=== PATIENT | male | born 1955 | race Caucasian/White ===

== ENCOUNTER 2021-01-05 17:31 | Outpatient (RCR) | payer MEDICARE, OTHER, SELFPAY ==
[2021-01-05] MEDS: COVID-19 VACC, MRNA(PFIZER)/PF 30 MCG/0.3 ML SYRINGE IM (15:04)
[2021-01-26] MEDS: COVID-19 VACC, MRNA(PFIZER)/PF 30 MCG/0.3 ML SYRINGE IM (14:40)
== END 2021-04-06 23:59 ==
LOC: IMMUN 17:31
PROVIDERS: PCP Family Medicine; Visit Provider Family Medicine
DX: Z23 Encounter for immunization (principal)
CPT/HCPCS: 0001A; 0002A; 91300

== ENCOUNTER → 2022-05-11 | Outpatient (CLI) | payer MEDICARE, OTHER, SELFPAY ==
--- NOTE | 2022-05-11 13:57 | ECHOD_ITS ---
Version 2 Reason For Study: CAD Procedure This was a 2D Doppler, Color Flow transthoracic echocardiogram. Exam performed in department. Left Ventricle Normal LV size. Left ventricular systolic function is normal. The estimated ejection fraction is 60 %. Stage 1 diastolic dysfunction. No regional wall motion abnormalities noted. Right Ventricle Normal RV size. Normal systolic function. Atria Normal left atrium. Normal right atrium. Mitral Valve Normal mitral valve. Tricuspid Valve Normal tricuspid valve. Aortic Valve Normal aortic valve. Trisinus/trileaflet aortic valve. Pulmonic Valve Normal pulmonic valve. Great Vessels Normal aortic root. The pulmonary artery is normal size. Normal inferior vena cava. Pericardium/Pleural No pericardial effusion. MMode/2D Measurements & Calculations LVIDd: 3.9 cm IVSd: 1.0 cm LVOT diam: 2.1 cm LVIDs: 1.8 cm LVPWd: 1.4 cm LVOT area: 3.5 cm2 RVDd: 3.4 cm FS: 52.8 % CO(Teich): 5.2 l/min Ao root diam: 2.9 cm LAV(MOD-bp): 32.4 ml LAV(MOD-bp) Indexed: 17.0 ml/m2 LAV(MOD-sp2): 37.5 ml LAV(MOD-sp4): 26.6 ml CO(MOD-sp4): 3.0 l/min LVAd ap4: 21.5 cm2 LVAd ap2: 24.2 cm2 SV(MOD-sp4): 31.5 ml LVLd ap4: 7.0 cm LVLd ap2: 8.1 cm EDV(MOD-sp4): 57.4 ml EDV(MOD-sp2): 60.6 ml EDV(sp4-el): 56.0 ml EDV(sp2-el): 61.2 ml LVAs ap4: 13.5 cm2 LVAs ap2: 14.1 cm2 LVLs ap4: 6.3 cm LVLs ap2: 7.2 cm ESV(MOD-sp4): 25.9 ml ESV(MOD-sp2): 23.7 ml ESV(sp4-el): 24.9 ml ESV(sp2-el): 23.5 ml EF(MOD-sp4): 55.0 % EF(MOD-sp2): 60.9 % EF(sp4-el): 55.6 % SV(MOD-sp2): 36.9 ml SV(sp4-el): 31.1 ml LA A4 area: 13.1 cm2 LA dimension(2D): 3.4 cm RA A4 area: 11.6 cm2 Time Measurements MV dec time: 0.36 sec Doppler Measurements & Calculations MV E max castro: 66.6 cm/sec Lat Peak E' Castro: 8.5 cm/sec Med Peak E' Castro: 5.5 cm/sec MV A max castro: 86.9 cm/sec E/E' lat: 7.8 E/E' med: 12.0 MV E/A: 0.77 MV dec slope: 185.8 cm/sec2 Ao V2 max: 126.7 cm/sec LV V1 max: 85.1 cm/sec Ao max P.4 mmHg LV V1 max P.9 mmHg Ao V2 mean: 88.6 cm/sec LV V1 mean P.8 mmHg Ao mean P.6 mmHg LV V1 mean: 64.5 cm/sec Ao V2 VTI: 23.5 cm LV V1 VTI: 16.8 cm ALEXIS(I,D): 2.5 cm2 ALEXIS(V,D): 2.3 cm2 CO(LVOT): 5.3 l/min PA V2 max: 60.7 cm/sec SV(LVOT): 58.4 ml ECHO/Echo Complete Interpretation Summary Normal LV size. Left ventricular systolic function is normal. The estimated ejection fraction is 60 %. Stage 1 diastolic dysfunction. The global longitudinal strain is borderline abnormal. The global longitudinal strain = -15.9% (abnormal). Structurally normal valves. Ordering Physician: Alfred Jarrett Referring Physician: Abad Ramos M.D. Performed By: Makayla Wilson RDCS
== END | disposition home or self-care (01) ==
LOC: CVS 13:52
PROVIDERS: PCP Family Medicine; Visit Provider Internal Medicine Cardiovascular Disease
DX: Z01.810 Encounter for preprocedural cardiovascular examination (principal)
CPT/HCPCS: 93306

== ENCOUNTER → 2022-05-23 | Outpatient (CLI) | payer MEDICARE, OTHER, SELFPAY ==
--- NOTE | 2022-05-23 09:57 | STRESSREP_ITS ---
Stress Test Report Pharmacologic myocardial perfusion stress test. 67-year-old man for preoperative cardiac evaluation. Stress protocol: Resting EKG demonstrates normal sinus rhythm with a rate of 86 bpm normal intervals are noted resting blood pressure is 142/88 mmHg. 0.4 mg of regadenoson was infused per usual protocol followed by wrap intravenous saline f lush injection continuous EKG monitoring was performed. The maximum heart rate attained was 106 bpm which was 69% of max impacted heart rate the maximum workload was 1 metabolic equivalent. At rest there were no ST or T wave changes noted to suggest abnormal flow reserve and at peak infusion nonspecific ST changes were noted. The peak blood pressure was 142/88 mmHg. Myocardial perfusion protocol. 11.5 mCi of technetium 99m sestamibi was injected at rest. 0.4 mg of regadenoson was infused per usual protocol. At peak infusion 33.6 mCi of technetium 99m sestamibi was injected stress images were obtained stress and rest images were reconstructed and compared in the short axis vertical long and horizontal long axis. Gated images were also obtained. Perfusion SPECT analysis: Review of the stress images demonstrate normal uptake of tracer noted in all areas of the myocardium. The resting images similarly demonstrate normal uptake of tracer noted in all areas of the myocardium. No areas of reversibility are noted suggest ischemia. Gated SPECT analysis: The gated ejection fraction is 59%. Conclusion: Normal pharmacologic myocardial perfusion stress test. Preserved ejection fraction.
== END | disposition home or self-care (01) ==
LOC: CVS 06:04
PROVIDERS: PCP Family Medicine; Referring Provider Internal Medicine Cardiovascular Disease; Visit Provider Internal Medicine Cardiovascular Disease
DX: R06.00 Dyspnea, unspecified (principal); J84.10 Pulmonary fibrosis, unspecified; R09.02 Hypoxemia; I65.23 Occlusion and stenosis of bilateral carotid arteries; I10 Essential (primary) hypertension; E78.5 Hyperlipidemia, unspecified; I25.10 Atherosclerotic heart disease of native coronary artery without angina pectoris
CPT/HCPCS: 78452; 93017; A9500; J7120; A4216; J2785

== ENCOUNTER → 2023-01-31 | Outpatient (CLI) | payer MEDICARE, OTHER, SELFPAY ==
--- NOTE | 2023-01-31 14:48 | RAD_ITS ---
INDICATION: follow up RLL PNA, COPD, pulmonary fibrosis. -- Please compare with 2016 CXR gem thx EXAMINATION/TECHNIQUE: X-RAY - XR Chest 2 Views COMPARISON: None. FINDINGS: LINES/DEVICES: None. LUNGS: Bilateral mid and lower lung interstitial thickening with patchy right greater than left lower lung airspace opacification. Trace effusions. No consolidation, edema or effusion. No pneumothorax. MEDIASTINUM AND CARDIOVASCULAR STRUCTURES: Cardiac silhouette not enlarged.Mild aortic atherosclerosis. BONES AND SOFT TISSUES: Unremarkable. RAD/Chest PA and Lateral IMPRESSION: Patchy right greater than left basilar airspace opacities with trace effusions concerning for pneumonia, superimposed on chronic basilar interstitial coarsening Electronically Signed: Ze Iglesias MD at 5:01 EDT ,
== END | disposition home or self-care (01) ==
PROVIDERS: PCP Family Medicine; Visit Provider Internal Medicine
DX: J84.10 Pulmonary fibrosis, unspecified (principal); J44.9 Chronic obstructive pulmonary disease, unspecified
CPT/HCPCS: 71046

== ENCOUNTER → 2023-08-15 | Outpatient (CLI) | payer MEDICARE, OTHER, SELFPAY ==
--- NOTE | 2023-08-15 13:10 | CT_ITS ---
EXAM: CT CHEST, LUNG CANCER SCREENING WITHOUT INTRAVENOUS CONTRAST CLINICAL INDICATION: smoker TECHNIQUE: Helically acquired images were obtained of the chest without intravenous contrast using low dose (LDCT) lung cancer screening protocol. This CT exam was performed using one or more of the following dose reduction techniques: automated exposure control, adjustment of the mA and/or kV according to patient size, and/or use of iterative reconstruction technique. COMPARISON: No relevant prior studies available. FINDINGS: LUNGS AND PLEURAL SPACES: Extensive diffuse emphysematous changes of the lungs noted. Consolidation of the right lower lobe suggestive of pneumonia associated with small right pleural effusion. Follow-up recommended to exclude underlying neoplasm. Calcified granulomata noted within the right lower lobe. No mass. HEART: Normal. Heart size is normal. No pericardial effusion. No significant coronary artery calcifications. MEDIASTINUM: 3.2 cm subcarinal lymph node is highly suspicious for metastatic disease. Mildly enlarged AP window and paratracheal lymph nodes noted as well. Small calcified right hilar lymph nodes. Esophagus is unremarkable. No hiatal hernia. THYROID: Normal. No thyroid nodules or calcification. BONES/JOINTS: No suspicious lytic or blastic abnormality. VASCULATURE: Normal. Thoracic aorta is non-dilated. LYMPH NODES: See above. CT/Low Dose CT Lung Screening IMPRESSION: 1. Extensive consolidation of the right lower lobe which may represent pneumonia. Follow-up recommended to exclude underlying neoplasm. 2. Extensive pulmonary emphysema. 3. Small right pleural effusion. 4. 3.2 cm subcarinal mass highly suspicious for metastatic disease. Lung-RADS score: 0S - Incomplete. Additional clinically significant or potentially clinically significant findings are described. Additional lung cancer screening CT images are needed. Electronically Signed: Antoni Kate MD at 16:49 EDT ,
== END | disposition home or self-care (01) ==
LOC: CT 13:02
PROVIDERS: Referring Provider Nurse Practitioner Acute Care; Visit Provider Nurse Practitioner Acute Care
DX: F17.210 Nicotine dependence, cigarettes, uncomplicated (principal)
CPT/HCPCS: 71271

== ENCOUNTER → 2023-08-21 | Outpatient (CLI) | payer MEDICARE, OTHER, SELFPAY ==
[2023-08-21 13:05] LABS: Platelet Count 303 K/mm3 (150-450)
== END | disposition home or self-care (01) ==
LOC: LAB 12:15
PROVIDERS: Referring Provider Nurse Practitioner Acute Care; Visit Provider Nurse Practitioner Acute Care
DX: I48.91 Unspecified atrial fibrillation (principal); R06.00 Dyspnea, unspecified
CPT/HCPCS: 36415; 85049

== ENCOUNTER → 2023-08-24 | Outpatient (CLI) | payer MEDICARE, OTHER, SELFPAY ==
[2023-08-24 11:21] LABS: International Normalized Ratio 1.1; Prothrombin Time (Protime)PT. 13.9 SECONDS (11.7-14.9)
[2023-08-24 11:30] LABS: Partial Thromboplast Time 35.5 Seconds (24.1-36.2)
== END | disposition home or self-care (01) ==
PROVIDERS: Referring Provider Nurse Practitioner Acute Care; Visit Provider Nurse Practitioner Acute Care
DX: Z01.818 Encounter for other preprocedural examination (principal)
CPT/HCPCS: 85610; 85730

== ENCOUNTER 2023-10-09 08:36 | Outpatient (CLI) | payer MEDICARE, OTHER, SELFPAY ==
[2023-10-09] VITALS (18 sets, daily range): BP systolic 99–148; BP diastolic 53–89; PULSE 87–100; RESP 18–32; TEMP 36.8; O2SAT 90–100; BMI 27.3
--- NOTE | 2023-10-09 | IMM_PTH ---
PATHOLOGY RESULTS PATIENT: HAYDEN MOREIRA LOC: CT U#:[id number] AGE/SX: 68/M ROOM: RE10/09/[address]: HUSSAIN Lainez : 1955 BED: DIS: 10/09/2023 SPEC #: [id number] RECD: 10/09/23 14:22 STATUS: EDIE REQ #: [id number] CORET[place]: 10/09/23 00:[address]: Radha Martin NP DEPT: IMMUNOHISTOCHEMISTRY RECD BY: Juanita Chi ENTERED: 10/09/23 14:25 SP TYPE: IMMUNO OTHR DR: Dr. Ismael Joyce, HUSSAIN Jenkins Tissues: Right lower lobe of lung, NOS Procedures: RCC (add) NAPSIN A (add) CK20 (add) CK5-6 (add) CK7 (add) CK8 (add) HEP PAR (add) TTF1 (add) Pankeratin (initial) P40 (add) PSAP (add) PHYSICIAN & [address] [address] SPECIMEN INFORMATION: Tissue Source: Right lower lobe of lung Clinical Info: Right lower lobe of lung Specimen Number: [id number] CPT code: 02828, 93076 x10 METHODOLOGY: Deparaffinized sections of prefer/formalin-fixed tissue or PAP/DQ stained slides are incubated with monoclonal/polyclonal antibodies/oligonucleotide probes. Localization is made via biotin free immunoperoxidase method. Appropriate controls are performed and reacted as expected. Results on target cell population are indicated in the following table: RESULTS: ANTIBODY / CLONE RESULT AE1-3 (AE1/AE3/PCK26) positive CK7 (OV-TL12/30) positive CK8 (65rgknT55) positive CK20 (KS20.8) negative TTF-1 (8G7G3/1) positive Napsin A (Rabbit Polyclonal) positive HepPar (OCh1E5) negative RCC (PN-15) positive, focal and weak PSAP (PASE/4LJ) negative CK5-6 (D5 & 1684) positive, focal P40 (BC28) positive These tests were developed and their performance characteristics determined by [facility]. They may not have been cleared or approved by the U.[place]. Food and Drug Administration. The FDA has determined that such clearance or approval is not necessary. The above immunohistochemical/dualISH markers are ordered and reviewed by the Pathologist. INTERPRETATION: Right lower lobe of lung, CT-guided core biopsy: Non-small cell carcinoma, favor adenocarcinoma with focal squamoid features. See comment. SJ:meron 10/10/2023 Comment: IHC profile is consistent with lung primary. Case has been reviewed in consultation with Dr. Koroma who concurs with the above diagnosis. IDC:[email or web address]
--- NOTE | 2023-10-09 | ASPIGT_PTH ---
PATHOLOGY RESULTS PATIENT: HAYDEN MOREIRA LOC: NM U#:[id number] AGE/SX: 68/M ROOM: RE10/09/[address]: HUSSAIN Lainez : 1955 BED: DIS: 10/09/2023 SPEC #: [id number] RECD: 10/09/23 11:00 STATUS: EDIE ATUL #: [id number] CORET[place]: 10/09/23 00:[address]: Radha Martin NP DEPT: SURGICAL PATHOLOGY RECD BY: Sofia Mehta ENTERED: 10/09/23 11:01 SP TYPE: ASP RAD SATYA DR: DO Gisel Sher NP-C Tissues: Lung, NOS Procedures: FNA Specimen Adequacy Special Stain Group II Surgery Specimen Level IV Imprint (control) HEADER OPERATION: CT guided lung biopsy PRE-OP DIAGNOSIS: New right lung mass TISSUE SUBMITTED: Right lung biopsy MICROSCOPIC DIAGNOSIS Right lung, biopsy: Non-small cell carcinoma. See note and comment. Note: Immunohistochemistry ([id number]) supports the above diagnosis and favors adenocarcinoma with focal squamoid features. IHC profile is consistent with lung primary. MARTHA:meron 10/10/2023 COMMENT The specimen is evaluated at the time of biopsy by Dr. Hernandez. Immediate Evaluation = Malignant cells present derived from non-small cell carcinoma. Molecular studies on the tumor can be performed if clinically indicated. Please notify the laboratory if they are needed. Case has been reviewed in consultation with Dr. Koroma who concurs with the above diagnosis. IDC:AM MICROSCOPIC DESCRIPTION Slides are reviewed. GROSS DESCRIPTION Received in fixative is one container labeled with the patient's name and designated right lung biopsy. The specimen consists of multiple irregular fragments of light urena soft tissue that in aggregate measure 1.0 x 0.2 x 0.1 cm. The specimen is totally submitted in one cassette. Two touch imprints are prepared at the time of core biopsy. / MARTHA:meron 10/09/2023 TC:0 CPT: 14996, 23628 ADDENDUM ADDENDUM 11/23/2023 10:11 PD-L1 ([id number]) IMMUNOHISTOCHEMICAL ANALYSIS FROM [facility] RESULTS: Tumor proportion score: <1% / [facility] FROM [facility] RESULT SUMMARY: Abnormal DETECTED GENOMIC ALTERATIONS: Tier I: Variants of Strong Clinical Significance PIK3CA p.([id number]) Tier II: Variants of Potential Clinical Significance KRAS p.([id number]) IMMUNOTHERAPY BIOMARKERS: Tumor Mutation Pegram: Low (3.9 Mutations / MB) Microsatellite Instability: MSI Negative (0%) PERTINENT NEGATIVE RESULTS: The following genes are NEGATIVE for clinically relevant mutations. Mutational hotspots and surrounding exonic regions were interrogated for DNA level point mutations and indels (fusions not assayed). AKT1, ALK, ATR, BRAF, CHEK1, DDR2, EGFR, ERBB2, ERBB3, FGFR1, HRAS, MAP2K1, MET, NRAS, NTRK1, POLD1, POLE, ROS1, STK11, TERT, TP53 Please see complete report in e-chart or EMR
[2023-10-09 08:52] LABS: Platelet Count 388 K/mm3 (150-450)
[2023-10-09 09:01] LABS: Prothrombin Time (Protime)PT. 13.5 SECONDS (11.7-14.9)
[2023-10-09 09:02] LABS: Partial Thromboplast Time 40.8 Seconds (24.1-36.2)
--- OUTSIDE RECORDS SUMMARY | 2023-10-09 09:04 | XMS RPT_ITS | CCD ---
Author Name Unknown Address [address] [facility] [address] [place] [address] Organization [facility] Care Team Providers Care Hydro Station Operator Name Role Phone LELA MAYO, SANDY Villanueva Primary Care Physician [phone] Lynda Randle PT Unavailable Unavailable ISMAEL DAUGHERTY DO Primary Care Physician ISMAEL DAUGHERTY DO Attending Unavailable ISMAEL DAUGHERTY DO Primary Care Unavailable YESENIA BOND MD Attending Unavailable ISMAEL DAUGHERTY DO Primary Care Unavailable ISMAEL DAUGHERTY DO Attending Unavailable ISMAEL DAUGHERTY DO Primary Care Unavailable ISMAEL DAUGHERTY DO Primary Care Unavailable ALEXIS PATEL, JOSE Uriarte Admitting Unavail able SUKHJINDER MAYO FACP, HOOD Sexton Consulting Unavail able THU GARCIA Attending Unavailable SHALINI MAYO, DR ROCHA Attending Unavailab ISMAEL Purvis DO Primary Care Unavailable DR KAJAL ADORNO MD Consulting Unavailab TROY Moon DO Attending Unavailable ISMAEL DAUGHERTY DO Primary Care Unavailable ISMAEL DAUGHERTY DO Attending Unavailable ISMAEL DAUGHERTY DO Primary Care Unavailable ANDRY MAYO, DR RDZ Admitting Unavailab ISMAEL Purvis DO Primary Care Unavailable YENIFER MAIN MD Attending Unavailable LORNA REES MD Consulting Unavailable ISMAEL DAUGHERTY DO Attending Unavailable ISMAEL DAUGHERTY DO Primary Care Unavailable Allergies Allergy Classification Reported Allergen(s) Allergy Type Date of Onset Reaction(s) Facility (7 sources) Contrast media; Translations: [iodinated radiocontrast agents] Drug allergy Pruritic disorders (disorder), Bright red color (finding), Weal (disorder) [facility] Medications Current Medications Medication Drug Class(es) Dates Sig (Normalized) Sig (Original) 8 hr acetaminophen 650 mg extended release oral tablet (5 sources) Start: 06-21-2022 Tylenol 8 Hour 650 mg oral tablet, extended release Dose : 1,300 mg = 2 tab(s), Oral, q8h, PRN as needed for pain, # 24 tab(s), 0 Refill(s) Start Date: 06/21/22 Status: Ordered albuterol 0.83 mg/ml inhalation solution (1 source) beta2-Adrenergic Agonist Start: 07-02-2022 albuterol 2.5 mg/3 mL (0.083%) inhalation solution Dose : 2.5 mg = 3 mL, Inhalation, q6hRT, PRN Wheezing, # 300 mL, 6 Refill(s) Start Date: 07/02/22 Status: Ordered albuterol 0.833 mg/ml / ipratropium bromide 0.167 mg/ml inhalation solution (7 sources) Anticholinergic, beta2-Adrenergic Agonist Start: 04-13-2023 take 1 dose by inhalation four times daily as needed for wheezing albuterol-ipratro pium 2.5 mg-0.5 mg/3 mL inhalation solution Dose = 3 mL, Inhalation, QID, PRN as needed for shortness of breath or wheezing, # 180 mL, 0 Refill(s), Pharmacy: [facility] #[id number], 170.2, cm, 04/11/23 1:00:00 EDT, Height Start Date: 04/13/23 Status: Ordered Completed/Discontinued Medications Medication Drug Class(es) Dates Sig (Normalized) Sig (Original) predniSONE 10 mg oral tablet (3 sources) Start: 04-14-2023 End: 04-20-2023 take 1 tablet by mouth once daily prednisone 10mg tab (TAPER) Taper 40-20-10 mg x 2 days each dose, Oral, Daily, # 14 tab(s), 0 Refill(s), Pharmacy: [facility] #[id number], 170.2, cm, 04/11/23 1:00:00 EDT, Height Start Date: 04/14/23 Stop Date: 04/20/23 Status: Ordered Problems Problem Classification Problem Date Documented Date Episodic/Chronic Anxiety disorders (12 sources) Anxiety; Translations: [Anxiety disorder] 12-18-2020 Chronic Chronic obstructive pulmonary disease and bronchiectasis (15 sources) Chronic obstructive lung disease; Translations: [Pulmonary emphysema] 08-28-2019 Chronic Diseases of white blood cells (6 sources) Chronic neutrophilia; Translations: [Leukocytosis] 01-17-2023 Chronic Disorders of lipid metabolism (13 sources) Mixed hyperlipidemia; Translations: [Hyperlipidemia] 08-28-2019 Chronic Essential hypertension (14 sources) Hypertensive disorder; Translations: [Essential hypertension] Onset: 01-17-2023 10-05-2015 Chronic Fluid and electrolyte disorders (6 sources) Hyperkalemia 11-14-2022 Episodic Occlusion or stenosis of precerebral arteries (6 sources) Carotid artery stenosis; Translations: [Carotid artery occlusion] 01-14-2021 Chronic Other lower respiratory disease (7 sources) Interstitial lung disease; Translations: [Interstitial pulmonary disease, unspecified] 07-13-2022 Chronic Other lower respiratory disease (1 source) Fibrosis of lung; Translations: [Pulmonary fibrosis, unspecified] Chronic Other lower respiratory disease (1 source) H/O: respiratory disease; Translations: [Personal history of other diseases of the respiratory system] Episodic Other lower respiratory disease (6 sources) Hypoxia 11-10-2022 Episodic Other nutritional; endocrine; and metabolic disorders (6 sources) Overweight in adulthood with body mass index of 25 or more but less than 30 07-13-2022 Episodic Other upper respiratory disease (11 sources) Allergic rhinitis; Translations: [Allergic rhinitis, unspecified] 08-28-2019 Chronic Other upper respiratory infections (5 sources) Acute maxillary sinusitis 10-24-2019 Episodic Pneumonia (except that caused by tuberculosis or sexually transmitted disease) (4 sources) Pneumonia 07-29-2018 Episodic Respiratory failure; insufficiency; arrest (adult) (10 sources) Dependence on supplemental oxygen; Translations: [Rndfg-yq-hfujnsz respiratory failure] 08-24-2022 Chronic Screening and history of mental health and substance abuse codes (6 sources) Ex-smoker 07-13-2022 Episodic Spondylosis; intervertebral disc disorders; other back problems (2 sources) Neck pain 10-24-2019 Episodic Substance-related disorders (4 sources) Smoker 10-05-2015 Chronic Unclassified (8 sources) Drug therapy finding 06-21-2022 Unclassified (6 sources) Long-term current use of benzodiazepine 08-24-2022 Unclassified (3 sources) Patient encounter status 08-24-2022 Results Test Name Value Interpretation Reference Range Facil ity Vital Signs Date Time Vital Sign Value Performing Clinician Faci lity 04-13-2023 10:04-[address] Pressure Cuff Size DR KAJAL ADORNO MD [facility] 04-13-2023 10:04-[address] KAJAL ADORNO MD [address] [place] [address] 04-13-2023 10:04-[address] KAJAL ADORNO MD [address] [place] [address] 04-13-2023 10:04-0400 Body temperature 97.7 [degF] DR KAJAL ADORNO MD [address] [place] [address] 04-13-2023 10:04-0400 Diastolic Blood Pressure Non-Invasive [address] KAJAL ADORNO MD [address] [place] [address] 04-13-2023 10:04-0400 Heart rate 89 /min DR KAJAL ADORNO MD [address] [place] [address] 04-13-2023 10:04-0400 Reason For Taking VItal Signs DR KAJAL ADORNO MD [address] [place] [address] 04-13-2023 10:04-0400 Respiratory rate 20 /min DR KAJAL ADORNO MD [address] [place] [address] 04-13-2023 10:04-0400 Systolic Blood Pressure Non-Invasive [address] KAJAL ADORNO MD [address] [place] [address] 04-13-2023 09:56-0400 Heart rate 83 /min DR KAJAL ADORNO MD [address] [place] [address] 04-13-2023 09:56-0400 Respiratory rate 20 /min DR KAJAL ADORNO MD [address] [place] [address] 04-13-2023 06:41-0400 Blood Pressure Cuff Size DR KAJAL ADORNO MD [address] [place] [address] 04-13-2023 06:41-[address] KAJAL ADORNO MD [address] [place] [address] 04-13-2023 06:41-[address] KAJAL ADORNO MD [address] [place] [address] 04-13-2023 06:41-0400 Body temperature 97.7 [degF] DR KAJAL ADORNO MD [address] [place] [address] 04-13-2023 06:41-0400 Diastolic Blood Pressure Non-Invasive [address] KAJAL ADORNO MD [address] [place] [address] 04-13-2023 06:41-0400 Heart rate 78 /min DR KAJAL ADORNO MD [address] [place] [address] 04-13-2023 06:41-0400 Reason For Taking VItal Signs DR KAJAL ADORNO MD [address] [place] [address] 04-13-2023 06:41-0400 Respiratory rate 22 /min DR KAJAL ADORNO MD [address] [place] [address] 04-13-2023 06:41-0400 Systolic Blood Pressure Non-Invasive [address] KAJAL ADORNO MD [address] [place] [address] 04-13-2023 02:26-0400 Blood Pressure Cuff Size DR KAJAL ADORNO MD [address] [place] [address] 04-13-2023 02:26-[address] KAJAL ADORNO MD [address] [place] [address] 04-13-2023 02:26-[address] KAJAL ADORNO MD [address] [place] [address] 04-13-2023 02:26-0400 Body temperature 97.88 [degF] DR KAJAL ADORNO MD [address] [place] [address] 04-13-2023 02:26-0400 Diastolic Blood Pressure Non-Invasive [address] KAJAL ADORNO MD [address] [place] [address] 04-13-2023 02:26-0400 Heart rate 95 /min DR KAJAL ADORNO MD [address] [place] [address] 04-13-2023 02:26-0400 Reason For Taking VItal Signs DR KAJAL ADORNO MD [address] [place] [address] 04-13-2023 02:26-0400 Systolic Blood Pressure Non-Invasive [address] KAJAL ADORNO MD [facility] 04-12-2023 22:24-0400 Heart rate 105 /min DR KAJAL ADORNO MD [facility] 04-12-2023 18:33-0400 Heart rate 95 /min DR KAJAL ADORNO MD [facility] 04-11-2023 01:00-0400 Body height 170.[address] KAJAL ADORNO MD [facility] 04-11-2023 01:00-0400 Body weight 79.[address] KAJAL ADORNO MD [facility] 04-11-2023 01:00-0400 Body weight 27.44 kg/m2 DR KAJAL ADORNO MD [facility] 07-02-2022 15:42-0400 Body temperature 98.24 [degF] YESENIA BOND MD [facility] 07-02-2022 15:42-0400 Diastolic Blood Pressure NBP 81 1 YESENIA BOND MD [facility] 07-02-2022 15:42-0400 Heart rate 99 /min YESENIA BOND MD [facility] 07-02-2022 15:42-0400 Mean blood pressure 98 mm[Hg] YESENIA BOND MD [facility] 07-02-2022 15:42-0400 Reason For Taking VItal Signs YESENIA OBND MD [facility] 07-02-2022 15:42-0400 Respiratory rate 18 /min YESENIA BOND MD [facility] 07-02-2022 15:42-0400 Systolic Blood Pressure NBP 141 1 YESENIA BOND MD [facility] 07-02-2022 15:03-0400 Heart rate 94 /min YESENIA BOND MD [facility] 07-02-2022 15:03-0400 Respiratory rate 18 /min YESENIA BOND MD [facility] 07-02-2022 13:22-0400 Respiratory rate 16 /min YESENIA BOND MD [facility] 07-02-2022 11:20-0400 Body temperature 98.06 [degF] YESENIA BOND MD [facility] 07-02-2022 11:20-0400 Diastolic Blood Pressure NBP 87 1 YESENIA BOND MD [facility] 07-02-2022 11:20-0400 Heart rate 97 /min YESENIA BOND MD [facility] 07-02-2022 11:20-0400 Mean blood pressure 102 mm[Hg] YESENIA BOND MD [facility] 07-02-2022 11:20-0400 Reason For Taking VItal Signs YESENIA BOND MD [facility] 07-02-2022 11:20-0400 Systolic Blood Pressure NBP 137 1 YESENIA BOND MD [facility] 07-02-2022 11:06-0400 Heart rate 82 /min YESENIA BOND MD [facility] 07-02-2022 11:06-0400 Reason For Taking VItal Signs YESENIA BOND MD [facility] 07-02-2022 10:53-0400 Heart rate 82 /min YESENIA BOND MD [facility] 07-02-2022 06:50-0400 Heart rate 98 /min YESENIA BOND MD [facility] 07-02-2022 04:32-0400 Body temperature 97.7 [degF] YESENIA BOND MD [facility] 07-02-2022 04:32-0400 Diastolic Blood Pressure NBP 86 1 YESENIA BOND MD [facility] 07-02-2022 04:32-0400 Mean blood pressure 108 mm[Hg] YESENIA BOND MD [facility] 07-02-2022 04:32-0400 Systolic Blood Pressure NBP 163 1 YESENIA BOND MD [facility] 06-30-2022 21:16-0400 Diastolic blood pressure 66 mm[Hg] YESENIA BOND MD [facility] 06-30-2022 21:16-0400 Mean blood pressure 95 mm[Hg] YESENIA BOND MD [facility] 06-30-2022 21:16-0400 Systolic blood pressure 154 mm[Hg] YESENIA BOND MD [facility] 06-30-2022 20:30-0400 Diastolic blood pressure 69 mm[Hg] YESENIA BOND MD [facility] 06-30-2022 20:30-0400 Mean blood pressure 99 mm[Hg] YESENIA BOND MD [facility] 06-30-2022 20:30-0400 Systolic blood pressure 157 mm[Hg] YESENIA BOND MD [facility] 06-30-2022 20:00-0400 Mean blood pressure 118 mm[Hg] YESENIA BOND MD [facility] 06-30-2022 19:42-0400 Diastolic blood pressure 84 mm[Hg] YESENIA BOND MD [facility] 06-30-2022 19:42-0400 Systolic blood pressure 175 mm[Hg] YESENIA BOND MD [facility] 06-30-2022 17:05-0400 Diastolic blood pressure 83 mm[Hg] YESENIA BOND MD [facility] 06-30-2022 17:05-0400 Mean blood pressure 112 mm[Hg] YESENIA BOND MD [facility] 06-30-2022 17:05-0400 Systolic blood pressure 171 mm[Hg] YESENIA BOND MD [facility] 06-30-2022 11:50-0400 Body temperature 99.05 [degF] YESENIA BOND MD [facility] 06-30-2022 11:45-0400 Body temperature 99.03 [degF] YESENIA BOND MD [facility] 06-30-2022 11:40-0400 Body temperature 99.01 [degF] YESENIA BOND MD [facility] 06-30-2022 10:38-0400 SaO2% (BldA) [Mass fraction] 99.3 % YESENIA BOND MD [facility] 06-30-2022 07:55-0400 Body height 170.2 cm YESENIA BOND MD [facility] 06-30-2022 07:55-0400 Body weight 77.2 kg YESENIA BOND MD [facility] 06-30-2022 07:55-0400 Body weight 26.65 kg/m2 YESENIA BOND MD [facility] 06-30-2022 07:55-0400 diastolic 83 mm[Hg] YESENIA BOND MD [facility] 06-30-2022 07:55-0400 systolic 158 mm[Hg] YESENIA BOND MD [facility] 06-21-2022 12:04-0400 Body height 170.2 cm YESENIA BOND MD [facility] 06-21-2022 12:04-0400 Body temperature 98.06 [degF] YESENIA BOND MD [facility] 06-21-2022 12:04-0400 Body weight 78.5 kg YESENIA BOND MD [facility] 06-21-2022 12:04-0400 Body weight 27.1 kg/m2 YESENIA BOND MD [facility] 06-21-2022 12:04-0400 diastolic 87 mm[Hg] YESENIA BOND MD [facility] 06-21-2022 12:04-0400 Heart rate 97 /min YESENIA BOND MD [facility] 06-21-2022 12:04-0400 systolic 151 mm[Hg] YESENIA BOND MD [facility] Encounters Encounter Date Encounter Type Care Provider Facility Start: 09-09-2023 End: 09-09-2023 Emergency department patient visit TROY BENITES DO Facility:B Start: 07-12-2023 End: 07-13-2023 ambulatory ISMAEL DAUGHERTY DO Facility:B Start: 07-12-2023 End: 07-12-2023 Patient encounter procedure ISMAEL DAUGHERTY DO [facility] Start: 07-12-2023 End: 07-12-2023 Well adult monitoring check done ISMAEL DAUGHERTY DO [facility] Start: 07-10-2023 End: 07-11-2023 ambulatory YESENIA BOND MD Facility:B Start: 07-10-2023 End: 07-10-2023 Patient encounter procedure YESENIA BOND MD [facility] Start: 04-11-2023 End: 04-13-2023 Evaluation and management of inpatient DR KAJAL ADORNO MD Facility:A Start: 04-10-2023 End: 04-13-2023 Evaluation and management of inpatient DR KAJAL ADORNO MD [facility] Start: 04-10-2023 End: 04-11-2023 Emergency department patient visit DR JOSEFINA LOYA MD Facility:B Start: 01-24-2023 End: 01-25-2023 ambulatory ISMAEL E DAUGHERTY DO Facility:B Start: 01-24-2023 End: 01-24-2023 Patient encounter procedure ISMAEL E DAUGHERTY DO [facility] Start: 01-17-2023 End: 01-22-2023 ambulatory ISMAEL E DAUGHERTY DO Facility:B Start: 01-17-2023 End: 01-21-2023 Outreach Lab ISMAEL E DAUGHERTY DO [facility] Start: 01-10-2023 End: 01-11-2023 ambulatory ISMAEL E DAUGHERTY DO Facility:B Start: 01-10-2023 End: 01-10-2023 Patient encounter procedure ISMAEL E DAUGHERTY DO [facility] Start: 11-09-2022 End: 11-15-2022 Evaluation and management of inpatient ISMAEL E DAUGHERTY DO Facility:B Start: 06-30-2022 End: 07-02-2022 Evaluation and management of inpatient YESENIA BOND MD [facility] Start: 06-21-2022 End: 06-21-2022 Admission to [facility] YESENIA BOND MD [facility] Start: 01-03-2022 End: 01-03-2022 Patient encounter procedure SANDY VOGEL MD [facility] Start: 12-28-2021 End: 12-28-2021 Patient encounter procedure SANDY VOGEL MD [facility] Procedures Date Procedure Procedure Detail Performing Clinician Carotid artery struc ture (body structure) ISMAEL DAUGHERTY DO History of carotid endarterectomy History of left-sided carotid endarterectomy ISMAEL DAUGHERTY DO None (qualifier value) ANNEL VOGEL MD Immunizations Immunization Date Immunization Notes Care Provider [facility] 05-19-2023 tetanus toxoid, redu morena diphtheria toxoid, and acellular pertussis vaccine, adsorbed YESENIA BOND MD [facility] 05-19-2023 zoster vaccine recombinant YESENIA BOND MD [facility] 08-18-2022 influenza virus vacc ine, unspecified formulation [facility] DO [facility] 06-16-2022 pneumococcal polysaccharide vaccine, 23 valent YESENIA BOND MD [facility] 08-26-2021 influenza virus vacc ine, unspecified formulation YESENIA BOND MD [facility] 07-28-2021 SARS-CoV-2 mRNA (tozinameran) vaccine SANDY VOGEL MD [facility] 05-27-2021 pneumococcal conjuga te vaccine, 13 valent SANDY VOGEL MD [facility] 01-26-2021 SARS-CoV-2 mRNA (tozinameran) vaccine SANDY VOGEL MD [facility] 01-05-2021 SARS-CoV-2 mRNA (rafiqzinammeaghan) vaccine SANDY VOGEL MD [facility] Payers Date Payer Category Payer Medicare [id number] 2022 Unknown [id number] 1955 Unknown [id number] 2.16.8 [id number] 1955 Unknown [id number] 2.16.8 [id number] 1954 Unknown [id number] 2.16.8 [id number] 1954 Unknown [id number] 2.16.8 [id number] 1954 Unknown [id number] 2.16.8 [id number] 1954 Unknown [id number] 2.16.8 [id number] 1954 Unknown [id number] 2.16.8 [id number] 1954 Unknown [id number] 2.16.8 [id number] 1954 Unknown [id number] 2.16.8 [id number] Social History Date Type Detail Facility Start: 06-04-2021 End: 06-21-2022 Ex-smoker (finding) [facility] Sex Assigned At Male [facility] Tobacco smoking status Smokeless tobacco user within last 30 days [facility] Functional Status Date Assessment Result Facility 04-13-2023 Functional Status Identified as high risk, Bed alert on, Door open, Room check performed [facility] 04-13-2023 Functional Status [facility] 04-13-2023 Functional Status [facility] 04-12-2023 Functional Status Skin Care Prev entative Intervention(s) heel(s)s elevated [facility] 04-12-2023 Functional Status Dinner Percent 100 [facility] 04-12-2023 Functional Status [facility] 04-12-2023 Functional Status [facility] 04-12-2023 Functional Status Done [facility] 04-11-2023 Functional Status [facility] 04-11-2023 Functional Status [facility] 04-11-2023 Functional Status [facility] b ed [facility] 04-11-2023 Functional Status Split level home [facility] 04-11-2023 Functional Status Sensory Deficits None A [facility] 07-02-2022 Functional Status Non-Slip footw ear, Room check performed [facility] 07-02-2022 Functional Status [facility] 07-02-2022 Functional Status [facility] 07-02-2022 Functional Status [facility] 07-01-2022 Functional Status [facility] 07-01-2022 Functional Status 100 [facility] 07-01-2022 Functional Status Ambulation in Rouse [facility] 07-01-2022 Functional Status Multilevel home [facility] 07-01-2022 Functional Status [facility] 07-01-2022 Functional Status SCD On/Re-applied bilat eral knee high [facility] 06-30-2022 Functional Status ice chips and sips take n [facility] Mental Status Date Assessment Result Facility 04-13-2023 Mental Status Orientation Oriented x 4 [facility] 04-13-[address] [facility] 04-12-[address] [facility] 04-12-2023 Mental Status Oriented x 4 [facility] 04-11-[address] [facility] 07-02-2022 Mental Status Oriented x [address] [facility] 07-02-[address] [facility] 07-02-[address] [facility] 07-01-[address] [facility] Clinical Notes 10-20-2021 to 04-13-2023 Note Date & Type Note Facility 04-13-2023 Discharge summary Date of Service 04/13/23 Discharge Diagnosis 1. Acute on chronic hypoxic respiratory failure 2. Acute COPD exacerbation 3. Pulmonary fibrosis 4. Hypertension 5. History of left carotid endarterectomy Hospital Course Mr. Moreira is a 68-year-old male past medical history significant for COPD with chronic respiratory failure on 5 L nasal cannula followed by Dr. Tobin in [place], anxiety, hypertension and dyslipidemia who presented to the hospital 04/10/2023 with complaints of shortness of breath. This had gotten progressively worse over approximately 3 days prior to admission. He had desaturated down to 79% at home so he presented to [facility] ED for evaluation. Initially he was placed on nonrebreather. Patient was found to have acute on chronic hypoxic respiratory failure due to acute COPD exacerbation. He was treated with Solu-Medrol, DuoNebs, budesonide and Rocephin for possible acute bronchitis. Patient seen today, his shortness of breath improved, able to ambulate without any difficulty, stable to be discharged home on steroid taper and cefdinir. Allergies Contrast dye (Pruritus of skin, Bright redness, Hives) Consults Consult to Physician - Ordered -- 04/11/23 17:47:00 EDT, LORNA REES MD, Routine, pt With acute on chronic hypoxic respiratory failure, COPD exacerbation, pulmonary fibrosis Physical Exam Vitals and Measurements T: 36.5 C (Oral) TMIN: 36.5 C (Oral) TMAX: 36.6 C (Oral) HR: 89 RR: 20 BP: 116/64 SpO2: 91% Weight Dosing Weight: 79.5 kg (04/11/23) General Appearance: Patient appears healthy, well-developed, not in any acute distress. Cardiac: Normal rate and rhythm, S1-S2 heard, no murmurs heard. Lungs: Slightly diminished breath sounds, no wheezing , with crackles at right lung base Abdomen: Soft nontender, nondistended, no organomegaly. Musculoskeletal: No tenderness or deformity. Extremities: No pedal edema. Neurological: Alert ,oriented, no focal deficits. Code Status No qualifying data available. Admission Date 04/11/2023 Discharge Date 04/13/2023 Medications New Prescription albuterol-ipratropium (albuterol-ipratropium 2.5 mg-0.5 mg/3 mL inhalation solution)3 Milliliter by inhalation four (4) times a day as needed as needed for shortness of breath or wheezing. Refills: 0. cefdinir (cefdinir 300 mg oral capsule)1 cap by mouth every 12 hours for 5 Days. Refills: 0. predniSONE (prednisone 10mg tab (TAPER))Taper 40-20-10 mg x 2 days each dose by mouth every day for 6 Days. Refills: 0. Unchanged aspirin (aspirin 81 mg oral delayed release tablet)1 tab(s) by mouth once a day (in the morning). Dr. Bond advised to coninue prior to OR on 07/01/22 per pt.. Refills: 3. atorvastatin (atorvastatin 40 mg oral tablet)1 tab(s) by mouth once a day (in the morning). budesonide-formoterol (Symbicort 160 mcg-4.5 mcg/inh Inhaler)2 puff(s) by inhalation two (2) times a day. Refills: 0. lisinopril (lisinopril 40 mg oral tablet)1 tab(s) by mouth once a day (in the morning). Refills: 3. tiotropium (Spiriva Respimat 60 ACT 2.5 mcg/inh inhalation aerosol)2 puff(s) by inhalation once a day. venlafaxine (venlafaxine 150 mg oral capsule, extended release)1 cap by mouth once a day (in the morning). Refills: 3. Follow Up Follow Up with MAISHA TOBIN When Within 3-5 days Where: [address] [place] [address]- Follow Up with ISMAEL DAUGHERTY DO When Within 1-2 days Why: Please call the office to schedule a follow up appointment. Where: [address] [place] [address]- Follow Up Appointments No qualifying data available. Follow Up Labs/Studies Discharge Labs No Follow-up Labs Discharge Studies No Follow-up Studies Discharge Diet Discharge Diet - Ordered -- Type of Diet: Regular, 04/13/23 12:33:00 EDT Discharge Activity Discharge Activity - Ordered -- Resume your pre-hospitalization activity, 04/13/23 12:33:00 EDT Condition on Discharge Stable Discharge Disposition Home Time Spent More than 30 minutes spent in discharge planning Digitally Signed by YENIFER MAIN MD on 04/13/2023 08:00 PM [facility] 04-13-2023 Hospital Discharge instructions Patient Education 04/13/2023 12:47:36 Chronic Obstructive Pulmonary Disease, Dwfp-eh-Nley Chronic Obstructive Pulmonary Disease Chronic obstructive pulmonary disease (COPD) is a long-term (chronic) lung problem. When you have COPD, it is hard for air to get in and out of your lungs. Usually the condition gets worse over time, and your lungs will never return to normal. There are things you can do to keep yourself as healthy as possible. Your doctor may treat your condition with: ?Medicines. ?Oxygen. ?Lung surgery. Your doctor may also recommend: ?Rehabilitation. This includes steps to make your body work better. It may involve a team of specialists. ?Quitting smoking, if you smoke. ?Exercise and changes to your diet. ?Comfort measures (palliative care). Follow these instructions at home: Medicines Take vpdb-nep-ugbemeg and prescription medicines only as told by your doctor. Talk to your doctor before taking any cough or allergy medicines. You may need to avoid medicines that cause your lungs to be dry. Lifestyle If you smoke, stop. Smoking makes the problem worse. If you need help quitting, ask your doctor. Avoid being around things that make your breathing worse. This may include smoke, chemicals, and fumes. Stay active, but remember to rest as well. Learn and use tips on how to relax. Make sure you get enough sleep. Most adults need at least 7 hours of sleep every night. Eat healthy foods. Eat smaller meals more often. Rest before meals. Controlled breathing Learn and use tips on how to control your breathing as told by your doctor. Try: Breathing in (inhaling) through your nose for 1 second. Then, pucker your lips and breath out (exhale) through your lips for 2 seconds. Putting one hand on your belly (abdomen). Breathe in slowly through your nose for 1 second. Your hand on your belly should move out. Pucker your lips and breathe out slowly through your lips. Your hand on your belly should move in as you breathe out. Controlled coughing Learn and use controlled coughing to clear mucus from your lungs. Follow these steps: 1.Lean your head a little forward. 2.Breathe in deeply. 3.Try to hold your breath for 3 seconds. 4.Keep your mouth slightly open while coughing 2 times. 5.Spit any mucus out into a tissue. 6.Rest and do the steps again 1 or 2 times as needed. General instructions Make sure you get all the shots (vaccines) that your doctor recommends. Ask your doctor about a flu shot and a pneumonia shot. Use oxygen therapy and pulmonary rehabilitation if told by your doctor. If you need home oxygen therapy, ask your doctor if you should buy a tool to measure your oxygen level (oximeter). Make a COPD action plan with your doctor. This helps you to know what to do if you feel worse than usual. Manage any other conditions you have as told by your doctor. Avoid going outside when it is very hot, cold, or humid. Avoid people who have a sickness you can catch (contagious). Keep all follow-up visits as told by your doctor. This is important. Contact a doctor if: You cough up more mucus than usual. There is a change in the color or thickness of the mucus. It is harder to breathe than usual. Your breathing is faster than usual. You have trouble sleeping. You need to use your medicines more often than usual. You have trouble doing your normal activities such as getting dressed or walking around the house. Get help right away if: You have shortness of breath while resting. You have shortness of breath that stops you from: ?Being able to talk. ?Doing normal activities. Your chest hurts for longer than 5 minutes. Your skin color is more blue than usual. Your pulse oximeter shows that you have low oxygen for longer than 5 minutes. You have a fever. You feel too tired to breathe normally. Summary Chronic obstructive pulmonary disease (COPD) is a long-term lung problem. The way your lungs work will never return to normal. Usually the condition gets worse over time. There are things you can do to keep yourself as healthy as possible. Take bfjy-vlv-peseyyt and prescription medicines only as told by your doctor. If you smoke, stop. Smoking makes the problem worse. This information is not intended to replace advice given to you by your health care provider. Make sure you discuss any questions you have with your health care provider. Document Released: 04/03/2009 Document Revised: 09/28/2018 Document Reviewed: 11/20/2017 [employer] Patient Education 2020 [employer]. Follow Up Care 04/11/2023 00:42:25 With:MAISHA TOBIN Address: [address] [place] [address]- When:3-5 days With:ISMAEL DAUGHERTY DO Address: [address] [place] [phone]- When:1-2 days Comments:Please call the office to schedule a follow up appointment. [facility] 04-13-2023 Note Discharge Instructions Thank you for allowing [facility] to assist you with your healthcare needs. The following is important discharge information regarding your hospital visit. Your Care Team ISMAEL DAUGHERTY DO What to do next Follow Up Appointments Follow Up with MAISHA TOBIN When Within 3-5 days Where: [address] [place] [address]- Follow Up with ISMAEL DAUGHERTY DO When Within 1-2 days Why: Please call the office to schedule a follow up appointment. Where: [address] [place] [phone] The Following Activity and Diet Have Been Ordered for You Discharge Activity - Ordered -- Resume your pre-hospitalization activity, 04/13/23 12:33:00 EDT Discharge Diet - Ordered -- Type of Diet: Regular, 04/13/23 12:33:00 EDT The Following Equipment Has Been Ordered for You Discharge Home Equipment Discharge Home Equipment - Ordered -- Nebulizer including all related supplies, month(s), 04/13/23 12:27:00 EDT Discharge Oxygen Therapy - Ordered -- Oxygen, Mobile in the Home Portable O2, Nasal Cannula, 5 liters per minute, month(s), 04/13/23 12:33:00 EDT The Following Treatments Have Been Ordered for You Discharge Labs No qualifying data available. Discharge Radiology No qualifying data available. Other Therapies No qualifying data available. Post Acute Orders No qualifying data available. Someone Will Contact You Regarding These Home Health Referrals No home referrals have been ordered for you. No one will call you. Allergies Contrast dye (Pruritus of skin, Bright redness, Hives) Medications Please ask your primary doctor or pharmacist before taking any other medication not listed, including over the counter drugs, herbal medications, vitamins and or supplements as they may interact with your home medications. What How Much When Why Instructions Last Dose New albuterol-ipratropium (albuterol-ipratropium 2.5 mg-0.5 mg/ 3 mL inhalation solution) 3 Milliliter by inhalation Four (4) times a day as needed for as needed for shortness of breath or wheezing Pickup at [facility] #[id number] New cefdinir (cefdinir 300 mg oral capsule) 1 cap by mouth Every 12 hours Duration: 5 Days Pickup at [id number] New predniSONE (prednisone 10mg tab (TAPER)) Taper 40-20-10 mg x 2 days each dose by mouth Every day Duration: 6 Days Pickup at [facility][id number] Unchanged aspirin (aspirin 81 mg oral delayed release tablet) 1 tab(s) by mouth Once a day (in the morning) Dr. Bond advised to coninue prior to OR on per pt. Unchanged atorvastatin (atorvastatin 40 mg oral tablet) 1 tab(s) by mouth Once a day (in the morning) Unchanged budesonide-formoterol (Symbicort 160 mcg-4.5 mcg/ inh Inhaler) 2 puff(s) by inhalation Two (2) times a day COPD with exacerbation Unchanged lisinopril (lisinopril 40 mg oral tablet) 1 tab(s) by mouth Once a day (in the morning) Unchanged tiotropium (Spiriva Respimat 60 ACT 2.5 mcg/ inh inhalation aerosol) 2 puff(s) by inhalation Once a day Unchanged venlafaxine (venlafaxine 150 mg oral capsule, extended release) 1 cap by mouth Once a day (in the morning) Pharmacy Information [facility] #[id number]: [address], [place] [id number] [phone] Please take this list to your next doctor s visit. Bring all medications you take, including over the counter medications, herbals and other supplements with you to your doctor s visit. Patients and families are reminded to discard old lists and to update any records with all medication providers or retail pharmacies. Education Materials Chronic Obstructive Pulmonary Disease Chronic obstructive pulmonary disease (COPD) is a long-term (chronic) lung problem. When you have COPD, it is hard for air to get in and out of your lungs. Usually the condition gets worse over time, and your lungs will never return to normal. There are things you can do to keep yourself as healthy as possible. Your doctor may treat your condition with: ? Medicines. ? Oxygen. ? Lung surgery. Your doctor may also recommend: ? Rehabilitation. This includes steps to make your body work better. It may involve a team of specialists. ? Quitting smoking, if you smoke. ? Exercise and changes to your diet. ? Comfort measures (palliative care). Follow these instructions at home: Medicines Take lcqu-unq-qveywne and prescription medicines only as told by your doctor. Talk to your doctor before taking any cough or allergy medicines. You may need to avoid medicines that cause your lungs to be dry. Lifestyle If you smoke, stop. Smoking makes the problem worse. If you need help quitting, ask your doctor. Avoid being around things that make your breathing worse. This may include smoke, chemicals, and fumes. Stay active, but remember to rest as well. Learn and use tips on how to relax. Make sure you get enough sleep. Most adults need at least 7 hours of sleep every night. Eat healthy foods. Eat smaller meals more often. Rest before meals. Controlled breathing Learn and use tips on how to control your breathing as told by your doctor. Try: Breathing in (inhaling) through your nose for 1 second. Then, pucker your lips and breath out (exhale) through your lips for 2 seconds. Putting one hand on your belly (abdomen). Breathe in slowly through your nose for 1 second. Your hand on your belly should move out. Pucker your lips and breathe out slowly through your lips. Your hand on your belly should move in as you breathe out. Controlled coughing Learn and use controlled coughing to clear mucus from your lungs. Follow these steps: 1. Lean your head a little forward. 2. Breathe in deeply. 3. Try to hold your breath for 3 seconds. 4. Keep your mouth slightly open while coughing 2 times. 5. Spit any mucus out into a tissue. 6. Rest and do the steps again 1 or 2 times as needed. General instructions Make sure you get all the shots (vaccines) that your doctor recommends. Ask your doctor about a flu shot and a pneumonia shot. Use oxygen therapy and pulmonary rehabilitation if told by your doctor. If you need home oxygen therapy, ask your doctor if you should buy a tool to measure your oxygen level (oximeter). Make a COPD action plan with your doctor. This helps you to know what to do if you feel worse than usual. Manage any other conditions you have as told by your doctor. Avoid going outside when it is very hot, cold, or humid. Avoid people who have a sickness you can catch (contagious). Keep all follow-up visits as told by your doctor. This is important. Contact a doctor if: You cough up more mucus than usual. There is a change in the color or thickness of the mucus. It is harder to breathe than usual. Your breathing is faster than usual. You have trouble sleeping. You need to use your medicines more often than usual. You have trouble doing your normal activities such as getting dressed or walking around the house. Get help right away if: You have shortness of breath while resting. You have shortness of breath that stops you from: ? Being able to talk. ? Doing normal activities. Your chest hurts for longer than 5 minutes. Your skin color is more blue than usual. Your pulse oximeter shows that you have low oxygen for longer than 5 minutes. You have a fever. You feel too tired to breathe normally. Summary Chronic obstructive pulmonary disease (COPD) is a long-term lung problem. The way your lungs work will never return to normal. Usually the condition gets worse over time. There are things you can do to keep yourself as healthy as possible. Take msqe-evf-ppanoru and prescription medicines only as told by your doctor. If you smoke, stop. Smoking makes the problem worse. This information is not intended to replace advice given to you by your health care provider. Make sure you discuss any questions you have with your health care provider. Document Released: 04/03/2009 Document Revised: 09/28/2018 Document Reviewed: 11/20/2017 Elsevier Patient Education 2020 [employer] Additional Information VACCINATE! IT SAVES LIVES! Members of the community who have not yet received the COVID-19 vaccine and would like to receive it can visit one of [facility] vaccine clinics. There are many vaccine clinic locations within the [facility]. For locations and available times, please visit https://gettheshot.coronavirus.[place].gov/. It is important to note that some COVID mobile vaccine clinics are held outdoors and may be canceled in rainy or stormy conditions. To learn more about pediatric vaccinations (ages 5-11), we invite you to visit the [employer] webpage. https://[email or web address].org/pa [email or web address]-[email or web address]-Freque xtpj-Owiyq-[email or web address].html To learn more about the COVID-19 vaccine, we invite you to visit the CDC website for a list of frequently asked questions.https://www.cdc.gov/cor onavirus/2019-ncov/vaccines/faq.h tml [facility] Patient Portal Access Instructions: Stay connected with your healthcare team and access your personal medical information anytime with the [facility] Patient Portal. Please follow the directions below to create your [facility] account: 1.Access the email account you provided upon registration to the hospital/physician office.2.Look for an invitation email from [facility].3.Open the email and access the invitation link: Accept Invitation to [facility].4.Fill in the required galeas to create your account. To access your account, visit [email or web address]. Click the blue button labeled Access Patient Portal and then log in with the username and password that you created in the steps above. You will be able to view your test results, lab results, a summary of your visits, upcoming appointments and more. There is also a convenient messaging option where you can send secure messages to your provider. In addition, you will have the ability to download any documents or summaries to your computer and/or send the information securely to a physician. Remember that your healthcare information is confidential, so carefully consider who you will allow to register on the [facility] Patient Portal for access to your information. You can also access the [facility] Patient Portal on the [facility] ruel. Simply click on Patient Portal and then log into your account. If you would like to receive a full copy of your medical records, please contact the [facility] Medical Records Department by calling [phone], Monday through Monday between 8 a.m. and 4:30 p.m. HOW TO SAFELY DISPOSE OF PRESCRIPTION MEDICATIONS Please use one of the following methods to safely dispose of your unused medications. 1.Use a drug disposal kit: the drug disposal pouch allows you to safely discard your old and unused drugs. Ask your nurse to give you one when you are discharged.2.Visit a local take-back location: Many local pharmacies and police departments have programs that collect old and unwanted prescription drugs. Call your local pharmacy or go to http://Tripsidea/0B0Tm7x to find one close to you.3.Make use of household items: Use cat litter or old coffee grounds to dispose medications if other options are not available. Mix your drugs with these household products, seal them in an airtight container and throw it into the garbage. Call [facility]: [phone] to be sure your drugs can be disposed of in this way. Some medicines may require a different approach.4.Never flush your medications down the toilet. IF YOU HAVE BEEN PRESCRIBED AN OPIOID FOR PAIN If you have been prescribed an opioid (such as hydrocodone, oxycodone or morphine), it is critical to understand the possible side effects and risks of opioid pain medications. Even when taken as directed, opioids can have several side effects including: Tolerance, meaning you might need to take more of a medication for the same pain relief. Nausea, vomiting and/or constipation. Sleepiness, dizziness, dry mouth, confusion, depression or itching. Physical dependence, meaning you have withdrawal symptoms when a medication is stopped, can develop within a few days. KNOW YOUR RESPONSIBILITIES It is important to know exactly how much and how often to take the opioid pain medications you are prescribed. Never take opioids in higher amounts or more often than prescribed. Do not combine opioids with alcohol or other drugs that cause drowsiness, such as benzodiazepines, also known as benzos, including diazepam and alprazolam, muscle relaxants or sleep aids. Never sell or share prescription opioids. This is illegal. Store opioids in a secure place and out of reach of others (including children, family, friends and visitors). The last page of this document has been signed and retained as a CHART COPY. Signatures Patient Education Materials Chronic Obstructive Pulmonary Disease, Zwvi-gi-Pxmp Medication Leaflets My discharge plan and instructions have been reviewed and explained to me and I,HAYDEN MOERIRA understand my current condition and have read and understand these discharge instructions. I have received a written copy of the plan/instructions. If I have questions, I am aware that I should contact my doctor. 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 Transitional Action Points Following up with this patient due to readmission risk he has had 3 hospitalizations in the past 12 months does have advanced COPD dependent on 5 L of oxygen As from home with his . States he has been ambulating in his room at his baseline with no weakness or deficits He states he has no insecurity transitioning home with his following up with his PCP has no prescription insecurities or medication questions we will sign off Assessment/Plan Pneumonia COPD Age-related debility Shortness of breath Readmission Risk Points Age greater than 65 Full code COPD Multiple hospitalizations Dependent on oxygen History of Present Illness 68-year-old male here following pneumonia and COPD exacerbation. He has had 3 hospitalizations in the past year was at home with his prior to admission, did wear 5 L nasal cannula baseline, and was independent of ADLs. He denies weakness this morning states he continues to be up ambulating in the room independently without difficulty. Review of Symptoms General: Denies fever chills Musculoskeletal: Denies injury, up walking in the room independently, denies weakness Physical exam General: No acute distress, in bed Respiratory: Nasal cannula in place Musculoskeletal: Weakness present Neurological: No tremors or focal deficit Psych: Mood cooperative, alert and oriented Vitals Signs(Last 24 hrs)__Last Charted Minimum M aximum Temp36.5(APR 12 22:24)36.5(APR 12 22:24)36.5(APR 12 02:06) Heart RateH 105(APR 12 22:24)93(APR 12 02:06)H 107(APR 12 14:19) Resp Rate18(APR 12 22:24)16(APR 12 06:17)H 24(APR 12 10:25) QRA672(APR 12 22:24)126(APR 12 18:33)H 155(APR 12 06:17) DBP74(APR 12 22:24)66(APR 12 18:33)86(APR 12 02:06) Problem List/ Past Medical History Allergic rhinitis BMI 27.0-27.9,adult COPD with emphysema Chronic neutrophilia Former smoker, quit 2012 Generalized anxiety disorder Glasses History of left-sided carotid endarterectomy Hyperkalemia 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 acetaminophen-oxyCODONE: 1 tab(s), Oral, q4h, PRN: Pain, scale 4-6. acetaminophen-oxyCODONE: 2 tab(s), Oral, q4h, PRN: Pain, scale 7-10. albuterol-ipratropium: 3 mL, Inhalation, QIDRT. albuterol-ipratropium: 3 mL, Inhalation, q2hRT, PRN: Shortness of breath or wheezing. aspirin: 81 mg, 1 tab(s), Oral, qAM. atorvastatin: 40 mg, 1 tab(s), Oral, qAM. benzonatate: 200 mg, 2 cap(s), Oral, TID, PRN: Cough. budesonide: 0.5 mg, 2 mL, Inhalation, BIDRT. cefTRIAXone: 2 gram(s), 20 mL, 240 mL/hr, IV Push (INT), qDay. heparin: 5,000 unit(s), 1 mL, Subcutaneous, q8h. lisinopril: 40 mg, 2 tab(s), Oral, qAM. melatonin: 3 mg, 1 tab(s), Oral, qHS, PRN: Sleep. melatonin: 3 mg, 1 tab(s), Oral, qHS, PRN: Sleep. methylPREDNISolone: 60 mg, 0.96 mL, IV Push, q8h. ondansetron: 4 mg, 2 mL, IV Push, q4h, PRN: Nausea/Vomiting. polyethylene glycol 3350: 17 gram(s), 15 mL, Oral, qDay, PRN: Constipation. venlafaxine: 150 mg, 1 cap(s), Oral, qAM. Prescribed aspirin: 81 mg, 1 tab(s), Oral, qAM, Dr. Bond advised to coninue prior to OR on 07/01/22 per pt., 90 tab(s), 3 Refill(s). budesonide-formoterol: 2 puff(s), Inhalation, BID, 1 EA, 0 Refill(s). lisinopril: 40 mg, 1 tab(s), Oral, qAM, 180 tab(s), 3 Refill(s). venlafaxine: 150 mg, 1 cap(s), Oral, qAM, 90 cap(s), 3 Refill(s). Documented atorvastatin: 40 mg, 1 tab(s), Oral, qAM, 90 tab(s), 0 Refill(s). tiotropium: 2 puff(s), Inhalation, qDay. Medications Inactivated in the Last 72 Hours acetaminophen: 1,300 mg, 2 tab(s), Oral, q8h, PRN: as needed for pain, 24 tab(s), 0 Refill(s). albuterol: 2.5 mg, 3 mL, Inhalation, q2hRT, PRN: Shortness of breath or wheezing. albuterol-ipratropium: 3 mL, Inhalation, QID, PRN: Shortness of breath (SOB), 90 mL, 0 Refill(s). albuterol-ipratropium: 3 mL, Inhalation, Once. albuterol-ipratropium: 3 mL, Inhalation, Once. albuterol-ipratropium: 3 mL, Inhalation, q4hRT. azithromycin: 500 mg, 5 mL, 250 mL/hr, IV Piggyback, Once. azithromycin: 500 mg, 5 mL, 250 mL/hr, IV Piggyback, Once. azithromycin: Miscellaneous, Once. azithromycin: 500 mg, 5 mL, 250 mL/hr, IV Piggyback, qDay. cefTRIAXone: 2 gram(s), 200 mL/hr, IV Piggyback, Once. cefTRIAXone: Miscellaneous, Once. cefTRIAXone: 1 gram(s), 200 mL/hr, IV Piggyback, Once. cefTRIAXone: 2 gram(s), 200 mL/hr, IV Piggyback, Once. LORazepam: 0.5 mg, 1 tab(s), Oral, Daily, for 120 day(s), Aim for #20 per month or less, PRN: as needed for anxiety, 90 tab(s), 0 Refill(s). methylPREDNISolone: 125 mg, 2 mL, IV Push, Once. Sodium Chloride 0.9% intravenous solution: Miscellaneous, Once. Sodium Chloride 0.9% intravenous solution: Miscellaneous, Once. sterile water: Miscellaneous, Once. sterile water: Miscellaneous, Once. sterile water: Miscellaneous, Once. sterile water: Miscellaneous, Once. sterile water: Miscellaneous, Once. venlafaxine: 150 mg, 1 cap(s), Oral, qAM. Allergies Contrast dye (Hives,Bright redness,Pruritus of skin) Social HX Alcohol Risk Assessment: No Risk; Details: Use: Current. Type: Beer. Frequency: 1-2 times per week. 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 Home/Environment Details: Domestic Concerns: Denies. Details: Domestic Concerns: None. Living situation: Home/Independent. Primary Physician Support Coordinator: Self, lives with his spouse, Anuja. Professional Skilled Services or Special Community Resources None. OTher risks in environment: minimal smoke exposure. Spouse Name: Anuja. Nutrition/Health Details: Type of diet: Regular. Appetite Good. Eating Difficulties None. Caffeine intake amount: One cup of coffee daily. Substance Abuse Risk Assessment: Denies Substance Abuse; Details: Use: Never. Tobacco Risk Assessment: No Risk; Details: Nicotine Use: Former smoker, quit more than 30 days ago, Currently uses pouches of tobacco. Type: Oral (Snuff, Chew). Stopped at age: 59 Years. Smoking Cessation Information Instructed not to use nicotine pouches (snuff) day of surgery. Smokeless Tobacco Use: Smokeless tobacco user within last 30 days. Family medical HX Mother (Jenni, ): Diabetes; Heart attack Father (Angelito, ): Heart attack Brother (Angelito): Coronary arteriosclerosis Sister (Pat): Cancer Brother (Troy): Cancer Brother (Ethan): Heart attack Code Status Code Status - Ordered -- 04/11/23 0:50:00 EDT, Full Code, Constant Order I Alejandra PAZ, am scribing for Brian Guillen NP, in the presence of Brian Guillen NP, personally performed the services described in this documentation, as described by Alejandra PAZ in my presence and it is both accurate and complete. Medications reviewed and up to date. This document transcribed using voice recognition software may contain typographical errors. Digitally Signed by BRIAN GUILLEN on 04/13/2023 07:00 PM [facility] 04-12-2023 Note Date of Service 04/12/23 Chief Complaint Patient seen and examined today for acute on chronic hypoxic respiratory failure, acute COPD exacerbation, pulmonary fibrosis Subjective Patient seen today, on 5 L of oxygen. Has some cough with clear sputum which is his baseline, still has some shortness of breath Objective Vitals and Measurements T: 36.5 C (Oral) TMIN: 36.5 C (Oral) TMAX: 36.8 C (Oral) HR: 95 RR: 18 BP: 136/79 SpO2: 95% Intake and Output 7AM Yesterday to 7AM Today Intake and Output (Last 24 hours) Intake Oral Intake 600.00 Output Urine Voided 1125.00 Stool Count 1.00 Urine Count 7.00 Total Summary Total Intake 600.00 Total Output 1125.00 Fluid Balance -525.00 Physical Exam General Appearance: Patient appears healthy, well-developed, not in any acute distress. Cardiac: Normal rate and rhythm, S1-S2 heard, no murmurs heard. Lungs: Diminished breath sounds with crackles at right lung base Abdomen: Soft nontender, nondistended, no organomegaly. Musculoskeletal: No tenderness or deformity. Extremities: No pedal edema. Neurological: Alert ,oriented, no focal deficits. Skin: No rashes noted. Psychiatric: Not anxious or depressed. Weight Dosing Weight: 79.5 kg (04/11/23) Medications Medications (18) Active Scheduled: (9) albuterol - ipratropium 2.5 mg-0.5 mg/3 mL Inhal Carla UD 3 mL, Inhalation, QIDRT aspirin 81 mg EC 81 mg 1 tab(s), Oral, qAM atorvastatin 40 mg tablet 40 mg 1 tab(s), Oral, qAM budesonide 0.5 mg/2 mL Susp UD 0.5 mg 2 mL, Inhalation, BIDRT cefTRIAXone IVP syringe 2 gram(s) 20 mL, IV Push (INT), qDay heparin 5,000 units/mL (1 mL) vial 5,000 unit(s) 1 mL, Subcutaneous, q8h lisinopril 20 mg tablet 40 mg 2 tab(s), Oral, qAM methylPREDNISolone succ 125mg (62.5mg/1mL) after dilution 60 mg 0.96 mL, IV Push, q8h venlafaxine 150 mg ER capsule 150 mg 1 cap(s), Oral, qAM Continuous: (0) PRN: (9) acetaminophen 325 mg Tablet 650 mg 2 tab(s), Oral, q4h acetaminophen-OXYcodone 325 mg-5 mg Tablet 1 tab(s), Oral, q4h acetaminophen-OXYcodone 325 mg-5 mg Tablet 2 tab(s), Oral, q4h albuterol - ipratropium 2.5 mg-0.5 mg/3 mL Inhal Carla UD 3 mL, Inhalation, q2hRT benzonatate 100 mg Capsule 200 mg 2 cap(s), Oral, TID melatonin 3 mg tablet 3 mg 1 tab(s), Oral, qHS melatonin 3 mg tablet 3 mg 1 tab(s), Oral, qHS ondansetron 2 mg/ 1 mL 2 mL INJ 4 mg 2 mL, IV Push, q4h polyethylene glycol 3350 - UD packet 17 gram(s) 15 mL, Oral, qDay Lab Results No 36 Hour Lab Data EKG No qualifying data available. Assessment/Plan Orders: Basic Metabolic Panel Complete Blood Count Consult to Physician Vital Signs Time Spent 1. Acute on chronic hypoxic respiratory failure: Due to acute COPD exacerbation -No clinical evidence of pneumonia as patient does not have any fever and productive cough and no leukocytosis -Chest x-ray showed focal opacification about the right lung base, possibly sequela of infectious process, follow to resolution recommended Similar to slightly worsened chronic interstitial lung disease. -Patient on 5 L at home, currently on 5 L -Pulmonology following 2 Acute COPD exacerbation: Continue Solu-Medrol, DuoNebs, budesonide -Continue Rocephin day 2/ -Atypical screen negative, MRSA screen negative, respiratory ID panel negative -Patient has to follow-up with his performance improvement analyst at [place] Dr. Tobin after discharge. 3. Pulmonary fibrosis 4. Hypertension, BP stable, continue lisinopril 5. History of left carotid endarterectomy, continue aspirin and statin DVT px on subcu heparin Digitally Signed by YENIFER MAIN MD on 04/12/2023 04:33 PM [facility] 04-12-2023 Pulmonary Consult note Date of Service 04/12/2023 Reason for Consultation COPD with respiratory failure and concern for IPF Referring Physician Hospitalist History of Present Illness Mr. Moreira is a 68-year-old male past medical history significant for COPD with chronic respiratory failure on 5 L nasal cannula followed by Dr. Tobin in [place], anxiety, hypertension and dyslipidemia who presented to the hospital 04/10/2023 with complaints of shortness of breath. This had gotten progressively worse over approximately 3 days prior to admission. He had desaturated down to 79% at home so he presented to [facility] ED for evaluation. Initially he was placed on nonrebreather. Chest x-ray showed concern for focal opacification of the right lung base with trace right pleural effusion. He was started on antibiotics currently receiving Rocephin. He was also placed on Pulmicort, DuoNebs and IV Solu-Medrol. Here his white count has been normal at 10.5 now down to 8.7. Respiratory viral panel was negative. Legionella and strep pneumo antigens were negative. We are being consulted for his COPD and respiratory failure with concern for pulmonary fibrosis. He is currently on 5 L nasal cannula. Review of Systems Constitutional-no fevers, chills, night sweats, weight loss or gain HEENT-he has had a runny nose but denies sore throat Cardiovascular-denies chest pain, palpitations or orthopnea Pulmonary-denies cough, wheezing but is short of breath, worse with exertion Gastrointestinal-no nausea, vomiting, constipation or diarrhea noted Musculoskeletal no joint pain, redness, stiffness or swelling Neurological-no numbness, tingling, weakness Skin - no itching, rashes or hives All other components of review of systems have been reviewed and are negative Physical Exam Vitals and Measurements T: 36.5 C (Oral) TMIN: 36.5 C (Oral) TMAX: 36.8 C (Oral) HR: 95 RR: 18 BP: 136/79 SpO2: 95% Weight Dosing Weight: 79.5 kg (04/11/23) General-no acute distress, alert HEENT-normocephalic, atraumatic, extraocular movements intact Pulmonary-some crackles noted in his bases posteriorly, no wheeze Cardiovascular-regular, no appreciable murmurs, gallops or rubs Abdomen-soft, nontender, bowel sounds positive Extremities-no cyanosis, clubbing or significant edema noted Neurologic-grossly nonfocal Lab Results 04/11 04:21 WBC: 8.7 Hgb: 15.7 Hct: 47.4 Platelet: 223 Neutrophil %: 89.2 H Glucose Level: 219 H Sodium Level: 138 Potassium Level: 4.5 BUN: 12.0 Creatinine Lvl (s): 0.66 Imaging Results and Diagnostics CXR IMPRESSION: Focal opacification about the right lung base, possibly sequela of infectious process. Follow-up to resolution recommended. Trace right pleural effusion. Similar to slightly worsened chronic interstitial lung disease. CTA 11/09/22 IMPRESSION: 1. No evidence of pulmonary embolus. 2. Right lower lobe pneumonia. 3. Prominent lymph nodes within the mediastinum and right hilum may be due to infectious etiology however follow-up examination may be considered. Assessment/Plan 1. COPD with chronic respiratory failure on 5 L nasal cannula 2. Concern for superimposed emphysema with pulmonary fibrosis 3. History of anxiety 4. History of hypertension and dyslipidemia Plan: 1. Continue antibiotics for now. Infectious serologies thus far negative however he does feel improved currently on Rocephin 2. Continue Pulmicort, DuoNebs and IV Solu-Medrol 3. We will hold off on high-resolution CT chest now as he does follow with a performance improvement analyst in [place], Dr. Tobin, and can be worked up as an outpatient particularly once his acute process improves Problem List/Past Medical History Ongoing Allergic rhinitis BMI 27.0-27.9,adult Chronic neutrophilia COPD with emphysema Former smoker, quit 2012 Generalized anxiety disorder History of left-sided carotid endarterectomy Hyperkalemia Hypertension Hypoxia residential prescription lorazepam use, <20/mo Lung interstitial disease Mixed hyperlipidemia O2 dependent On anticoagulant therapy Historical Neck pain Procedure/Surgical History Carotid artery Medications Inpatient aspirin 81 mg oral delayed release tablet, 81 mg= 1 tab(s), Oral, qAM atorvastatin, 40 mg= 1 tab(s), Oral, qAM budesonide 0.5 mg/2 mL inhalation suspension, 0.5 mg= 2 mL, Inhalation, BIDRT DuoNeb, 3 mL, Inhalation, QIDRT DuoNeb, 3 mL, Inhalation, q2hRT, PRN Effexor XR, 150 mg= 1 cap(s), Oral, qAM heparin 5000 units/mL injection, 5000 unit(s)= 1 mL, Subcutaneous, q8h lisinopril, 40 mg= 2 tab(s), Oral, qAM melatonin, 3 mg= 1 tab(s), Oral, qHS, PRN melatonin, 3 mg= 1 tab(s), Oral, qHS, PRN Miralax Powder Packet, 17 gram(s)= 15 mL, Oral, qDay, PRN Percocet 325/5, 1 tab(s), Oral, q4h, PRN Percocet 325/5, 2 tab(s), Oral, q4h, PRN Rocephin, 2 gram(s)= 20 mL, IV Push (INT), qDay SOLU-Medrol 125 mg pf injection, 60 mg= 0.96 mL, IV Push, q8h Tessalon Perles, 200 mg= 2 cap(s), Oral, TID, PRN Tylenol, 650 mg= 2 tab(s), Oral, q4h, PRN Zofran, 4 mg= 2 mL, IV Push, q4h, PRN Home aspirin 81 mg oral delayed release tablet, 81 mg= 1 tab(s), Oral, qAM, 3 refills atorvastatin 40 mg oral tablet, 40 mg= 1 tab(s), Oral, qAM lisinopril 40 mg oral tablet, 40 mg= 1 tab(s), Oral, qAM, 3 refills Spiriva Respimat 60 ACT 2.5 mcg/inh inhalation aerosol, 2 puff(s), Inhalation, qDay Symbicort 160 mcg-4.5 mcg/inh Inhaler, 2 puff(s), Inhalation, BID venlafaxine 150 mg oral capsule, extended release, 150 mg= 1 cap(s), Oral, qAM, 3 refills Allergies Contrast dye (Pruritus of skin, Bright redness, Hives) Social History Smoking Status - 07/29/2018 Former smoker Alcohol - No Risk, 11/21/2020 Use: Current. Type: Beer. 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 Living situation: Home/Independent. Primary Physician Support Coordinator: Self, lives with his spouse, Anuja. Professional Skilled Services or Special Community Resources None. OTher risks in environment: minimal smoke exposure. Spouse Name: Anuja., 06/21/2022 Nutrition/Health Type of diet: Regular. Appetite Good. Eating Difficulties None. Caffeine intake amount: One cup of coffee daily., 11/09/2022 Substance Abuse - Denies Substance Abuse, 07/29/2018 Use: Never., 08/28/2019 Tobacco - No Risk, 11/21/2020 Nicotine Use: Former smoker, quit more than 30 days ago, Currently uses pouches of tobacco. Type: Oral (Snuff, Chew). Stopped at age: 59 Years. Smoking Cessation Information Instructed not to use nicotine pouches (snuff) day of surgery. Smokeless Tobacco Use: Smokeless tobacco user within last 30 days., 06/21/2022 He is a former smoker, quit 10 years ago. 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 Coronary arteriosclerosis: Brother. Diabetes: Mother. Heart attack: Mother, Father and Brother. Immunizations diphtheria-tetanus toxoids: 0 unknown unit (07/18/13) pneumococcal 13-valent conjugate vaccine: 0.5 unknown unit (05/27/21) pneumococcal 13-valent conjugate vaccine: 0 unknown unit (12/09/15) pneumococcal 23-valent vaccine(Pneumovax: 0.5 unknown unit (06/16/22) pneumococcal 23-valent vaccine(Pneumovax: 0 unknown unit (08/15/14) SARS-CoV-2 mRNA (tozinameran) vaccine: 0 unknown unit (07/28/21) SARS-CoV-2 mRNA (tozinameran) vaccine: 30 unknown unit (01/26/21) SARS-CoV-2 mRNA (tozinameran) vaccine: 30 unknown unit (01/05/21) Digitally Signed by LORNA REES MD on 04/12/2023 03:26 PM [facility] 04-12-2023 Note Chief Complaint Transition Plan. Transitional Action Points Patient is hospitalized with pneumonia, COPD exacerbation He states he utilizes 5 L at baseline Is from home with is states he is independent denies any falls. At this time I am recommending he transition home. He says he does his PCP approximately every 3 months. He is adherent with following up with his providers. He is high-risk of rehospitalization due to advanced COPD Assessment/Plan Pneumonia COPD Age-related debility Shortness of breath Readmission Risk Points Age greater than 65 Full code COPD Multiple hospitalizations Dependent on oxygen History of Present Illness 68-year-old male here following pneumonia and COPD exacerbation. He has had 3 hospitalizations in the past year and was living home with his prior to admission, denies falls, denies use of medical equipment, states he did use 5 L nasal cannula at baseline, and was independent of ADLs. He states he has been ambulating to the restroom alone without difficulty. Review of Symptoms General: Denies fever chills Musculoskeletal: Denies injury, has been up walking to the restroom Physical exam General: No acute distress, in bed Respiratory: Nasal cannula in place Musculoskeletal: Weakness present Neurological: No tremors or focal deficit Psych: Mood cooperative, alert and oriented Vitals Signs(Last 24 hrs)__Last Charted Minimum M aximum Temp36.5(APR 12 02:06)36.5(APR 12 02:06)36.7(APR 11 03:10) Heart Rate93(APR 12 02:06)87(APR 11 18:53)98(APR 11 22:43) Resp Rate20(APR 12 02:06)18(APR 11 03:10)20(APR 11 10:33) SBPH 147(APR 12 02:06)128(APR 11 18:53)H 166(APR 11 07:07) DBP86(APR 12 02:06)65(APR 11 18:53)H 91(APR 11 11:01) Problem List/ Past Medical History Allergic rhinitis BMI 27.0-27.9,adult COPD with emphysema Chronic neutrophilia Former smoker, quit 2012 Generalized anxiety disorder Glasses History of left-sided carotid endarterectomy Hyperkalemia 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 acetaminophen-oxyCODONE: 1 tab(s), Oral, q4h, PRN: Pain, scale 4-6. acetaminophen-oxyCODONE: 2 tab(s), Oral, q4h, PRN: Pain, scale 7-10. albuterol-ipratropium: 3 mL, Inhalation, QIDRT. albuterol-ipratropium: 3 mL, Inhalation, q2hRT, PRN: Shortness of breath or wheezing. aspirin: 81 mg, 1 tab(s), Oral, qAM. atorvastatin: 40 mg, 1 tab(s), Oral, qAM. benzonatate: 200 mg, 2 cap(s), Oral, TID, PRN: Cough. budesonide: 0.5 mg, 2 mL, Inhalation, BIDRT. cefTRIAXone: 2 gram(s), 20 mL, 240 mL/hr, IV Push (INT), qDay. heparin: 5,000 unit(s), 1 mL, Subcutaneous, q8h. lisinopril: 40 mg, 2 tab(s), Oral, qAM. melatonin: 3 mg, 1 tab(s), Oral, qHS, PRN: Sleep. melatonin: 3 mg, 1 tab(s), Oral, qHS, PRN: Sleep. methylPREDNISolone: 60 mg, 0.96 mL, IV Push, q8h. ondansetron: 4 mg, 2 mL, IV Push, q4h, PRN: Nausea/Vomiting. polyethylene glycol 3350: 17 gram(s), 15 mL, Oral, qDay, PRN: Constipation. venlafaxine: 150 mg, 1 cap(s), Oral, qAM. Prescribed aspirin: 81 mg, 1 tab(s), Oral, qAM, Dr. Bond advised to coninue prior to OR on 07/01/22 per pt., 90 tab(s), 3 Refill(s). budesonide-formoterol: 2 puff(s), Inhalation, BID, 1 EA, 0 Refill(s). lisinopril: 40 mg, 1 tab(s), Oral, qAM, 180 tab(s), 3 Refill(s). venlafaxine: 150 mg, 1 cap(s), Oral, qAM, 90 cap(s), 3 Refill(s). Documented atorvastatin: 40 mg, 1 tab(s), Oral, qAM, 90 tab(s), 0 Refill(s). tiotropium: 2 puff(s), Inhalation, qDay. Medications Inactivated in the Last 72 Hours acetaminophen: 1,300 mg, 2 tab(s), Oral, q8h, PRN: as needed for pain, 24 tab(s), 0 Refill(s). albuterol: 2.5 mg, 3 mL, Inhalation, q2hRT, PRN: Shortness of breath or wheezing. albuterol-ipratropium: 3 mL, Inhalation, QID, PRN: Shortness of breath (SOB), 90 mL, 0 Refill(s). albuterol-ipratropium: 3 mL, Inhalation, Once. albuterol-ipratropium: 3 mL, Inhalation, Once. albuterol-ipratropium: 3 mL, Inhalation, q4hRT. azithromycin: 500 mg, 5 mL, 250 mL/hr, IV Piggyback, Once. azithromycin: 500 mg, 5 mL, 250 mL/hr, IV Piggyback, Once. azithromycin: Miscellaneous, Once. azithromycin: 500 mg, 5 mL, 250 mL/hr, IV Piggyback, qDay. cefTRIAXone: 2 gram(s), 200 mL/hr, IV Piggyback, Once. cefTRIAXone: Miscellaneous, Once. cefTRIAXone: 1 gram(s), 200 mL/hr, IV Piggyback, Once. cefTRIAXone: 2 gram(s), 200 mL/hr, IV Piggyback, Once. LORazepam: 0.5 mg, 1 tab(s), Oral, Daily, for 120 day(s), Aim for #20 per month or less, PRN: as needed for anxiety, 90 tab(s), 0 Refill(s). methylPREDNISolone: 125 mg, 2 mL, IV Push, Once. Sodium Chloride 0.9% intravenous solution: Miscellaneous, Once. Sodium Chloride 0.9% intravenous solution: Miscellaneous, Once. sterile water: Miscellaneous, Once. sterile water: Miscellaneous, Once. sterile water: Miscellaneous, Once. venlafaxine: 150 mg, 1 cap(s), Oral, qAM. Allergies Contrast dye (Hives,Bright redness,Pruritus of skin) Social HX Alcohol Risk Assessment: No Risk; Details: Use: Current. Type: Beer. Frequency: 1-2 times per week. 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 Home/Environment Details: Domestic Concerns: Denies. Details: Domestic Concerns: None. Living situation: Home/Independent. Primary Physician Support Coordinator: Self, lives with his spouse, Anuja. Professional Skilled Services or Special Community Resources None. OTher risks in environment: minimal smoke exposure. Spouse Name: Anuja. Nutrition/Health Details: Type of diet: Regular. Appetite Good. Eating Difficulties None. Caffeine intake amount: One cup of coffee daily. Substance Abuse Risk Assessment: Denies Substance Abuse; Details: Use: Never. Tobacco Risk Assessment: No Risk; Details: Nicotine Use: Former smoker, quit more than 30 days ago, Currently uses pouches of tobacco. Type: Oral (Snuff, Chew). Stopped at age: 59 Years. Smoking Cessation Information Instructed not to use nicotine pouches (snuff) day of surgery. Smokeless Tobacco Use: Smokeless tobacco user within last 30 days. Family medical HX Mother (Jenni, ): Diabetes; Heart attack Father (Angelito, ): Heart attack Brother (Angelito): Coronary arteriosclerosis Sister (Helena): Cancer Brother (Troy): Cancer Brother (Ethan): Heart attack Code Status Code Status - Ordered -- 04/11/23 0:50:00 EDT, Full Code, Constant Order I Alejandra PAZ, am scribing for Brian Guillen NP, in the presence of Brian Guillen NP, personally performed the services described in this documentation, as described by Alejandra PAZ in my presence and it is both accurate and complete. Medications reviewed and up to date. This document transcribed using voice recognition software may contain typographical errors. Digitally Signed by BRIAN GUILLEN on 04/12/2023 10:01 AM [facility] 04-11-2023 Note Date of Service 04/11/2023 Chief Complaint Patient seen and examined today for acute on chronic hypoxic respiratory failure, acute COPD exacerbation, pulmonary fibrosis Subjective Patient seen today, he has been having shortness of breath for 1 week, uses 5 L of oxygen at home, has dry cough, denies any fever. Objective Vitals and Measurements T: 36.3 C (Oral) TMIN: 36.3 C (Oral) TMAX: 36.7 C (Oral) HR: 97 RR: 18 BP: 146/69 SpO2: 89% HT: 170.2 cm WT: 79.5 kg BMI: 27.44 Intake and Output 7AM Yesterday to 7AM Today Intake and Output (Last 24 hours) Intake Oral Intake 820.00 Output Urine Voided 1075.00 Stool Count 0.00 Urine Count 2.00 Total Summary Total Intake 820.00 Total Output 1075.00 Fluid Balance -255.00 Physical Exam General Appearance: Patient appears healthy, well-developed, not in any acute distress. Cardiac: Normal rate and rhythm, S1-S2 heard, no murmurs heard. Lungs: Scattered wheezes on auscultation Abdomen: Soft nontender, nondistended, no organomegaly. Musculoskeletal: No tenderness or deformity. Extremities: No pedal edema. Neurological: Alert ,oriented, no focal deficits. Skin: No rashes noted. Psychiatric: Not anxious or depressed. Weight Dosing Weight: 79.5 kg (04/11/23) Medications Medications (18) Active Scheduled: (9) albuterol - ipratropium 2.5 mg-0.5 mg/3 mL Inhal Carla UD 3 mL, Inhalation, QIDRT aspirin 81 mg EC 81 mg 1 tab(s), Oral, qAM atorvastatin 40 mg tablet 40 mg 1 tab(s), Oral, qAM budesonide 0.5 mg/2 mL Susp UD 0.5 mg 2 mL, Inhalation, BIDRT cefTRIAXone IVP syringe 2 gram(s) 20 mL, IV Push (INT), qDay heparin 5,000 units/mL (1 mL) vial 5,000 unit(s) 1 mL, Subcutaneous, q8h lisinopril 20 mg tablet 40 mg 2 tab(s), Oral, qAM methylPREDNISolone succ 125mg (62.5mg/1mL) after dilution 60 mg 0.96 mL, IV Push, q8h venlafaxine 150 mg ER capsule 150 mg 1 cap(s), Oral, qAM Continuous: (0) PRN: (9) acetaminophen 325 mg Tablet 650 mg 2 tab(s), Oral, q4h acetaminophen-OXYcodone 325 mg-5 mg Tablet 1 tab(s), Oral, q4h acetaminophen-OXYcodone 325 mg-5 mg Tablet 2 tab(s), Oral, q4h albuterol - ipratropium 2.5 mg-0.5 mg/3 mL Inhal Carla UD 3 mL, Inhalation, q2hRT benzonatate 100 mg Capsule 200 mg 2 cap(s), Oral, TID melatonin 3 mg tablet 3 mg 1 tab(s), Oral, qHS melatonin 3 mg tablet 3 mg 1 tab(s), Oral, qHS ondansetron 2 mg/ 1 mL 2 mL INJ 4 mg 2 mL, IV Push, q4h polyethylene glycol 3350 - UD packet 17 gram(s) 15 mL, Oral, qDay Lab Results 04/11 04:21 WBC: 8.7 Hgb: 15.7 Hct: 47.4 Platelet: 223 Neutrophil %: 89.2 H Glucose Level: 219 H Sodium Level: 138 Potassium Level: 4.5 BUN: 12.0 Creatinine Lvl (s): 0.66 EKG No qualifying data available. Assessment/Plan Orders: albuterol-ipratropium, Start: 04/11/23 9:14:00 EDT, Dose = 3 mL, Soln, Inhalation, q2hRT, PRN, Shortness of breath or wheezing, 04/11/23 9:14:00 EDT aspirin, Start: 04/11/23 14:02:00 EDT, Dose = 81 mg, = 1 tab(s), Oral, qAM, 04/11/23 14:02:00 EDT atorvastatin, Start: 04/11/23 14:02:00 EDT, Dose = 40 mg, = 1 tab(s), Oral, qAM, 04/11/23 14:02:00 EDT budesonide, Start: 04/11/23 9:44:00 EDT, Dose = 0.5 mg, = 2 mL, Inhalation, BIDRT, 0, 04/11/23 9:14:00 EDT lisinopril, Start: 04/11/23 9:45:00 EDT, Dose = 40 mg, = 2 tab(s), Oral, qAM, Hold if SBP (mmHg) < 110, 0, 04/11/23 9:16:00 EDT venlafaxine, Start: 04/11/23 14:05:00 EDT, Dose = 150 mg, = 1 cap(s), Oral, qAM, 04/11/23 14:05:00 EDT Admit to Inpatient Consult to Physician 1. Acute on chronic hypoxic respiratory failure: Due to acute COPD exacerbation -No clinical evidence of pneumonia as patient does not have any fever and productive cough and no leukocytosis -Chest x-ray showed focal opacification about the right lung base, possibly sequela of infectious process, follow to resolution recommended Similar to slightly worsened chronic interstitial lung disease. -Consult pulmonology -Patient on 5 L at home, currently on 7 L of oxygen 2 .acute COPD exacerbation: Continue Solu-Medrol, DuoNebs, budesonide -Continue Rocephin -Atypical screen negative, MRSA screen negative, respiratory ID panel negative 3. Pulmonary fibrosis 4. Hypertension, BP stable, continue lisinopril 5. History of left carotid endarterectomy, continue aspirin and statin DVT px on subcu heparin Digitally Signed by YENIFER MAIN MD on 04/11/2023 05:52 PM [facility] 68-year-old male with a hist ory of COPD, VAZQUEZ, hypertension hyperlipidemia is presenting with shortness of breath found to be hypoxic at 79%, tactile fever and chills secondary to community-acquired pneumonia causing a COPD exacerbation we will continue antibiotics, check a RVP strep Legionella mycoplasma, treat with pulse steroids nebulizer treatments and nasal cannula support. Community-acquired pneumonia ceftriaxone azithromycin, RVP, strep Legionella mycoplasma MRSA nares, Tessalon as needed droplet airborne precautions until results return. COPD exacerbation pulse steroids nebulizer treatments as needed nasal cannula support Former smoker stable VAZQUEZ stable Hypertension stable Hyperlipidemia stable DVT prophylaxis heparin subcu Full code order rec not yet complete as home meds not yet verified by pharmacist, please reorder as indicated once confirmed by pharmacist Future Scheduled Tests Laboratory* Complete Blood Count 01/17/23 * Microalbumin Level Urine 08/24/22 [facility] 06-13-2023 Note. MICRO - Microbiology PROCEDURE: Streptococcus Pneumoniae Urine Antig [^1 *1] SOURCE: Urine, Clean Catch BODY SITE: COLLECTED DATE/TIME: 04/11/2023 01:52 EDT RECEIVED DATE/TIME: 04/11/2023 05:38 EDT START DATE/TIME: 04/11/2023 05:38 EDT FREE TEXT SOURCE: FINAL REPORTS Final Report [] Verified Date/Time/Personnel: 04/11/2023 06:46 EDT Presumptive negative for pneumococcal pneumonia, suggesting no current or recent pneumococcal infection. Infection due to Strep pneumoniae cannot be ruled out since the antigen present in the sample may be below the detection limit of the test. Interpretive Data ^1: Streptococcus Pneumoniae Urine Antig This test has not been evaluated on patients taking antibiotics for greater than 24 hours or on patients who have recently completed an antibiotic regimen. The accuracy of this test has not been proven in young children. Performing Locations *1: This test was performed at: [facility], [address] [place] [address], [facility] , [facility] ([place])04-11-2023 Note. MICRO - Microbiology PROCEDURE: Legionella Urine Ag [*1] SOURCE: Urine BODY SITE: COLLECTED DATE/TIME: 04/11/2023 01:52 EDT RECEIVED DATE/TIME: 04/11/2023 05:38 EDT START DATE/TIME: 04/11/2023 05:38 EDT FREE TEXT SOURCE: FINAL REPORTS Final Report [] Verified Date/Time/Personnel: 04/11/2023 06:45 EDT Presumptive negative for L. pneumophila serogroup 1 antigen in urine, suggesting no recent or current infection. Legionnaire's disease cannot be ruled out since other serogroups and species may also cause disease. Performing Locations *1: This test was performed at: [facility], [address] [place] [address], [facility]- , [facility] ([place])04-11-2023 Note error Digitally Signed by BRIAN GUILLEN on 04/12/2023 09:59 AM [id number] Respiratory therapy Hospital Progress note Respiratory Therapy Evaluation Entered On: 04/11/2023 2:28 EDT Performed On: 04/11/2023 2:27 EDT by Sherrill Graf RRT Respiratory Therapy Evaluation RT Assessment [Frequency/Schedule] : pt to be QID tx per protocol Sherrill Graf TRANSFORMER TESTER - 04/11/2023 2:30 EDT Pulmonary Status : Smoking history >20 pack years Surgical Status : No surgeries Chest X-Ray : Infiltrate + atelectasis &/or pleural effusion Breath Sounds (RT) : Clear Respiratory Pattern (RT) : Regular RR=12-20 Cough (RT) : No spontaneous cough Respiratory Therapy Evaluation Score : 11 Level of Activity : Ambulatory with assistance Mental Status : Alert, oriented Respiratory Evaluation Triage Score : 3 - (11-15) Freq: QIDRT & Albuterol Q2 RT prn Sherrill Graf TRANSFORMER TESTER - 04/11/2023 2:27 EDT Digitally Signed by Sherrill Graf RRT on 04/11/2023 02:27 AM Digitally Signed by Sherrill Graf RRT on 04/11/2023 02:30 AM [facility] [id number] History and physical note Date of Service 04/11/2023 Chief Complaint short of breath History of Present Illness 68-year-old male with a history of COPD on 5 L nasal cannula baseline, generalized anxiety disorder, hypertension, hyperlipidemia presents with shortness of breath. Patient says that for the last 3 days he has had worsening shortness of breath with mild chills and mild tactile fevers he was checking his pulse ox at home and was found to be satting at 79% so he became concerned so he went to the emergency department at [place]. In the emergency department Upon arrival to emergency department he required a nonrebreather Chest x ray Focal opacification about the right lung base, possibly sequela of infectious process. Follow-up to resolution recommended. Trace right pleural effusion. Similar to slightly worsened chronic interstitial lung disease CBC unremarkable BMP unremarkable Troponin unremarkable Report taken by my colleague Dr. Adorno Upon arrival to floor patient is still short of breath with wheezing he denies any current chest pain but says that he feels weak and has a dry mouth. [facility] summary Date of Service 11/15/2022 Discharge Diagnosis 1. CAP (community acquired pneumonia) (J18.9 - ICD-10-CM) 2. COPD with exacerbation (J44.1 - ICD-10-CM) 3. Hyperkalemia (E87.5 - ICD-10-CM) 4. Hypoxia (R09.02 - ICD-10-CM) 5. Hypertension (I10 - ICD-10-CM) 6. Generalized anxiety disorder (F41.1 - ICD-10-CM) Hospital Course Patient is a 67-year-old male, who follows with Dr. Ismael Daugherty with a past medical history significant for COPD, hypertension, hyperlipidemia, and anxiety, presents to [facility] emergency department with the chief complaint of hypoxia. Patient reports that he was at his PCP's office yesterday due to ear and sinus pain and was noted to be hypoxic on his chronic 2L of oxygen, 87%. Patient reports that he has felt more short of breath over the last several weeks. He adds that hewas started on a Trelegy Ellipta several months ago and has felt worse since he started that. He has not used it lately. He denies any significant cough and, when it is productive, he states the sputum is clear. He also reports some chills. Patient denies any fever, chest pain, abdominal pain, nausea or dysuria. In the emergency department, CTA of the chest revealed no pulmonary embolus, right lower lobe pneumonia as well as prominent lymph nodes within the mediastinum and right hilum which may be from infectious etiology. White blood cell count 11.0. CBC otherwise unremarkable. BMP unremarkable. Patient was administered 1 gram Rocephin IV, 500 mg Azithromycin IV, 125 mg Solumedrol IV and one duoneb aerosol in the ED. He was transferred to medical surgical unit for further evaluation and treatment. We will continue Rocephin 1 gram IV daily and Azithromycin 500 mg IV daily. We will continue [id number] mg IV every 8 hours. We will continue duoneb aerosols as needed and scheduled. We will obtain urine and check for legionella and strep pneumoniae. We will check mycoplasma antibody. Repeat CBC andBMP in the am. Patient seen and evaluated today while resting in bed. He states that he is feeling much better today. He initially had ear and sinus pain but those have resolved. Nursing checked resting pulse ox - patient will require 3-4L at home for now. His goal is oxygen saturations above 88%. Patient agreeable to following up with pulmonology in the next 1-2 weeks. He is scheduled with his PCP on 11/25. Patient denies any fever, chills, cough, chest pain, abdominal pain, nausea or dysuria. He will be discharged home today in stable condition. All questions answered. This case was discussed with collaborating physician, Dr. Hood Dorado. Review of Systems All pertinent positive and negative review of systems as per HPI, all other review of systems reviewed and negative Physical Exam Vitals and Measurements T: 36.7 C (Oral) HR: 91 RR: 18 BP: 174/91 SpO2: 90% HT: 170.2 cm WT: 79.5 kg BMI: 27.44 Weight Dosing Weight: 79.5 kg (04/11/23) GENERAL: No acute distress ASSISTIVE DEVICES: None PSYCHIATRIC: appropriate HEENT moist mucous membranes extraocular muscles intact CARDIOVASCULAR: Regular rate, regular rhythm, no murmurs noted. Notrace lower extremity pitting edema. No lymphedema. Dorsalis Pedis pulses+2/4 blaterally . Posterior Tibialis pulses+2/4 bilaterally . RESPIRATORY: Scattered and story wheezing crackles in the right lower lobe ABDOMEN soft, no guarding, nontender, nondistended, positive bowel sounds, NEURO: no focal deficits DERM: no acute rash Lab Results No 36 Hour Lab Data Assessment/Plan 68-year-old male with a history of COPD, VAZQUEZ, hypertension hyperlipidemia is presenting with shortness of breath found to be hypoxic at 79%, tactile fever and chills secondary to community-acquired pneumonia causing a COPD exacerbation we will continue antibiotics, check a RVP strep Legionella mycoplasma, treat with pulse steroids nebulizer treatments and nasal cannula support. Community-acquired pneumonia ceftriaxone azithromycin, RVP, strep Legionella mycoplasma MRSA nares,Tessalon as needed droplet airborne precautions until results return. 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, <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 Lung interstitial disease Mixed hyperlipidemia O2 dependent On anticoagulant therapy Historical Neck pain Procedure/Surgical History Carotid artery Medications Home Medications (9) Active albuterol-ipratropium 2.5 mg-0.5 mg/3 mL inhalation solution 3 mL, PRN, Inhalation, QID aspirin 81 mg oral delayed release tablet 81 mg = 1 tab(s), Oral, qAM atorvastatin 40 mg oral tablet 40 mg = 1 tab(s), Oral, qAM lisinopril 40 mg oral tablet 40 mg = 1 tab(s), Oral, qAM LORazepam 0.5 mg oral tablet 0.5 mg = 1 tab(s), PRN, Oral, Daily Spiriva Respimat 60 ACT 2.5 mcg/inh inhalation aerosol 2 puff(s), Inhalation, qDay Symbicort 160 mcg-4.5 mcg/inh Inhaler 2 puff(s), Inhalation, BID Tylenol 8 Hour 650 mg oral tablet, extended release 1,300 mg = 2 tab(s), PRN, Oral, q8h venlafaxine 150 mg oral capsule, extended release 150 mg = 1 cap(s), Oral, qAM Allergies Contrast dye (Pruritus of skin, Bright redness, Hives) Social History Smoking Status - 07/29/2018 Former smoker Alcohol - No Risk, 11/21/2020 Use: Current. Type: Beer. 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 Living situation: Home/Independent. Primary Physician Support Coordinator: Self, lives with his spouse, Anuja. Professional Skilled Services or Special Community Resources None. OTher risks inenvironment: minimal smoke exposure. Spouse Name: Anuja., 06/21/2022 Nutrition/Health Type of diet: Regular. Appetite Good. Eating Difficulties None. Caffeine intake amount: One cup of coffee daily., 11/09/2022 Substance Abuse - Denies Substance Abuse, 07/29/2018 Use: Never., 08/28/2019 Tobacco - No Risk, 11/21/2020 Nicotine Use: Former smoker, quit more than 30 days ago, Currently uses pouches of tobacco. Type: Oral (Snuff, Chew). Stopped at age: 59 Years. Smoking Cessation Information Instructed not to use nicotine pouches (snuff) day of surgery. Smokeless Tobacco Use: Smokeless tobacco user within last 30 days., 06/21/2022 Family History Cancer: Sister and Brother. Coronary arteriosclerosis: Brother. Diabetes: Mother. Heart attack: Mother, Father and Brother. Immunizations diphtheria-tetanus toxoids: 0 unknown unit (07/18/13) pneumococcal 13-valent conjugate vaccine: 0.5 unknown unit (05/27/21) pneumococcal 13-valent conjugate vaccine: 0 unknown unit (12/09/15) pneumococcal 23-valent vaccine(Pneumovax: 0.5 unknown unit (06/16/22) pneumococcal 23-valent vaccine(Pneumovax: 0 unknown unit (08/15/14) SARS-CoV-2 mRNA (tozinameran) vaccine: 0 unknown unit (07/28/21) SARS-CoV-2 mRNA (tozinameran) vaccine: 30 unknown unit (01/26/21) SARS-CoV-2 mRNA (tozinameran) vaccine: 30 unknown unit (01/05/21) Code Status Code Status - Ordered -- 04/11/23 0:50:00 EDT, Full Code, Constant Order Digitally Signed by MAHAMED COLLIER MD on 04/11/2023 02:18 AM Digitally Signed by MAHAMED COLLIER MD on 04/11/2023 04:06 AM [facility] [id number] HCoV 229E RNA NORBERT+non-probe Ql (Nph)Not Detected *NA* (04/11/23 1:52 AM) Auto Viro/Sero [id number] Note. MICRO - Microbiology PROCEDURE: Miscellaneous Micro [O1 *1] SOURCE: Urine BODY SITE: COLLECTED DATE/TIME: 11/09/2022 23:33 EST RECEIVED DATE/TIME: 11/10/2022 16:17 EST START DATE/TIME: 11/10/2022 16:18 EST FREE TEXT SOURCE: [facility] FINAL REPORTS Final Report [] Verified Date/Time/Personnel: 11/14/2022 11:10 EST Complete reference lab report scanned to EMR. Order Comments O1: Miscellaneous Micro [facility] send out 11/10/2022 16:19:17 EST SLR Performing Locations *1: This test was performed at: [address]11-10-2022 Note. MICRO - Microbiology PROCEDURE: Streptococcus Pneumoniae Urine Antig [^1 *1] SOURCE: Urine, Clean Catch BODY SITE: COLLECTED DATE/TIME: 11/09/2022 23:33 EST RECEIVED DATE/TIME: 11/10/2022 16:20 EST START DATE/TIME: 11/10/2022 16:20 EST FREE TEXT SOURCE: FINAL REPORTS Final Report [] Verified Date/Time/Personnel: 11/10/2022 17:06 EST Presumptive negative for pneumococcal pneumonia, suggesting no current or recent pneumococcal infection. Infection due to Strep pneumoniae cannot be ruled out since the antigen present in the sample may be below the detection limit of the test. Interpretive Data ^1: Streptococcus Pneumoniae Urine Antig This test has not been evaluated on patients taking antibiotics for greater than 24 hours or on patients who have recently completed an antibiotic regimen. The accuracy of this test has not been proven in young children. Performing Locations *1: This test was performed at: [address], [address] [place] [address] ([place])07-02-2022 Hospital Discharge instructions Patient Education 07/02/2022 14:14:33 Hypoxia Hypoxia Hypoxia is a condition that happens when there is a lack of oxygen in the body's tissues and organs. When there is not enough oxygen, organs cannot work as they should. This causes serious problems throughout the body and in the brain. What are the causes? This condition may be caused by: Exposure to high altitude. A collapsed lung (pneumothorax). Lung infection (pneumonia). Lung injury. Long-term (chronic) lung disease, such as COPD (chronic obstructive pulmonary disease). Blood collecting in the chest cavity (hemothorax). Food, saliva, or vomit getting into the airway (aspiration). Reduced blood flow (ischemia). Severe blood loss. Slow or shallow breathing (hypoventilation). Blood disorders, such as anemia. Carbon monoxide poisoning. The heart suddenly stopping (cardiac arrest). Anesthetic medicines. Drowning. Choking. What are the signs or symptoms? Symptoms of this condition include: Headache. Fatigue. Drowsiness. Forgetfulness. Nausea. Confusion. Shortness of breath. Dizziness. Bluish color of the skin, lips, or nail beds (cyanosis). Change in consciousness or awareness. If hypoxia is not treated, it can lead to convulsions, loss of consciousness (coma), or brain damage. How is this diagnosed? This condition may be diagnosed based on: A physical exam. Blood tests. A test that measures how much oxygen is in your blood (pulse oximetry). This is done with a sensor that is placed on your finger, toe, or earlobe. Chest X-ray. Tests to check your lung function (pulmonary function tests). A test to check the electrical activity of your heart (electrocardiogram, ECG). You may have other tests to determine the cause of your hypoxia. How is this treated? Treatment for this condition depends on what is causing the hypoxia. You will likely be treated with oxygen therapy. This may be done by giving you oxygen through a face mask or through tubes in yournose. Your health care provider may also recommend other therapies to treat the underlying cause of your hypoxia. Follow these instructions at home: Take rakh-hez-viugybx and prescription medicines only as told by your health care provider. Do not use any products that contain nicotine or tobacco, such as cigarettes and e-cigarettes. If you need help quitting, ask your health care provider. Avoid secondhand smoke. Work with your health care provider to manage any chronic conditions you have that may be causing hypoxia, such as COPD. Keep all follow-up visits as told by your health care provider. This is important. Contact a health care provider if: You have a fever. You have trouble breathing, even after treatment. You become extremely short of breath when you exercise. Get help right away if: Your shortness of breath gets worse, especially with normal or very little activity. Your skin, lips, or nail beds have a bluish color. You become confused or you cannot think properly. You have chest pain. Summary Hypoxia is a condition that happens when there is a lack of oxygen in the body's tissues and organs. If hypoxia is not treated, it can lead to convulsions, loss of consciousness (coma), or brain damage. Symptoms of hypoxia can include a headache, shortness of breath, confusion, nausea, and a bluish skin color. Hypoxia has many possible causes, including exposure to high altitude, carbon monoxide poisoning, or other health issues, such as blood disorders or cardiac arrest. Hypoxia is usually treated with oxygen therapy. This information is not intended to replace advice given to you by your health care provider. Make sure you discuss any questions you have with your health care provider. Document Released: 12/04/2017 Document Revised: 09/28/2018 Document Reviewed: 12/04/2017 [employer] Patient Education 2020 [employer]. 07/02/2022 14:14:13 Chronic Obstructive Pulmonary Disease Exacerbation, Rwxr-vu-Sdbs Chronic Obstructive Pulmonary Disease Exacerbation Chronic obstructive pulmonary disease (COPD) is a long-term (chronic) lung problem. In COPD, the flow of air from the lungs is limited. COPD exacerbations are times that breathing gets worse and you need more than your normal treatment. Without treatment, they can be life threatening. If they happen often, your lungs can become more damaged. If your COPD gets worse, your doctor may treat you with: Medicines. Oxygen. Different ways to clear your airway, such as using a mask. Follow these instructions at home: Medicines Take uifm-whk-vishavl and prescription medicines only as told by your doctor. If you take an antibiotic or steroid medicine, do not stop taking the medicine even if you start tofeel better. Keep up with shots (vaccinations) as told by your doctor. Be sure to get a yearly (annual) flu shot. Lifestyle Do not smoke. If you need help quitting, ask your doctor. Eat healthy foods. Exercise regularly. Get plenty of sleep. Avoid tobacco smoke and other things that can bother your lungs. Wash your hands often with soap and water. This will help keep you from getting an infection. If you cannot use soap and water, use hand director center. During flu season, avoid areas that are crowded with people. General instructions Drink enough fluid to keep your pee (urine) clear or pale yellow. Do not do this if your doctor hastold you not to. Use a cool mist machine (vaporizer). If you use oxygen or a machine that turns medicine into a mist (nebulizer), continue to use it as told. Follow all instructions for rehabilitation. These are steps you can take to make your body work better. Keep all follow-up visits as told by your doctor. This is important. Contact a doctor if: Your COPD symptoms get worse than normal. Get help right away if: You are short of breath and it gets worse. You have trouble talking. You have chest pain. You cough up blood. You have a fever. You keep throwing up (vomiting). You feel weak or you pass out (faint). You feel confused. You are not able to sleep because of your symptoms. You are not able to do daily activities. Summary COPD exacerbations are times that breathing gets worse and you need more treatment than normal. COPD exacerbations can be very serious and may cause your lungs to become more damaged. Do not smoke. If you need help quitting, ask your doctor. Stay up-to-date on your shots. Get a flu shot every year. This information is not intended to replace advice given to you by your health care provider. Make sure you discuss any questions you have with your health care provider. Document Released: 10/04/2012 Document Revised: 09/28/2018 Document Reviewed: 11/20/2017 [employer] Patient Education 2020 [employer] 07/02/2022 14:13:49 8- Carotid Stenosis and Carotid Endarterectomy (11/2011)(CUSTOM) Carotid Stenosis and Carotid Endarterectomy Care After Surgery Refer to this sheet in the next few weeks. These discharge instructions provide you with general information on caring for yourself after you leave the hospital. Your caregiver may also give you specific instructions. Your treatment has been planned according to the most current medical practices available, but unavoidable complications sometimes occur. If you have any problems or questions afterdischarge, please call your caregiver. HOME CARE INSTRUCTIONS It is normal to be sore for a couple weeks after surgery. See your caregiver if this seems to be getting worse rather than better. Take showers, not baths, for a few days after surgery or until instructed otherwise by your caregiver. Do not take baths or swim until directed by your surgeon. Only take majt-zsc-ugpdipg or prescription medicines for pain, discomfort, or fever as directed by your caregiver. A blood thinner (anticoagulant) may be prescribed after surgery. This medicine should be taken exactly as directed. Change bandages (dressings) as directed by your caregiver. Resume your normal activities as directed by your caregiver. Avoid lifting until you are instructed otherwise. Make an appointment to see your caregiver for stitches (suture) or staple removal when instructed. Stop smoking if you smoke. This is a grave risk factor. Stop taking the pill (oral contraceptives) unless your caregiver recommends otherwise. Maintain good blood pressure control. Exercise regularly or as instructed. Lower blood lipids (cholesterol and triglycerides). Eat a heart-healthy diet. Manage heart problems if they are contributing to your risk. SEEK MEDICAL CARE IF: There is increased bleeding from the wound. You notice redness, swelling, or increasing pain in the wound. You notice swelling in your neck or have difficulty breathing or talking. You notice a bad smell or pus coming from the wound or dressing. SEEK IMMEDIATE MEDICAL CARE IF: Your initial symptoms are getting worse rather than better. You develop any abnormal bruising or bleeding. You develop a rash. You have difficulty breathing. You develop any reaction or side effects to medicine given. You develop chest pain, shortness of breath, or pain or swelling in your legs. You have a return of symptoms or problems that caused you to have this surgery. You develop a temporary loss of vision. You develop temporary numbness on one side. You develop a temporary inability to speak (aphasia). You develop temporary areas of weakness. You have problems or concerns that have not been answered. MAKE SURE YOU: Understand these instructions. Will watch your condition. Will get help right away if you are not doing well or get worse. Document Released: 05/05/2006 Document Re-Released: 01/10/2011 [facility]. Follow Up Care 06/09/2022 15:34:26 With:[facility] to deliver your needed equipment, Address:Unknown When: Unknown With:ROSELINE ALARCON Address: [address] [address] [phone] Business (1) When:5-7 days Comments:Please call on 07/05/2022, for a Follow Up Visit With:SANDY VOGEL MD Address: [address] [place] [address]- When: Unknown Comments:PLEASE CALL THIS OFFICE TO SCHEDULE A HOSPITAL FOLLOW UP APPOINTMENT. With:[facility] follow up Address: When: Unknown Comments:Mariana Fontenot or covering Nurse [facility] will call you and/or your family after your release from the hospital. Office Hours: Monday thru Monday 730am - 4pmPhone: Efwfz: [email or web address] [facility] 09-03-2022 Note Discharge Instructions Thank you for allowing [facility] to assist you with your healthcare needs. The following is importantdischarge information regarding your hospital visit. Your Care Team SANDY VOGEL MD What to do next Follow Up Appointments Follow Up with [employer] to deliver your needed equipment, When Follow Up with ROSELINE ALARCON When Within 5-7 days Why: Please call on 07/05/2022, for a Follow Up Visit Where: [address] [address] [phone] [facility] (1) Follow Up with SANDY VOGEL MD When Why: PLEASE CALL THIS OFFICE TO SCHEDULE A HOSPITAL FOLLOW UP APPOINTMENT. Where: [address] [place] [address]- Follow Up with [facility] follow up When Why: Mariana Fontenot or covering Nurse [facility] will call you and/or your family after your release from the hospital. Office Hours: Monday thru Monday 730am - 4pm Email: [email or web address] Where: The Following Activity and Diet Have Been Ordered for You No qualifying data available. No qualifying data available. The Following Equipment Has Been Ordered for You No qualifying data available. The Following Treatments Have Been Ordered for You Discharge Labs No qualifying data available. Discharge Radiology No qualifying data available. Other Therapies No qualifying data available. Post Acute Orders No qualifying data available. Someone Will Contact You Regarding These Home Health Referrals No home referrals have been ordered for you. No one will call you. Allergies Contrast dye (Pruritus of skin, Bright redness, Hives) Medications Please ask your primary doctor or pharmacist before taking any other medication not listed, including over the counter drugs, herbal medications, vitamins and or supplements as they may interact withyour home medications. What How Much When Instructions Last Dose New albuterol (albuterol 2.5 mg/ 3 mL (0.083%) inhalationsolution) 3 Milliliter by inhalation Every 6 hours as needed for Wheezing Refills: 6 Printed Prescription New albuterol-ipratropium (DuoNeb use albuterol-ipratropium ) See instructions Refills: 6 may take additional inhalations as required, not to exceed six in 24 hours Printed Prescription New budesonide (budesonide 0.5 mg/ 2 mL inhalation suspension) 2 Milliliter by inhalation Two (2) times a day Printed Prescription Unchanged acetaminophen (Tylenol 8 Hour 650 mg oral tablet, extended release) 2 tab(s) by mouth Every 8 hours as needed for as needed for pain Unchanged aspirin (aspirin 81 mg oral delayed release tablet) 1 tab(s) by mouth Once a day (in the morning) Dr. Bond advised to coninue prior to OR on per pt. Unchanged atorvastatin (atorvastatin 40 mg oral tablet) 1 tab(s) by mouth Once a day (in the morning) Unchanged lisinopril (lisinopril 40 mg oral tablet) 1 tab(s) by mouth Once a day (in the morning) Unchanged LORazepam (LORazepam 0.5 mg oral tablet) 0.5 tab(s) by mouth Three (3) times a day as needed for as needed for anxiety Unchanged venlafaxine (venlafaxine 150 mg oral capsule, extended release) 1 cap by mouth Once a day (in the morning) Please take this list to your next doctor s visit. Bring all medications you take, including over the counter medications, herbals and other supplements with you to your doctor s visit. Patients and families are reminded to discard old lists and to update any records with all medication providers or retail pharmacies. Education Materials Hypoxia Hypoxia is a condition that happens when there is a lack of oxygen in the body's tissues and organs. When there is not enough oxygen, organs cannot work as they should. This causes serious problems throughout the body and in the brain. What are the causes? This condition may be caused by: Exposure to high altitude. A collapsed lung (pneumothorax). Lung infection (pneumonia). Lung injury. Long-term (chronic) lung disease, such as COPD (chronic obstructive pulmonary disease). Blood collecting in the chest cavity (hemothorax). Food, saliva, or vomit getting into the airway (aspiration). Reduced blood flow (ischemia). Severe blood loss. Slow or shallow breathing (hypoventilation). Blood disorders, such as anemia. Carbon monoxide poisoning. The heart suddenly stopping (cardiac arrest). Anesthetic medicines. Drowning. Choking. What are the signs or symptoms? Symptoms of this condition include: Headache. Fatigue. Drowsiness. Forgetfulness. Nausea. Confusion. Shortness of breath. Dizziness. Bluish color of the skin, lips, or nail beds (cyanosis). Change in consciousness or awareness. If hypoxia is not treated, it can lead to convulsions, loss of consciousness (coma), or brain damage. How is this diagnosed? This condition may be diagnosed based on: A physical exam. Blood tests. A test that measures how much oxygen is in your blood (pulse oximetry). This is done with a sensor that is placed on your finger, toe, or earlobe. Chest X-ray. Tests to check your lung function (pulmonary function tests). A test to check the electrical activity of your heart (electrocardiogram, ECG). You may have other tests to determine the cause of your hypoxia. How is this treated? Treatment for this condition depends on what is causing the hypoxia. You will likely be treated with oxygen therapy. This may be done by giving you oxygen through a face mask or through tubes in yournose. Your health care provider may also recommend other therapies to treat the underlying cause of your hypoxia. Follow these instructions at home: Take zhvg-lld-caccmib and prescription medicines only as told by your health care provider. Do not use any products that contain nicotine or tobacco, such as cigarettes and e-cigarettes. If you need help quitting, ask your health care provider. Avoid secondhand smoke. Work with your health care provider to manage any chronic conditions you have that may be causing hypoxia, such as COPD. Keep all follow-up visits as told by your health care provider. This is important. Contact a health care provider if: You have a fever. You have trouble breathing, even after treatment. You become extremely short of breath when you exercise. Get help right away if: Your shortness of breath gets worse, especially with normal or very little activity. Your skin, lips, or nail beds have a bluish color. You become confused or you cannot think properly. You have chest pain. Summary Hypoxia is a condition that happens when there is a lack of oxygen in the body's tissues and organs. If hypoxia is not treated, it can lead to convulsions, loss of consciousness (coma), or brain damage. Symptoms of hypoxia can include a headache, shortness of breath, confusion, nausea, and a bluish skin color. Hypoxia has many possible causes, including exposure to high altitude, carbon monoxide poisoning, or other health issues, such as blood disorders or cardiac arrest. Hypoxia is usually treated with oxygen therapy. This information is not intended to replace advice given to you by your health care provider. Make sure you discuss any questions you have with your health care provider. Document Released: 12/04/2017 Document Revised: 09/28/2018 Document Reviewed: 12/04/2017 [employer] Patient Education 2020 [employer] Chronic Obstructive Pulmonary Disease Exacerbation Chronic obstructive pulmonary disease (COPD) is a long-term (chronic) lung problem. In COPD, the flow of air from the lungs is limited. COPD exacerbations are times that breathing gets worse and you need more than your normal treatment. Without treatment, they can be life threatening. If they happen often, your lungs can become more damaged. If your COPD gets worse, your doctor may treat you with: Medicines. Oxygen. Different ways to clear your airway, such as using a mask. Follow these instructions at home: Medicines Take bjve-wir-stdtvpx and prescription medicines only as told by your doctor. If you take an antibiotic or steroid medicine, do not stop taking the medicine even if you start tofeel better. Keep up with shots (vaccinations) as told by your doctor. Be sure to get a yearly (annual) flu shot. Lifestyle Do not smoke. If you need help quitting, ask your doctor. Eat healthy foods. Exercise regularly. Get plenty of sleep. Avoid tobacco smoke and other things that can bother your lungs. Wash your hands often with soap and water. This will help keep you from getting an infection. If you cannot use soap and water, use hand director center. During flu season, avoid areas that are crowded with people. General instructions Drink enough fluid to keep your pee (urine) clear or pale yellow. Do not do this if your doctor hastold you not to. Use a cool mist machine (vaporizer). If you use oxygen or a machine that turns medicine into a mist (nebulizer), continue to use it as told. Follow all instructions for rehabilitation. These are steps you can take to make your body work better. Keep all follow-up visits as told by your doctor. This is important. Contact a doctor if: Your COPD symptoms get worse than normal. Get help right away if: You are short of breath and it gets worse. You have trouble talking. You have chest pain. You cough up blood. You have a fever. You keep throwing up (vomiting). You feel weak or you pass out (faint). You feel confused. You are not able to sleep because of your symptoms. You are not able to do daily activities. Summary COPD exacerbations are times that breathing gets worse and you need more treatment than normal. COPD exacerbations can be very serious and may cause your lungs to become more damaged. Do not smoke. If you need help quitting, ask your doctor. Stay up-to-date on your shots. Get a flu shot every year. This information is not intended to replace advice given to you by your health care provider. Make sure you discuss any questions you have with your health care provider. Document Released: 10/04/2012 Document Revised: 09/28/2018 Document Reviewed: 11/20/2017 [employer] Patient Education 2020 [employer] Carotid Stenosis and Carotid Endarterectomy Care After Surgery Refer to this sheet in the next few weeks. These discharge instructions provide you with general information on caring for yourself after you leave the hospital. Your caregiver may also give you specific instructions. Your treatment has been planned according to the most current medical practices available, but unavoidable complications sometimes occur. If you have any problems or questions afterdischarge, please call your caregiver. HOME CARE INSTRUCTIONS It is normal to be sore for a couple weeks after surgery. See your caregiver if this seems to be getting worse rather than better. Take showers, not baths, for a few days after surgery or until instructed otherwise by your caregiver. Do not take baths or swim until directed by your surgeon. Only take rwye-ccw-clfkmcl or prescription medicines for pain, discomfort, or fever as directed by your caregiver. A blood thinner (anticoagulant) may be prescribed after surgery. This medicine should be taken exactly as directed. Change bandages (dressings) as directed by your caregiver. Resume your normal activities as directed by your caregiver. Avoid lifting until you are instructed otherwise. Make an appointment to see your caregiver for stitches (suture) or staple removal when instructed. Stop smoking if you smoke. This is a grave risk factor. Stop taking the pill (oral contraceptives) unless your caregiver recommends otherwise. Maintain good blood pressure control. Exercise regularly or as instructed. Lower blood lipids (cholesterol and triglycerides). Eat a heart-healthy diet. Manage heart problems if they are contributing to your risk. SEEK MEDICAL CARE IF: There is increased bleeding from the wound. You notice redness, swelling, or increasing pain in the wound. You notice swelling in your neck or have difficulty breathing or talking. You notice a bad smell or pus coming from the wound or dressing. SEEK IMMEDIATE MEDICAL CARE IF: Your initial symptoms are getting worse rather than better. You develop any abnormal bruising or bleeding. You develop a rash. You have difficulty breathing. You develop any reaction or side effects to medicine given. You develop chest pain, shortness of breath, or pain or swelling in your legs. You have a return of symptoms or problems that caused you to have this surgery. You develop a temporary loss of vision. You develop temporary numbness on one side. You develop a temporary inability to speak (aphasia). You develop temporary areas of weakness. You have problems or concerns that have not been answered. MAKE SURE YOU: Understand these instructions. Will watch your condition. Will get help right away if you are not doing well or get worse. Document Released: 05/05/2006 Document Re-Released: 01/10/2011 [facility] Patient Information 2010 [employer] [facility]. Additional Information VACCINATE! IT SAVES LIVES! Members of the community who have not yet received the COVID-19 vaccine and would like to receive it can visit one of [facility] vaccine clinics. There are many vaccine clinic locations within the [facility]. For locations and available times, please visit [email or web address] It is important to note that some COVID mobile vaccine clinics are held outdoors and may be canceled in rainy or stormy conditions. To learn more about pediatric vaccinations (ages 5-11), we invite you to visit the [facility] webpage. [email or web address]/[email or web address]-Avoma-[email or web address] stions.htmlTo learn more about the COVID-19 vaccine, we invite you to visit the [employer] website for a list of frequently asked questions. [email or web address]-[email or web address] _[email or web address]-Questions.pdf [employer] Patient Portal Access Instructions: Stay connected with your healthcare team and access your personal medical information anytime with the [employer] Patient Portal.If you would like a full copy of your medical records, please contact the [facility] Medical Records Department, Monday through Monday between 8a.m. and 4:30p.m. Please follow the directions below to access the portal: 1.Access the email account you provided upon registration to the hospital.2.Look for an invitation email from [facility].3.Open the email and access the invitation link: Accept Invitation to [employer]4.Fill in the required galeas to create your account. Sign into [email or web address] with your username and password that you created in the above steps to stay up to date. You can then view a summary of results, a summary of your visits, and the ability to download your summaries to your computer or send the information securely to a physician. Remember that your healthcare information is confidential, so carefully consider who you will allow to register on the [employer] Patient Portal for access to your information. You can also access the [employer] Patient Portal on the [employer] ruel. Simply click on Health Records under [employer] and then click on the [employer] logo. HOW TO SAFELY DISPOSE OF PRESCRIPTION MEDICATIONS Please use one of the following methods to safely dispose of your unused medications. 1.Use a drug disposal kit: the drug disposal pouch allows you to safely discard your old and unuseddrugs. Ask your nurse to give you one when you are discharged.2.Visit a local take-back location: Many local pharmacies and police departments have programs that collect old and unwanted prescriptiondrugs. Call your local pharmacy or go to http://[employer]/3T8Bl3b to find one close to you.3.Make use of household items: Use cat litter or old coffee grounds to dispose medications if other options arenot available. Mix your drugs with these household products, seal them in an airtight container andthrow it into the garbage. Call [facility]: [phone] to be sure your drugs can be disposed of in this way. Some medicines may require a different approach.4.Never flush your medications down the toilet. IF YOU HAVE BEEN PRESCRIBED AN OPIOID FOR PAIN If you have been prescribed an opioid (such as hydrocodone, oxycodone or morphine), it is critical to understand the possible side effects and risks of opioid pain medications. Even when taken as directed, opioids can have several side effects including: Tolerance, meaning you might need to take more of a medication for the same pain relief. Nausea, vomiting and/or constipation. Sleepiness, dizziness, dry mouth, confusion, depression or itching. Physical dependence, meaning you have withdrawal symptoms when a medication is stopped, can develop within a few days. KNOW YOUR RESPONSIBILITIES It is important to know exactly how much and how often to take the opioid pain medications you are prescribed. Never take opioids in higher amounts or more often than prescribed. Do not combine opioids with alcohol or other drugs that cause drowsiness, such as benzodiazepines, also known as benzos, including diazepam and alprazolam, muscle relaxants or sleep aids. Never sell or share prescription opioids. This is illegal. Store opioids in a secure place and out of reach of others (including children, family, friends and visitors). The last page of this document has been signed and retained as a CHART COPY. Signatures Patient Education Materials Hypoxia Chronic Obstructive Pulmonary Disease Exacerbation, Jqkk-kj-Ghhq 8- Carotid Stenosis and Carotid Endarterectomy (11/2011)(CUSTOM) Medication Leaflets My discharge plan and instructions have been reviewed and explained to me and IHARISH GEORGE O understand my current condition and have read and understand these discharge instructions. I have received a written copy of the plan/instructions. If I have questions, I am aware that I should contact my doctor. 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 Currently on 1 L nasal cannula saturating low 90s. Feels breathing is greatly improved with breathing treatments Objective Vitals and Measurements T: 36.7 C (Oral) TMIN: 36.5 C (Oral) TMAX: 36.7 C (Oral) HR: 97(Monitored) RR: 18 BP: 137/87 SpO2: 91% Intake and Output 7AM Yesterday to 7AM Today Intake and Output (Last 24 hours) Intake Oral Intake 480.00 Output Urine Voided 1450.00 Stool Count 1.00 Urine Count 4.00 Emesis Count 0.00 Total Summary Total Intake 480.00 Total Output 1450.00 Fluid Balance -970.00 Physical Exam Negative except HPI general: AAOx3, no distress Oral cavity: Moist Oral Mucosa Neck: No mass CVS: RRR, No murmur, Normal S1S2, no LL edema Respiratory: Equal bilateral breath sounds, no wheezing, bilateral lower lobe crackles, no accessory muscle use Abdomen: Non-tender, no guarding, no rigidity Ext: Warm to touch Neuro: No focal deficits Weight Dosing Weight: 77.2 kg (06/30/22) Medications Medications (14) Active Scheduled: (6) albuterol - ipratropium 2.5 mg-0.5 mg/3 mL Inhal Carla UD 3 mL, Inhalation, QIDRT aspirin 81 mg EC 81 mg 1 tab(s), Oral, qAM atorvastatin 40 mg tablet 40 mg 1 tab(s), Oral, qAM budesonide 0.5 mg/2 mL Susp UD 0.5 mg 2 mL, Inhalation, BIDRT lisinopril 20 mg tablet 40 mg 2 tab(s), Oral, qAM venlafaxine 150 mg ER capsule 150 mg 1 cap(s), Oral, qDayM Continuous: (1) D5/0.45%NACL + KCL 10 mEq/L 1,000 mL 1,000 mL, Intravenous, 100 mL/hr PRN: (7) acetaminophen 325 mg Tablet 650 mg 2 tab(s), Oral, q4h acetaminophen 325 mg Tablet 650 mg 2 tab(s), Oral, q4h acetaminophen-HYDROcodone 325-5 mg tablet 1 tab(s), Oral, q4h enalaprilat 1.25 mg/mL (2 mL) vial 1.25 mg 1 mL, IV Push, q6h HYDROmorphone 0.5 mg/0.5 mL PF syringe 0.5 mg 0.5 mL, IV Push, q2h LORAZEPam 0.5 mg tablet 0.25 mg 0.5 tab(s), Oral, TID ondansetron 2 mg/ 1 mL 2 mL INJ 4 mg 2 mL, IV Push, q4h Lab Results No 36 Hour Lab Data EKG No qualifying data available. Assessment/Plan 1. Carotid stenosis status post endarterectomy 2. Chronic versus acute on chronic hypoxic respiratory failure 3. Emphysema/COPD 4. ILD Patient did have a CT scan in May 2021 which showed UIP pattern along with emphysema. CTA done yesterday did not show evidence of pulm embolism but did show advanced emphysema and progressive fibrosis Plan -Hypoxia likely chronic due to underlying emphysema COPD and pulmonary fibrosis -Prior to discharge recommend hallway walk test to assess oxygen requirements. -Start DuoNebs every 6 hours, budesonide twice daily -Upon discharge send patient home on Stiolto 2 puff once daily, albuterol 2 puff every 6 hours as needed for shortness of breath -We will follow with patient in office and he will need an outpatient PFT Digitally Signed by ROSELINE ALARCON MD on 07/02/2022 12:48 PM [facility] [id number] Note ORIGINAL EXAMINATION: CTA OF THE CHEST 07/01/2022 6:09 pm TECHNIQUE: CTA of the chest was performed after the administration of intravenous contrast. Multiplanar reformatted images are provided for review. MIP images are provided for review. Automated exposure control, iterative reconstruction, and/or weight based adjustment of the mA/kV was utilized to reduce the radiation dose to as low as reasonably achievable. COMPARISON: Chest x-ray on 07/01/2022. CT chest on 06/04/2021 HISTORY: ORDERING SYSTEM PROVIDED HISTORY: Reason for Exam: SOB, HX OF BLOOD CLOTS PE ruleout, O2 dependence FINDINGS: Pulmonary Arteries: Pulmonary arteries are adequately opacified for evaluation. No evidence of intraluminal filling defect to suggest pulmonary embolism. Main pulmonary artery is normal in caliber. Mediastinum: There is mild enlargement of mediastinal lymph nodes. 1.5 cm subcarinal lymph node is present. There is a 1.1 cm left hilar lymph node. 1.3 cm right hilar lymph node is present also. Lymph nodes are not significantly changed since 06/04/2021. The heart size is at the upper limits of normal. Atherosclerotic coronary artery calcification is present. No pericardial fluid is seen. Thoracic aorta is nonaneurysmal. There is no aortic dissection. Lungs/pleura: There is advanced emphysema. Honeycomb fibrotic changes in both lower lobes are again seen. There is moderate airspace consolidation posteriorly in the right lower lobe that was present on 06/04/2021 but is increased slightly in size. There is no pleural fluid or pneumothorax. Upper Abdomen: Limited images of the upper abdomen are unremarkable. Soft Tissues/Bones: No acute bone or soft tissue abnormality. IMPRESSION: No pulmonary embolism. Emphysema with basilar interstitial fibrosis with honeycomb lung in lower lobes. Moderate right lower lobe airspace disease consistent with pneumonia that is increased in size since 06/04/2021. Mild mediastinal and bilateral hilar lymph node enlargement is likely reactive and not significantly changed since 06/04/2021. Atherosclerotic coronary artery calcification. Interpreted by: Quang Vargas MD Preliminary Report By: Quang Vargas MD Electronically signed By Quang Vargas MD Dictated Date: 07/02/2022 12:01:12 AM Prelim Date: 07/02/2022 12:11:02 AM Sign Date: 07/02/2022 12:11:02 AM Ordering Provider: [facility]09-02-2022 Respiratory therapy Hospital Progress note Respiratory Therapy Evaluation Entered On: 07/01/2022 18:50 EDT Performed On: 07/01/2022 18:49 EDT by Kamila Sevilla RRT Respiratory Therapy Evaluation Pulmonary Status : Non-smoker Surgical Status : Thoracic without lower abdomen Chest X-Ray : Chronic changes/pending results Breath Sounds (RT) : Crackles or intermittent wheezes Respiratory Pattern (RT) : Increased RR=21-25 Cough (RT) : Weak, non-productive Respiratory Therapy Evaluation Score : 11 Level of Activity : Ambulatory with assistance Mental Status : Alert, oriented RT Assessment [Frequency/Schedule] : QIDRT Kamila Sevilla TRANSFORMER TESTER - 07/01/2022 18:49 EDT Digitally Signed by Kamila Sevilla RRT on 07/01/2022 06:49 PM [facility] [id number] Note ORIGINAL EXAMINATION: CTA OF THE CHEST 07/01/2022 6:09 pm TECHNIQUE: CTA of the chest was performed after the administration of intravenous contrast. Multiplanar reformatted images are provided for review. MIP images are provided for review. Automated exposure control, iterative reconstruction, and/or weight based adjustment of the mA/kV was utilized to reduce the radiation dose to as low as reasonably achievable. COMPARISON: Chest x-ray on 07/01/2022. CT chest on 06/04/2021 HISTORY: ORDERING SYSTEM PROVIDED HISTORY: Reason for Exam: SOB, HX OF BLOOD CLOTS PE ruleout, O2 dependence FINDINGS: Pulmonary Arteries: Pulmonary arteries are adequately opacified for evaluation. No evidence of intraluminal filling defect to suggest pulmonary embolism. Main pulmonary artery is normal in caliber. Mediastinum: There is mild enlargement of mediastinal lymph nodes. 1.5 cm subcarinal lymph node is present. There is a 1.1 cm left hilar lymph node. 1.3 cm right hilar lymph node is present also. Lymph nodes are not significantly changed since 06/04/2021. The heart size is at the upper limits of normal. Atherosclerotic coronary artery calcification is present. No pericardial fluid is seen. Thoracic aorta is nonaneurysmal. There is no aortic dissection. Lungs/pleura: There is advanced emphysema. Honeycomb fibrotic changes in both lower lobes are again seen. There is moderate airspace consolidation posteriorly in the right lower lobe that was present on 06/04/2021 but is increased slightly in size. There is no pleural fluid or pneumothorax. Upper Abdomen: Limited images of the upper abdomen are unremarkable. Soft Tissues/Bones: No acute bone or soft tissue abnormality. IMPRESSION: No pulmonary embolism. Emphysema with basilar interstitial fibrosis with honeycomb lung in lower lobes. Moderate right lower lobe airspace disease consistent with pneumonia that is increased in size since 06/04/2021. Mild mediastinal and bilateral hilar lymph node enlargement is likely reactive and not significantly changed since 06/04/2021. Atherosclerotic coronary artery calcification. Interpreted by: Quang Vargas MD Preliminary Report By: Quang Vargas MD Electronically signed By Quang Vargas MD Dictated Date: 07/02/2022 12:01:12 AM Prelim Date: 07/02/2022 12:11:02 AM Sign Date: 07/02/2022 12:11:02 AM Ordering Provider: [facility]09-02-2022 Pulmonary Consult note Date of Service 07/01/2022 Reason for Consultation Hypoxia Referring Physician Dr. Bond History of Present Illness 67-year-old male with a past medical history of hypertension, emphysema found to have high-grade left internal carotid artery stenosis. He presented to same-day today for left carotid endarterectomy.. Found to be hypoxic to 70% on room air at rest. Pulmonary was consulted to evaluate further. Patient states for years now he has had dyspnea on exertion. He can walk approximately half a block to 1 block before he stop and rest. Does check his oxygen at home and has noticed readings in the mid 80s. He is able to do all of his daily activities. Prior history of smoking 1 pack a day for over 20 years. Currently not smoking. 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 Has never been on inhalers. Currently sitting in chair denies any dyspnea at rest comfortably not in any distress.. Denies any chest pain, lightheadedness, blurry vision. Review of Systems Negative except HPI Physical Exam Vitals and Measurements T: 36.7 C (Oral) TMIN: 36.5 C (Oral) TMAX: 36.8 C (Oral) HR: 95(Monitored) RR: 22 BP: 144/77 BP: 154/66(Line) SpO2: 92% Weight Dosing Weight: 77.2 kg (06/30/22) general: AAOx3, no distress Oral cavity: Moist Oral Mucosa Neck: No mass CVS: RRR, No murmur, Normal S1S2, no LL edema Respiratory: Equal bilateral breath sounds, no wheezing, bilateral lower lobe crackles, no accessory muscle use Abdomen: Non-tender, no guarding, no rigidity Ext: Warm to touch Neuro: No focal deficits Lab Results 06/30 08:34 WBC: 9.8 Hgb: 17.1 Hct: 50.3 Platelet: 264 Neutrophil %: 73.2 Glucose Level: 92 Sodium Level: 138 Potassium Level: 4.0 BUN: 13.0 Creatinine Lvl (s): 0.84 Assessment/Plan 1. Carotid stenosis status post endarterectomy 2. Chronic versus acute on chronic hypoxic respiratory failure 3. Emphysema/COPD 4. ILD Patient did have a CT scan in May 2021 which showed UIP pattern along with emphysema. Unclear atthis point how much of the hypoxia is chronic versus an acute component postop. There is no documented desaturations into the 70s prior to his surgery. Plan -Obtain CTA to rule out pulmonary embolism. We will also reassess his lung parenchyma for any progression of disease. If there is no PE most likely this hypoxia is chronic -Prior to discharge recommend hallway walk test to assess oxygen requirements. Per nursing he did well on 4 L nasal cannula with exertion -Start DuoNebs every 6 hours, budesonide twice daily -Upon discharge send patient home on Stiolto 2 puff once daily, albuterol 2 puff every 6 hours as needed for shortness of breath -We will follow with patient in office and he will need an outpatient PFT Problem List/Past Medical History Ongoing Acute maxillary sinusitis Allergic rhinitis Anxiety Carotid artery stenosis Chronic airflow obstruction Emphysema of lung Hypertension Mixed hyperlipidemia On anticoagulant therapy Pneumonia Smoking Historical Neck pain Procedure/Surgical History None Medications Inpatient aspirin 81 mg oral delayed release tablet, 81 mg= 1 tab(s), Oral, qAM atorvastatin, 40 mg= 1 tab(s), Oral, qAM Dextrose 5%/Sod Chloride 0.45%/10mEq per L Potassium Chloride 1,000 mL, 1000 mL, Intravenous Dilaudid, 0.5 mg= 0.5 mL, IV Push, q2h, PRN Effexor XR, 150 mg= 1 cap(s), Oral, qDayM lisinopril, 40 mg= 2 tab(s), Oral, qAM LORazepam, 0.25 mg= 0.5 tab(s), Oral, TID, PRN [place] 325- 5 mg oral tablet, 1 tab(s), Oral, q4h, PRN Tylenol, 650 mg= 2 tab(s), Oral, q4h, PRN Tylenol, 650 mg= 2 tab(s), Oral, q4h, PRN Vasotec, 1.25 mg= 1 mL, IV Push, q6h, PRN Zofran, 4 mg= 2 mL, IV Push, q4h, PRN Home aspirin 81 mg oral delayed release tablet, 81 mg= 1 tab(s), Oral, qAM, 3 refills atorvastatin 40 mg oral tablet, 40 mg= 1 tab(s), Oral, qAM lisinopril 40 mg oral tablet, 40 mg= 1 tab(s), Oral, qAM, 3 refills LORazepam 0.5 mg oral tablet, 0.25 mg= 0.5 tab(s), Oral, TID, PRN Tylenol 8 Hour 650 mg oral tablet, extended release, 1300 mg= 2 tab(s), Oral, q8h, PRN venlafaxine 150 mg oral capsule, extended release, 150 mg= 1 cap(s), Oral, qAM, 3 refills Allergies NKA Social History Smoking Status - 07/29/2018 Former smoker Alcohol - No Risk, 11/21/2020 Use: Current. Type: Beer. Frequency: 1-2 times per week. Average drinks per day: 5., 08/29/2019 Employment/School Status: Retired. Description: [place]., 06/11/2021 Home/Environment Domestic Concerns: Denies., 06/30/2022 Domestic Concerns: None. Living situation: Home/Independent. Primary Physician Support Coordinator: Self, lives with his spouse, Anuja. Professional Skilled Services or Special Community Resources None. OTher risks inenvironment: minimal smoke exposure. Spouse Name: Anuja., 06/21/2022 Nutrition/Health Type of diet: Regular. Appetite Good. Eating Difficulties None., 06/04/2021 Substance Abuse - Denies Substance Abuse, 07/29/2018 Use: Never., 08/28/2019 Tobacco - No Risk, 11/21/2020 Nicotine Use: Former smoker, quit more than 30 days ago, Currently uses pouches of tobacco. Type: Oral (Snuff, Chew). Stopped at age: 59 Years. Smoking Cessation Information Instructed not to use nicotine pouches (snuff) day of surgery. Smokeless Tobacco Use: Smokeless tobacco user within last 30 days., 06/21/2022 Family History Cancer: Sister and Brother. Coronary arteriosclerosis: Brother. Diabetes: Mother. Heart attack: Mother, Father and Brother. Immunizations diphtheria-tetanus toxoids: 0 unknown unit (07/18/13) pneumococcal 13-valent conjugate vaccine: 0.5 unknown unit (05/27/21) pneumococcal 13-valent conjugate vaccine: 0 unknown unit (12/09/15) pneumococcal 23-valent vaccine(Pneumovax: 0.5 unknown unit (06/16/22) pneumococcal 23-valent vaccine(Pneumovax: 0 unknown unit (08/15/14) SARS-CoV-2 mRNA (tozinameran) vaccine: 0 unknown unit (07/28/21) SARS-CoV-2 mRNA (tozinameran) vaccine: 30 unknown unit (01/26/21) SARS-CoV-2 mRNA (tozinameran) vaccine: 30 unknown unit (01/05/21) Digitally Signed by ROSELINE ALARCON MD on 07/01/2022 03:10 PM Digitally Signed by ROSELINE ALARCON MD on 07/02/2022 12:48 PM [facility] [id number] Note ORIGINAL EXAMINATION: ONE XRAY VIEW OF THE CHEST07/01/2022 2:20 pm COMPARISON: 10/27/2019 HISTORY: ORDERING SYSTEM PROVIDED HISTORY: Reason for Exam: hypoxia FINDINGS: Stable heart and mediastinum. No vascular congestion, pleural effusion or pneumothorax. Extensive interstitial lung disease in the mid and lower lungs as seen previously. IMPRESSION: Extensive chronic interstitial lung disease. No obvious acute process although this could be obscured by the chronic changes. Interpreted by: Yehuda Martini MD Preliminary Report By: Yehuda Martini MD Electronically signed By Yehuda Martini MD Dictated Date: 07/01/2022 2:27:16 PM Prelim Date: 07/01/2022 2:28:02 PM Sign Date: 07/01/2022 2:28:02 PM Ordering Provider: [facility]09-02-2022 Note ORIGINAL EXAMINATION: ONE XRAY VIEW OF THE CHEST07/01/2022 2:20 pm COMPARISON: 10/27/2019 HISTORY: ORDERING SYSTEM PROVIDED HISTORY: Reason for Exam: hypoxia FINDINGS: Stable heart and mediastinum. No vascular congestion, pleural effusion or pneumothorax. Extensive interstitial lung disease in the mid and lower lungs as seen previously. IMPRESSION: Extensive chronic interstitial lung disease. No obvious acute process although this could be obscured by the chronic changes. Interpreted by: Yehuda Martini MD Preliminary Report By: Yehuda Martini MD Electronically signed By Yehuda Martini MD Dictated Date: 07/01/2022 2:27:16 PM Prelim Date: 07/01/2022 2:28:02 PM Sign Date: 07/01/2022 2:28:02 PM Ordering Provider: [facility]09-02-2022 Discharge summary Date of Service 07/02/2022 Discharge Diagnosis Carotid stenosis Hospital Course Patient underwent a left carotid endarterectomy. He did well. Remained neurologically intact. Drainwas removed. No hematoma. Tolerating a diet. He was then cleared for discharge home. Did have some lower saturations was a little oxygen and was up ambulating trying to get this level up. Was seen then by pulmonary. Started on oxygen. Given inhalers. Was then cleared for discharge home. Allergies NKA Procedures 1. Left carotid endarterectomy Consults No qualifying data available. Objective Vitals and Measurements T: 36.7 C (Oral) TMIN: 36.5 C (Oral) TMAX: 37.25 C HR: 115(Monitored) RR: 20 BP: 165/84 BP: 154/66(Line) SpO2: 95% Weight Dosing Weight: 77.2 kg (06/30/22) Patient awake alert oriented No apparent distress Afebrile vital signs stable Neck supple, no hematoma Dressing intact Moves all extremities well x4 Code Status No qualifying data available. Admission Date 06/30/2022 Discharge Date 07/02/2022 Medications Unchanged acetaminophen (Tylenol 8 Hour 650 mg oral tablet, extended release)2 tab(s) by mouth every 8 hours as needed as needed for pain. aspirin (aspirin 81 mg oral delayed release tablet)1 tab(s) by mouth once a day (in the morning). Dr. Bond advised to coninue prior to OR on 07/01/22 per pt.. Refills: 3. atorvastatin (atorvastatin 40 mg oral tablet)1 tab(s) by mouth once a day (in the morning). lisinopril (lisinopril 40 mg oral tablet)1 tab(s) by mouth once a day (in the morning). Refills: 3. LORazepam (LORazepam 0.5 mg oral tablet)0.5 tab(s) by mouth three (3) times a day as needed as needed for anxiety. venlafaxine (venlafaxine 150 mg oral capsule, extended release)1 cap by mouth once a day (in the morning). Refills: 3. Follow Up 1 month Follow-up pulmonary 1 month Discharge Diet Regular diet Discharge Activity Increase activity as tolerated Condition on Discharge Stable Readmission Risk/Palliative Score No qualifying data available. Discharge Disposition Home Digitally Signed by YESENIA BOND MD on 07/01/2022 10:54 AM Digitally Signed by YESENIA BOND MD on 07/02/2022 03:59 PM [facility] [id number] Anesthesiology Consult note Patient: HAYDEN MOREIRA Age: 67 years Sex: Male : 1955 Associated Diagnoses: None Author: ZULY HOFFMANN MD Postoperative Information Post Operative Info: Post op day: Day 0. Patient location: CVICU. Notes: s/p left CEA. Assessment Postanesthesia assessment Vitals: Vital signs from flowsheet : Vital Signs 06/30/2022 14:00 EDT Heart Rate Monitored 92 bpm Respiratory Rate 18 br/min Systolic Blood Pressure NBP 130 mmHg Diastolic Blood Pressure NBP 78 mmHg Mean Arterial Pressure (NBP) 93 mmHg Systolic Blood Pressure Invasive 136 mmHg Diastolic Blood Pressure Invasive 67 mmHg Mean Arterial Pressure (Line) 94 mmHg , Oxygen Therapy : Oxygen Therapy & Oxygenation Information 06/30/2022 14:00 EDT Oxygen Therapy Nasal cannula 0L-6L Oxygen Saturation 92 % LOW Oxygen Flow Rate 6 . Mental status: at preoperative baseline. Respiratory function: respirations are non-labored. Respiratory support: oxygen O2 NC. CV function: Normal rate, Regular rhythm. Cardiovascular support: none. Pain: Satisfactory. Nausea status: Satisfactory. Postoperative hydration status: within normal limits. Notes: Patient is sufficiently recovered from anesthesia to participate in the evaluation. No follow-up care needed. No complications post-anesthesia.. Digitally Signed by ZULY HOFFMANN MD on 06/30/2022 02:09 PM [facility] [id number] Anesthesiology Consult note Patient: HAYDEN MOREIRA Age: 67 years Sex: Male : 1955 Associated Diagnoses: None Author: ZULY HOFFMANN MD Preoperative Information Time of last food or liquid consumption: 06/29/2022 23:00:00 Anesthesia history Patient's history: negative. Family's history: negative. History of Present Illness 67 yr old with severe left ICA stenosis presents for CEA. PMH: HTN, HLD, emphysema, former smoker (quit 10 yrs ago), allergic rhinitis and anxiety. TTE, 05/11/2022: Normal LV size and systolic function, normal valves. Stress test 05/23/22: normal. Review of Systems Ear/Nose/Mouth/Throat: Negative except as documented in history of present illness. Respiratory: Negative except as documented in history of present illness. Cardiovascular: Negative except as documented in history of present illness. Gastrointestinal: Negative except as documented in history of present illness. Genitourinary: Negative except as documented in history of present illness. Endocrine: Negative except as documented in history of present illness. Musculoskeletal: Negative except as documented in history of present illness. Integumentary: Negative except as documented in history of present illness. Neurologic: Negative except as documented in history of present illness. Health Status Allergies: Allergic Reactions (Selected) NKA, Allergies (1) ActiveReaction NKANone Documented Current medications: (Selected) Inpatient Medications Ordered Heparin 10,000 units/mL: 10,000 unit(s), 1 mL, mL/hr, Miscellaneous, PREOP pharm Kefzol: 2 gram(s), 20 mL, 240 mL/hr, IV Push (INT), PREOP pharm NS 1,000 mL: 20 mL/hr, Intravenous, Stop: 07/01/22 23:59:00 EDT phenylephrine 40 mg: Infuse as directed for CVOR, Intravenous, Stop: 06/30/22 23:59:00 EDT Prescriptions Prescribed aspirin 81 mg oral delayed release tablet: 81 mg, 1 tab(s), Oral, qAM, Dr. Bond advised to coninue prior to OR on 07/01/22 per pt., 90 tab(s), 3 Refill(s) lisinopril 40 mg oral tablet: 40 mg, 1 tab(s), Oral, qAM, 180 tab(s), 3 Refill(s) venlafaxine 150 mg oral capsule, extended release: 150 mg, 1 cap(s), Oral, qAM, 90 cap(s), 3 Refill(s) Documented Medications Documented LORazepam 0.5 mg oral tablet: 0.25 mg, 0.5 tab(s), Oral, TID, PRN: as needed for anxiety, 0 Refill(s) Tylenol 8 Hour 650 mg oral tablet, extended release: 1,300 mg, 2 tab(s), Oral, q8h, PRN: as needed for pain, 24 tab(s), 0 Refill(s) atorvastatin 40 mg oral tablet: 40 mg, 1 tab(s), Oral, qAM, 90 tab(s), 0 Refill(s), Medications (4) Active Scheduled: (2) ceFAZolin syringe 2 gram(s) 20 mL, IV Push (INT), PREOP pharm heparin 10,000 unit(s) 1 mL, Miscellaneous, PREOP pharm Continuous: (2) NS (0.9% nacl) 1,000 mL 1,000 mL, Intravenous, 20 mL/hr PHENYLephrine 40 mg / 250 mL PMX 40 mg 40 mg 250 mL, Intravenous PRN: (0) Problem list: Medical Acute maxillary sinusitis / SNOMED CT 351892338 / Confirmed Allergic rhinitis / SNOMED CT 496258852 / Confirmed Anxiety / SNOMED CT 31115693 / Confirmed Carotid artery stenosis / SNOMED CT 173611580 / Confirmed Chronic airflow obstruction / SNOMED CT 336222499 / Confirmed On anticoagulant therapy / SNOMED CT 022485517 / Confirmed Emphysema of lung / SNOMED CT 016715749 / Confirmed Hypertension / SNOMED CT 1107981635 / Confirmed Mixed hyperlipidemia / SNOMED CT 434327124 / Confirmed Pneumonia / SNOMED CT 003500281 / Confirmed Smoking / SNOMED CT 431068162 / Confirmed, Active Problems (13) Acute maxillary sinusitis Allergic rhinitis Anxiety Carotid artery stenosis Chronic airflow obstruction Emphysema of lung Glasses Hypertension Mixed hyperlipidemia On anticoagulant therapy Pneumonia Smoking Wears partial dentures Histories Past Medical History: Active Hypertension (6548958336) Smoking (036273696) Pneumonia (502789033) Resolved Neck pain (935155316): Resolved. Family History: Heart attack Mother (Jenni Moreira, ) Father (Angelito Moreira, ) Coronary arteriosclerosis Brother (Angelito) Procedure history: None ([id number]). 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 Substance Abuse 07/29/2018Risk Assessment: Denies Substance Abuse 08/28/2019 Use: Never Tobacco 1Risk Assessment: No Risk 06/21/2022 Tobacco Use: Currently uses pouches of tobacco, Former smoker, quit more Type: Oral (Snuff, Chew) Stopped at age: 59 Years Smoking Cessation Information Instructed not to use nicotine pouches (snuff) day of surgery Smokeless tobacco use: Smokeless tobacco user wi Home/Environment 06/21/2022 Domestic Concerns None Living situation: Home/Independent Primary Physician Support Coordinator: Self, lives with his spouse, Anuja Special Services and Community Resources None Other risks in environment: minimal smoke exposure Spouse Name Anuja Nutrition/Health 06/04/2021 Type of diet: Regular Appetite Good Eating Difficulties None . Physical Examination Vital Signs 06/30/2022 7:55 EDT Temperature Oral 36.6 DegC Peripheral Pulse Rate 95 bpm Respiratory Rate 20 br/min Systolic BP Left Arm 158 mmHg HI Diastolic BP Left Arm 83 mmHg No qualifying data available Pain assessment: Self-reports no pain. General: Alert and oriented, No acute distress. Airway: Normal temporomandibular joint mobility. Mallampati classification: II (soft palate, fauces, uvula visible). Head: Normocephalic, Atraumatic. Dentition Evaluation: Missing teeth. Neck: Supple, Non-tender. Respiratory: Lungs are clear to auscultation, Respirations are non-labored. Cardiovascular: Normal rate, Regular rhythm. Heart Sounds: Normal. Gastrointestinal: Soft, Non-tender. Musculoskeletal Normal range of motion. Normal strength. Integumentary: Intact, Warm. Neurologic: Alert, Oriented, No focal deficits. Review / Management Results review: No qualifying data available . Assessment and Plan [place] [employer] Anesthesi[employer] (ASA) physical status classification: Class IV. Anesthetic Preoperative Plan Premedication: intravenous. Anesthetic technique: General. Induction: intravenously. Maintenance airway: Oral endotracheal tube. Special Monitoring: Arterial line, Cerebral oxymetry. Postoperative pain management: Per surgeon. Risks discussed: nausea, sore throat, dental injury, allergic reaction, serious complications. Informed consent: signed by patient. Digitally Signed by ZULY HOFFMANN MD on 06/30/2022 10:10 AM [facility] [id number] Evaluation + Plan note Future Scheduled Tests Laboratory* Prostate Specific Antigen 10/20/21 * Thyroid Stimulating Hormone 10/20/21 * Complete Blood Count 10/20/21 * Lipid Profile 10/20/21 * Complete Metabolic Panel 10/20/[address] [facility] Evaluation + Plan note Future Appointments Appointment Date:01/13/2022 11:00:00 AM Scheduled Provider:SANDY VOGEL MD Location:[facility] Appointment Type: OV [facility] Evaluation + Plan note Future Appointments [facility] Evaluation + Plan note Future Appointments Appointment Date:01/17/2023 03:00:00 PM Scheduled Provider:ISMAEL DAUGHERTY DO Location:[facility] Appointment Type:[facility] Future Scheduled Tests Laboratory* Microalbumin Level Urine 08/24/[address] [facility] Evaluation + Plan note Future Appointments Appointment Date:01/24/2023 01:00:00 PM Scheduled Provider: Location:[facility] Appointment Type:US Abdomen/Aorta Appointment Date:04/11/2023 10:00:00 AM Scheduled Provider:ISMAEL DAUGHERTY DO Location:[facility] Appointment Type: OV Future Scheduled Tests Laboratory* Complete Blood Count 01/17/23 * Microalbumin Level Urine 08/24/22 Radiology* US Abdomen and Aorta 01/24/[address] [facility] Evaluation + Plan note Future Appointments Appointment Date:04/11/2023 10:00:00 AM Scheduled Provider:ISMAEL DAUGHERTY DO Location:[facility] Appointment Type:PC OV Future Scheduled Tests Laboratory* Complete Blood Count 01/17/23 * Microalbumin Level Urine 08/24/[address] [facility] Evaluation + Plan note Future Appointments Appointment Date:07/18/2023 01:00:00 PM Scheduled Provider:ISMAEL DAUGHERTY DO Location:[facility] Appointment Type:PC OV Future Scheduled Tests Laboratory* Complete Blood Count 01/17/23 * Microalbumin Level Urine 08/24/[address] [facility] Evaluation + Plan note Future Appointments Appointment Date:07/18/2023 01:00:00 PM Scheduled Provider:ISMAEL DAUGHERTY DO Location:[facility] Appointment Type:PC OV Future Scheduled Tests Laboratory* Microalbumin Level Urine 08/24/[address] [facility] Hospital course Narrative No data available for this section [facility] Hospital Discharge instructions No data available for this section [facility] Progress note No data available for this section [facility] Summary Purpose Family History No Family History Records Found Advance Directives No Advanced Directives Records Found Additional Source Comments Care Team (unrecognized sect ion and content) Care Team Personnel Name: Berry Randle Clerheather Howell PT Position: P3 Scheduling - System Support Technician Advanced Member Role: Other Name: SANDY VOGEL MD Position: P4 Physician - Primary Care Member Role: Primary Care Physician Address: Address: [address] [facility] [place] [address]- Care Team Related Persons Name: ANUJA MOREIRA Address: [address] [id number] Care Team Personnel Name: Berry Randle PT Position: P3 Scheduling - System Support Technician Advanced Member Role: Other Name: SANDY VOGEL MD Position: P4 Physician - Primary Care Member Role: Primary Care Physician Address: Address: [address] [place] [address]- Care Team Related Persons Name: ANUJA MOREIRA Address: Home [address] [place], [place] [phone] Patient Care team informatio n (unrecognized section and content) Care Team Personnel Name: Berry Randle PT Position: P3 Scheduling - System Support Technician Advanced Member Role: Other Name: ISMAEL DAUGHERTY DO Position: P4 Physician - Primary Care Member Role: Primary Care Physician Address: Address: [address] [place] [address]- Care Team Related Persons Name: ANUJA MOREIRA Address: Home [address] [place], [place] [phone] Care Team Personnel Name: ROSELINE ALARCON MD Position: P3 Physician - Sheet Roller Operator Member Role: Missile Pad Mechanic Address: Address: [address] [place] [address]- Name: Berry Randle PT Position: P3 Scheduling - System Support Technician Advanced Member Role: Other Name: ROBERT URIBE MD Member Role: Stock Preparer Address: Address: [address] [place] [address]- [place] Name: ISMAEL DAUGHERTY DO Position: P4 Physician - Primary Care Member Role: Primary Care Physician Address: Address: [address] [place] [address]- Care Team Related Persons Name: ANUJA MOREIRA Address: Home [address] [place] [place], [place] [phone] Care Team Personnel Name: ROSELINE ALARCON MD Position: P3 Physician - Sheet Roller Operator Member Role: Missile Pad Mechanic Address: Address: [address] [place] [address]- Name: Berry Randle PT Position: P3 Scheduling - System Support Technician Advanced Member Role: Other Name: ROBERT URIBE MD Member Role: Stock Preparer Address: Address: [address] [place] [address]- [place] Name: ISMAEL DAUGHERTY DO Position: P4 Physician - Primary Care Member Role: Primary Care Physician Address: Address: [address] [place] [address]- Care Team Related Persons Name: ANUJA MOREIRA Address: Home [address] [place], [place] [phone] [place] Care Team Personnel Name: ROSELINE ALARCON MD Position: P3 Physician - Sheet Roller Operator Member Role: Missile Pad Mechanic Address: Address: [address] [place], [place] [phone]- Name: Berry Randlerheather Howell PT Position: P3 Scheduling - System Support Technician Advanced Member Role: Other Name: ROBERT URIBE MD Member Role: Stock Preparer Address: Address: [address] [place] [address]- Name: ISMAEL DAUGHERTY DO Position: P4 Physician - Primary Care Member Role: Primary Care Physician Address: Address: [address] [place] [address]- Care Team Related Persons Name: ANUJA MOREIRA Address: Home [address] [place], [place] [phone] [place] Care Team Personnel Name: ROSELINE ALARCON MD Position: P3 Physician - Sheet Roller Operator Member Role: Missile Pad Mechanic Address: Address: [address] [place], [place] [phone]- Name: Berry Randlerheather Howell PT Position: P3 Scheduling - System Support Technician Advanced Member Role: Other Name: ROBERT URIBE MD Member Role: Stock Preparer Address: Address: [address] [place] [address]- Name: ISMAEL DAUGHERTY DO Position: P4 Physician - Primary Care Member Role: Primary Care Physician Address: Address: [address] [place] [address]- Care Team Related Persons Name: ANUJA MOREIRA Address: Home [address] [place] [place], [place] [phone] [place] Care Team Personnel Name: ROSELINE ALARCON MD Position: P3 Physician - Sheet Roller Operator Member Role: Missile Pad Mechanic Address: Address: [address] [facility] [address] [place] [address]- Name: Berry Randle Clerk Lynda PT Position: P3 Scheduling - System Support Technician Advanced Member Role: Other Name: ROBERT URIBE MD Member Role: Stock Preparer Address: Address: [address] [facility] [address] [place] [address]- Name: ISMAEL DAUGHERTY DO Position: P4 Physician - Primary Care Member Role: Primary Care Physician Address: Address: [address] [facility] [address] [place], [place] [address] Care Team Related Persons Name: ANUJA MOREIRA Address: Home [address] [place], [place] [phone] (unrecognized sect ion and content) No Status Records Found INFORMATION SOURCE (unrecogn ized section and content) FOR RECORDS PERTAINING TO PATIENTS WHO ARE OR HAVE BEEN ENROLLED IN A CHEMICAL DEPENDENCY/SUBSTANCEABUSE PROGRAM, SOME INFORMATION MAY BE OMITTED. This clinical summary was aggregated from multiple sources. Caution should be exercised in using it in the provision of clinical care. This summary normalizes information from multiple sources, and as a consequence, information in this document may materially change the coding, format and clinical context of patient data. In addition, data may be omitted in some cases. CLINICAL DECISIONS SHOULD BE BASED ON THE PRIMARY CLINICAL RECORDS. [facility]. provides no warranty or guarantee of the accuracy or completeness of information in this document.
--- NOTE | 2023-10-09 09:35 | RAD_ITS ---
STUDY: X-RAY CHEST REASON FOR EXAM: Male, 68 years old. SOB TECHNIQUE: Single AP portable view of the chest. COMPARISON: Comparison is made with prior study of January 31, 2023. FINDINGS: EKG electrodes are seen. Stable bilateral increased interstitial markings worse in the right hemithorax as compared to the left side. Stable blunting of the right costophrenic angle. Normal size heart. Normal mediastinum and addy. Normal visualized pulmonary arteries. There is atherosclerotic calcification of the aortic arch. There are diffuse degenerative changes of the visualized thoracic spine. Normal visualized ribs, clavicles, and shoulders. There is no demonstrated abnormality of the visualized soft tissue structures of the upper abdomen. RAD/Chest 1 View IMPRESSION: Essentially stable examination. Electronically Signed: Russell Godinez MD at 9:58 EST ,
[2023-10-09] MEDS: Midazolam 2 MG/2 ML Syringe IV (10:09)
[2023-10-09] MEDS: 0.9% Normal Saline (250mL Bag) 250 ML 15 ML IV (10:14)
[2023-10-09] MEDS: fentaNYL 100 MCG/2 ML Ampul IV (10:14)
[2023-10-09] MEDS: Lidocaine 2% (20 ml mdv) 20 ML Vial INFILT (10:28)
--- NOTE | 2023-10-09 10:45 | RAD_ITS ---
STUDY: X-RAY CHEST REASON FOR EXAM: Male, 68 years old. Immediately post lung biopsy -- Immediately post lung biopsy TECHNIQUE: AP inspiration and expiration views. COMPARISON: Comparison is made with prior study done earlier today. FINDINGS: No pneumothorax on the immediate post right lung biopsy radiographs. RAD/Chest Insp/Exp 2 View IMPRESSION: No pneumothorax on the immediate post right lung biopsy radiographs. Electronically Signed: Russell Godinez MD at 10:59 EST ,
--- NOTE | 2023-10-09 12:38 | PCM.OP.PRO ---
Procedure Report Date of Procedure: 10/09/23 Assessment & Plan Assessment/Plan (1) Right lower lobe lung mass: PLAN: PROCEDURE: CT GUIDED CORE NEEDLE LUNG BIOPSY ORDERING PROVIDER: Radha Martin CNP INDICATION: Male, 68 years old. Right lower lung mass PROVIDER: AMANDA Vinson CONSENT: Written informed consent was obtained having explained the risks, benefits and alternatives in detail with the patient who accepted the risks and agreed to proceed. Laboratory review and clinical assessment was performed. PRE-PROCEDURE SEDATION ASSESSMENT: Current history and physical dictated by referring physician and reviewed. No clinical changes since date of exam. Patient has an ASA Class of 2. PROCEDURAL SEDATION PROTOCOL: The Drugs used were: 2 mg Versed, IV, and 50 mcg Fentanyl, IV. The sedation time was: 29 minutes, starting at 1009 and terminated at 1038. The procedural sedation protocol was independently monitored by the department nurse. RADIATION DOSAGE (If Supplied By Facility): CTDIvol = 17.09 mGy, DLP = 195.45 mGycm Individualized dose optimization techniques were used for this CT. TECHNIQUE: The patient was placed in a prone position. A noncontrast CT was performed to localize the lesion in the right lower lobe. The skin surface was prepped and draped in a sterile fashion. 2% lidocaine was used for local anesthesia. Using CT guidance, a 20-gauge coaxial biopsy device was advanced to the periphery of the lesion. A total of 6 core specimens were obtained. Specimens were microscopically reviewed by pathology in the CT suite and placed in formalin solution. BioSentry tract sealant system was deployed at the biopsy site, and the biopsy needle was removed. A sterile occlusive dressing was applied to the biopsy site. The patient tolerated the procedure well. An immediate chest xray was ordered, per protocol. A negative biopsy does not exclude malignancy. Further imaging or clinical followup based on patient condition and degree of clinical suspicion for malignancy. Suggest rebiopsy, if biopsy results do not match with clinical scenario. IMPRESSION: 1. CT directed core needle biopsy of right lower lobe nodule using CT image guidance with image documentation as described. Pathology results are pending. 2. Procedural Sedation protocol utilized with independent monitoring by the department nurse. Procedures Radiology Radiology CT Procedures: [id number] Biopsy Lung
--- NOTE | 2023-10-09 12:48 | RAD_ITS ---
STUDY: X-RAY CHEST REASON FOR EXAM: Male, 68 years old. 2 hours post lung biopsy -- 2 hours post lung biopsy TECHNIQUE: AP and inspiration expiration views. COMPARISON: Comparison is made with prior study done earlier today. FINDINGS: 2 hour post right lung biopsy radiographs. No evidence of pneumothorax RAD/Chest Insp/Exp 2 View IMPRESSION: No evidence of pneumothorax on the 2 hour delay post right lung biopsy radiographs. Electronically Signed: Russell Godinez MD at 13:27 EST ,
== END 2023-10-09 23:59 | disposition home or self-care (01) ==
LOC: CT 08:39
PROVIDERS: Nurse Practitioner Acute Care; Referring Provider Nurse Practitioner Acute Care; Visit Provider Nurse Practitioner Acute Care
DX: Z01.818 Encounter for other preprocedural examination (principal); R91.8 Other nonspecific abnormal finding of lung field
CPT/HCPCS: 32408; 36415; 71045; 71046; 77012; 85049; 85610; 85730; 88172; 88305; 88313; 88341; 88342; 99156; J7050; A4216; C2613

== ENCOUNTER → 2023-10-24 | Outpatient (CLI) | payer MEDICARE, OTHER, SELFPAY ==
--- NOTE | 2023-10-24 09:00 | PET_ITS ---
EXAMINATION: FDG PET/CT ? INDICATIONS: 68-year-old male with a history of primary lung carcinoma, presenting for apparent initial staging examination. ? COMPARISON EXAMINATION: None available ? INDEX LESION SIZE SUV INTERPRETATION Right lower lung field, right lower lobe 75.5 mm 13.3 Fulfills quantitative criteria for viable neoplasm ? Right thoracic perihilum 33.9 mm 8.1 Fulfills quantitative criteria for viable neoplasm ? NON-INDEX LESION ? ? ? Left thoracic perihilum ? 2.9 max Quantitative criteria for viable neoplasm are not fulfilled ? TECHNIQUE: Following the intravenous administration of 13.81 mCi of F-18 deoxyglucose via the right antecubital fossa, multiplanar image acquisitions of the head, neck, chest, abdomen and pelvis to the level of the midthigh, obtained at one-hour post radiopharmaceutical administration contemporaneously interpreted with the current CT of the chest, abdomen and pelvis dated 10/24/2023 via coregistration reveal: ? SERUM GLUCOSE LEVEL:? 97 mg/dL? HEIGHT:?? 67 inches WEIGHT:?? 175 pounds ? FINDINGS: ? HEAD/NECK:? There is no evidence of abnormal increased glucose metabolism in the pharyngeal mucosal space, parapharyngeal space, oropharynx, bilateral-lateral and anterior neck, hypopharynx and distribution of the larynx. ? The visualized portion of the cerebral cortical-subcortical structures demonstrate symmetric and preserved glucose metabolism. ? CHEST:? Facilitated radiopharmaceutical concentration is defined in the right lower posteromedial lung zone, right lower lobe. The calculated maximum standard uptake value is 13.3. The maximal axial diameter of the metabolic, morphologic abnormality is 75.5 mm. Facilitated uptake is noted in the right thoracic perihilum with a calculated standard uptake value of 8.1 and maximal axial diameter of 33.9 mm. Facilitated uptake is noted in the left thoracic perihilum generating a calculated standard uptake value of 2.9. ? CT of the chest demonstrates the following anatomic characteristics: Coronary artery calcification is observed. Atherosclerotic calcification is defined in the thoracic aorta without evidence of dilatation, aneurysm formation. Mediastinal and bilateral axillary soft tissue densities demonstrate no evidence of quantitatively significant increased FDG uptake. A small right hemithorax pleural effusion demonstrates no evidence of increased glucose avidity. Emphysematous changes are defined in the bilateral upper-mid lung zones. ? ABDOMEN/PELVIS:? Normal physiologic distribution of the radiopharmaceutical is identified in the hepatic (3.6) and splenic parenchyma, both renal units, urinary bladder, and visualized intestinal tract. Diffuse intestinal tract is identified in all four quadrants of the abdominal-pelvic mesentery. ? CT of the abdomen and pelvis is remarkable for the following: Calcified granuloma formation is noted within the splenic parenchyma. Atherosclerotic calcification is defined in the abdominal aorta without evidence of dilatation, aneurysm formation. Pelvic arterial calcification is observed. Calcified phlebolith formation is noted in the bilateral lower hemipelvis. Right and left inguinal soft tissue densities are ametabolic. Calcification is noted within the prostate gland and seminal vesicles. ? SKELETAL:? There is no evidence of quantitatively significant enhanced glucose metabolism on meticulous inspection of the appendicular and axial skeletal structures. ? Degenerative changes defined in the thoracic and lumbar spine demonstrate no evidence of increased glucose metabolism. There are no sclerotic, mixed sclerotic-lytic, or primarily lytic changes defined in the axial skeletal structures with evidence of increased FDG uptake. ? PET/PET/CT Tumor Base -Thigh Init IMPRESSION: 1. ABNORMAL EXAMINATION INDICATIVE OF MALIGNANT-VIABLE NEOPLASM. 2. Increased radiopharmaceutical concentration defined in the right lower lung field, right lower lobe fulfills quantitative criteria for viable neoplasm. (Holloway et al, Journal of Nuclear Medicine, 32:1, 1991). 3. Facilitated uptake noted in the right thoracic perihilum fulfills quantitative criteria for viable centrally located mediastinal, thoracic perihilar viable neoplasm. The left thoracic perihilar hypermetabolic focus does not fulfill quantitative criteria for malignant transformation, with single point technique. Electronic Signature Og Morrison D.O. Accurate Quantification of SUVs for this report are calculated using the exclusive [employer]. (U.S. Patent No. [phone], [phone] B2 [phone] [place] patent [phone]). Standardization and correction of the FDG SUV metric via [employer] technology allow for vendor non-specific objective quantitative examination comparison and optimization of the sensitivity and specificity of the FDG PET-CT examination. . [email or web address] Electronically Signed: Og Morrison DO at 23:05 EST ,
== END | disposition home or self-care (01) ==
LOC: ONC 08:52
PROVIDERS: Referring Provider Nurse Practitioner Acute Care; Visit Provider Nurse Practitioner Acute Care
DX: C34.31 Malignant neoplasm of lower lobe, right bronchus or lung (principal); R91.8 Other nonspecific abnormal finding of lung field
CPT/HCPCS: 78815; A9552

== ENCOUNTER 2023-11-06 08:57 | Outpatient (CLI) | payer MEDICARE, OTHER, SELFPAY ==
--- NOTE | 2023-11-06 | FLU_PTH ---
PATHOLOGY RESULTS PATIENT: HAYDEN MOREIRA LOC: [facility]#:[id number] AGE/SX: 68/M ROOM: RE11/06/[address]: Dr. Nakul Rees MD : 1955 BED: DIS: 11/06/2023 SPEC #: [id number] RECD: 11/06/23 09:46 STATUS: EDIE POLLARD #: [id number] CORET[place]: 11/06/23 00:[address]: Nakul Rees DEPT: CYTOLOGY RECD BY: Hood Palacio ENTERED: 11/06/23 10:12 SP TYPE: Fluid OTHR DR: Dr. 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 See comment. AM:meron 11/07/2023 COMMENT Immunohistochemistry ([id number]) supports the above diagnosis. Mucin stain with matched control was used in the evaluation of this case. Reference is made to the patient's previous right lung biopsy ([id number]) in which non-small cell carcinoma was identified. Case has been reviewed in consultation with Dr. Hernandez who concurs with the above diagnosis. IDC:SJ CYTOLOGY STUDY Slides are reviewed. CYTOLOGY GROSS Received is 100 ml of red cloudy fluid labeled with the patient's name and and designated per the requisition as thoracentesis. Submitted for cytology preparation including cell block. / meron 11/06/2023 TC:0 CPT: 76756, 96272, 47239
--- NOTE | 2023-11-06 | IMM_PTH ---
PATHOLOGY RESULTS PATIENT: HAYDEN MOREIRA LOC: U#:[id number] AGE/SX: 68/M ROOM: RE11/06/[address]: Dr. Nakul Rees MD : 1955 BED: DIS: 11/06/2023 SPEC #: [id number] RECD: 11/07/23 13:50 STATUS: [place] REQ #: [id number] CORET[place]: 11/06/23 00:[address]: Nakul Rees DEPT: IMMUNOHISTOCHEMISTRY RECD BY: Juanita Chi ENTERED: 11/07/23 13:52 SP TYPE: IMMUNO OTHR DR: Dr. Ismael Jocye, Tissues: THORACIC FLUID Procedures: NAPSIN A (add) Barber Ret (add) CK20 (add) CK5-6 (add) CK7 (add) KI-67 (add) P53 (add) TTF1 (add) Pankeratin (initial) P40 (add) CD68 (ADD) PHYSICIAN & INSTITUTION [place] [phone] SPECIMEN INFORMATION: Tissue Source: Thoracentesis fluid Clinical Info: Right pleural effusion Specimen Number: [id number] CPT code: 26198, 47435 x10 METHODOLOGY: Deparaffinized sections of prefer/formalin-fixed tissue or PAP/DQ stained slides are incubated with monoclonal/polyclonal antibodies/oligonucleotide probes. Localization is made via biotin free immunoperoxidase method. Appropriate controls are performed and reacted as expected. Results on target cell population are indicated in the following table: RESULTS: ANTIBODY / CLONE RESULT AE1-3 (AE1/AE3/PCK26) positive CK7 (OV-TL12/30) positive CK20 (KS20.8) negative CD68 (KP-1) positive TTF-1 (8G7G3/1) positive, dim Napsin A (Rabbit Polyclonal) positive CALRET (polyclonal) negative CK5-6 (D5 & 1684) negative P40 (BC28) negative P53 (DO-7) negative, null pattern Ki-67 (30-9) positive, rare cells These tests were developed and their performance characteristics determined by Laboratory. They may not have been cleared or approved by the U.S. Food and Drug Administration. The FDA has determined that such clearance or approval is not necessary. The above immunohistochemical/dualISH markers are ordered and reviewed by the Pathologist. INTERPRETATION: Thoracentesis fluid (cell block): Positive for malignant cells, favor non-small cell carcinoma. See comment. AM:meron 11/09/2023 Comment: TTF-1 and Napsin positivity favors a lung primary. Clinical correlation is necessary.
[2023-11-06 09:20] VITALS: BP 132/63; PULSE 100; RESP 18; TEMP 36.6; O2SAT 92
[2023-11-06 09:30] VITALS: BP 115/56; PULSE 96; RESP 18; O2SAT 98
[2023-11-06] MEDS: Lidocaine 2% (20 ml mdv) 20 ML Vial INFILT (09:30)
[2023-11-06 09:34] VITALS: BP 98/59; PULSE 96; RESP 18; TEMP 36.6; O2SAT 99
--- NOTE | 2023-11-06 09:45 | RAD_ITS ---
STUDY: X-RAY CHEST REASON FOR EXAM: Male, 68 years old. Post thoracentesis TECHNIQUE: AP inspiration and expiration views. COMPARISON: Comparison is made with prior study dated October 09, 2023. FINDINGS: The patient is status post right thoracentesis. There is no evidence of pneumothorax. Persistent interstitial fibrosis worse at the right lung base. RAD/Chest Insp/Exp 2 View IMPRESSION: No evidence of pneumothorax on the immediate post right thoracentesis. Electronically Signed: Russell Godinez MD at 9:56 EST ,
--- NOTE | 2023-11-06 09:45 | PCM.OP.PRO ---
Procedure Report Date of Procedure: 11/06/23 Assessment & Plan Assessment/Plan (1) Pleural effusion, right: PLAN: PROCEDURE: Ultrasound Guided Thoracentesis ORDERING PROVIDER: Dr. Rees INDICATION: Male, 68 years old. Right pleural effusion. PROVIDER: AMANDA Vinson PROCEDURE: The risks, benefits, and alternatives to the procedure were explained to the patient. The specific risks of bleeding, infection, and pneumothorax requiring chest tube insertion were discussed and accepted. Written informed consent was obtained. The patient was placed in the sitting, upright position. Ultrasonographic evaluation of the bilateral lower pleural spaces was carried out. An adequate pocket was identified in the right lower pleural space.The overlying skin was prepped and draped in sterile fashion. 2% lidocaine was administered subcutaneously for local anesthesia. Under ultrasound guidance, a 5-Tanzanian thoracentesis needle/catheter system was advanced into the right posterior lower pleural fluid collection. 200 ml of dark airam colored fluid was drained. 100 mL of this fluid was sent to the laboratory for analysis, and as per requesting physician. The catheter was removed, and a sterile dressing was applied. The patient tolerated the procedure well. A chest x-ray was ordered. IMPRESSION: Successful ultrasound-guided thoracentesis of right pleural effusion. Procedures Radiology Radiology US Procedures: [id number] Thoracentesis
[2023-11-06 09:48] LABS: Cytology, Body Fluid / CSF SEE PATHOLOGY REPORT
== END 2023-11-06 23:59 | disposition home or self-care (01) ==
PROVIDERS: Referring Provider Internal Medicine Medical Oncology; Visit Provider Internal Medicine Medical Oncology
DX: J90 Pleural effusion, not elsewhere classified (principal)
CPT/HCPCS: 32555; 71046; 88108; 88305; 88313; 88341; 88342

== ENCOUNTER → 2023-11-23 | Outpatient (CLI) | payer MEDICARE, OTHER, SELFPAY ==
--- NOTE | 2023-11-23 16:18 | RAD_ITS ---
INDICATION: right sided rib pain EXAMINATION/TECHNIQUE: X-RAY - XR Chest 2 Views COMPARISON: 11/06/2023 FINDINGS: Extensive emphysematous changes. Chronic interstitial lung changes. Tortuous and calcified thoracic aorta. The heart is not enlarged. Likely trace bilateral pleural effusions. Degenerative changes of the thoracic spine. RAD/Chest PA and Lateral IMPRESSION: Chronic lung changes, similar in appearance to most recent prior on 11/06/2023. No definite acute findings. Likely trace bilateral pleural effusions. Electronically Signed: Ck Abdi MD at 21:35 EST ,
--- NOTE | 2023-11-23 16:18 | RAD_ITS ---
INDICATION: RIB PAIN-RIGHT SIDE EXAMINATION/TECHNIQUE: X-RAY - XR Ribs Unilateral Min 2 Views COMPARISON: Prior study dated: 11/23/2023 FINDINGS: SOFT TISSUES: No soft tissue swelling or gas. BONES: No displaced fracture. No sclerotic or destructive changes observed. VISUALIZED LUNGS: Refer to chest radiograph from port same date. RAD/Ribs Unil 2V No CXR IMPRESSION: No evidence of displaced rib fracture. Electronically Signed: Ck Abdi MD at 21:30 EST ,
--- OUTSIDE RECORDS SUMMARY | 2023-11-23 16:39 | XMS RPT_ITS | CCD ---
Author Name Unknown Address [address] [place] [address] Organization [facility] Care Team Providers [employer] Executive Director Name Role Phone LELA MAYO, SANDY Villanueva Primary Care Physician [phone] Lynda Randle PT Unavailable Unavailable ISMAEL DAUGHERTY [...] (disorder), Bright red color (finding), Weal (disorder) [facility] Medications Current Medications Medication Drug Class(es) Dates [...] wheezing, # 180 mL, 0 Refill(s), Pharmacy: [facility] #[id number], 170.2, cm, 04/11/23 1:00:00 EDT, Height Start Date: 04/13/23 Status: Ordered Completed/Discontinued Medications Medication Drug Class(es) Dates Sig (Normalized) Sig (Original) predniSONE 10 mg oral tablet (3 sources) Start: 04-14-2023 End: 04-20-2023 take 1 tablet by mouth once daily prednisone 10mg tab (TAPER) Taper 40-20-10 mg x 2 days each dose, Oral, Daily, # 14 tab(s), 0 Refill(s), Pharmacy: [facility] #[id number], 170.2, cm, 04/11/23 1:00:00 EDT, Height Start [...] (10 sources) Dependence on supplemental oxygen; Translations: [Ovlku-fg-pqwowpl respiratory failure] 08-24-2022 Chronic Screening and history [...] Pressure Cuff Size DR KAJAL ADORNO MD [facility] 04-13-2023 10:04-[address] KAJAL ADORNO MD [address] [place] [address] 04-13-2023 10:04-[address] KAJAL ADORNO MD [address] [place] [address] 04-13-2023 10:04-0400 Body temperature 97.7 [degF] DR KAJAL ADORNO MD [address] [place] [address] 04-13-2023 10:04-0400 Diastolic Blood Pressure Non-Invasive [address] KAJAL ADORNO MD [address] [place] [address] 04-13-2023 10:04-0400 Heart rate 89 /min DR KAJAL ADORNO MD [address] [place] [address] 04-13-2023 10:04-0400 Reason For Taking VItal Signs DR KAJAL ADORNO MD [address] [place] [address] 04-13-2023 10:04-0400 Respiratory rate 20 /min DR KAJAL ADORNO MD [address] [place] [address] 04-13-2023 10:04-0400 Systolic Blood Pressure Non-Invasive [address] KAJAL ADORNO MD [address] [place] [address] 04-13-2023 09:56-0400 Heart rate 83 /min DR KAJAL ADORNO MD [address] [place] [address] 04-13-2023 09:56-0400 Respiratory rate 20 /min DR KAJAL ADORNO MD [address] [place] [address] 04-13-2023 06:41-[address] Cuff Size DR KAJAL ADORNO MD [address] [place] [address] 04-13-2023 06:41-[address] KAJAL ADORNO MD [address] [place] [address] 04-13-2023 06:41-[address] KAJAL ADORNO MD [address] [place] [address] 04-13-2023 06:41-0400 Body temperature 97.7 [degF] DR KAJAL ADORNO MD [address] [place] [address] 04-13-2023 06:41-0400 Diastolic Blood Pressure Non-Invasive [address] KAJAL ADORNO MD [address] [place] [address] 04-13-2023 06:41-0400 Heart rate 78 /min DR KAJAL ADORNO MD [address] [place] [address] 04-13-2023 06:41-0400 Reason For Taking VItal Signs DR KAJAL ADORNO MD [address] [place] [address] 04-13-2023 06:41-0400 Respiratory rate 22 /min DR KAJAL ADORNO MD [address] [place] [address] 04-13-2023 06:41-0400 Systolic Blood Pressure Non-Invasive [address] KAJAL ADORNO MD [address] [place] [address] 04-13-2023 02:26-[address] Cuff Size DR KAJAL ADORNO MD [address] [place] [address] 04-13-2023 02:26-[address] KAJAL ADORNO MD [address] [place] [address] 04-13-2023 02:26-[address] KAJAL ADORNO MD [address] [place] [address] 04-13-2023 02:26-0400 Body temperature 97.88 [degF] DR KAJAL ADORNO MD [address] [place] [address] 04-13-2023 02:26-0400 Diastolic Blood Pressure Non-Invasive [address] KAJAL ADORNO MD [address] [place] [address] 04-13-2023 02:26-0400 Heart rate 95 /min DR KAJAL ADORNO MD [address] [place] [address] 04-13-2023 02:26-0400 Reason For Taking VItal Signs DR KAJAL ADORNO MD [address] [place] [address] 04-13-2023 02:26-0400 Systolic Blood Pressure Non-Invasive [address] KAJAL ADORNO MD [facility] 04-12-2023 22:24-0400 Heart rate 105 /min DR KAJAL ADORNO MD [facility] 04-12-2023 18:33-0400 Heart rate 95 /min DR KAJAL ADORNO MD [facility] 04-11-2023 01:00-0400 Body height 170.[address] KAJAL ADORNO MD [facility] 04-11-2023 01:00-0400 Body weight 79.[address] KAJAL ADORNO MD [facility] 04-11-2023 01:00-0400 Body weight 27.44 kg/m2 DR KAJAL ADORNO MD [facility] 07-02-2022 15:42-0400 Body temperature 98.24 [degF] YESENIA BOND MD [facility] 07-02-2022 15:42-0400 Diastolic Blood Pressure NBP 81 1 YESENIA BOND MD [facility] 07-02-2022 15:42-0400 Heart rate 99 /min YESENIA BOND MD [facility] 07-02-2022 15:42-0400 Mean blood pressure 98 mm[Hg] YESENIA BOND MD [facility] 07-02-2022 15:42-0400 Reason For Taking VItal Signs YESENIA BOND MD [facility] 07-02-2022 15:42-0400 Respiratory rate 18 /min YESENIA BOND MD [facility] 07-02-2022 15:42-0400 Systolic Blood Pressure NBP 141 1 YESENIA BOND MD [facility] 07-02-2022 15:03-0400 Heart rate 94 /min YESENIA BOND MD [facility] 07-02-2022 15:03-0400 Respiratory rate 18 /min YESENIA BOND MD [facility] 07-02-2022 13:22-0400 Respiratory rate 16 /min YESENIA BOND MD [facility] 07-02-2022 11:20-0400 Body temperature 98.06 [degF] YESENIA BOND MD [facility] 07-02-2022 11:20-0400 Diastolic Blood Pressure NBP 87 1 YESENIA BOND MD [facility] 07-02-2022 11:20-0400 Heart rate 97 /min YESENIA BOND MD [facility] 07-02-2022 11:20-0400 Mean blood pressure 102 mm[Hg] YESENIA BOND MD [facility] 07-02-2022 11:20-0400 Reason For Taking VItal Signs YESENIA BOND MD [facility] 07-02-2022 11:20-0400 Systolic Blood Pressure NBP 137 1 YESENIA BOND MD [facility] 07-02-2022 11:06-0400 Heart rate 82 /min YESENIA BOND MD [facility] 07-02-2022 11:06-0400 Reason For Taking VItal Signs YESENIA BOND MD [facility] 07-02-2022 10:53-0400 Heart rate 82 /min YESENIA BOND MD [facility] 07-02-2022 06:50-0400 Heart rate 98 /min YESENIA BOND MD [facility] 07-02-2022 04:32-0400 Body temperature 97.7 [degF] YESENIA BOND MD [facility] 07-02-2022 04:32-0400 Diastolic Blood Pressure NBP 86 1 YESENIA BOND MD [facility] 07-02-2022 04:32-0400 Mean blood pressure 108 mm[Hg] YESENIA BOND MD [facility] 07-02-2022 04:32-0400 Systolic Blood Pressure NBP 163 1 YESENIA BOND MD [facility] 06-30-2022 21:16-0400 Diastolic blood pressure 66 mm[Hg] YESENIA BOND MD [facility] 06-30-2022 21:16-0400 Mean blood pressure 95 mm[Hg] YESENIA BOND MD [facility] 06-30-2022 21:16-0400 Systolic blood pressure 154 mm[Hg] YESENIA BOND MD [facility] 06-30-2022 20:30-0400 Diastolic blood pressure 69 mm[Hg] YESENIA BOND MD [facility] 06-30-2022 20:30-0400 Mean blood pressure 99 mm[Hg] YESENIA BOND MD [facility] 06-30-2022 20:30-0400 Systolic blood pressure 157 mm[Hg] YESENIA BOND MD [facility] 06-30-2022 20:00-0400 Mean blood pressure 118 mm[Hg] YESENIA BOND MD [facility] 06-30-2022 19:42-0400 Diastolic blood pressure 84 mm[Hg] YESENIA BOND MD [facility] 06-30-2022 19:42-0400 Systolic blood pressure 175 mm[Hg] YESENIA BOND MD [facility] 06-30-2022 17:05-0400 Diastolic blood pressure 83 mm[Hg] YESENIA BOND MD [facility] 06-30-2022 17:05-0400 Mean blood pressure 112 mm[Hg] YESENIA BOND MD [facility] 06-30-2022 17:05-0400 Systolic blood pressure 171 mm[Hg] YESENIA BOND MD [facility] 06-30-2022 11:50-0400 Body temperature 99.05 [degF] YESENIA BOND MD [facility] 06-30-2022 11:45-0400 Body temperature 99.03 [degF] YESENIA BOND MD [facility] 06-30-2022 11:40-0400 Body temperature 99.01 [degF] YESENIA BOND MD [facility] 06-30-2022 10:38-0400 SaO2% (BldA) [Mass fraction] 99.3 % YESENIA BOND MD [facility] 06-30-2022 07:55-0400 Body height 170.2 cm YESENIA BOND MD [facility] 06-30-2022 07:55-0400 Body weight 77.2 kg YESENIA BOND MD [facility] 06-30-2022 07:55-0400 Body weight 26.65 kg/m2 YESENIA BOND MD [facility] 06-30-2022 07:55-0400 diastolic 83 mm[Hg] YESENIA BOND MD [facility] 06-30-2022 07:55-0400 systolic 158 mm[Hg] YESENIA BOND MD [facility] 06-21-2022 12:04-0400 Body height 170.2 cm YESENIA BOND MD [facility] 06-21-2022 12:04-0400 Body temperature 98.06 [degF] YESENIA BOND MD [facility] 06-21-2022 12:04-0400 Body weight 78.5 kg YESENIA BOND MD [facility] 06-21-2022 12:04-0400 Body weight 27.1 kg/m2 YESENIA BOND MD [facility] 06-21-2022 12:04-0400 diastolic 87 mm[Hg] YESENIA BOND MD [facility] 06-21-2022 12:04-0400 Heart rate 97 /min YESENIA BOND MD [facility] 06-21-2022 12:04-0400 systolic 151 mm[Hg] YESENIA BOND MD [facility] Encounters Encounter Date Encounter Type Care Provider Facility Start: 09-09-2023 End: 09-09-2023 Emergency department patient visit TROY BENITES DO Facility:B Start: 07-12-2023 End: 07-13-2023 ambulatory ISMAEL DAUGHERTY DO Facility:B Start: 07-12-2023 End: 07-12-2023 Patient encounter procedure ISMAEL DAUGHERTY DO [facility] Start: 07-12-2023 End: 07-12-2023 Well adult monitoring check done ISMAEL DAUGHERTY DO [facility] Start: 07-10-2023 End: 07-11-2023 ambulatory YESENIA BOND MD Facility:B Start: 07-10-2023 End: 07-10-2023 Patient encounter procedure YESENIA BOND MD [facility] Start: 04-11-2023 End: 04-13-2023 Evaluation and management of inpatient DR KAJAL ADORNO MD Facility:A Start: 04-10-2023 End: 04-13-2023 Evaluation and management of inpatient DR KAJAL ADORNO MD [facility] Start: 04-10-2023 End: 04-11-2023 Emergency department patient visit DR JOSEFINA LOYA MD Facility:B Start: 01-24-2023 End: 01-25-2023 ambulatory ISMAEL E DAUGHERTY DO Facility:B Start: 01-24-2023 End: 01-24-2023 Patient encounter procedure ISMAEL E DAUGHERTY DO [facility] Start: 01-17-2023 End: 01-22-2023 ambulatory ISMAEL E DAUGHERTY DO Facility:B Start: 01-17-2023 End: 01-21-2023 Outreach Lab ISMAEL E DAUGHERTY DO [facility] Start: 01-10-2023 End: 01-11-2023 ambulatory ISMAEL E DAUGHERTY DO Facility:B Start: 01-10-2023 End: 01-10-2023 Patient encounter procedure ISMAEL E DAUGHERTY DO [facility] Start: 11-09-2022 End: 11-15-2022 Evaluation and management of inpatient ISMAEL E DAUGHERTY DO Facility:B Start: 06-30-2022 End: 07-02-2022 Evaluation and management of inpatient YESENIA BOND MD [facility] Start: 06-21-2022 End: 06-21-2022 Admission to [facility] YESENIA BOND MD [facility] Start: 01-03-2022 End: 01-03-2022 Patient encounter procedure SANDY VOGEL MD [facility] Start: 12-28-2021 End: 12-28-2021 Patient encounter procedure SANDY VOGEL MD [facility] Procedures Date Procedure Procedure Detail Performing Clinician Carotid artery struc ture (body structure) ISMAEL DAUGHERTY DO History of carotid endarterectomy History of left-sided carotid endarterectomy ISMAEL DAUGHERTY DO None (qualifier value) ANNEL VOGEL MD Immunizations Immunization Date Immunization Notes Care Provider [facility] 05-19-2023 tetanus toxoid, redu morena diphtheria toxoid, and acellular pertussis vaccine, adsorbed YESENIA BOND MD [facility] 05-19-2023 zoster vaccine recombinant YESENIA BOND MD [facility] 08-18-2022 influenza virus vacc ine, unspecified formulation [facility] DO [facility] 06-16-2022 pneumococcal polysaccharide vaccine, 23 valent YESENIA BOND MD [facility] 08-26-2021 influenza virus vacc ine, unspecified formulation YESENIA BOND MD [facility] 07-28-2021 SARS-CoV-2 mRNA (tozinameran) vaccine SANDY VOGEL MD [facility] 05-27-2021 pneumococcal conjuga te vaccine, 13 valent SANDY VOGEL MD [facility] 01-26-2021 SARS-CoV-2 mRNA (tozinameran) vaccine SANDY VOGEL MD [facility] 01-05-2021 SARS-CoV-2 mRNA (rafiqzinammeaghan) vaccine SANDY VOGEL MD [facility] Payers Date Payer Category Payer Medicare [id number] 2022 Unknown [id number] 1955 Unknown [id number] 2.16.8 [id number] 1954 Unknown [id number] 2.16.8 [id number] 1954 Unknown [id number] 2.16.8 [id number] 1954 Unknown [id number] 2.16.8 [id number] 1954 Unknown [id number] 2.16.8 [id number] 1954 Unknown [id number] 2.16.8 [id number] 1954 Unknown [id number] 2.16.8 [id number] 1954 Unknown [id number] 2.16.8 [id number] 1954 Unknown [id number] 2.16.8 [id number] Social History Date Type Detail Facility Start: 06-04-2021 End: 06-21-2022 Ex-smoker (finding) [facility] Sex Assigned At Male [facility] Tobacco smoking status Smokeless tobacco user within last 30 days [facility] Functional Status Date Assessment Result Facility 04-13-2023 Functional Status Identified as high risk, Bed alert on, Door open, Room check performed [facility] 04-13-2023 Functional Status [facility] 04-13-2023 Functional Status [facility] 04-12-2023 Functional Status Skin Care Prev entative Intervention(s) heel(s)s elevated [facility] 04-12-2023 Functional Status Dinner Percent [facility] 04-12-2023 Functional Status [facility] 04-12-2023 Functional Status [facility] 04-12-2023 Functional Status Done [facility] 04-11-2023 Functional Status [facility] 04-11-2023 Functional Status [facility] 04-11-2023 Functional Status B[facility] b ed [facility] 04-11-2023 Functional Status Split level home [facility] 04-11-2023 Functional Status Sensory Deficits None [facility] 07-02-2022 Functional Status Non-Slip footw ear, Room check performed [facility] 07-02-2022 Functional Status [facility] 07-02-2022 Functional Status [facility] 07-02-2022 Functional Status [facility] 07-01-2022 Functional Status [facility] 07-01-2022 Functional Status 100 [facility] 07-01-2022 Functional Status Ambulation in [facility] 07-01-2022 Functional Status Multilevel home [facility] 07-01-2022 Functional Status [facility] 07-01-2022 Functional Status SCD On/Re-applied bilat eral knee high [facility] 06-30-2022 Functional Status ice chips and sips take n [facility] Mental Status Date Assessment Result Facility 04-13-2023 Mental Status Orientation Oriented x 4 [facility] 04-13-2023 Mental Status [facility] 04-12-2023 Mental Status [facility] 04-12-2023 Mental Status Oriented x 4 [facility] 04-11-2023 Mental Status [facility] 07-02-2022 Mental Status Oriented x 4 [facility] 07-02-2022 Mental Status [facility] 07-02-2022 Mental Status [facility] 07-01-2022 Mental Status [facility] Clinical Notes 10-20-2021 to 04-13-2023 Note Date [...] 79% at home so he presented to [facility] ED for evaluation. Initially he [...] TOBIN When Within 3-5 days Where: [address] [place] [address]- Follow Up with ISMAEL DAUGHERTY DO When Within 1-2 days Why: Please call the office to schedule a follow up appointment. Where: [address] [place] [address]- Follow Up Appointments No qualifying data available. [...] YENIFER MAIN MD on 04/13/2023 08:00 PM [facility] 04-13-2023 Hospital Discharge instructions Patient Education 04/13/2023 12:47:36 Chronic Obstructive Pulmonary Disease, Vnyr-gh-Qctf Chronic Obstructive Pulmonary Disease Chronic obstructive pulmonary [...] Follow these instructions at home: Medicines Take bnil-cic-bpfbjhh and prescription medicines only as told by [...] keep yourself as healthy as possible. Take wwjf-rhy-cytgggg and prescription medicines only as told by your doctor. If you smoke, stop. Smoking makes the problem worse. This information is not intended to replace advice given to you by your health care provider. Make sure you discuss any questions you have with your health care provider. Document Released: 04/03/2009 Document Revised: 09/28/2018 Document Reviewed: 11/20/2017 [employer] Patient Education 2020 [employer]. Follow Up Care 04/11/2023 00:42:25 With:MAISHA TOBIN Address: [address] [place] [address]- When:3-5 days With:ISMAEL DAUGHERTY DO Address: [address] [place] [address] [id number]- When:1-2 days Comments:Please call the office to schedule a follow up appointment. [facility] 04-13-2023 Note Discharge Instructions Thank you for allowing [facility] to assist you with your healthcare needs. The following is important discharge information regarding your hospital visit. Your Care Team ISMAEL DAUGHERTY DO What to do next Follow Up Appointments Follow Up with MAISHA TOBIN When Within 3-5 days Where: [address] [place] [address]- Follow Up with ISMAEL DAUGHERTY DO When Within 1-2 days Why: Please call the office to schedule a follow up appointment. Where: [address] [place] [address] [id number] The Following Activity and Diet Have Been [...] shortness of breath or wheezing Pickup at [facility] New cefdinir (cefdinir 300 mg oral capsule) 1 cap by mouth Every 12 hours Duration: 5 Days Pickup at [facility]246 New predniSONE (prednisone 10mg tab (TAPER)) Taper 40-20-10 mg x 2 days each dose by mouth Every day Duration: 6 Days Pickup at [facility] #[facility]861 Unchanged aspirin (aspirin 81 mg oral delayed [...] a day (in the morning) Pharmacy Information [facility][id number]: [address] [place], [place] [id number] [phone] Please take this list to your next [...] Follow these instructions at home: Medicines Take cwjg-qyq-tzyprzn and prescription medicines only as told by [...] keep yourself as healthy as possible. Take aara-tlq-sjnikhj and prescription medicines only as told by your doctor. If you smoke, stop. Smoking makes the problem worse. This information is not intended to replace advice given to you by your health care provider. Make sure you discuss any questions you have with your health care provider. Document Released: 04/03/2009 Document Revised: 09/28/2018 Document Reviewed: 11/20/2017 Elsevier Patient Education 2020 [employer] Additional Information VACCINATE! IT SAVES LIVES! Members of the community who have not yet received the COVID-19 vaccine and would like to receive it can visit one of [facility] vaccine clinics. There are many vaccine clinic locations within the [facility]. For locations and available times, please visit [email or web address].coronavirus.[place].gov/. It is important to note that some COVID mobile vaccine clinics are held outdoors and may be canceled in rainy or stormy conditions. To learn more about pediatric vaccinations (ages 5-11), we invite you to visit the [employer] webpage. https://www.lifeaction games.[email or web address]/pa [email or web address]-Zotbo-Nnusjoexpzv-Freque nfva-Spdyl-Lthuthqip.html To learn more about the COVID-19 vaccine, we invite you to visit the CDC website for a list of frequently asked questions.https://www.cdc.gov/cor onavirus/2019-ncov/vaccines/faq.h tml [facility] Patient Portal Access Instructions: Stay connected with your healthcare team and access your personal medical information anytime with the [facility] Patient Portal. Please follow the directions below to create your [facility] account: 1.Access the email account you provided upon registration to the hospital/physician office.2.Look for an invitation email from [facility].3.Open the email and access the invitation link: Accept Invitation to [facility].4.Fill in the required galeas to create your account. To access your account, visit [email or web address]. Click the blue button labeled Access Patient [...] your information. You can also access the [facility] Patient Portal on the [facility] ruel. Simply click on Patient Portal and then log into your account. If you would like to receive a full copy of your medical records, please contact the [facility] Medical Records Department by calling [phone], Monday through Monday between 8 a.m. and [...] Call your local pharmacy or go to [email or web address] to find one close to you.3.Make use of household items: Use cat litter or old coffee grounds to dispose medications if other options are not available. Mix your drugs with these household products, seal them in an airtight container and throw it into the garbage. Call [facility]: [phone] to be sure your drugs can be [...] Patient Education Materials Chronic Obstructive Pulmonary Disease, Qbyg-em-Nqrp Medication Leaflets My discharge plan and instructions have been reviewed and explained to me and I,HAYDEN MOREIRA understand my current condition and have read and understand these discharge instructions. I have received a written copy of the plan/instructions. If I have questions, I am aware that I should contact my doctor. 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 Home/Environment Details: Domestic Concerns: Denies. Details: Domestic Concerns: None. Living situation: Home/Independent. 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 Professional [...] by BRIAN GUILLEN on 04/13/2023 07:00 PM [facility] 04-12-2023 Note Date of Service 04/12/23 Chief [...] negative -Patient has to follow-up with his computerized machine fabric cutter at [place] Dr. Tobin after discharge. 3. Pulmonary fibrosis 4. Hypertension, BP stable, continue lisinopril 5. History of left carotid endarterectomy, continue aspirin and statin DVT px on subcu heparin Digitally Signed by YENIFER MAIN MD on 04/12/2023 04:33 PM [facility] 04-12-2023 Pulmonary Consult note Date of Service 04/12/2023 Reason for Consultation COPD with respiratory failure and concern for IPF Referring Physician Hospitalist History of Present Illness Mr. Moreira is a 68-year-old male past medical history significant for COPD with chronic respiratory failure on 5 L nasal cannula followed by Dr. Tobin in [place], anxiety, hypertension and dyslipidemia who presented to the hospital 04/10/2023 with complaints of shortness of breath. This had gotten progressively worse over approximately 3 days prior to admission. He had desaturated down to 79% at home so he presented to [facility] ED for evaluation. Initially he [...] now as he does follow with a computerized machine fabric cutter in [place], Dr. 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 Living situation: Home/Independent. 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 Home/Environment Details: Domestic Concerns: Denies. Details: Domestic Concerns: None. Living situation: Home/Independent. 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 Professional [...] by BRIAN GUILLEN on 04/12/2023 10:01 AM [facility] 04-11-2023 Note Date of Service 04/11/2023 Chief [...] YENIFER MAIN MD on 04/11/2023 05:52 PM [facility] 68-year-old male with a hist ory of [...] Count 01/17/23 * Microalbumin Level Urine 08/24/22 [facility] 06-13-2023 Note. MICRO - Microbiology PROCEDURE: Streptococcus [...] Locations *1: This test was performed at: [facility], [address] [place] [address], [facility] , [facility] ([place])04-11-2023 Note. MICRO - Microbiology PROCEDURE: Legionella Urine [...] Locations *1: This test was performed at: [facility], [address] [place] [address], [facility]- , [facility] ([place])04-11-2023 Note error Digitally Signed by BRIAN GUILLEN on 04/12/2023 09:59 AM [id number] Respiratory therapy Hospital Progress note Respiratory Therapy Evaluation Entered On: 04/11/2023 2:28 EDT Performed On: 04/11/2023 2:27 EDT by Sherrill Graf RRT Respiratory Therapy Evaluation RT Assessment [Frequency/Schedule] : pt to be QID tx per protocol Sherrill Graf MUD BOSS - 04/11/2023 2:30 EDT Pulmonary Status : [...] & Albuterol Q2 RT prn Sherrill Graf MUD BOSS - 04/11/2023 2:27 EDT Digitally Signed by Sherrill Graf RRT on 04/11/2023 02:27 AM Digitally Signed by Sherrill Graf RRT on 04/11/2023 02:30 AM [id number] History and physical note Date of Service [...] he went to the emergency department at [place]. In the emergency department Upon arrival to [...] feels weak and has a dry mouth. [facility] summary Date of Service 11/15/2022 [...] COPD, hypertension, hyperlipidemia, and anxiety, presents to [facility] emergency department with the chief complaint of [...] 500 mg IV daily. We will continue yguouiacpg90 mg IV every 8 hours. 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 Living situation: Home/Independent. 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 Professional [...] MAHAMED COLLIER MD on 04/11/2023 04:06 AM [id number] HCoV 229E RNA NORBERT+non-probe Ql (Nph)Not Detected *NA* (04/11/23 1:52 AM) Auto Viro/Sero [id number] Note. MICRO - Microbiology PROCEDURE: Miscellaneous Micro [...] Locations *1: This test was performed at: [address]11-10-2022 Note. MICRO - Microbiology PROCEDURE: Streptococcus [...] Locations *1: This test was performed at: [address], [address] [place] [address] ([place])07-02-2022 Hospital Discharge instructions Patient Education 07/02/2022 14:14:33 [...] hypoxia. Follow these instructions at home: Take bcrk-zrn-hxiwnlh and prescription medicines only as told by [...] 12/04/2017 Document Revised: 09/28/2018 Document Reviewed: 12/04/2017 [employer] Patient Education 2020 [employer]. 07/02/2022 14:14:13 Chronic Obstructive Pulmonary Disease Exacerbation, Kdvw-we-Jxgu Chronic Obstructive Pulmonary Disease Exacerbation Chronic obstructive [...] Follow these instructions at home: Medicines Take upfb-pfc-uefptxm and prescription medicines only as told by [...] cannot use soap and water, use hand quitline counselor. During flu season, avoid areas that are [...] 10/04/2012 Document Revised: 09/28/2018 Document Reviewed: 11/20/2017 [employer] Patient Education 2020 [employer] 07/02/2022 14:13:49 8- Carotid Stenosis and [...] until directed by your surgeon. Only take hmpo-iwz-walwcyv or prescription medicines for pain, discomfort, or [...] worse. Document Released: 05/05/2006 Document Re-Released: 01/10/[address] [facility] Patient Information [address] [facility]. Follow Up Care 06/09/2022 15:34:26 With:[facility] to deliver your needed equipment, Address:Unknown When: Unknown With:ROSELINE ALARCON Address: [address] [address]- [phone] Business (1) When:5-7 days Comments:Please call on 07/05/2022, for a Follow Up Visit With:SANDY VOGEL MD Address: [address] [place] [address]- When: Unknown Comments:PLEASE CALL THIS OFFICE TO SCHEDULE A HOSPITAL FOLLOW UP APPOINTMENT. With:[facility] follow up Address: When: Unknown Comments:Mariana Fontenot or covering Nurse [facility] will call you and/or your family after your release from the hospital. Office Hours: Monday thru Monday 730am - 4pmPhone: Abixj: [email or web address] [facility] 09-03-2022 Note Discharge Instructions Thank you for allowing [facility] to assist you with your healthcare needs. The following is importantdischarge information regarding your hospital visit. Your Care Team SANDY VOGEL MD What to do next Follow Up Appointments Follow Up with [facility] to deliver your needed equipment, When Follow Up with ROSELINE ALARCON When Within 5-7 days Why: Please call on 07/05/2022, for a Follow Up Visit Where: [address] [phone] [facility] (1) Follow Up with SANDY VOGEL MD When Why: PLEASE CALL THIS OFFICE TO SCHEDULE A HOSPITAL FOLLOW UP APPOINTMENT. Where: [address] [place] [address]- Follow Up with [facility] follow up When Why: Mariana Fontenot or covering Nurse [facility] will call you and/or your family after your release from the hospital. Office Hours: Monday thru Monday 730am - 4pm Email: [email or web address] Where: The Following Activity and Diet Have [...] hypoxia. Follow these instructions at home: Take vnjq-cgp-sbssrje and prescription medicines only as told by [...] 12/04/2017 Document Revised: 09/28/2018 Document Reviewed: 12/04/2017 [employer] Patient Education 2020 [employer] Chronic Obstructive Pulmonary Disease Exacerbation Chronic [...] Follow these instructions at home: Medicines Take rvdq-cay-wcasrbx and prescription medicines only as told by [...] cannot use soap and water, use hand quitline counselor. During flu season, avoid areas that are [...] 10/04/2012 Document Revised: 09/28/2018 Document Reviewed: 11/20/2017 [employer] Patient Education 2020 [employer] Carotid Stenosis and Carotid Endarterectomy Care [...] until directed by your surgeon. Only take wxnp-psm-kmpbzik or prescription medicines for pain, discomfort, or [...] worse. Document Released: 05/05/2006 Document Re-Released: 01/10/[address] [facility] Patient Information 2010 [employer] [facility]. Additional Information VACCINATE! IT SAVES LIVES! Members of the community who have not yet received the COVID-19 vaccine and would like to receive it can visit one of [facility] vaccine clinics. There are many vaccine clinic locations within the [facility]. For locations and available times, please visit [email or web address] It is important to note that some COVID mobile vaccine clinics are held outdoors and may be canceled in rainy or stormy conditions. To learn more about pediatric vaccinations (ages 5-11), we invite you to visit the [facility] webpage. [email or web address]-Xhdhf-[email or web address] [email or web address].htmlTo learn more about the COVID-19 vaccine, we invite you to visit the [facility] website for a list of frequently asked questions. [email or web address]-[email or web address]-Fuxwyszock _[email or web address]-Questions.pdf [email or web address] Patient Portal Access Instructions: Stay connected with your healthcare team and access your personal medical information anytime with the [facility] Patient Portal.If you would like a full copy of your medical records, please contact the [facility] Medical Records Department, Monday through Monday between 8a.m. and 4:30p.m. Please follow the directions below to access the portal: 1.Access the email account you provided upon registration to the hospital.2.Look for an invitation email from [facility].3.Open the email and access the invitation link: Accept Invitation to [facility]4.Fill in the required galeas to create your account. Sign into [email or web address] with your username and password that you [...] you will allow to register on the [facility] Patient Portal for access to your information. You can also access the [employer] Patient Portal on the [employer]RedInk ruel. Simply click on Health Records under C[employer]era and then click on the [employer] logo. HOW TO SAFELY DISPOSE OF PRESCRIPTION [...] Call your local pharmacy or go to [email or web address] to find one close to you.3.Make use of household items: Use cat litter or old coffee grounds to dispose medications if other options arenot available. Mix your drugs with these household products, seal them in an airtight container andthrow it into the garbage. Call [facility]: [phone] to be sure your drugs can be [...] Materials Hypoxia Chronic Obstructive Pulmonary Disease Exacerbation, Heqx-ia-Npat 8- Carotid Stenosis and Carotid Endarterectomy (11/2011)(CUSTOM) Medication Leaflets My discharge plan and instructions have been reviewed and explained to me and IHARISH GEORGE O understand my current condition and have read and understand these discharge instructions. I have received a written copy of the plan/instructions. If I have questions, I am aware that I should contact my doctor. 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/Advertising Project Manager Signature: Date/Time: Relationship to Patient: Witness Name/Signature: Date/Time: [facility]xx[facility]jcj75-98-4559 Pulmonary Progress note Date of Service 07/02/2022 [...] ROSELINE ALARCON MD on 07/02/2022 12:48 PM [id number] Note ORIGINAL EXAMINATION: CTA OF THE CHEST [...] Sign Date: 07/02/2022 12:11:02 AM Ordering Provider: [facility]09-02-2022 Respiratory therapy Hospital Progress note Respiratory Therapy [...] RT Assessment [Frequency/Schedule] : QIDRT Kamila Sevilla MUD BOSS - 07/01/2022 18:49 EDT Digitally Signed by Kamila Sevilla RRT on 07/01/2022 06:49 PM [facility] [id number] Note ORIGINAL EXAMINATION: CTA OF THE CHEST [...] Sign Date: 07/02/2022 12:11:02 AM Ordering Provider: [facility]09-02-2022 Pulmonary Consult note Date of Service 07/01/2022 [...] Currently not smoking. 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 Has never been [...] 0.25 mg= 0.5 tab(s), Oral, TID, PRN Wallace 325- 5 mg oral tablet, 1 tab(s), [...] Domestic Concerns: None. Living situation: Home/Independent. 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 Professional [...] ROSELINE ALARCON MD on 07/02/2022 12:48 PM [id number] Note ORIGINAL EXAMINATION: ONE XRAY VIEW OF [...] Sign Date: 07/01/2022 2:28:02 PM Ordering Provider: [facility]09-02-2022 Note ORIGINAL EXAMINATION: ONE XRAY VIEW OF [...] Sign Date: 07/01/2022 2:28:02 PM Ordering Provider: [facility]09-02-2022 Discharge summary Date of Service 07/02/2022 Discharge [...] YESENIA BOND MD on 07/02/2022 03:59 PM [id number] Anesthesiology Consult note Patient: HAYDEN MOREIRA Age: [...] ZULY HOFFMANN MD on 06/30/2022 02:09 PM [facility]Ppfyzkay85-56-8149 Anesthesiology Consult note Patient: HAYDEN MOREIRA Age: [...] Medical Acute maxillary sinusitis / SNOMED CT 504383089 / Confirmed Allergic rhinitis / SNOMED CT 963208326 / Confirmed Anxiety / SNOMED CT 93441793 / Confirmed Carotid artery stenosis / SNOMED CT 049698133 / Confirmed Chronic airflow obstruction / SNOMED CT 856725970 / Confirmed On anticoagulant therapy / SNOMED CT 058051614 / Confirmed Emphysema of lung / SNOMED CT 516521079 / Confirmed Hypertension / SNOMED CT 7239636465 / Confirmed Mixed hyperlipidemia / SNOMED CT 440579610 / Confirmed Pneumonia / SNOMED CT 299798421 / Confirmed Smoking / SNOMED CT 193435298 / Confirmed, Active Problems (13) Acute maxillary sinusitis Allergic rhinitis Anxiety Carotid artery stenosis Chronic airflow obstruction Emphysema of lung Glasses Hypertension Mixed hyperlipidemia On anticoagulant therapy Pneumonia Smoking Wears partial dentures Histories Past Medical History: Active Hypertension (9296082599) Smoking (230638491) Pneumonia (392706201) Resolved Neck pain (350695137): Resolved. Family History: Heart attack Mother (Jenni Moreira, ) Father (Angelito Moreira, ) Coronary arteriosclerosis Brother (Angelito) Procedure history: None (686944289). 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 Assessment and Plan [place] Society of Anesthesiologists (ASA) physical status classification: Class IV. Anesthetic Preoperative Plan Premedication: intravenous. Anesthetic technique: General. Induction: intravenously. Maintenance airway: Oral endotracheal tube. Special Monitoring: Arterial line, Cerebral oxymetry. Postoperative pain management: Per surgeon. Risks discussed: nausea, sore throat, dental injury, allergic reaction, serious complications. Informed consent: signed by patient. Digitally Signed by ZULY HOFFMANN MD on 06/30/2022 10:10 AM [facility]Frshhwkk77-66-5902 Evaluation + Plan note Future Scheduled Tests Laboratory* Prostate Specific Antigen 10/20/21 * Thyroid Stimulating Hormone 10/20/21 * Complete Blood Count 10/20/21 * Lipid Profile 10/20/21 * Complete Metabolic Panel 10/20/21 [facility] Evaluation + Plan note Future Appointments Appointment Date:01/13/2022 11:00:00 AM Scheduled Provider:SANDY VOGEL MD Location:[facility] Appointment Type: OV [facility] Evaluation + Plan note Future Appointments [facility] Evaluation + Plan note Future Appointments Appointment Date:01/17/2023 03:00:00 PM Scheduled Provider:ISMAEL DAUGHERTY DO Location:[facility] Appointment Type:PC Wellness Medicare Future Scheduled Tests Laboratory* Microalbumin Level Urine 08/24/22 [facility] Evaluation + Plan note Future Appointments Appointment Date:01/24/2023 01:00:00 PM Scheduled Provider: Location:[facility] Appointment Type:US Abdomen/Aorta Appointment Date:04/11/2023 10:00:00 AM Scheduled Provider:ISMAEL DAUGHERTY DO Location:[facility] Appointment Type: OV Future Scheduled Tests Laboratory* Complete Blood Count 01/17/23 * Microalbumin Level Urine 08/24/22 Radiology* US Abdomen and Aorta 01/24/23 [facility] Evaluation + Plan note Future Appointments Appointment Date:04/11/2023 10:00:00 AM Scheduled Provider:ISMAEL DAUGHERTY DO Location:[facility] Appointment Type:PC OV Future Scheduled Tests Laboratory* Complete Blood Count 01/17/23 * Microalbumin Level Urine 08/24/22 [facility] Evaluation + Plan note Future Appointments Appointment Date:07/18/2023 01:00:00 PM Scheduled Provider:ISMAEL DAUGHERTY DO Location:[facility] Appointment Type:PC OV Future Scheduled Tests Laboratory* Complete Blood Count 01/17/23 * Microalbumin Level Urine 08/24/22 [facility] Evaluation + Plan note Future Appointments Appointment Date:07/18/2023 01:00:00 PM Scheduled Provider:ISMAEL DAUGHERTY DO Location:[facility] Appointment Type:PC OV Future Scheduled Tests Laboratory* Microalbumin Level Urine 08/24/22 [facility] Hospital course Narrative No data available for this section [facility] Hospital Discharge instructions No data available for this section [facility] Progress note No data available for this section [facility] Summary Purpose Family History No Family History Records Found Advance Directives No Advanced Directives Records Found Additional Source Comments Care Team (unrecognized sect ion and content) Care Team Personnel Name: Berry Randle Clerheather Howell PT Position: P3 Scheduling - Inspector Multifocal Lens Advanced Member Role: Other Name: SANDY VOGEL MD Position: P4 Physician - Primary Care Member Role: Primary Care Physician Address: Address: [address] [facility] [place] [address]- Care Team Related Persons Name: ANUJA MOREIRA Address: [address] [phone] Care Team Personnel Name: Berry Randle PT Position: P3 Scheduling - Inspector Multifocal Lens Advanced Member Role: Other Name: SANDY VOGEL MD Position: P4 Physician - Primary Care Member Role: Primary Care Physician Address: Address: [address] [place] [address]- Care Team Related Persons Name: ANUJA MOREIRA Address: Home [address] [place], [place] [phone] Patient Care team informatio n (unrecognized section and content) Care Team Personnel Name: Berry Randle PT Position: P3 Scheduling - Inspector Multifocal Lens Advanced Member Role: Other Name: ISMAEL DAUGHERTY DO Position: P4 Physician - Primary Care Member Role: Primary Care Physician Address: Address: [address] [place] [address]- Care Team Related Persons Name: ANUJA MOREIRA Address: Home [address] [place], [place] [phone] Care Team Personnel Name: ROSELINE ALARCON MD Position: P3 Physician - Supervisor [employer] Former Member Role: Warehouse Operations Associate Address: Address: [address] [place] [address]- Name: Berry Randle PT Position: P3 Scheduling - Inspector Multifocal Lens Advanced Member Role: Other Name: ROBERT URIBE MD Member Role: Health Education Aide Address: Address: [address] [place] [address]- [place] Name: ISMAEL DAUGHERTY DO Position: P4 Physician - Primary Care Member Role: Primary Care Physician Address: Address: [address] [place] [address]- Care Team Related Persons Name: ANUJA MOREIRA Address: Home [address] [place], [place] [phone] Care Team Personnel Name: ROSELINE ALARCON MD Position: P3 Physician - Supervisor [employer] Former Member Role: Warehouse Operations Associate Address: Address: [address] [place] [address]- Name: Berry Randle PT Position: P3 Scheduling - Inspector Multifocal Lens Advanced Member Role: Other Name: ROBERT URIBE MD Member Role: Health Education Aide Address: Address: [address] [place] [address]- [place] Name: ISMAEL DAUGHERTY DO Position: P4 Physician - Primary Care Member Role: Primary Care Physician Address: Address: [address] [place] [address]- Care Team Related Persons Name: ANUJA MOREIRA Address: Home [address] [place], [place] [phone] [place] Care Team Personnel Name: ROSELINE ALARCON MD Position: P3 Physician - Supervisor [employer] Former Member Role: Warehouse Operations Associate Address: Address: [address] [place], [place] [phone]- Name: Berry Randlerheather Howell PT Position: P3 Scheduling - Inspector Multifocal Lens Advanced Member Role: Other Name: ROBERT URIBE MD Member Role: Health Education Aide Address: Address: [address] [place] [address]- Name: ISMAEL DAUGHERTY DO Position: P4 Physician - Primary Care Member Role: Primary Care Physician Address: Address: [address] [place] [address]- Care Team Related Persons Name: ANUJA MOREIRA Address: Home [address] [place], [place] [phone] [place] Care Team Personnel Name: ROSELINE ALARCON MD Position: P3 Physician - Supervisor [employer] Former Member Role: Warehouse Operations Associate Address: Address: [address] [place], [place] [phone]- Name: Berry Randlerheather Howell PT Position: P3 Scheduling - Inspector Multifocal Lens Advanced Member Role: Other Name: ROBERT URIBE MD Member Role: Health Education Aide Address: Address: [address] [place] [address]- Name: ISMAEL DAUGHERTY DO Position: P4 Physician - Primary Care Member Role: Primary Care Physician Address: Address: [address] [place] [address]- Care Team Related Persons Name: ANUJA MOREIRA Address: Home [address] [place], [place] [phone] [place] Care Team Personnel Name: ROSELINE ALARCON MD Position: P3 Physician - Supervisor [employer] Former Member Role: Warehouse Operations Associate Address: Address: [address] [facility] [address] [place] [address]- Name: Berry Randle Clerk Lynda PT Position: P3 Scheduling - Inspector Multifocal Lens Advanced Member Role: Other Name: ROBERT URIBE MD Member Role: Health Education Aide Address: Address: [address] [facility] [address] [place] [address]- Name: ISMAEL DAUGHERTY DO Position: P4 Physician - Primary Care Member Role: Primary Care Physician Address: Address: [address] [facility] [place], [place] [address] Care Team Related Persons Name: ANUJA MOREIRA Address: Home [address] [place], [place] [phone] (unrecognized sect ion and content) No Status [...] BE BASED ON THE PRIMARY CLINICAL RECORDS. [facility]. provides no warranty or guarantee of the accuracy or completeness of information in this document.
== END | disposition home or self-care (01) ==
LOC: RAD 16:14
PROVIDERS: Referring Provider Internal Medicine Medical Oncology; Visit Provider Internal Medicine Medical Oncology
DX: R07.81 Pleurodynia (principal)
CPT/HCPCS: 71046; 71100

== ENCOUNTER 2023-12-01 09:31 | Day surgery (SDC) | payer MEDICARE, OTHER, SELFPAY ==
[2023-12-01] VITALS (8 sets, daily range): BP systolic 91–132; BP diastolic 59–79; PULSE 83–102; RESP 16–20; TEMP 36.8–37.1; O2SAT 90–100; BMI 27.1
[2023-12-01] MEDS: Lactated Ringers 1,000 ML 15 ML IV (10:07)
--- NOTE | 2023-12-01 10:08 | PCM.HP.BLA ---
History and Physical Date of Admission: 12/01/23 Intake Vital Signs 11/21/2413:35 11/23/2413:30 11/24/2413:25 Height 5 ft 7 in 5 ft 7 in 5 ft 7 in Weight: 168 lb BMI 26.3 BP 102/68 Blood Pressure Location Lt brachial Position Sitting Respiration 18 Pulse 90 Pulse Source Monitor Temp 97.8 F Temp Source Temporal Pulse Oximetry (%) 91 Oxygen Delivery Method nasal canula Oxygen Flow Rate (L/min) 5 Intake Visit Reasons: PORT PLACEMENT Chief Complaint: port placement Health And Wellness Advisor Required: No Accompanied by: Daughter Allergies Iodinated Contrast Media Allergy (Mild, Verified 11/24/23 14:27) Hives Medications aspirin 81 mg tablet,delayed release (Adult Aspirin Regimen) 81 mg PO DAILY 04/05/22 [History Confirmed 11/24/23] diphenhydramine 25 mg-acetaminophen 500 mg tablet (Tylenol PM Extra Strength) 1 tab PO QHS PRN 04/05/22 [History Confirmed 11/24/23] lisinopril 40 mg tablet 40 mg PO DAILY 04/05/22 [History Confirmed 11/24/23] atorvastatin 40 mg tablet (Lipitor) 40 mg PO DAILY #90 tabs 04/05/23 [Rx Confirmed 11/24/23] albuterol sulfate 90 mcg/actuation aerosol inhaler 2 puff inhalation Q6H PRN shortness of breath or wheezing 60 days #8.5 grams 05/08/23 [Rx Confirmed 11/24/23] inhalational spacing device (Aerochamber MV spacer) #1 ea 05/08/23 [Rx Confirmed 11/24/23] ipratropium 0.5 mg-albuterol 3 mg (2.5 mg base)/3 mL nebulization soln 3 ml inhalation Q6H PRN shortness of breath or wheezing #180 mL 05/08/23 [Rx Confirmed 11/24/23] disability placard See Rx Instructions .Route .COMPLEX respiratory failure 11 months #1 unit 05/09/23 [Rx Confirmed 11/24/23] Disability Placard #1 ea 05/10/23 [Rx Confirmed 11/24/23] budesonide 160 mcg-glycopyr 9 mcg-formot 4.8 mcg/actuation HFA inhaler (Breztri Aerosphere) 2 inh inhalation BID #3 ea 09/19/23 [Rx Confirmed 11/24/23] venlafaxine 150 mg capsule,extended release 24 hr 150 mg PO DAILY 09/19/23 [History Confirmed 11/24/23] fluticasone propionate 50 mcg/actuation nasal spray,suspension 2 spray intranasal DAILY #16 grams 10/17/23 [Rx Confirmed 11/24/23] dexamethasone 4 mg tablet 4 mg PO BID #6 tabs 11/23/23 [Rx Confirmed 11/24/23] folic acid 1 mg tablet 1 mg PO DAILY #90 tabs 11/23/23 [Rx Confirmed 11/24/23] lidocaine-prilocaine 2.5 %-2.5 % topical cream 1 applic topical ONCE PRN port access 30 days #30 grams 11/23/23 [Rx Confirmed 11/24/23] ondansetron 8 mg disintegrating tablet 8 mg PO Q8H PRN nausea and vomiting #30 tabs 11/23/23 [Rx Confirmed 11/24/23] PFSH Medical History Bilateral carotid artery stenosis Chronic obstructive pulmonary disease Chronic respiratory failure with hypoxia Encounter for education Encounter for vitamin B12 injection while on pemetrexed chemotherapy Essential hypertension Hyperlipidemia Rib pain on right side Family History Father HypertensionSister Hypertension Social History Smoking Status: Former smoker quit date: 10/30/13 pack-years: 39 Smokeless tobacco user: chewing tobacco alcohol intake: current alcohol intake frequency: a few times a week HPI HPI HPI: Patient is a 68-year-old male with lung cancer here for right chest port. He has some right chest pain but he had a fall this week. He is on chronic oxygen. ROS General General: Yes weight change (loss) and fatigue Cardio Cardiovascular: Yes high blood pressure Psych Psychiatric: Yes anxiety Resp Respiratory: Yes shortness of breath, Yes cough and Yes COPD Gastro Gastrointestinal: Yes constipation Klaus Hematologic: Yes blood thinners Additional Details: 81 mg aspirin daily Exam Const General: cooperative Orientation: alert and oriented x3 HENMT Head: normal to inspection Neck Neck: normal visual inspection and full ROM Chest Chest palpation & inspection: normal inspection of the chest Resp Effort & Inspection: normal respiratory effort Auscultation: clear to auscultation bilaterally Cardio Rate: regular rate Rhythm: regular rhythm GI Inspection: non-distended Palpation: soft and nontender Skin General: no rashes or lesions noted Neuro General: patient alert and patient oriented x3 Extrem General: full ROM Psych Appearance: grossly normal Mental Status: mental status grossly normal Assessment and Plan Assessment and Plan (1) Encounter for insertion of venous access port: Status: Acute Plan: I discussed right chest port placement with the patient in detail. I discussed the risks including but limited to bleeding, infection, injury to other organs or pneumothorax. I also explained the risks of line infection and DVT later. Patient will hold his aspirin for 5 days. I have him on the schedule for next Monday. Stone Murry MD Pager: [facility] [address] [place] [address], [address] [place] [address] Office: I have examined the patient and the H&P has been reviewed. There are no clinical changes since date of exam.
[2023-12-01] MEDS: Cefazolin 2 GM in 0.9% Normal Saline (100mL Bag) 100 ML IV (10:40)
[2023-12-01] MEDS: Bupivacaine Mpf 0.5% 30 ML VIAL (10:48)
[2023-12-01] MEDS: Lidocaine 1% /Epi 1:100 (20ml) 20 ML Vial (10:48)
--- NOTE | 2023-12-01 11:11 | PCM.OPRPT ---
Report of Operation Date of Procedure: 12/01/23 Pre-Operative Diagnosis: Need for vascular access for chemotherapy Post-Operative Diagnosis: Same Surgery/Procedure Performed:: Ultrasound and fluoroscopy guided right chest port placement utilizing right IJ Type of Anesthesia: Local MAC Estimated Blood Loss (mL): 5 Description of Procedure: After obtaining informed consent patient was brought back to the operating room MAC anesthesia was induced and the right chest and neck were prepped in normal sterile fashion. Ultrasound was used to evaluate both IJs and the right IJ was selected. Next, using a needle, the right IJ was accessed and a guidewire was passed on into the superior vena cava under fluoroscopy guidance. A small incision was made over the puncture site and the dilator introducer was placed over the guidewire. Next this was capped and the pocket was made for the port. 1% lidocaine with epinephrine was injected in the proposed port site. An incision was made with scalpel. Electrocautery was used to make a pocket under the skin and subcutaneous tissue. Hemostasis was obtained. Next, the catheter was tunneled up to the neck incision site and placed through the introducer. The peel-away introducer was removed and the position of the catheter was confirmed on fluoroscopy. Next, the catheter was trimmed and attached to the port with the locking device. Interrupted 2-0 Vicryl sutures were used to anchor the port to the chest wall and then the port was placed inside the pocket. The pocket was then flushed with saline and the port irrigated with saline. There was good blood return and the port flushed easily. Next, heparin was injected into the port. The skin was closed with subcutaneous interrupted 3-0 Vicryl sutures. A single 3-0 Vicryl sutures placed under the skin at the neck incision site. Steri-Strips were placed as well as op sites. Patient tolerated procedure well, was taken to PACU in stable condition. Chest x-ray will be obtained. Grafts/Implants Used: 8 [place] PowerPort Admit VTE Documentation VTE Mechan Device Prophylaxis: SCD's
--- NOTE | 2023-12-01 11:12 | DCINST_ITS ---
Discharge Instructions Procedure Port-A-Cath Diet Discharge Diet: Light diet - advance as tolerated (Pain medication may cause nausea. You should typically eat light foods as you take your pain medication.) Activity Discharge Activity: Return to Normal Activity and May Shower (with your bandage in place in 1-2 days after surgery. DO NOT SHOWER WHEN YOUR PORT IS ACCESSED.) Additional Activity Instructions:: Return to normal activity in 3-4 days Dressing / Incision Call your doctor if your incision/area has: Continuous Slow Oozing, Sudden Increased Bleeding, Increased Pain/ Swelling, Increased Redness and Foul Smelling Discharge Call your doctor if you observe: Fever of 101 or Higher Remove Dressing in: 2 days Cleanse incision/area with: Soap & Water Additional Dressing/Incision Instructions:: Alternate ibuprofen and Tylenol for pain Follow Up Care Please Follow Up With: Stone Murry MD When: as needed [phone] Test Results: Test results from this visit will be discussed in further detail at your follow- up appointment, if applicable. Discharge Plan Admission Attending Provider: Stone Murry Primary Care Provider: Ismael Joyce Discharge Orders/Prescriptions Prescriptions: No Action lisinopril 40 mg tablet 40 mg PO DAILY aspirin [Adult Aspirin Regimen] 81 mg tablet,delayed release (DR/EC) 81 mg PO DAILY Hold Instructions: Ordered diphenhydramine-acetaminophen [Tylenol PM Extra Strength] 25-500 mg tablet 1 tab PO QHS PRN (Reason: pain) albuterol sulfate 2.5 mg /3 mL (0.083 %) solution for nebulization 2.5 mg continuous nebulization Q6H PRN (Reason: shortness of breath or wheezing) Qty: 3 0RF albuterol sulfate 90 mcg/actuation HFA aerosol inhaler 2 puff inhalation Q6H MDD 10 puffs PRN (Reason: shortness of breath or wheezing) 60 Days Qty: 8.5 6RF ipratropium-albuterol 0.5 mg-3 mg(2.5 mg base)/3 mL solution for nebulization 3 ml inhalation Q6H MDD 6 doses PRN (Reason: shortness of breath or wheezing) Qty: 180 6RF Rx Instructions: use either nebulizer or albuterol inhaler, every 4 hours as needed. Do not use both at the same time. (DME) Aerochamber MV Spacer See Rx Instructions .ROUTE .MEDSUPPLY Qty: 1 1RF Rx Instructions: As directed (DME) Disability Placard See Rx Instructions .Route .MEDSUPPLY Qty: 1 0RF Rx Instructions: Expires 05/10/2028 venlafaxine 150 mg capsule,extended release 24hr 150 mg PO DAILY Patient Comments: take 1 capsule by mouth every morning Breztri Aerosphere 160-9-4.8 mcg/actuation HFA aerosol inhaler 2 inh inhalation BID Qty: 3 3RF ondansetron 8 mg tablet,disintegrating 8 mg PO Q8H PRN (Reason: nausea and vomiting) Qty: 30 1RF lidocaine-prilocaine 2.5-2.5 % cream 1 applic topical ONCE PRN (Reason: port access) 30 Days Qty: 30 2RF dexamethasone 4 mg tablet 4 mg PO BID Qty: 6 5RF folic acid 1 mg tablet 1 mg PO DAILY Qty: 90 1RF atorvastatin [Lipitor] 40 mg tablet 40 mg PO DAILY Qty: 90 3RF disability placard See Rx Instructions .ROUTE .COMPLEX 330 Days Qty: 1 0RF Rx Instructions: handicapped placard or plate, lifetime as needed for patient transportation; Referrals / Follow Up: Ismael Joyce DO [Primary Care Provider] - Disposition Disposition (needs filled in before D/C Order can be placed): Home, Self Care
--- NOTE | 2023-12-01 11:15 | RAD_ITS ---
STUDY: X-RAY CHEST REASON FOR EXAM: Male, 68 years old. Line placement TECHNIQUE: Single AP portable view of the chest. COMPARISON: Comparison is made with prior examination dated November 23, 2023. FINDINGS: A right-sided swati catheter has been placed with the tip at the junction of the superior vena cava and right atrium. Progressive increased interstitial markings in both lungs with areas of confluence worse in the right lower lobe. Blunting of both costo phrenic angles. Normal size heart. Normal mediastinum and addy. Normal visualized pulmonary arteries. There is atherosclerotic calcification of the aortic arch with tortuosity. There are diffuse degenerative changes of the visualized thoracic spine. Normal visualized ribs, clavicles, and shoulders. There is no demonstrated abnormality of the visualized soft tissue structures of the upper abdomen. RAD/CXR for Line Placement IMPRESSION: The tip of the right-sided portacatheter is at the junction of the superior vena cava and right atrium. Progressive increased interstitial markings with areas of confluence worse in the right lung base. Electronically Signed: Russell Godinez MD at 12:05 EST ,
--- OUTSIDE RECORDS SUMMARY | 2023-12-01 12:24 | XMS RPT_ITS | CCD ---
Author Name Unknown Address [address] [place] [address] Organization [facility] Care Team Providers Care Roller Checker Name Role Phone LELA MAYO, SANDY Villanueva Primary Care Physician Lynda Randle PT Unavailable Unavailable ISMAEL DAUGHERTY [...] (disorder), Bright red color (finding), Weal (disorder) [facility] Medications Current Medications Medication Drug Class(es) [...] wheezing, # 180 mL, 0 Refill(s), [id number], 170.2, cm, 04/11/23 1:00:00 EDT, Height Start Date: 04/13/23 Status: Ordered Completed/Discontinued Medications Medication Drug Class(es) Dates Sig (Normalized) Sig (Original) predniSONE 10 mg oral tablet (3 sources) Start: 04-14-2023 End: 04-20-2023 take 1 tablet by mouth once daily prednisone 10mg tab (TAPER) Taper 40-20-10 mg x 2 days each dose, Oral, Daily, # 14 tab(s), 0 Refill(s), [id number], 170.2, cm, 04/11/23 1:00:00 EDT, Height Start [...] (10 sources) Dependence on supplemental oxygen; Translations: [Valom-kv-dkyntqq respiratory failure] 08-24-2022 Chronic Screening and history [...] Pressure Cuff Size DR KAJAL ADORNO MD [facility] 04-13-2023 10:04-[address] KAJAL ADORNO MD [address] [place] [address] 04-13-2023 10:04-[address] KAJAL ADORNO MD [address] [place] [address] 04-13-2023 10:04-0400 Body temperature 97.7 [degF] DR KAJAL ADORNO MD [address] [place] [address] 04-13-2023 10:04-0400 Diastolic Blood Pressure Non-Invasive [address] KAJAL ADORNO MD [address] [place] [address] 04-13-2023 10:04-0400 Heart rate 89 /min DR KAJAL ADORNO MD [address] [place] [address] 04-13-2023 10:04-0400 Reason For Taking VItal Signs DR KAJAL ADORNO MD [address] [place] [address] 04-13-2023 10:04-0400 Respiratory rate 20 /min DR KAJAL ADORNO MD [address] [place] [address] 04-13-2023 10:04-0400 Systolic Blood Pressure Non-Invasive [address] KAJAL ADORNO MD [address] [place] [address] 04-13-2023 09:56-0400 Heart rate 83 /min DR KAJAL ADORNO MD [address] [place] [address] 04-13-2023 09:56-0400 Respiratory rate 20 /min DR KAJAL ADORNO MD [address] [place] [address] 04-13-2023 06:41-04[address] Cuff Size DR KAJAL ADORNO MD [address] [place] [address] 04-13-2023 06:41-[address] KAJAL ADORNO MD [address] [place] [address] 04-13-2023 06:41-[address] KAJAL ADORNO MD [address] [place] [address] 04-13-2023 06:41-0400 Body temperature 97.7 [degF] DR KAJAL ADORNO MD [address] [place] [address] 04-13-2023 06:41-0400 Diastolic Blood Pressure Non-Invasive [address] KAJAL ADORNO MD [address] [place] [address] 04-13-2023 06:41-0400 Heart rate 78 /min DR KAJAL ADORNO MD [address] [place] [address] 04-13-2023 06:41-0400 Reason For Taking VItal Signs DR KAJAL ADORNO MD [address] [place] [address] 04-13-2023 06:41-0400 Respiratory rate 22 /min DR KAJAL ADORNO MD [address] [place] [address] 04-13-2023 06:41-0400 Systolic Blood Pressure Non-Invasive [address] KAJAL ADORNO MD [address] [place] [address] 04-13-2023 02:26-[address] Cuff Size DR KAJAL ADORNO MD [address] [place] [address] 04-13-2023 02:26-[address] KAJAL ADORNO MD [address] [place] [address] 04-13-2023 02:26-[address] KAJAL ADORNO MD [address] [place] [address] 04-13-2023 02:26-0400 Body temperature 97.88 [degF] DR KAJAL ADORNO MD [address] [place] [address] 04-13-2023 02:26-0400 Diastolic Blood Pressure Non-Invasive [address] KAJAL ADORNO MD [address] [place] [address] 04-13-2023 02:26-0400 Heart rate 95 /min DR KAJAL ADORNO MD [address] [place] [address] 04-13-2023 02:26-0400 Reason For Taking VItal Signs DR KAJAL ADORNO MD [address] [place] [address] 04-13-2023 02:26-0400 Systolic Blood Pressure Non-Invasive [address] KAJAL ADORNO MD [facility] 04-12-2023 22:24-0400 Heart rate 105 /min DR KAJAL ADORNO MD [facility] 04-12-2023 18:33-0400 Heart rate 95 /min DR KAJAL ADORNO MD [facility] 04-11-2023 01:00-0400 Body height 170.[address] KAJAL ADRONO MD [facility] 04-11-2023 01:00-0400 Body weight 79.[address] KAJAL ADORNO MD [facility] 04-11-2023 01:00-0400 Body weight 27.44 kg/m2 DR KAJAL ADORNO MD [facility] 07-02-2022 15:42-0400 Body temperature 98.24 [degF] YESENIA BOND MD [facility] 07-02-2022 15:42-0400 Diastolic Blood Pressure NBP 81 1 YESENIA BOND MD [facility] 07-02-2022 15:42-0400 Heart rate 99 /min YESENIA BOND MD [facility] 07-02-2022 15:42-0400 Mean blood pressure 98 mm[Hg] YESENIA BOND MD [facility] 07-02-2022 15:42-0400 Reason For Taking VItal Signs YESENIA BOND MD [facility] 07-02-2022 15:42-0400 Respiratory rate 18 /min YESENIA BOND MD [facility] 07-02-2022 15:42-0400 Systolic Blood Pressure NBP 141 1 YESENIA BOND MD [facility] 07-02-2022 15:03-0400 Heart rate 94 /min YESENIA BOND MD [facility] 07-02-2022 15:03-0400 Respiratory rate 18 /min YESENIA BOND MD [facility] 07-02-2022 13:22-0400 Respiratory rate 16 /min YESENIA BOND MD [facility] 07-02-2022 11:20-0400 Body temperature 98.06 [degF] YESENIA BOND MD [facility] 07-02-2022 11:20-0400 Diastolic Blood Pressure NBP 87 1 YESENIA BOND MD [facility] 07-02-2022 11:20-0400 Heart rate 97 /min YESENIA BOND MD [facility] 07-02-2022 11:20-0400 Mean blood pressure 102 mm[Hg] YESENIA BOND MD [facility] 07-02-2022 11:20-0400 Reason For Taking VItal Signs YESENIA BOND MD [facility] 07-02-2022 11:20-0400 Systolic Blood Pressure NBP 137 1 YESENIA BOND MD [facility] 07-02-2022 11:06-0400 Heart rate 82 /min YESENIA BOND MD [facility] 07-02-2022 11:06-0400 Reason For Taking VItal Signs YESENIA BOND MD [facility] 07-02-2022 10:53-0400 Heart rate 82 /min YESENIA BOND MD [facility] 07-02-2022 06:50-0400 Heart rate 98 /min YESENIA BOND MD [facility] 07-02-2022 04:32-0400 Body temperature 97.7 [degF] YESENIA BOND MD [facility] 07-02-2022 04:32-0400 Diastolic Blood Pressure NBP 86 1 YESENIA BOND MD [facility] 07-02-2022 04:32-0400 Mean blood pressure 108 mm[Hg] YESENIA BOND MD [facility] 07-02-2022 04:32-0400 Systolic Blood Pressure NBP 163 1 YESENIA BOND MD [facility] 06-30-2022 21:16-0400 Diastolic blood pressure 66 mm[Hg] YESENIA BOND MD [facility] 06-30-2022 21:16-0400 Mean blood pressure 95 mm[Hg] YESENIA BOND MD [facility] 06-30-2022 21:16-0400 Systolic blood pressure 154 mm[Hg] YESENIA BOND MD [facility] 06-30-2022 20:30-0400 Diastolic blood pressure 69 mm[Hg] YESENIA BOND MD [facility] 06-30-2022 20:30-0400 Mean blood pressure 99 mm[Hg] YESENIA BOND MD [facility] 06-30-2022 20:30-0400 Systolic blood pressure 157 mm[Hg] YESENIA BOND MD [facility] 06-30-2022 20:00-0400 Mean blood pressure 118 mm[Hg] YESENIA BOND MD [facility] 06-30-2022 19:42-0400 Diastolic blood pressure 84 mm[Hg] YESENIA BOND MD [facility] 06-30-2022 19:42-0400 Systolic blood pressure 175 mm[Hg] YESENIA BOND MD [facility] 06-30-2022 17:05-0400 Diastolic blood pressure 83 mm[Hg] YESENIA BOND MD [facility] 06-30-2022 17:05-0400 Mean blood pressure 112 mm[Hg] YESENIA BOND MD [facility] 06-30-2022 17:05-0400 Systolic blood pressure 171 mm[Hg] YESENIA BOND MD [facility] 06-30-2022 11:50-0400 Body temperature 99.05 [degF] YESENIA BOND MD [facility] 06-30-2022 11:45-0400 Body temperature 99.03 [degF] YESENIA BOND MD [facility] 06-30-2022 11:40-0400 Body temperature 99.01 [degF] YESENIA BOND MD [facility] 06-30-2022 10:38-0400 SaO2% (BldA) [Mass fraction] 99.3 % YESENIA BOND MD [facility] 06-30-2022 07:55-0400 Body height 170.2 cm YESENIA BOND MD [facility] 06-30-2022 07:55-0400 Body weight 77.2 kg YESENIA BOND MD [facility] 06-30-2022 07:55-0400 Body weight 26.65 kg/m2 YESENIA BOND MD [facility] 06-30-2022 07:55-0400 diastolic 83 mm[Hg] YESENIA BOND MD [facility] 06-30-2022 07:55-0400 systolic 158 mm[Hg] YESENIA BOND MD [facility] 06-21-2022 12:04-0400 Body height 170.2 cm YESENIA BOND MD [facility] 06-21-2022 12:04-0400 Body temperature 98.06 [degF] YESENIA BOND MD [facility] 06-21-2022 12:04-0400 Body weight 78.5 kg YESENIA BOND MD [facility] 06-21-2022 12:04-0400 Body weight 27.1 kg/m2 YESENIA BOND MD [facility] 06-21-2022 12:04-0400 diastolic 87 mm[Hg] YESENIA BOND MD [facility] 06-21-2022 12:04-0400 Heart rate 97 /min YESENIA BOND MD [facility] 06-21-2022 12:04-0400 systolic 151 mm[Hg] YESENIA BNOD MD [facility] Encounters Encounter Date Encounter Type Care Provider Facility Start: 09-09-2023 End: 09-09-2023 Emergency department patient visit TROY BENITES DO Facility:B Start: 07-12-2023 End: 07-13-2023 ambulatory ISMAEL DAUGHERTY DO Facility:B Start: 07-12-2023 End: 07-12-2023 Patient encounter procedure ISMAEL DAUGHERTY DO [facility] Start: 07-12-2023 End: 07-12-2023 Well adult monitoring check done ISMAEL DAUGHERTY DO [facility] Start: 07-10-2023 End: 07-11-2023 ambulatory YESENIA BOND MD Facility:B Start: 07-10-2023 End: 07-10-2023 Patient encounter procedure YESENIA BOND MD [facility] Start: 04-11-2023 End: 04-13-2023 Evaluation and management of inpatient DR KAJAL ADORNO MD Facility:A Start: 04-10-2023 End: 04-13-2023 Evaluation and management of inpatient DR KAJAL ADORNO MD [facility] Start: 04-10-2023 End: 04-11-2023 Emergency department patient visit DR JOSEFINA LOYA MD Facility:B Start: 01-24-2023 End: 01-25-2023 ambulatory ISMAEL E DAUGHERTY DO Facility:B Start: 01-24-2023 End: 01-24-2023 Patient encounter procedure ISMAEL E DAUGHERTY DO [facility] Start: 01-17-2023 End: 01-22-2023 ambulatory ISMAEL E DAUGHERTY DO Facility:B Start: 01-17-2023 End: 01-21-2023 Outreach Lab ISMAEL E DAUGHERTY DO [facility] Start: 01-10-2023 End: 01-11-2023 ambulatory ISMAEL E DAUGHERTY DO Facility:B Start: 01-10-2023 End: 01-10-2023 Patient encounter procedure ISMAEL E DAUGHERTY DO [facility] Start: 11-09-2022 End: 11-15-2022 Evaluation and management of inpatient ISMAEL E DAUGHERTY DO Facility:B Start: 06-30-2022 End: 07-02-2022 Evaluation and management of inpatient YESENIA BOND MD [facility] Start: 06-21-2022 End: 06-21-2022 [facility] YESENIA BOND MD [facility] Start: 01-03-2022 End: 01-03-2022 Patient encounter procedure SANDY VOGEL MD [facility] Start: 12-28-2021 End: 12-28-2021 Patient encounter procedure SANDY VOGEL MD [facility] Procedures Date Procedure Procedure Detail Performing Clinician Carotid artery struc ture (body structure) ISMAEL DAUGHERTY DO History of carotid endarterectomy History of left-sided carotid endarterectomy ISMAEL DAUGHERTY DO None (qualifier value) ANNEL VOGEL MD Immunizations Immunization Date Immunization Notes Care Provider [facility] 05-19-2023 tetanus toxoid, redu morena diphtheria toxoid, and acellular pertussis vaccine, adsorbed YESENIA BOND MD [facility] 05-19-2023 zoster vaccine recombinant YESENIA BOND MD [facility] 08-18-2022 influenza virus vacc ine, unspecified formulation [facility] DO [facility] 06-16-2022 pneumococcal polysaccharide vaccine, 23 valent YESENIA BOND MD [facility] 08-26-2021 influenza virus vacc ine, unspecified formulation YESENIA BOND MD [facility] 07-28-2021 SARS-CoV-2 mRNA (tozinameran) vaccine SANDY VOGEL MD [facility] 05-27-2021 pneumococcal conjuga te vaccine, 13 valent SANDY VOGEL MD [facility] 01-26-2021 SARS-CoV-2 mRNA (tozinameran) vaccine SANDY VOGEL MD [facility] 01-05-2021 SARS-CoV-2 mRNA (rafiqzinammeaghan) vaccine SANDY VOGEL MD [facility] Payers Date Payer Category Payer Medicare [id number] 2022 Unknown [id number] 1955 Unknown [id number] 2.16.8 [id number] 1955 Unknown [id number] 2.16.8 [id number] 1954 Unknown [id number] 2.16.8 [id number] 1954 Unknown [id number] 2.16.8 [id number] 1954 Unknown [id number] 2.16.8 [id number] 1954 Unknown [id number] 2.16.8 [id number] 1954 Unknown [id number] 2.16.8 [id number] 1954 Unknown [id number] 2.16.8 [id number] 1954 Unknown [id number] 2.16.8 [id number] Social History Date Type Detail Facility Start: 06-04-2021 End: 06-21-2022 Ex-smoker (finding) [facility] Sex Assigned At Male [facility] Tobacco smoking status Smokeless tobacco user within last 30 days [facility] Functional Status Date Assessment Result Facility 04-13-2023 Functional Status Identified as high risk, Bed alert on, Door open, Room check performed [facility] 04-13-2023 Functional Status [facility] 04-13-2023 Functional Status [facility] 04-12-2023 Functional Status Skin Care Prev entative Intervention(s) heel(s)s elevated [facility] 04-12-2023 Functional Status Dinner Percent 100 [facility] 04-12-2023 Functional Status [facility] 04-12-2023 Functional Status [facility] 04-12-2023 Functional Status Done [facility] 04-11-2023 Functional Status [facility] 04-11-2023 Functional Status [facility] 04-11-2023 Functional Status Beds/[facility] b ed [facility] 04-11-2023 Functional Status Split level home [facility] 04-11-2023 Functional Status Sensory Deficits None A [facility] 07-02-2022 Functional Status Non-Slip footw ear, Room check performed [facility] 07-02-2022 Functional Status [facility] 07-02-2022 Functional Status [facility] 07-02-2022 Functional Status [facility] 07-01-2022 Functional Status [facility] 07-01-2022 Functional Status 100 [facility] 07-01-2022 Functional Status Ambulation in Rouse [facility] 07-01-2022 Functional Status Multilevel home [facility] 07-01-2022 Functional Status [facility] 07-01-2022 Functional Status SCD On/Re-applied bilat eral knee high [facility] 06-30-2022 Functional Status ice chips and sips take n [facility] Mental Status Date Assessment Result Facility 04-13-2023 Mental Status Orientation Oriented x 4 [facility] 04-13-2023 Mental Status [facility] 04-12-2023 Mental Status [facility] 04-12-2023 Mental Status Oriented x 4 [facility] 04-11-2023 Mental Status [facility] 07-02-2022 Mental Status Oriented x 4 [facility] 07-02-2022 Mental Status [facility] 07-02-2022 Mental Status [facility] 07-01-2022 Mental Status [facility] Clinical Notes 10-20-2021 to 04-13-2023 Note [...] 79% at home so he presented to [facility] ED for evaluation. Initially he was [...] TOBIN When Within 3-5 days Where: [address] [place] [address]- Follow Up with ISMAEL DAUGHERTY DO When Within 1-2 days Why: Please call the office to schedule a follow up appointment. Where: [address] [place] [address]- Follow Up Appointments No qualifying data available. [...] YENIFER MAIN MD on 04/13/2023 08:00 PM [facility] 04-13-2023 Hospital Discharge instructions Patient Education 04/13/2023 12:47:36 Chronic Obstructive Pulmonary Disease, Cziv-uo-Jkiw Chronic Obstructive Pulmonary Disease Chronic obstructive pulmonary [...] Follow these instructions at home: Medicines Take qfuq-iuh-oxvtgns and prescription medicines only as told by [...] keep yourself as healthy as possible. Take mczi-dkk-xcenqbw and prescription medicines only as told by your doctor. If you smoke, stop. Smoking makes the problem worse. This information is not intended to replace advice given to you by your health care provider. Make sure you discuss any questions you have with your health care provider. Document Released: 04/03/2009 Document Revised: 09/28/2018 Document Reviewed: 11/20/2017 [employer] Patient Education 2020 [employer]. Follow Up Care 04/11/2023 00:42:25 With:MAISHA TOBIN Address: [address] [place] [address]- When:3-5 days With:ISMAEL DAUGHERTY DO Address: [address] [place] [phone]- When:1-2 days Comments:Please call the office to schedule a follow up appointment. [facility] 04-13-2023 Note Discharge Instructions Thank you for allowing [facility] to assist you with your healthcare needs. The following is important discharge information regarding your hospital visit. Your Care Team ISMAEL DAUGHERTY DO What to do next Follow Up Appointments Follow Up with MAISHA TOBIN When Within 3-5 days Where: [address] [place] [address]- Follow Up with ISMAEL DAUGHERTY DO When Within 1-2 days Why: Please call the office to schedule a follow up appointment. Where: [address] [place] [address] [phone]- The Following Activity and Diet Have Been [...] shortness of breath or wheezing Pickup at [facility] #50182 New cefdinir (cefdinir 300 mg oral capsule) 1 cap by mouth Every 12 hours Duration: 5 Days Pickup at [facility] New predniSONE (prednisone 10mg tab (TAPER)) Taper 40-20-10 mg x 2 days each dose by mouth Every day Duration: 6 Days Pickup at [facility] #68729 Unchanged aspirin (aspirin 81 mg oral delayed [...] a day (in the morning) Pharmacy Information [facility] #[id number]: [address], [place] [phone] Please take this list to your next [...] Follow these instructions at home: Medicines Take zqsg-gwc-buonfyk and prescription medicines only as told by [...] keep yourself as healthy as possible. Take bgel-lye-akwksmh and prescription medicines only as told by your doctor. If you smoke, stop. Smoking makes the problem worse. This information is not intended to replace advice given to you by your health care provider. Make sure you discuss any questions you have with your health care provider. Document Released: 04/03/2009 Document Revised: 09/28/2018 Document Reviewed: 11/20/2017 [employer] Patient Education 2020 [employer] Additional Information VACCINATE! IT SAVES LIVES! Members of the community who have not yet received the COVID-19 vaccine and would like to receive it can visit one of [facility] vaccine clinics. There are many vaccine clinic locations within the [facility]. For locations and available times, please visit [email or web address].[place].gov/. It is important to note that some COVID mobile vaccine clinics are held outdoors and may be canceled in rainy or stormy conditions. To learn more about pediatric vaccinations (ages 5-11), we invite you to visit the [employer] webpage. [email or web address] To learn more about the COVID-19 vaccine, we invite you to visit the CDC website for a list of frequently asked questions.https://www.cdc.gov/cor onavirus/2019-ncov/vaccines/faq.h tml [facility] Patient Portal Access Instructions: Stay connected with your healthcare team and access your personal medical information anytime with the [facility] Patient Portal. Please follow the directions below to create your [facility] account: 1.Access the email account you provided upon registration to the hospital/physician office.2.Look for an invitation email from [facility].3.Open the email and access the invitation link: Accept Invitation to [facility].4.Fill in the required galeas to create your account. To access your account, visit [email or web address]. Click the blue button labeled Access Patient [...] your information. You can also access the [facility] Patient Portal on the [facility] ruel. Simply click on Patient Portal and then log into your account. If you would like to receive a full copy of your medical records, please contact the [facility] Medical Records Department by calling [phone], Monday through Monday between 8 a.m. and [...] Call your local pharmacy or go to [email or web address] to find one close to you.3.Make use of household items: Use cat litter or old coffee grounds to dispose medications if other options are not available. Mix your drugs with these household products, seal them in an airtight container and throw it into the garbage. Call [facility]: [phone] to be sure your drugs can be [...] Patient Education Materials Chronic Obstructive Pulmonary Disease, Mspx-jx-Brwk Medication Leaflets My discharge plan and instructions have been reviewed and explained to me and I,HAYDEN MOREIRA understand my current condition and have read and understand these discharge instructions. I have received a written copy of the plan/instructions. If I have questions, I am aware that I should contact my doctor. Patient/Quiller Hand Signature: Date/Time: Relationship to Patient: ____ Witness Name/Signature: Date/Time: [facility] 04-13-2023 Note Chief Complaint Transition Plan. 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 Home/Environment Details: Domestic Concerns: Denies. Details: Domestic Concerns: None. Living situation: Home/Independent. 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 Professional [...] by BRIAN GUILLEN on 04/13/2023 07:00 PM [facility] 04-12-2023 Note Date of Service 04/12/23 [...] negative -Patient has to follow-up with his film critic at [facility] Tob[facility] after discharge. 3. Pulmonary fibrosis 4. Hypertension, BP stable, continue lisinopril 5. History of left carotid endarterectomy, continue aspirin and statin DVT px on subcu heparin Digitally Signed by YENIFER MAIN MD on 04/12/2023 04:33 PM [facility] 04-12-2023 Pulmonary Consult note Date of Service 04/12/2023 Reason for Consultation COPD with respiratory failure and concern for IPF Referring Physician Hospitalist History of Present Illness Mr. Moreira is a 68-year-old male past medical history significant for COPD with chronic respiratory failure on 5 L nasal cannula followed by Dr. Tobin in [place], anxiety, hypertension and dyslipidemia who presented to the hospital 04/10/2023 with complaints of shortness of breath. This had gotten progressively worse over approximately 3 days prior to admission. He had desaturated down to 79% at home so he presented to [facility] ED for evaluation. Initially he was [...] now as he does follow with a film critic in [place], Dr. 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 Living situation: Home/Independent. 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 [...] of left-sided carotid endarterectomy Hyperkalemia Hypertension Hypoxia [employer] customer service prescription lorazepam use, <20/mo Lung interstitial disease [...] per week. 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 Home/Environment Details: Domestic Concerns: Denies. Details: Domestic Concerns: None. Living situation: Home/Independent. 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 Professional [...] by BRIAN GUILLEN on 04/12/2023 10:01 AM [facility] 04-11-2023 Note Date of Service 04/11/2023 [...] YENIFER MAIN MD on 04/11/2023 05:52 PM [facility] 68-year-old male with a hist ory [...] Count 01/17/23 * Microalbumin Level Urine 08/24/22 [facility] 06-13-2023 Note. MICRO - Microbiology PROCEDURE: [...] Locations *1: This test was performed at: [facility], [address] [place] [address], [facility] , [facility] ([place])04-11-2023 Note. MICRO - Microbiology PROCEDURE: Legionella Urine [...] Locations *1: This test was performed at: [facility], [address] [place] [address], [facility]- , [facility] ([place])04-11-2023 Note error Digitally Signed by BRIAN GUILLEN on 04/12/2023 09:59 AM [facility] [id number] Respiratory therapy Hospital Progress note Respiratory Therapy Evaluation Entered On: 04/11/2023 2:28 EDT Performed On: 04/11/2023 2:27 EDT by Sherrill Graf RRT Respiratory Therapy Evaluation RT Assessment [Frequency/Schedule] : pt to be QID tx per protocol Sherrill Graf CUSTOMER ASSOCIATE - 04/11/2023 2:30 EDT Pulmonary Status : [...] & Albuterol Q2 RT prn Sherrill Graf CUSTOMER ASSOCIATE - 04/11/2023 2:27 EDT Digitally Signed by Sherrill Graf RRT on 04/11/2023 02:27 AM Digitally Signed by Sherrill Graf RRT on 04/11/2023 02:30 AM [facility] [id number] History and physical note Date of Service [...] he went to the emergency department at [place]. In the emergency department Upon arrival to [...] feels weak and has a dry mouth. [facility] summary Date of Service 11/15/2022 Discharge Diagnosis [...] COPD, hypertension, hyperlipidemia, and anxiety, presents to [facility] emergency department with the chief complaint [...] 500 mg IV daily. We will continue mg IV every 8 hours. 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 Living situation: Home/Independent. 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 Professional [...] MAHAMED COLLIER MD on 04/11/2023 04:06 AM [facility] [id number] HCoV 229E RNA NORBERT+non-probe Ql (Nph)Not Detected *NA* (04/11/23 1:52 AM) [employer] V[employer]/Sero [id number] Note. MICRO - Microbiology PROCEDURE: Miscellaneous Micro [...] Locations *1: This test was performed at: [address]11-10-2022 Note. MICRO - Microbiology PROCEDURE: Streptococcus [...] Locations *1: This test was performed at: [address], [address] [place] [address] ([place])07-02-2022 Hospital Discharge instructions Patient Education 07/02/2022 14:14:33 [...] hypoxia. Follow these instructions at home: Take dqoz-ysb-wzudnvy and prescription medicines only as told by [...] 12/04/2017 Document Revised: 09/28/2018 Document Reviewed: 12/04/2017 [employer] Patient Education 2020 [employer]. 07/02/2022 14:14:13 Chronic Obstructive Pulmonary Disease Exacerbation, Hfoo-fa-Zwbc Chronic Obstructive Pulmonary Disease Exacerbation Chronic obstructive [...] Follow these instructions at home: Medicines Take oslf-jtw-sjtotka and prescription medicines only as told by [...] cannot use soap and water, use hand microsoft office instructor. During flu season, avoid areas that are [...] 10/04/2012 Document Revised: 09/28/2018 Document Reviewed: 11/20/2017 [employer] Patient Education 2020 [employer] 07/02/2022 14:13:49 8- Carotid Stenosis and [...] until directed by your surgeon. Only take ugxw-kkc-krepcgk or prescription medicines for pain, discomfort, or [...] worse. Document Released: 05/05/2006 Document Re-Released: 01/10/2011 [facility] Patient Information 2010 [facility]. Follow Up Care 06/09/2022 15:34:26 With:[facility] to deliver your needed equipment, Address:Unknown When: Unknown With:ROSELINE ALARCON Address: [address] [address] [phone] Business (1) When:5-7 days Comments:Please call on 07/05/2022, for a Follow Up Visit With:SANDY VOGEL MD Address: [address] [place] [address]- When: Unknown Comments:PLEASE CALL THIS OFFICE TO SCHEDULE A HOSPITAL FOLLOW UP APPOINTMENT. With:Aircraft Engine Technician follow up Address: When: Unknown Comments:Mariana Fontenot or covering Nurse Aircraft Engine Technician will call you and/or your family after your release from the hospital. Office Hours: Monday thru Monday 730am - 4pmPhone: Yozlu: [email or web address] [facility] 09-03-2022 Note Discharge Instructions Thank you [...] for a Follow Up Visit Where: [address] [phone] [facility] (1) Follow Up with SANDY VOGEL MD When Why: PLEASE CALL THIS OFFICE TO SCHEDULE A HOSPITAL FOLLOW UP APPOINTMENT. Where: [address] [place] [address]- Follow Up with Aircraft Engine Technician follow up When Why: Mariana Fontenot or covering Nurse Aircraft Engine Technician will call you and/or your family after your release from the hospital. Office Hours: Monday thru Monday 730am - 4pm Email: [email or web address] Where: The Following Activity and Diet Have [...] hypoxia. Follow these instructions at home: Take eccb-jut-okeifkw and prescription medicines only as told by [...] 12/04/2017 Document Revised: 09/28/2018 Document Reviewed: 12/04/2017 [employer] Patient Education 2020 [employer] Chronic Obstructive Pulmonary Disease Exacerbation Chronic [...] Follow these instructions at home: Medicines Take udtw-src-cxdrekj and prescription medicines only as told by [...] cannot use soap and water, use hand microsoft office instructor. During flu season, avoid areas that are [...] 10/04/2012 Document Revised: 09/28/2018 Document Reviewed: 11/20/2017 [employer] Patient Education 2020 [employer] Carotid Stenosis and Carotid Endarterectomy Care [...] until directed by your surgeon. Only take rzvn-kms-jsenaxs or prescription medicines for pain, discomfort, or [...] worse. Document Released: 05/05/2006 Document Re-Released: 01/10/2011 [facility] Patient Information 2010 [employer] [facility]. Additional Information VACCINATE! IT SAVES LIVES! Members of the community who have not yet received the COVID-19 vaccine and would like to receive it can visit one of [facility] vaccine clinics. There are many vaccine clinic locations within the [facility]. For locations and available times, please visit [email or web address] It is important to note that some COVID mobile vaccine clinics are held outdoors and may be canceled in rainy or stormy conditions. To learn more about pediatric vaccinations (ages 5-11), we invite you to visit the [employer] [facility] webpage. [email or web address]/[email or web address] stions.htmlTo learn more about the COVID-19 vaccine, we invite you to visit the [employer] website for a list of frequently asked questions. [email or web address]/[email or web address]-Lzhjxpteiv _[email or web address]-Questions.pdf [facility] Patient Portal Access Instructions: Stay connected with your healthcare team and access your personal medical information anytime with the [facility] Patient Portal.If you would like a full copy of your medical records, please contact the [facility] Medical Records Department, Monday through Monday between 8a.m. and 4:30p.m. Please follow the directions below to access the portal: 1.Access the email account you provided upon registration to the hospital.2.Look for an invitation email from [facility].3.Open the email and access the invitation link: Accept Invitation to [facility]4.Fill in the required galeas to create your account. Sign into [email or web address] with your username and password that you [...] you will allow to register on the [facility] Patient Portal for access to your information. You can also access the [employer] Patient Portal on the [employer] ruel. Simply click on Health Records under [facility] and then click on the iTOK logo. HOW TO SAFELY DISPOSE OF PRESCRIPTION [...] Call your local pharmacy or go to [email or web address] to find one close to you.3.Make use of household items: Use cat litter or old coffee grounds to dispose medications if other options arenot available. Mix your drugs with these household products, seal them in an airtight container andthrow it into the garbage. Call [facility]: [phone] to be sure your drugs can be [...] Materials Hypoxia Chronic Obstructive Pulmonary Disease Exacerbation, Oznt-qr-Ypwv 8- Carotid Stenosis and Carotid Endarterectomy (11/2011)(CUSTOM) Medication Leaflets My discharge plan and instructions have been reviewed and explained to me and IHARISH GEORGE O understand my current condition and have read and understand these discharge instructions. I have received a written copy of the plan/instructions. If I have questions, I am aware that I should contact my doctor. Patient/Quiller Hand Signature: Date/Time: Relationship to Patient: Witness Name/Signature: Date/Time: [facility] [id number] Pulmonary Progress note Date of Service 07/02/2022 [...] ROSELINE ALARCON MD on 07/02/2022 12:48 PM [facility] [id number] Note ORIGINAL EXAMINATION: CTA OF THE CHEST [...] Sign Date: 07/02/2022 12:11:02 AM Ordering Provider: [facility]09-02-2022 Respiratory therapy Hospital Progress note Respiratory [...] RT Assessment [Frequency/Schedule] : QIDRT Kamila Sevilla CUSTOMER ASSOCIATE - 07/01/2022 18:49 EDT Digitally Signed by Kamila Sevilla RRT on 07/01/2022 06:49 PM [facility] [id number] Note ORIGINAL EXAMINATION: CTA OF THE CHEST [...] Date: 07/02/2022 12:11:02 AM Ordering Provider: [facility]09-02-2022 Pulmonary Consult note Date of Service [...] not smoking. 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 Has never been [...] 0.25 mg= 0.5 tab(s), Oral, TID, PRN Hawley 325- 5 mg oral tablet, 1 tab(s), [...] Domestic Concerns: None. Living situation: Home/Independent. 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 Professional [...] ROSELINE ALARCON MD on 07/02/2022 12:48 PM [facility] [id number] Note ORIGINAL EXAMINATION: ONE XRAY VIEW OF [...] Sign Date: 07/01/2022 2:28:02 PM Ordering Provider: [facility]09-02-2022 Note ORIGINAL EXAMINATION: ONE XRAY VIEW [...] Date: 07/01/2022 2:28:02 PM Ordering Provider: [facility]09-02-2022 Discharge summary Date of Service 07/02/2022 [...] YESENIA BOND MD on 07/02/2022 03:59 PM [facility] [id number] Anesthesiology Consult note Patient: HAYDEN MOREIRA Age: [...] ZULY HOFFMANN MD on 06/30/2022 02:09 PM [facility] [id number] Anesthesiology Consult note Patient: HAYDEN MOREIRA Age: [...] Medical Acute maxillary sinusitis / SNOMED CT 314694141 / Confirmed Allergic rhinitis / SNOMED CT 327517116 / Confirmed Anxiety / SNOMED CT 29495433 / Confirmed Carotid artery stenosis / SNOMED CT 788904889 / Confirmed Chronic airflow obstruction / SNOMED CT 602381880 / Confirmed On anticoagulant therapy / SNOMED CT 094793274 / Confirmed Emphysema of lung / SNOMED CT 757015426 / Confirmed Hypertension / SNOMED CT 7682948147 / Confirmed Mixed hyperlipidemia / SNOMED CT 247137004 / Confirmed Pneumonia / SNOMED CT 164199292 / Confirmed Smoking / SNOMED CT 533557793 / Confirmed, Active Problems (13) Acute maxillary sinusitis Allergic rhinitis Anxiety Carotid artery stenosis Chronic airflow obstruction Emphysema of lung Glasses Hypertension Mixed hyperlipidemia On anticoagulant therapy Pneumonia Smoking Wears partial dentures Histories Past Medical History: Active Hypertension (3101476342) Smoking (541821727) Pneumonia (756945564) Resolved Neck pain (711945987): Resolved. Family History: Heart attack Mother (Jenni Moreira, ) Father (Angelito Moreira, ) Coronary arteriosclerosis Brother (Angelito) Procedure history: None (178520145). 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 Assessment and Plan [place] Society of Anesthesiologists (ASA) physical status classification: Class IV. Anesthetic Preoperative Plan Premedication: intravenous. Anesthetic technique: General. Induction: intravenously. Maintenance airway: Oral endotracheal tube. Special Monitoring: Arterial line, Cerebral oxymetry. Postoperative pain management: Per surgeon. Risks discussed: nausea, sore throat, dental injury, allergic reaction, serious complications. Informed consent: signed by patient. Digitally Signed by ZULY HOFFMANN MD on 06/30/2022 10:10 AM [facility] [id number] Evaluation + Plan note Future Scheduled Tests Laboratory* Prostate Specific Antigen 10/20/21 * Thyroid Stimulating Hormone 10/20/21 * Complete Blood Count 10/20/21 * Lipid Profile 10/20/21 * Complete Metabolic Panel 10/20/21 [facility] Evaluation + Plan note Future Appointments Appointment Date:01/13/2022 11:00:00 AM Scheduled Provider:SANDY VOGEL MD Location:[facility] Appointment Type: OV [facility] Evaluation + Plan note Future Appointments [facility] Evaluation + Plan note Future Appointments Appointment Date:01/17/2023 03:00:00 PM Scheduled Provider:ISMAEL DAUGHERTY DO Location:[facility] Appointment Type:PC Wellness Medicare Future Scheduled Tests Laboratory* Microalbumin Level Urine 08/24/22 [facility] Evaluation + Plan note Future Appointments Appointment Date:01/24/2023 01:00:00 PM Scheduled Provider: Location:[facility] Appointment Type:US Abdomen/Aorta Appointment Date:04/11/2023 10:00:00 AM Scheduled Provider:ISMAEL DAUGHERTY DO Location:[facility] Appointment Type: OV Future Scheduled Tests Laboratory* Complete Blood Count 01/17/23 * Microalbumin Level Urine 08/24/22 Radiology* US Abdomen and Aorta 01/24/23 [facility] Evaluation + Plan note Future Appointments Appointment Date:04/11/2023 10:00:00 AM Scheduled Provider:ISMAEL DAUGHERTY DO Location:[facility] Appointment Type:PC OV Future Scheduled Tests Laboratory* Complete Blood Count 01/17/23 * Microalbumin Level Urine 08/24/22 [facility] Evaluation + Plan note Future Appointments Appointment Date:07/18/2023 01:00:00 PM Scheduled Provider:ISMAEL DAUGHERTY DO Location:[facility] Appointment Type:PC OV Future Scheduled Tests Laboratory* Complete Blood Count 01/17/23 * Microalbumin Level Urine 08/24/22 [facility] Evaluation + Plan note Future Appointments Appointment Date:07/18/2023 01:00:00 PM Scheduled Provider:ISMAEL DAUGHERTY DO Location:[facility] Appointment Type:PC OV Future Scheduled Tests Laboratory* Microalbumin Level Urine 08/24/22 [facility] Hospital course Narrative No data available for this section [facility] Hospital Discharge instructions No data available for this section [facility] Progress note No data available for this section [facility] Summary Purpose Family History No Family History Records Found Advance Directives No Advanced Directives Records Found Additional Source Comments Care Team (unrecognized sect ion and content) Care Team Personnel Name: Berry Randle Clerheather Howell PT Position: P3 Scheduling - Church Warden Advanced Member Role: Other Name: SANDY VOGEL MD Position: P4 Physician - Primary Care Member Role: Primary Care Physician Address: Address: [address] [facility] [place] [address]- Care Team Related Persons Name: ANUJA MOREIRA Address: [address] [phone] Care Team Personnel Name: Berry Randle PT Position: P3 Scheduling - Church Warden Advanced Member Role: Other Name: SANDY VOGEL MD Position: P4 Physician - Primary Care Member Role: Primary Care Physician Address: Address: [address] [place] [address]- Care Team Related Persons Name: ANUJA MOREIRA Address: Home [address] [place], [place] [phone] Patient Care team informatio n (unrecognized section and content) Care Team Personnel Name: Berry Randle PT Position: P3 Scheduling - Church Warden Advanced Member Role: Other Name: ISMAEL DAUGHERTY DO Position: P4 Physician - Primary Care Member Role: Primary Care Physician Address: Address: [address] [place] [address]- Care Team Related Persons Name: ANUJA MOREIRA Address: Home [address] [place], [place] [phone] Care Team Personnel Name: ROSELINE ALARCON MD Position: P3 Physician - Venetian Blind Worker Member Role: Tableau Lead Address: Address: [address] [place] [address]- Name: Berry Randle PT Position: P3 Scheduling - Church Warden Advanced Member Role: Other Name: ROBERT URIBE MD Member Role: Peer Financial Counselor Address: Address: [address] [place] [address]- [place] Name: ISMAEL DAUGHERTY DO Position: P4 Physician - Primary Care Member Role: Primary Care Physician Address: Address: [address] [place] [address]- Care Team Related Persons Name: ANUJA MOREIRA Address: Home [address] [place], [place] [phone] Care Team Personnel Name: ROSELINE ALARCON MD Position: P3 Physician - Venetian Blind Worker Member Role: Tableau Lead Address: Address: [address] [place] [address]- Name: Berry Randle PT Position: P3 Scheduling - Church Warden Advanced Member Role: Other Name: ROBERT URIBE MD Member Role: Peer Financial Counselor Address: Address: [address] [place] [address]- [place] Name: ISMAEL DAUGHERTY DO Position: P4 Physician - Primary Care Member Role: Primary Care Physician Address: Address: [address] [place] [address]- Care Team Related Persons Name: ANUJA MOREIRA Address: Home [address], [place] [phone] [place] Care Team Personnel Name: ROSELINE ALARCON MD Position: P3 Physician - Venetian Blind Worker Member Role: Tableau Lead Address: Address: [address] [place], [place] [phone]- Name: Berry Randlerheather Howell PT Position: P3 Scheduling - Church Warden Advanced Member Role: Other Name: ROBERT URIBE MD Member Role: Peer Financial Counselor Address: Address: [address] [place] [address]- Name: ISMAEL DAUGHERTY DO Position: P4 Physician - Primary Care Member Role: Primary Care Physician Address: Address: [address] [place] [address]- Care Team Related Persons Name: ANUJA MOREIRA Address: Home [address] [place], [place] [phone] [place] Care Team Personnel Name: ROSELINE ALARCON MD Position: P3 Physician - Venetian Blind Worker Member Role: Tableau Lead Address: Address: [address] [place], [place] [phone]- Name: Berry Randlerheather Howell PT Position: P3 Scheduling - Church Warden Advanced Member Role: Other Name: ROBERT URIBE MD Member Role: Peer Financial Counselor Address: Address: [address] [place] [address]- Name: ISMAEL DAUGHERTY DO Position: P4 Physician - Primary Care Member Role: Primary Care Physician Address: Address: [address] [place] [address]- Care Team Related Persons Name: ANUJA MOREIRA Address: Home [address] [place], [place] [phone] [place] Care Team Personnel Name: ROSELINE ALARCON MD Position: P3 Physician - Venetian Blind Worker Member Role: Tableau Lead Address: Address: [address] [facility] [address] [place] [address]- Name: Berry Randle Clerk Lynda PT Position: P3 Scheduling - Church Warden Advanced Member Role: Other Name: ROBERT URIBE MD Member Role: Peer Financial Counselor Address: Address: [address] [facility] [address] [place] [address]- Name: ISMAEL DAUHGERTY DO Position: P4 Physician - Primary Care Member Role: Primary Care Physician Address: Address: [address] [facility] [place], [place] [address] Care Team Related Persons Name: ANUJA MOREIRA Address: Home [address] [place], [place] [phone] (unrecognized sect ion and content) No Status [...] BE BASED ON THE PRIMARY CLINICAL RECORDS. [facility] [employer] [employer]. provides no warranty or guarantee of the accuracy or completeness of information in this document.
== END 2023-12-01 12:58 | disposition home or self-care (01) ==
LOC: SDC 09:33 → AC 09:35
PROVIDERS: Referring Provider Surgery; Visit Provider Surgery
PROC: (CPT 36561; principal; 2023-12-01 10:45)
DX: Z45.2 Encounter for adjustment and management of vascular access device (principal); C77.1 Secondary and unspecified malignant neoplasm of intrathoracic lymph nodes; C34.31 Malignant neoplasm of lower lobe, right bronchus or lung; J44.9 Chronic obstructive pulmonary disease, unspecified; J96.11 Chronic respiratory failure with hypoxia; R07.9 Chest pain, unspecified; Z87.891 Personal history of nicotine dependence; I10 Essential (primary) hypertension; E78.5 Hyperlipidemia, unspecified; I65.23 Occlusion and stenosis of bilateral carotid arteries; I25.10 Atherosclerotic heart disease of native coronary artery without angina pectoris; Z99.81 Dependence on supplemental oxygen
CPT/HCPCS: 36561; 00532; 71045; 77001; J7120; C1788; J2405

== ENCOUNTER 2024-01-01 14:38 | Emergency (ER) | payer MEDICARE, OTHER, SELFPAY ==
[2024-01-01] VITALS (26 sets, daily range): BP systolic 78–139; BP diastolic 52–91; PULSE 78–104; RESP 12–29; TEMP 36.4–37; O2SAT 87–99; BMI 26.2
--- NOTE | 2024-01-01 15:22 | EX.ED.DYSGE1 ---
HPI History of Present Illness Chief Complaint: Hypotension [facility] Medical History Anxiety Bilateral carotid artery stenosis Cancer Cardiology follow-up encounter Chronic obstructive pulmonary disease Chronic respiratory failure with hypoxia Dehydration Encounter for education Encounter for vitamin B12 injection while on pemetrexed chemotherapy Essential hypertension Former smoker High cholesterol History of echocardiogram History of stress test Hyperlipidemia Lesion of nasal mucosa On home oxygen therapy Prerenal azotemia Rib pain on right side Shortness of breath on exertion Wears dentures Wears glasses Home Medications aspirin 81 mg tablet,delayed release (Adult Aspirin Regimen) 81 mg PO DAILY 04/05/22 [History Last Taken 11/25/23] diphenhydramine 25 mg-acetaminophen 500 mg tablet (Tylenol PM Extra Strength) 1 tab PO QHS PRN pain 04/05/22 [History Last Taken Unknown] lisinopril 40 mg tablet 40 mg PO DAILY 04/05/22 [History Last Taken 12/01/23] atorvastatin 40 mg tablet (Lipitor) 40 mg PO DAILY #90 tabs 04/05/23 [Rx Last Taken Unknown] albuterol sulfate 2.5 mg/3 mL (0.083 %) solution for nebulization 2.5 mg (3 mL) continuous nebulization Q6H PRN shortness of breath or wheezing #3 mL 05/08/23 [Clinic Last Taken 12/01/23] albuterol sulfate 90 mcg/actuation aerosol inhaler 2 puff inhalation Q6H PRN shortness of breath or wheezing 60 days #8.5 grams 05/08/23 [Rx Last Taken Unknown] inhalational spacing device (Aerochamber MV spacer) #1 ea 05/08/23 [Rx Last Taken Unknown] ipratropium 0.5 mg-albuterol 3 mg (2.5 mg base)/3 mL nebulization soln 3 ml inhalation Q6H PRN shortness of breath or wheezing #180 mL 05/08/23 [Rx Last Taken Unknown] disability placard See Rx Instructions .Route .COMPLEX respiratory failure 11 months #1 unit 05/09/23 [Rx Last Taken Unknown] Disability Placard #1 ea 05/10/23 [Rx Last Taken Unknown] venlafaxine 150 mg capsule,extended release 24 hr 150 mg PO DAILY 09/19/23 [History Last Taken 12/01/23] dexamethasone 4 mg tablet 4 mg PO BID #6 tabs 11/23/23 [Rx Last Taken Unknown] folic acid 1 mg tablet 1 mg PO DAILY #90 tabs 11/23/23 [Rx Last Taken Unknown] lidocaine-prilocaine 2.5 %-2.5 % topical cream 1 applic topical ONCE PRN port access 30 days #30 grams 11/23/23 [Rx Last Taken Unknown] ondansetron 8 mg disintegrating tablet 8 mg PO Q8H PRN nausea and vomiting #30 tabs 11/23/23 [Rx Last Taken Unknown] fluticasone fur. 200 mcg-umeclid 62.5 mcg-vilant 25 mcg inhalat.powder (Trelegy Ellipta) 1 inh inhalation DAILY #60 ea 12/06/23 [Rx Last Taken Unknown] Allergy/AdvReac Type Severity Reaction Status Date / Time Iodinated Contrast Media Allergy Mild Hives Verified 12/25/23 10:22 Family History Father Hypertension Sister Hypertension Surgical History History of carotid endarterectomy Social History Smoking Status: Former smoker quit date: 10/30/13 pack-years: 40 Smokeless tobacco user: chewing tobacco alcohol intake: current alcohol intake frequency: a few times a week EXAM Physical Exam Const Vital Signs: 01/01/24 14:38 01/01/24 14:41 01/01/24 15:03 Temperature 97.5 F L Temperature Source Temporal Pulse Rate 104 H Respiratory Rate 26 H Respiratory Effort Respiratory Pattern Blood Pressure 90/52 L 78/52 L Blood Pressure Mean 64 60 Pulse Ox 87 93 Oxygen Delivery Method Nasal Cannula Nasal Cannula Oxygen Flow Rate (L/min) 5 4 01/01/24 15:49 01/01/24 15:49 01/01/24 15:57 Temperature 98.6 F Temperature Source Oral Pulse Rate 83 Respiratory Rate 19 H Respiratory Effort Short of Breath Respiratory Pattern Normal Blood Pressure 114/67 Blood Pressure Mean 82 Pulse Ox 96 Oxygen Delivery Method Nasal Cannula Nasal Cannula Oxygen Flow Rate (L/min) 4 4 01/01/24 15:10 01/01/24 16:10 01/01/24 17:00 Temperature 97.8 F 97.6 F L Temperature Source Oral Temporal Pulse Rate 82 82 Respiratory Rate 18 12 Respiratory Effort Respiratory Pattern Blood Pressure 111/74 139/76 H 111/79 Blood Pressure Mean 86 97 89 Pulse Ox 99 99 Oxygen Delivery Method Nasal Cannula Nasal Cannula Oxygen Flow Rate (L/min) 4 4 01/01/24 18:00 01/01/24 19:00 01/01/24 16:25 Temperature 97.8 F 98.1 F Temperature Source Temporal Temporal Pulse Rate 82 84 92 Respiratory Rate 21 H 29 H 22 H Respiratory Effort Respiratory Pattern Blood Pressure 123/73 H 127/91 H Blood Pressure Mean 89 103 Pulse Ox 97 94 94 Oxygen Delivery Method Room Air Nasal Cannula Oxygen Flow Rate (L/min) 4 4 01/01/24 16:30 01/01/24 16:40 01/01/24 16:50 Temperature Temperature Source Pulse Rate 98 80 82 Respiratory Rate 23 H 18 20 H Respiratory Effort Respiratory Pattern Blood Pressure 139/76 H Blood Pressure Mean 94 Pulse Ox 98 99 99 Oxygen Delivery Method Oxygen Flow Rate (L/min) 01/01/24 17:00 01/01/24 17:10 01/01/24 17:20 Temperature Temperature Source Pulse Rate 82 85 96 Respiratory Rate 22 H 20 H 26 H Respiratory Effort Respiratory Pattern Blood Pressure 111/79 Blood Pressure Mean 90 Pulse Ox 99 99 97 Oxygen Delivery Method Nasal Cannula Oxygen Flow Rate (L/min) 4 01/01/24 17:30 01/01/24 17:40 01/01/24 17:50 Temperature Temperature Source Pulse Rate 79 81 Respiratory Rate 25 H 22 H Respiratory Effort Respiratory Pattern Blood Pressure 128/72 H Blood Pressure Mean 89 Pulse Ox 96 97 Oxygen Delivery Method Oxygen Flow Rate (L/min) 01/01/24 18:00 01/01/24 18:01 01/01/24 18:10 Temperature Temperature Source Pulse Rate 82 80 Respiratory Rate 21 H 27 H Respiratory Effort Respiratory Pattern Blood Pressure 123/73 H Blood Pressure Mean 89 Pulse Ox 97 94 Oxygen Delivery Method Nasal Cannula Oxygen Flow Rate (L/min) 4 01/01/24 18:20 01/01/24 18:30 01/01/24 18:40 Temperature Temperature Source Pulse Rate 79 81 Respiratory Rate 25 H 21 H Respiratory Effort Respiratory Pattern Blood Pressure 124/76 H Blood Pressure Mean 90 Pulse Ox 96 95 Oxygen Delivery Method Nasal Cannula Oxygen Flow Rate (L/min) 4 01/01/24 18:50 01/01/24 19:00 01/01/24 19:58 Temperature 97.5 F L Temperature Source Pulse Rate 80 84 78 Respiratory Rate 20 H 29 H 12 Respiratory Effort Respiratory Pattern Blood Pressure 131/81 H Blood Pressure Mean 97 Pulse Ox 96 94 99 Oxygen Delivery Method Oxygen Flow Rate (L/min) 01/01/24 20:12 Temperature Temperature Source Pulse Rate 78 Respiratory Rate 18 Respiratory Effort Respiratory Pattern Blood Pressure 127/79 H Blood Pressure Mean 95 Pulse Ox 96 Oxygen Delivery Method Nasal Cannula Oxygen Flow Rate (L/min) 4 [facility] MDM Narrative Medical decision making narrative: HISTORY OF PRESENT ILLNESS: 68-year-old male presents with low blood pressure. Notes last chemo was 1 week ago. Notes systolics in the 80s at home. Notes he has no symptoms other than dizziness upon standing. Denies any bleeding diathesis. Denies any cough, fever. Notes he has been urinating more than usual denies any vomiting or diarrhea. Denies any chest pain or shortness of breath. Denies any falls neck pain lower back pain REVIEW OF SYSTEMS: Pertinent positives: Lightheadedness, dizziness Pertinent negatives: Neck pain, back pain, chest pain, shortness of breath, cough, fever, rash PHYSICAL EXAM: Nursing triage notes reviewed, Vital signs reviewed Constitutional: please see [facility] HENT: MMM Eyes: Pupils equal round and reactive to light, Extraocular muscles intact Neck: No stridor, no JVD, full neck ROM Lungs: Clear to auscultation, No wheezing or rales. No increased work of breathing, no conversational dyspnea, no accessory muscle use, no nasal flaring. No respiratory distress noted port in right chest. Heart: Regular rate and rhythm, No murmurs, No rubs and No gallops, 2+ distal pulses (radial, femoral, posterior tibial) in all extremities Abdomen: Soft, there is no tenderness, rigidity, rebound or guarding, no obvious peritoneal signs, no palpable pulsatile abdominal masses, no auscultated abdominal bruit : No CVAT Extremities: No edema Neuro: No focal neurological deficits, cranial nerves II through XII intact, 5/5 strength in all extremities. Intact sensation to light touch in all extremities, 2+ reflexes bilateral patella tendons. Normal gait. No ataxia. Skin: No rash or lesions noted MEDICAL DECISION MAKING: Chief Complaint: Low blood pressure External records reviewed: Reviewed last oncology note from 12/25/2023 Factors affecting care: Lung cancer on chemo, chronic respiratory failure Social determinants of health: none History obtained from others: none Consults: none [facility] [place] Narrative: [Patient is initially hypertensive, tachycardic, tachypneic and on baseline oxygen. Patient was afebrile. I considered the following differential diagnosis: Distributive shock (sepsis), hemorrhagic shock, cardiogenic shock, neurogenic shock, I obtained a broad lab and imaging workup to further elucidate etiology patient complaints. Patient was resuscitated with 1 L normal saline initially ALL IMAGES (IF OBTAINED) HAVE BEEN PERSONALLY REVIEWED AND INTERPRETED BY MYSELF. EKG with normal sinus rhythm, left axis deviation, normal intervals, no STEMI CBC with no leukocytosis, mild anemia, no thrombocytopenia BMP with hyponatremia, no other significant electrolyte abnormality, no anion gap to suggest endorgan hypoperfusion, no DAVID, no evidence of metabolic acidosis, Lactate is wnl indicating no end-organ hypoperfusion and/or hypoxia. Elevation liver enzymes similar to prior studies Urinalysis shows no evidence of urinary inflammation suggestive of UTI Chest x-ray read reviewed myself shows improvement in bilateral infiltrates from prior x-ray on 11/23/2023. I do not suspect his infiltrates are secondary to pneumonia as patient is no white count, no fever, no cough no infectious symptoms not more short of breath than baseline. The synthesis of the patient's history, physical exam, labs images, repeat vital sign assessment suggest no obvious acute life-limiting etiology. I discussed my clinical impression with the patient. I think his symptoms are related to transient dehydration as evidenced by improvement in vital signs with 1 L normal saline. I do not think this related to septic shock, neurogenic shock, hemorrhagic shock cardiogenic shock or obstructive shock. I offered patient hospitalization given his neutropenic, immunocompromise state 7 days after chemotherapy to await cultures. The patient and/or family, caregivers express understanding. The patient and/or family, caregivers agrees with the plan. Shared decision making: I will have a discussion with the patient and or visitors regarding risk/benefits of further testing or admission. They will be made aware of of the risk/benefits inherent in this decision they will be given the opportunity to voice understanding. Total critical care time today provided was at least 0 minutes. This excludes separately billable procedures. Critical care time (if documented) is secondary to the patient having high probability of clinically significant/life threatening deterioration in the patient's condition which required my urgent intervention. Impression: 1. Hypotension 2. History lung cancer Dispo: Discharge home This note was generated with [employer] dictation software. It may contain incorrect words, spelling, and punctuation that were not noted in review of the chart prior to signing. Lab Data Labs: Laboratory Results - last 24 hr 01/01/24 01/01/24 15:24 16:51 WBC 4.9 RBC 4.33 L Hgb 11.9 L Hct 36.5 L MCV 84.3 MCH 27.5 MCHC 32.6 RDW Std Deviation 44.4 H RDW Coeff of Cornelius 14.9 H Plt Count 232 MPV 9.6 Immature Gran % (Auto) 0.600 Neut % (Auto) 74.8 H Lymph % (Auto) 18.1 L [place] % (Auto) 5.7 Eos % (Auto) 0.4 Baso % (Auto) 0.4 Absolute Neuts (auto) 3.7 Absolute Lymphs (auto) 0.89 Nucleated RBC % 0 PT 13.4 INR 1.0 APTT 32.3 Sodium 130 L Potassium 4.0 Chloride 97 L Carbon Dioxide 29.0 Anion Gap 4 L BUN 33 H Creatinine 1.13 Est GFR (MDRD) Af Amer 83 Est GFR (MDRD) Non-Af 68 BUN/Creatinine Ratio 29.2 H Glucose 118 H Lactic Acid 1.2 Calcium 9.0 Total Bilirubin 0.60 AST 47 H ALT 70 H Alkaline Phosphatase 120 H Total Protein 7.1 Albumin 3.0 L Globulin 4.1 Albumin/Globulin Ratio 0.7 L Urine Color Yellow Urine Clarity Clear Urine pH 6.0 Ur Specific [place] 1.010 Urine Protein 15 H Urine Glucose (UA) Normal Urine Ketones Negative Urine Occult Blood Negative Urine Nitrite Negative Urine Bilirubin Negative Urine Urobilinogen Normal Ur Leukocyte Esterase 25 H Urine RBC 0 SEEN Urine WBC 0-5 SEEN Ur Squamous Epith Cells 0 SEEN Urine Bacteria 0 SEEN Hyaline Casts 10-25 SEEN Urine Mucus 0 SEEN Radiography Diagnostic Testing: Clinical Impression(s) from Imaging Studies Chest X-Ray 01/01/24 16:10 IMPRESSION: Improving moderate bilateral interstitial infiltrates Electronically Signed: Nino Rosas MD at 17:04 EST Reading Location ID and State: [facility] / [place] Tel , Service support , Discharge Plan Triage Chief Complaint: Hypotension ED Provider: Leonardo Clayton Dx/Rx/DC Orders Clinical Impression: Dehydration Instructions: Dehydration Prescriptions: No Action lisinopril 40 mg tablet 40 mg PO DAILY aspirin [Adult Aspirin Regimen] 81 mg tablet,delayed release (DR/EC) 81 mg PO DAILY Hold Instructions: MD Ordered diphenhydramine-acetaminophen [Tylenol PM Extra Strength] 25-500 mg tablet 1 tab PO QHS PRN (Reason: pain) albuterol sulfate 2.5 mg /3 mL (0.083 %) solution for nebulization 2.5 mg continuous nebulization Q6H PRN (Reason: shortness of breath or wheezing) Qty: 3 0RF albuterol sulfate 90 mcg/actuation HFA aerosol inhaler 2 puff inhalation Q6H MDD 10 puffs PRN (Reason: shortness of breath or wheezing) 60 Days Qty: 8.5 6RF ipratropium-albuterol 0.5 mg-3 mg(2.5 mg base)/3 mL solution for nebulization 3 ml inhalation Q6H MDD 6 doses PRN (Reason: shortness of breath or wheezing) Qty: 180 6RF Rx Instructions: use either nebulizer or albuterol inhaler, every 4 hours as needed. Do not use both at the same time. (DME) Aerochamber MV Spacer See Rx Instructions .ROUTE .MEDSUPPLY Qty: 1 1RF Rx Instructions: As directed (DME) Disability Placard See Rx Instructions .Route .MEDSUPPLY Qty: 1 0RF Rx Instructions: Expires 05/10/2028 venlafaxine 150 mg capsule,extended release 24hr 150 mg PO DAILY Patient Comments: take 1 capsule by mouth every morning ondansetron 8 mg tablet,disintegrating 8 mg PO Q8H PRN (Reason: nausea and vomiting) Qty: 30 1RF lidocaine-prilocaine 2.5-2.5 % cream 1 applic topical ONCE PRN (Reason: port access) 30 Days Qty: 30 2RF dexamethasone 4 mg tablet 4 mg PO BID Qty: 6 5RF folic acid 1 mg tablet 1 mg PO DAILY Qty: 90 1RF atorvastatin [Lipitor] 40 mg tablet 40 mg PO DAILY Qty: 90 3RF disability placard See Rx Instructions .ROUTE .COMPLEX 330 Days Qty: 1 0RF Rx Instructions: handicapped placard or plate, lifetime as needed for patient transportation; Trelegy Ellipta 200-62.5-25 mcg blister with device 1 inh inhalation DAILY Qty: 60 6RF Primary Care Provider: Ismael Joyce Referrals: Nakul Rees MD [Med Staff - Active Staff] - Ismael Joyce DO [Primary Care Provider] - Activity Restrictions/Additional Instructions: Thank you for trusting us with your care today! Please take Tylenol (2 pills, 650 mg), ibuprofen (2 pills, 400 mg) every 6 hours as needed for pain and fever control. Please drink fluids with electrolytes including body armor, Pedialyte and Gatorade. If your blood pressures at home please look up a mean arterial pressure calculated. If you mean arterial pressures greater than 65 this is less concerning for significant for low blood pressure. Please return to the emergency department if your symptoms change or worsen. Please follow with your primary care physician for further outpatient evaluation and management. Disposition Disposition: Home, Self Care Discharge Date/Time: 01/01/24 20:12
--- NOTE | 2024-01-01 15:33 | EKG12_ITS ---
Test Reason : LOW BP Blood Pressure : / mmHG Vent. Rate : 084 BPM Atrial Rate : 084 BPM P-R Int : 160 ms QRS Dur : 072 ms QT Int : 340 ms P-R-T Axes : 051 -35 022 degrees QTc Int : 401 ms Normal sinus rhythm with sinus arrhythmia Left axis deviation Abnormal ECG Confirmed by Russell Foreman ([id number]), supervising film or videotape editor JUVENAL SANCHEZ ([id number]) on 01/03/2024 9:34:49 AM Referred By: Confirmed By:Russell Foreman
[2024-01-01 15:44] LABS: Absolute Lymphocyte Count 0.89 X10^3/uL (0.83-4.51); Absolute Neutrophil Count 3.7 X10^3/uL (2.0-7.7); Basophil# 0.02 X10^3/uL; Basophil% 0.4 % (0-1); Eosinophil# 0.02 X10^3/uL; Eosinophils% 0.4 % (0-5); Hematocrit 36.5 % (40-54); Hemoglobin 11.9 g/dL (13.0-16.5); Lymphocyte # 0.89 X10^3/ul (0.83-4.51); Lymphocyte % 18.1 % (19-41); Mean Corp Hgb Conc 32.6 g/dL (32-36); Mean Corpuscular Hgb 27.5 pg (27.0-32.0); Mean Corpuscular Volume 84.3 fL (80-94); Mean Platelet Vol. 9.6 fl (6.2-12.0); Monocyte# 0.28 X10^3/uL; Monocyte% 5.7 % (0-10); NRBC Flagged by Analyzer 0 % (0-5); Neutrophil # 3.69 X10^3/uL (2.7-7.7); Neutrophil % 74.8 % (47-70); Platelet Count 232 K/mm3 (150-450); RBC Distribution Width CV 14.9 % (11.6-14.6); RBC Distribution Width SD 44.4 fl (35.1-43.9); Red Blood Count 4.33 M/mm3 (4.6-6.2); White Blood Count 4.9 K/mm3 (4.4-11.0)
[2024-01-01] MEDS: 0.9% Normal Saline (1000mL) 1,000 ML 999 ML IV (15:46)
[2024-01-01 15:57] LABS: ALB/GLOB Ratio 0.7 RATIO (0.9-2.4); AST(SGOT) 47 U/L (15-37); Alanine Aminotransfer ALT/SGPT 70 U/L (16-61); Alkaline Phosphatase 120 U/L (45-117); Anion Gap 4 (5-15); BUN 33 mg/dL (7-18); BUN/Creat Ratio 29.2 RATIO (10-20); Chloride 97 mmol/L (98-107); Creatinine, Serum 1.13 mg/dL (0.70-1.30); EST Glomerular Filtration Rate 68 mL/min (>60); Est Glom Filt Rate - Afr Amer 83 mL/min (>60); Globulin 4.1 g/dL (2.2-4.2); Glucose 118 mg/dL (74-106); Protein, Total 7.1 g/dL (6.4-8.2); Prothrombin Time (Protime)PT. 13.4 SECONDS (11.7-14.9); Sodium Level 130 mmol/L (136-145)
[2024-01-01 15:58] LABS: Partial Thromboplast Time 32.3 Seconds (24.1-36.2)
--- NOTE | 2024-01-01 16:10 | RAD_ITS ---
STUDY: X-RAY CHEST REASON FOR EXAM: Male, 68 years old. Hypotension TECHNIQUE: Single frontal view of the chest. COMPARISON: December 01, 2023 FINDINGS: Right IJ MediPort unchanged terminating in the SVC. Moderate bilateral interstitial infiltrates improved. There is no demonstrated pleural abnormality. Normal size heart. Normal mediastinum and addy. Normal visualized pulmonary arteries. Normal visualized aortic arch and descending thoracic aorta. Normal visualized thoracic spine. Normal visualized ribs, clavicles, and shoulders. There is no demonstrated abnormality of the visualized soft tissue structures of the upper abdomen. RAD/Chest 1 View (Portable) IMPRESSION: Improving moderate bilateral interstitial infiltrates Electronically Signed: Nino Rosas MD at 17:04 EST ,
[2024-01-01 16:14] LABS: Lactic Acid 1.2 mmol/L (0.4-1.9)
[2024-01-01 16:55] LABS: Bacteria 0 SEEN /hpf (None Seen); Mucous, Urine 0 SEEN /hpf (<or=2+); Red Blood Cells-Urine 0 SEEN /hpf (0-5); Squamous Epithelial Cells - UA 0 SEEN /hpf (0-5)
[2024-01-01 16:58] LABS: Color, Urine Yellow (Yellow); Glucose, Dipstick Normal (Normal); Ketone-Dipstick Negative (Negative); Leukocyte Esterase-Dipstick 25 /ul (Negative); Nitrite-Dipstick Negative (Negative); Occult Blood-Urine Negative /ul (Negative); Protein-Dipstick 15 mg/dl (Negative); Urine Bilirubin Dipstick Negative (Negative); Urine Clarity Clear (Clear); Urine Urobilinogen Normal (Normal)
[2024-01-01 17:11] LABS: Hyaline Cast 10-25 SEEN /lpf (0-5)
[2024-01-01 17:12] LABS: White Blood Cells 0-5 SEEN /hpf (0-5)
[2024-01-01] MEDS: 0.9 % NaCl (Sterile) Posiflush 10 mL IV (20:08)
== END 2024-01-01 20:12 | disposition home or self-care (01) ==
PROVIDERS: Emergency Provider Emergency Medicine; Visit Provider Emergency Medicine
DX: I95.9 Hypotension, unspecified (principal); J44.9 Chronic obstructive pulmonary disease, unspecified; E86.0 Dehydration; Z92.21 Personal history of antineoplastic chemotherapy; Z87.891 Personal history of nicotine dependence; Z85.118 Personal history of other malignant neoplasm of bronchus and lung; I10 Essential (primary) hypertension; E78.00 Pure hypercholesterolemia, unspecified; Z79.82 Long term (current) use of aspirin; Z79.899 Other long term (current) drug therapy; F41.9 Anxiety disorder, unspecified; Z79.51 Long term (current) use of inhaled steroids
CPT/HCPCS: 36591; 71045; 80053; 81001; 83605; 85025; 85610; 85730; 87040; 87077; 87086; 87088; 87149; 87631; 93005; 96360; 99283; J7030; A4216

== ENCOUNTER → 2024-01-30 | Outpatient (CLI) | payer MEDICARE, OTHER, SELFPAY ==
--- NOTE | 2024-01-30 14:52 | CT_ITS ---
INDICATION: LUNG CA-ASSESS -IV ONLY-WILL TAKE BENADRYL 45MIN P EXAMINATION: CT CHEST AND ABDOMEN WITH CONTRAST - CT Chest And Abdomen W/ Contrast Injection TECHNIQUE: Helically acquired images were obtained of the chest and abdomen. A radiation dose optimization technique was used for this scan. IV Contrast dosage and agent: 100 cc of Isovue-[id number]. Oral contrast: None. COMPARISON: Prior study dated: 08/15/2023 FINDINGS: ----Chest: LUNGS, PLEURA AND LARGE AIRWAYS: Severe diffuse panlobular panlobular emphysema with extensive bullous changes unchanged prior exam. Subpleural cystic changes/honeycombing pattern. Right lower lobe chronic infiltrate or scarring unchanged. Small right pleural effusion again unchanged. No pneumothorax. THYROID: No thyroid lesions. HEART AND PERICARDIUM: Heart size is normal. No pericardial effusion. Mild coronary calcifications. VESSELS: Thoracic aorta is not dilated. MEDIASTINUM AND ANNA: Enlarged subcarinal mediastinal node measuring about 3.2 cm unchanged. Additional few small normal-sized nodes in the aortopulmonic window and anterior mediastinum. Small left hilar nodes. Calcified right hilar nodes. Esophagus is unremarkable. No hiatal hernia. BONES: No suspicious lytic or blastic abnormality. ----Abdomen (without Pelvis): LIVER: Homogeneous. No focal mass. GALLBLADDER AND BILIARY TREE: No calcified gallstones. No gallbladder distension or wall edema. No intra- or extrahepatic biliary ductal dilation. PANCREAS: No focal cystic or solid mass. Minimal prominence of the pancreatic duct. SPLEEN: Normal size without focal cystic or solid mass. ADRENAL GLANDS: No adrenal nodules are seen. KIDNEYS AND URETERS: Normal renal size and position. No hydronephrosis. PERITONEUM: No ascites or free air. No other fluid collection. BOWEL: Borderline appendix in thickness without periappendiceal inflammatory changes. Small fluid collection with pockets of air adjacent to the left adrenal gland and the posterior wall of the stomach appears to be separate from the genuine and could represent gastric diverticulum. Fecal retention concerning for constipation. No evidence acute inflammatory changes. LYMPH NODES: No enlarged mesenteric or retroperitoneal lymph nodes. VESSELS: Aorta is non-dilated. ABDOMINAL WALL: No discrete abdominal wall hernia. BONES: No lytic or blastic abnormality. CT/CT Chest AND Abd W/ Contrast IMPRESSION: 1. Extensive emphysematous changes fibrotic changes with the right lower lobe consolidation unchanged since prior exam. Again underlying tumor cannot be excluded. 2. Small right pleural effusion unchanged. 3. Persistent enlarged subcarinal node. 4. Probable gastric diverticulum difficult to evaluate without oral contrast. 5. Otherwise no focal acute inflammatory process. Electronically Signed: Enrrique Mack MD at 10:41 EDT ,
[2024-01-30] MEDS: 0.9 % NaCl (Sterile) Posiflush 10 mL IV (15:00)
[2024-01-30] MEDS: 0.9% Saline Lock 10 ML Syringe IV (15:10)
== END | disposition home or self-care (01) ==
LOC: CT 14:51
PROVIDERS: Referring Provider Internal Medicine Medical Oncology; Visit Provider Internal Medicine Medical Oncology
DX: C34.31 Malignant neoplasm of lower lobe, right bronchus or lung (principal)
CPT/HCPCS: 71260; 74160; Q9967; A4216

== ENCOUNTER 2024-02-12 23:32 | Inpatient (IN) | payer MEDICARE, OTHER, SELFPAY ==
[2024-02-12 22:26] VITALS: PULSE 95; RESP 14; RESP 22; O2SAT 98
[2024-02-12 22:45] VITALS: BP 120/66; PULSE 93; RESP 24; TEMP 36.4; O2SAT 100
[2024-02-12 22:54] VITALS: BMI 24.4
--- NOTE | 2024-02-12 23:32 | PCM.HP.STD ---
HPI - General General Date of Admission: 02/12/24 HPI Narrative HAYDEN MOREIRA, is a 69 M who presents to the hospital as a direct admission from an outside hospital. He was recently admitted to the outside hospital on 02/09/2024 to 02/10/2024 for COPD exacerbation. Per the ED physician at that hospital he was only on steroids. Today he presented back to the ER with fevers and chills as well as sputum production and increasing shortness of breath. He was started on Zosyn and then had to be advanced on BiPAP due to increasing shortness of breath and oxygen requirements. He did have a CTA of the chest 3 days ago and was negative for PE however today D-dimer is elevated to 7700 and he does have a history of stage IV lung cancer. He also had climbing troponin and tachycardia. Initially no therapeutic anticoagulation was done in the outside hospital however given the lack of leukocytosis it may be beneficial to treat. Unfortunately a VQ scan is not feasible given the abnormality of his chest x-ray and his creatinine is elevated to 2.42 today so he cannot have a CT of the chest right away either. He states that he also has a rash on his left side that is been going on for about a week. Does appear crusted over and to follow dermatomes. In discussion with the ED physician he did receive fluids at the outside hospital. [facility] Medical History Anemia Anxiety Bilateral carotid artery stenosis Cancer Cardiology follow-up encounter Chronic obstructive pulmonary disease Chronic respiratory failure with hypoxia Dehydration Encounter for education Encounter for vitamin B12 injection while on pemetrexed chemotherapy Essential hypertension Former smoker High cholesterol History of echocardiogram History of stress test Hyperlipidemia Hypokalemia Lesion of nasal mucosa On home oxygen therapy Prerenal azotemia Rib pain on right side Shortness of breath on exertion Wears dentures Wears glasses Home Medications aspirin 81 mg tablet,delayed release (Adult Aspirin Regimen) 81 mg PO DAILY 04/05/22 [History Last Taken 11/25/23] diphenhydramine 25 mg-acetaminophen 500 mg tablet (Tylenol PM Extra Strength) 1 tab PO QHS PRN pain 04/05/22 [History Last Taken Unknown] lisinopril 40 mg tablet 40 mg PO DAILY 04/05/22 [History Last Taken 12/01/23] atorvastatin 40 mg tablet (Lipitor) 40 mg PO DAILY #90 tabs 04/05/23 [Rx Last Taken Unknown] albuterol sulfate 2.5 mg/3 mL (0.083 %) solution for nebulization 2.5 mg (3 mL) continuous nebulization Q6H PRN shortness of breath or wheezing #3 mL 05/08/23 [Clinic Last Taken 12/01/23] albuterol sulfate 90 mcg/actuation aerosol inhaler 2 puff inhalation Q6H PRN shortness of breath or wheezing 60 days #8.5 grams 05/08/23 [Rx Last Taken Unknown] inhalational spacing device (Aerochamber MV spacer) #1 ea 05/08/23 [Rx Last Taken Unknown] ipratropium 0.5 mg-albuterol 3 mg (2.5 mg base)/3 mL nebulization soln 3 ml inhalation Q6H PRN shortness of breath or wheezing #180 mL 05/08/23 [Rx Last Taken Unknown] disability placard See Rx Instructions .Route .COMPLEX respiratory failure 11 months #1 unit 05/09/23 [Rx Last Taken Unknown] Disability Placard #1 ea 05/10/23 [Rx Last Taken Unknown] venlafaxine 150 mg capsule,extended release 24 hr 150 mg PO DAILY 09/19/23 [History Last Taken 12/01/23] dexamethasone 4 mg tablet 4 mg PO BID #6 tabs 11/23/23 [Rx Last Taken Unknown] folic acid 1 mg tablet 1 mg PO DAILY #90 tabs 11/23/23 [Rx Last Taken Unknown] lidocaine-prilocaine 2.5 %-2.5 % topical cream 1 applic topical ONCE PRN port access 30 days #30 grams 11/23/23 [Rx Last Taken Unknown] ondansetron 8 mg disintegrating tablet 8 mg PO Q8H PRN nausea and vomiting #30 tabs 11/23/23 [Rx Last Taken Unknown] fluticasone fur. 200 mcg-umeclid 62.5 mcg-vilant 25 mcg inhalat.powder (Trelegy Ellipta) 1 inh inhalation DAILY #60 ea 12/06/23 [Rx Last Taken Unknown] potassium chloride 20 mEq tablet,extended release(part/cryst) 20 meq PO BID #10 tabs 01/31/24 [Rx Last Taken Unknown] Allergy/AdvReac Type Severity Reaction Status Date / Time Iodinated Contrast Media Allergy Mild Hives Verified 02/05/24 09:40 Family History Father Hypertension Sister Hypertension Surgical History History of carotid endarterectomy Social History Smoking Status: Former smoker quit date: 10/30/13 pack-years: 40 Smokeless tobacco user: chewing tobacco alcohol intake: current alcohol intake frequency: a few times a week ROS Constitutional Constitutional: Reports chills and fever(s); Denies fatigue or malaise Eyes Eyes: Denies blurry vision ENT HEENT: Denies headache(s) or nasal discharge Cardiovascular Cardiovascular: Denies chest pain, dyspnea on exertion or syncope Respiratory/Chest Respiratory/Chest: Reports productive cough, shortness of breath at rest and shortness of breath with exertion; Denies cough Gastrointestinal Gastrointestinal: Denies constipation, diarrhea, nausea or vomiting Genitourinary Genitourinary: Denies dysuria Integumentary Integumentary: Reports rash Neurologic Neurologic: Denies focal weakness, numbness or tremor(s) Psychiatric Psychiatric: Denies anxiety or depression Vital Signs Vital Signs Vital Signs: 02/12/24 22:26 02/12/24 22:26 Pulse Rate 95 Respiratory Rate 22 H Pulse Ox 98 Oxygen Delivery Method Bi-pap Fraction of Inspired Oxygen (FIO2) 30 30 Weight Weight: 155 lb 13.869 oz Body Mass Index (BMI) 24.4 Physical Exam Narrative General: Alert, Oriented x3, Cooperative, No apparent distress HEENT: Atraumatic, PERRLA, EOMI, Normocephalic Oral: Moist Mucosa Neck: Supple, No JVD Lungs: Diminished, Normal air movement, No rhonchi, No wheeze, No rales Cardiovascular: Regular rate, Regular Rhythm, Normal S1, Normal S2, No murmurs Abdomen: Soft, Non Tender, Non-Distended, No Hepato-splenomegaly Extremities: No edema, Capillary Refill Less than 3 Seconds Skin: Shingles rash on his left abdomen/chest Musculoskeletal: No Tenderness to Palpation of Joints or Extremities Neurological: No focal neurological deficits, Motor Exam 5/5 strength throughout, Sensory exam intact to light touch and pain Psych/Mental Status: Normal Affect, Appropriate Results Lab / Micro Data 02/13/24 03:15 02/13/24 03:15 Assessment & Plan Assessment/Plan (1) Severe sepsis: PLAN: Plan 1. Severe sepsis due to pneumonia with acute on chronic hypoxic respiratory failure/rule out PE/DAVID ? There is also some concern for possible colitis however he denies any abdominal pain ? Continue with Rocephin and azithromycin ? Will obtain a sputum culture ? Continue with IV fluids ? Will start him on a heparin drip as his vital signs derangements is also concerning for PE especially given his stage IV non-small cell lung cancer ? Would recommend CTA once renal function is improved, can do a VQ scan given the abnormalities on chest x-ray ? He does have a baseline oxygen requirement of 5 L nasal cannula ?Continue with steroids and DuoNebs ?VBG with acidosis 2. Shingles ? This is about a week old and is crusted and he states that it is improving we will hold off on any intervention DVT: Heparin drip 75 minutes was spent on direct patient care, including documentation as well as chart review and collaboration with colleagues Charges/Coding Visit Charges Inpatient E&M: 29209 Init Hosp L3
[2024-02-13] VITALS (26 sets, daily range): BP systolic 99–160; BP diastolic 58–83; PULSE 79–104; RESP 14–28; TEMP 36.1–36.7; O2SAT 6–100
[2024-02-13 00:33] LABS: Blood Gas Specimen Type VEN; O2 Delivery Device BiPAP; PEEP 6; RR 14; SITE R Radial; VBG BASE EXCESS -3 mmol/L (-1.0-3.5); VBG Bicarbonate 23 mmol/L (22-26); VBG PO2 24 mmHg (25-40); VBG SO2 40 % (50-70); VBG TCO2 24 mmol/L (23-33); VBG pCO2 42.8 mmHg (41-51); VBG pH 7.34 (7.32-7.42)
[2024-02-13] MEDS: 0.9% Normal Saline (1000mL) 1,000 ML 75 ML IV (00:51)
[2024-02-13] MEDS: Ceftriaxone 1 GM/50 ML BAG IV ×2 (00:54→21:02)
[2024-02-13] MEDS: 0.9% Saline Lock 10 ML Syringe IV ×2 (00:56→04:00)
[2024-02-13] MEDS: Azithromycin 500 MG in Dextrose 5%-Water (250mL Bag) 250 ML 250 MG IV ×2 (01:46→21:33)
[2024-02-13 03:24] LABS: Hematocrit 24.9 % (40-54); Hemoglobin 8.3 g/dL (13.0-16.5); Mean Corp Hgb Conc 33.3 g/dL (32-36); Mean Corpuscular Hgb 29.4 pg (27.0-32.0); Mean Corpuscular Volume 88.3 fL (80-94); Mean Platelet Vol. 9.8 fl (6.2-12.0); POSITIVE COUNT YES; POSITIVE MORPHOLOGY YES; Platelet Count 88 K/mm3 (150-450); RBC Distribution Width CV 21.2 % (11.6-14.6); RBC Distribution Width SD 65.5 fl (35.1-43.9); Red Blood Count 2.82 M/mm3 (4.6-6.2); White Blood Count 4.7 K/mm3 (4.4-11.0)
[2024-02-13 03:32] LABS: Partial Thromboplast Time 42.4 Seconds (24.1-36.2)
[2024-02-13 03:45] LABS: Anion Gap 9 (5-15); BUN 53 mg/dL (7-18); BUN/Creat Ratio 29.1 RATIO (10-20); Calcium,Total 6.9 mg/dL (8.5-10.1); Chloride 102 mmol/L (98-107); Creatinine, Serum 1.82 mg/dL (0.70-1.30); EST Glomerular Filtration Rate 39 mL/min (>60); Est Glom Filt Rate - Afr Amer 48 mL/min (>60); Estimated Creatinine Clearance 35.31 ml/min; Glucose 229 mg/dL (74-106); Potassium 4.8 mmol/L (3.5-5.1); Sodium Level 135 mmol/L (136-145)
[2024-02-13 04:02] LABS: Differential Indicated MANUAL DIFF
[2024-02-13] MEDS: HEPARIN/D5w 25,000 UNITS 25,000 UNITS/250 ML IV.SOLN. 9 UNITS CONT INF (04:04)
[2024-02-13] MEDS: Heparin Injection (Vial) 5,000 UNIT/ML VIAL 4000 UNIT IV (04:05)
[2024-02-13 04:31] LABS: Lymphocyte 6 % (19-41); Monocyte 1 % (0-10); Neutrophil-Band 3 % (0-5); Neutrophil-Segmented 90 % (47-70); Total Cells Counted 100 (MANUAL DIFF)
[2024-02-13 04:32] LABS: Basophilic Stippling RARE; Macrocytosis 2+; Platelet Estimate SLT DEC (ADEQ)
[2024-02-13 04:33] LABS: Anisocytosis 2+; Ovalocyte 2+
[2024-02-13 04:39] LABS: Absolute Neutrophil Count 4.4 X10^3/uL (2.0-7.7)
[2024-02-13] MEDS: Ipratropium/Albuterol Sulfate 3 ML AMPUL.NEB INHALATION ×4 (07:21→19:33)
--- NOTE | 2024-02-13 09:14 | PCM.PN.HOSP ---
Reason for Visit Reason for Visit: Diagnoses Sepsis, unspecified organism (02/12/24) Severe sepsis without septic shock (02/12/24) Subjective Subjective Patient is a 69-year-old gentleman transferred from an outside hospital with progressive shortness of breath. An assessment of severe sepsis secondary to pneumonia made admitted to a monitored bed for further management Objective Data Objective Data Vital Signs: Vital Signs Temp Pulse Resp BP Pulse Ox O2 Del Method FiO2 97.5 F L 81 17 115/74 99 Bi-pap 30 02/13/24 05:00 02/13/24 07:22 02/13/24 07:22 02/13/24 07:00 02/13/24 07:22 02/13/24 07:16 02/13/24 07:22 Oxygen Delivery Method Bi-pap Weight: 70.7 kg Body Mass Index (BMI) 24.4 Intake & Output: Intake and Output for Last 24 Hours 02/11/24 02/12/24 02/13/24 23:59 23:59 23:59 Intake Total 336.25 / 336.25 Output Total 200 / 200 Balance 136.25 / 136.25 Lab / Micro Data 02/13/24 03:15 02/13/24 03:15 Labs: Laboratory Results - last 24 hr 02/13/24 03:15: WBC 4.7, RBC 2.82 L, Hgb 8.3 L, Hct 24.9 L, MCV 88.3, MCH 29.4, MCHC 33.3, RDW Std Deviation 65.5 H, RDW Coeff of Cornelius 21.2 H, Plt Count 88 L, MPV 9.8, Neut % (Auto) Not Reportable, Absolute Neuts (auto) 4.4, Absolute Lymphs (auto) 0.30 L, Total Counted 100, Neutrophils % (Manual) 90 H, Band Neutrophils % 3, Lymphocytes % (Manual) 6 L, Monocytes % (Manual) 1, Diff Path Review February, Platelet Estimate SLT DEC, Basophilic Stippling RARE, Anisocytosis 2+, Macrocytosis 2+, Ovalocytes 2+, APTT 42.4 H, Sodium 135 L, Potassium 4.8, Chloride 102, Carbon Dioxide 24.0, Anion Gap 9, BUN 53 H, Creatinine 1.82 H, Estim Creat Clear Calc 35.31, Est GFR (MDRD) Af Amer 48 L, Est GFR (MDRD) Non-Af 39 L, BUN/Creatinine Ratio 29.1 H, Glucose 229 H, Calcium 6.9 L Micro: Microbiology 02/13/24 02:20 Urine, Random Legionella Antigen - Final 02/13/24 02:20 Urine, Random Streptococcus pneumoniae Antigen (M - Final ABG Data ABG results: ABG 02/13/24 00:30 Specimen Type VERNON Sample Site R Radial O2 % 30.0 VBG pH 7.34 VBG pO2 24 L VBG HCO3 23 VBG Total CO2 24 VBG O2 Sat (Calc) 40 L VBG Base Excess -3 L POC Mix VBG pCO2 Pt Tmp 42.8 Respiration Rate 14 O2 Delivery Device BiPAP POC PEEP 6 Physical Exam Narrative GENERAL: Frail looking, dyspneic at rest HEENT: Atraumatic; normocephalic EYES; Anicteric, Normal Conjunctiva NECK; supple, normal thyroid, RESPIRATORY: Diminished to auscultation CARDIOVASCULAR: Regular S1 S2, GI: soft, normoactive bowel sounds, : No Renal angle tenderness; EXTREMITIES: No edema, no clubbing, MUSCULOSKELETAL: no muscle wasting NEURO: Awake; no lateralizing signs. SKIN: No Rash PSYCH; Flat affect Assessment & Plan Assessment/Plan (1) Severe sepsis: PLAN: Plan Patient is a 69-year-old gentleman transferred from an outside hospital with progressive shortness of breath. An assessment of severe sepsis secondary to pneumonia made admitted to a monitored bed for further management 1. Severe sepsis secondary to pneumonia ? Patient admitted to monitored bed treatment initiated per protocol with IV fluid resuscitation, broad-spectrum antibiotic therapy after cultures have been sent. Response to therapy monitored with serial lactic acid levels 2. Acute on chronic hypoxic respiratory failure ? Secondary to combination of pneumonia as well as patient underlying lung CA patient was placed on noninvasive ventilation with BiPAP plan is to wean off and transition to nasal cannula 3. Elevated D-dimer ? CT of the chest could not be obtained given patient worsening kidney function patient was empirically started on heparin which had to be discontinued in view of significant drop of his platelet count. Did order lower extremity duplex and empirically started on apixaban was waiting for kidney function to improve for patient to undergo CT of the chest 4. Acute kidney injury ? Patient creatinine from 02/05/2024 was 0.88 creatinine on admission was 1.82 started on hydration potential nephrotoxic medications held monitoring with daily BMPs ordered 5. 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 Currently receiving palliative chemo as outpatient 6. COPD ? Placed on bronchodilator treatment as well as systemic steroid in addition to oxygen via NIV 7. Hypertension - Blood pressure controlled, home medications continued with dose adjustment as needed 8. Dyslipidemia -Patient is on statin therapy, continued at home dose 9. Thrombocytopenia ? Suspected to be secondary to recent chemo monitoring with CBC ordered 10. 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 Recent varicella zoster infection ? Stable 12. DVT prophylaxis ? Apixaban Time spent in the patient's overall evaluation,decision-making process, review of diagnostic data, adjustment of management, discussion with other providers, nursing nursing and ancillary staff involved in patient's care documentation, 52 Minutes Charges/Coding Visit Charges Inpatient E&M: 76234 [facility] Hosp L3
--- NOTE | 2024-02-13 09:16 | SP.MBSS_ITS ---
Modified Barium Swallow Patient Information Study Date: 02/13/24 Study Time: 09:45 Direct Billable Minutes: 120 Total Minutes procedure & reportin Diagnosis: Severe sepsis A41.9, COPD J44.9 Referring Physician: Ryan Henry Reason for Referral: Objectively assess swallow function, assess risk for aspiration, and determine recommendations for least restrictive diet textures and compensatory strategies to improve safety of swallow. Medical History: PMH: Adenocarcinoma of lower lobe of right lung s/p palliative chemoimmunotherapy 12/04/23 and 01/15/24, Anemia, Anxiety, Bilateral carotid artery stenosis, COPD, Chronic respiratory failure with hypoxia, Dehydration, HTN, Former smoker, High cholesterol, HLD, Lesion of nasal mucosa, Home O2 therapy, SOB on exertion (See EMR for full PMH) He presented to [facility] as direct admission from an outside hospital on 02/12/24. He was recently admitted to the outside hospital on 02/09/2024 to 02/10/2024 for COPD exacerbation. Per the ED physician at that hospital ,he was only on steroids. On 02/12/24, he had fever, chills, sputum production, and increasing SOB requiring BiPAP. Pt was also started on Zosyn. He also had climbing troponin and tachycardia. He was admitted for management of sepsis, PNA, Acute on chronic hypoxic respiratory failure, and COPD exacerbation amongst many other complicating comorbidities. Referred for ST due to concern for swallowing difficulty and aspiration risk given his PMH. He was recommended for MBSS by ST after BSE revealed delayed, weak coughing to rule out concern for aspiration. Current Diet Ordered: Regular textures / Thin liquids Dentition: Natural Teeth and Missing Teeth Mental Status: WNL Respiratory Status: Oxygenating on 4L/M nasal cannula (5L via nasal cannula) Penetration-Aspiration Scale Penetration-Aspiration Scale: OBJECTIVE ASSESSMENT OF SWALLOW FUNCTION (QUANTITATIVE ? PER TRIAL): PENETRATION / ASPIRATION SCALE (LUZ): 1 = does not enter airway 2 = enters airway/above vocal folds/ejected 3 = enters airway/above vocal folds/not ejected 4 = enters airway/contacts vocal folds/ejected 5 = enters airway/contacts vocal folds/not ejected 6 = enters airway/below vocal folds/ejected 7 = enters airway/below vocal folds/not ejected despite effort 8 = enters airway/below vocal folds/no effort VIDEOFLOROSCOPIC SCALE SCORE (LUZ): Grade I = aspiration of material that has penetrated into the laryngeal vestibule, intact cough reflex Grade II = aspiration < 10 % of the bolus, intact cough reflex Grade III = aspiration of < 10 % of the bolus, reduced cough reflex or aspiration of > 10 % of the bolus, intact cough reflex Grade IV = aspiration of > 10 % of the bolus, reduced cough reflex Penetration-Aspiration Scale Score Thin Liquid via teaspoon: Result: 6= enters airway/below vocal folds/ejected Thin Liquid via teaspoon Effortful swallow: Result: 7= enters airways/below vocal folds/not ejected despite effort Comment: post prandial aspiration observed Thin Liquid via small single sip: cup: Result: 7= enters airways/below vocal folds/not ejected despite effort Kerman Thick Liquid via small single sip: cup: Result: 7= enters airways/below vocal folds/not ejected despite effort Comment: aspiration of thin liquids spilling to the airway from the pyriforms was observed prior to the swallow Honey Thick Liquid via teaspoon: Result: 7= enters airways/below vocal folds/not ejected despite effort Comment: Cued cough and re-swallow Pudding via teaspoon: Result: 3= enters airways/above vocal folds/not ejected Comment: post prandial aspiration of previous trial suspected Thin Liquid via single sip: straw Effortful swallow: Result: 4= enters airway/contacts vocal folds/ejected 1/4 Cookie with barium pudding coating: Result: 3= enters airways/above vocal folds/not ejected Thin Liquid via single sip: straw Effortful swallow Trial 2: Result: 4= enters airway/contacts vocal folds/ejected Comment: Cued cough and re-swallow Thin Liquid via small single sip: cup Chin tuck: Result: 7= enters airways/below vocal folds/not ejected despite effort Comment: Cued cough and re-swallow Thin Liquid via small single sip: cup Breath hold prior to swallow: Result: 7= enters airways/below vocal folds/not ejected despite effort Oral Phase Labial Seal: Interlabial escape, no progression to anterior lip Tongue Control During Bolus Hold: Posterior escape of greater than half of bolus Bolus Preparation/Mastication: Slow prolonged chewing/mashing with complete recollection Bolus Transport/Lingual Motion: Slowed tongue motion Oral Residue: Residue collection on oral structures Pharyngeal Phase Initiation of Pharyngeal Swallow: Bolus head in pyriforms Soft Palate Elevation: No bolus between soft palate and pharyngeal wall Laryngeal Elevation: Partial superior movement thyroid cart/partial apprx aryt- epig petiole Anterior Hyoid Excursion: Partial anterior movement Epiglottic Movement: Partial inversion (inconsistent) Laryngeal Vestibule Closure at Height of Swallow: Incomplete; narrow column of air/contrast in laryngeal vestibule Pharyngeal Stripping Wave: Present - diminished (minimal stripping wave) Pharyngoesophageal Segment Opening: Minimal distension and minimal duration; marked obstruction of flow Tongue Base Retraction: Wide column of contrast between tongue base & post. pharyngeal wall Pharyngeal Residue: Majority of contrast within or on pharyngeal structures Esophageal Phase Esophageal Clearance: Esophageal retention w/ retrograde flow below pharyngoesophageal seg. Diagnosis/Impression Diagnosis: Moderate-severe pharyngoesophageal dysphagia R13.14 Impression: The oral phase is primarily marked by... -Decreased bolus control with >1/2 of the bolus spilling posteriorly to the pyriforms prior to swallow onset observed with thin liquids especially. -Slowed tongue motion for A-P transport -Mild oral residue after the swallow, which mostly cleared with independent initiation of multiple swallows as needed. -Prolonged, but adequate mastication of cookie trial. The pharyngeal phase is primarily marked by... -Moderately decreased airway closure during the swallow due to little to no anterior hyoid excursion, inconsistent epiglottic inversion, and decreased laryngeal elevation. -Moderately-severely decreased tongue base retraction, decreased UES opening/duration, and diminished pharyngeal stripping wave with resulting moderate-severe pharyngeal residues after the swallow, which worsened with thicker viscosities. -Aspiration of thin liquids by tsp, thin liquids by cup, thin liquids by straw (silent), nectar/mildly thick liquids by cup, and honey thick liquids by tsp. Use of chin tuck was somewhat effective in decreasing amount of aspiration, as well as somewhat improved clearance pharyngeal residues. Use of cough and re- swallow was effective in decreasing residues remaining in the laryngeal vestibule to trace amounts. The esophageal phase is primarily marked by... -Esophageal retention of pudding in the upper and lower esophagus with retrograde flow remaining well below UES. Recommendations Diet: Thin Liquids (Full Liquid diet [Patient is ok for the puree consistencies on this diet - pudding, yogurt, cream of wheat, oatmeal]) Compensatory Strategies: Small Bites, Small Sips, Slow Rate, Chin Tuck (w/ bites and sips), Multiple Swallows, Alternate bites/solids and sips/liquids (1:1 ratio), Sitting upright and Remain sitting upright for 30 minutes after PO intake Supervision: 1:1 Close Supervision (okay for ice chips and water [w/ no other food or drink] at bedside between meals AND after oral care.) Recommend Repeat Modified Barium Swallow: Yes Comment: Repeat MBSS recommended if patient undergoes GI intervention to address poor UES opening/duration Need for Skilled Speech Therapy Services: Yes Comment: -Train the patient in use of strategies to decrease risk for aspiration. -Ongoing assessment of diet tolerance of recommended textures. Consider diet advancement to soft and bite size textures pending GI intervention. -Train the patient in oropharyngeal exercise program to improve airway closure, pharyngeal motility, UES opening/duration (Rhona Albert, STUART, Janie). Recommended Referrals: GI Consult (Poor UES opening/duration and retention of barium in the upper esophagus) Education Completed: 1. Described result of evaluation., 2. Pt understands evaluation & agrees with goals and treatment plan. and 7. Pt requires further education on strategies & risks. Status Active ST Patient: Active Contact Information [facility]:: Lis Stapleton M.A. [facility]-GRAPHIC COORDINATOR Speech-Language Pathologist [facility] [address] [place] [address] [email or web address] [phone]
--- NOTE | 2024-02-13 10:13 | VDLE_ITS ---
Reason For Study: elevated D-Dimer RIGHT LEFT GSV is normal. GSV is normal. CFV is compressible, spontaneous, phasic, CFV is compressible, spontaneous, phasic, competent and demonstrates normal competent, and demonstrates normal augmentation. augmentation. FV is compressible, spontaneous, phasic, FV is compressible, spontaneous, phasic, competent and demonstrates normal competent and demonstrates normal augmentation. augmentation. POP V is compressible, spontaneous, phasic, POP V is compressible, spontaneous, phasic, competent and demonstrates normal competent and demonstrates normal augmentation. augmentation. T/P Trunk is compressible. T/P Trunk is compressible. PTV is compressible. PTV is compressible. RT PerV is compressible. LT PerV is compressible. Procedure This is a venous duplex using B-mode, color flow and spectral Doppler. Exam performed portable in patient room. The exam was diagnostic. A preliminary report was called and/or faxed to [facility]. VL/Venous Duplex US - Nakul Extrem Interpretation Summary Deep veins of the bilateral lower extremities are patent and compressible segme ntally. There is no evidence of bilateral lower extremity deep vein thrombosis. The bilateral great saphenous veins appear patent and compressible segmentally. Ordering Physician: Ryan Henry Performed By: Sam Almodovar RVT
[2024-02-13 10:33] LABS: Ionized Calcium 4.04 mg/dL (4.36-5.20)
[2024-02-13 11:30] LABS: Pathologist Review Reviewed
[2024-02-13] MEDS: BENZOCAINE/MENTHOL 1 LOZENGE MUCOUS MEM (11:38)
--- NOTE | 2024-02-13 11:55 | CASEMGMT ---
RN CM Face to Face with patient for initial transition planning/care coordination assessment. RN CM introduced self and role at [facility]. Patient lying in bed, alert and oriented. Patient willing to participate in assessment and is able to answer all questions appropriately. Care providers, pharmacy, and demographics verified. PCP: Isiah Specialists: Cabrera, oncologist; Manuel Love, ventilation worker; Preferred Pharmacy: [facility] Insurance: [facility], MMO Prescription Benefit: yes Living Will/HPOA: yes, daughter Angeline Garcia LNOK: , daughter Living Arrangements: Patient lives with in a 2 story home. Patient states he is independent and able to ambulate stairs, but has been staying on main level of home. Transportation: daughter DME/HHC: Patient has raised toilet, cane, nebulizer, pulse ox, and home oxygen through [employer] at 5lpm with portability. No previous HHC or SNF. Patient wishes to discharge home, may benefit from SNF vs HHC, will monitor progress with therapy. Patient states he has no further needs or concerns at this time. CM to follow for discharge planning needs that may arise. Disposition Plan: TBD, anticipate HHC vs SNF pending course of treatment and progress with therapy. Kamila SANCHEZ, RN, CM
[2024-02-13] MEDS: APIXABAN 5 MG TABLET 10 MG PO ×2 (12:10→21:04)
[2024-02-13] MEDS: 0.9% Normal Saline (1000mL) 1,000 ML 100 ML IV ×2 (12:10→21:33)
[2024-02-13 16:43] LABS: Absolute Lymphocyte Count 0.99 X10^3/uL (0.83-4.51); Absolute Neutrophil Count 4.9 X10^3/uL (2.0-7.7); Basophil# 0.05 X10^3/uL; Basophil% 0.8 % (0-1); Eosinophil# 0.01 X10^3/uL; Eosinophils% 0.2 % (0-5); Hemoglobin 8.9 g/dL (13.0-16.5); Lymphocyte # 0.99 X10^3/ul (0.83-4.51); Lymphocyte % 14.9 % (19-41); Mean Corp Hgb Conc 35.6 g/dL (32-36); Mean Corpuscular Hgb 29.4 pg (27.0-32.0); Mean Corpuscular Volume 82.5 fL (80-94); Mean Platelet Vol. 10.2 fl (6.2-12.0); Monocyte# 0.52 X10^3/uL; Monocyte% 7.8 % (0-10); NRBC Flagged by Analyzer 0.3 % (0-5); Neutrophil % 73.4 % (47-70); POSITIVE COUNT YES; POSITIVE MORPHOLOGY YES; Platelet Count 82 K/mm3 (150-450); RBC Distribution Width CV 21.2 % (11.6-14.6); RBC Distribution Width SD 61.1 fl (35.1-43.9); Red Blood Count 3.03 M/mm3 (4.6-6.2); White Blood Count 6.7 K/mm3 (4.4-11.0)
[2024-02-13 17:11] LABS: Differential Comment SCANNED; Differential Indicated SCAN CRITERIA MET
[2024-02-13 17:12] LABS: Anisocytosis 2+; Crenated RBC 1+
[2024-02-13] MEDS: Ondansetron 8 MG Tablet PO (19:55)
[2024-02-13] MEDS: Atorvastatin Calcium 40 MG Tablet PO (21:03)
[2024-02-13] MEDS: MELATONIN 10 MG TABLET PO (22:08)
[2024-02-14] VITALS (18 sets, daily range): BP systolic 127–168; BP diastolic 76–93; PULSE 88–121; RESP 14–24; TEMP 36.3–37.1; O2SAT 90–98
[2024-02-14] MEDS: Ipratropium/Albuterol Sulfate 3 ML AMPUL.NEB INHALATION ×4 (06:59→19:25)
[2024-02-14 07:43] LABS: Absolute Lymphocyte Count 0.67 X10^3/uL (0.83-4.51); Absolute Neutrophil Count 3.7 X10^3/uL (2.0-7.7); Basophil# 0.02 X10^3/uL; Basophil% 0.4 % (0-1); Hematocrit 24.9 % (40-54); Hemoglobin 8.6 g/dL (13.0-16.5); Lymphocyte # 0.67 X10^3/ul (0.83-4.51); Mean Corp Hgb Conc 34.5 g/dL (32-36); Mean Corpuscular Hgb 30.1 pg (27.0-32.0); Mean Corpuscular Volume 87.1 fL (80-94); Mean Platelet Vol. 10.4 fl (6.2-12.0); Monocyte# 0.29 X10^3/uL; Monocyte% 6.1 % (0-10); NRBC Flagged by Analyzer 0 % (0-5); Neutrophil # 3.73 X10^3/uL (2.7-7.7); POSITIVE COUNT YES; POSITIVE MORPHOLOGY YES; Platelet Count 66 K/mm3 (150-450); RBC Distribution Width CV 21.4 % (11.6-14.6); RBC Distribution Width SD 65.1 fl (35.1-43.9); Red Blood Count 2.86 M/mm3 (4.6-6.2); White Blood Count 4.8 K/mm3 (4.4-11.0)
[2024-02-14 07:45] LABS: Differential Indicated SCAN CRITERIA MET
[2024-02-14 08:07] LABS: Anion Gap 6 (5-15); BUN 56 mg/dL (7-18); BUN/Creat Ratio 55.4 RATIO (10-20); Calcium,Total 7.6 mg/dL (8.5-10.1); Chloride 106 mmol/L (98-107); Creatinine, Serum 1.01 mg/dL (0.70-1.30); EST Glomerular Filtration Rate 78 mL/min (>60); Est Glom Filt Rate - Afr Amer 94 mL/min (>60); Estimated Creatinine Clearance 63.63 ml/min; Glucose 130 mg/dL (74-106); Phosphorus 3.4 mg/dL (2.5-4.9); Potassium 4.4 mmol/L (3.5-5.1); Sodium Level 136 mmol/L (136-145)
[2024-02-14 08:17] LABS: Atypical Lymphocyte 1+ %
[2024-02-14 08:18] LABS: Anisocytosis 1+; Platelet Estimate MOD DEC (ADEQ)
[2024-02-14] MEDS: 0.9% Normal Saline (1000mL) 1,000 ML 100 ML IV ×2 (08:55→18:48)
--- NOTE | 2024-02-14 09:19 | PN.HOSP_ITS ---
Reason for Visit Reason for Visit: Diagnoses Sepsis, unspecified organism (02/12/24) Severe sepsis without septic shock (02/12/24) Subjective Subjective Patient seen still appears ill looking currently on 8 L flow per minute. Also complaining of back pain. Objective Data Objective Data Vital Signs: Vital Signs Temp Pulse Resp BP Pulse Ox O2 Del Method O2 Flow Rate 98.1 F 121 H 17 168/93 H 91 Nasal Cannula 10 02/14/24 08:53 02/14/24 08:53 02/14/24 08:53 02/14/24 08:53 02/14/24 08:53 02/14/24 08:53 02/14/24 08:53 FiO2 30 02/14/24 07:00 Oxygen Flow Rate (L/min) 10 Oxygen Delivery Method Nasal Cannula Weight: 70.7 kg Body Mass Index (BMI) 24.4 Intake & Output: Intake and Output for Last 24 Hours 02/12/24 02/13/24 02/14/24 23:59 23:59 23:59 Intake Total 3096.29 / 3196.29 1093.33 / 1093.33 Output Total 1100 / 1800 1200 / 1200 Balance 1996.29 / 1396.29 -106.67 / -106.67 Medical Nutrition Assessment Dietitian: Malnutrition Criteria Met Start: 02/13/24 15:47 Freq: Status: Active Protocol: Document 02/13/24 15:47 RMA (Rec: 02/13/24 15:47 RMA [id number]) Nutrition Malnutrition Evidence of Malnutrition Exists Yes Malnutrition (moderate): Acute Illness/Injury Evidenced By Suboptimal Energy Intake ( Moderate),Weight Loss ( Moderate) Clinical Problem Acute Disease or Injury Related Malnutrition Etiology Moderate pro-giovanny malnutrition in the context of acute illness related to inadequate oral intake and difficulty swallowing Signs/Symptoms as evidenced by ~4% unintentional weight in less than 1 month and PO meeting less than 50-75% estimated nutrition needs x 1 month; currently on full liquid diet Status Active Problem Recommendation Dietitian Recommendations/Changes Recommend advance diet as tolerated to liberalized regular diet with consistency/ texture as per PUMP STATION OPERATOR. Will add 240mL ensure plus HP BID w/ breakfast and dinner trays. Additional ONS as needed once PO better established with meals. Monitor blood glucose levels and need to restrict dietary carbohydrates. Lab / Micro Data 02/14/24 07:00 02/14/24 07:00 Labs: Laboratory Results - last 24 hr 02/13/24 03:15: Diff Path Review Reviewed 02/13/24 10:28: Ionized Calcium 4.04 L 02/13/24 16:30: WBC 6.7, RBC 3.03 L, Hgb 8.9 L, Hct 25.0 L, MCV 82.5 D, MCH 29.4, MCHC 35.6 D, RDW Std Deviation 61.1 H, RDW Coeff of Cornelius 21.2 H, Plt Count 82 L, MPV 10.2, Immature Gran % (Auto) 2.900 H, Neut % (Auto) 73.4 H, Lymph % (Auto) 14.9 L, Thomas % (Auto) 7.8, Eos % (Auto) 0.2, Baso % (Auto) 0.8, Absolute Neuts (auto) 4.9, Absolute Lymphs (auto) 0.99, Nucleated RBC % 0.3, Differential Comment SCANNED, Anisocytosis 2+, Crenated Cell 1+ 02/14/24 07:00: WBC 4.8, RBC 2.86 L, Hgb 8.6 L, Hct 24.9 L, MCV 87.1 D, MCH 30.1, MCHC 34.5, RDW Std Deviation 65.1 H, RDW Coeff of Cornelius 21.4 H, Plt Count 66 L, MPV 10.4, Immature Gran % (Auto) 1.500 H, Neut % (Auto) 78.0 H, Lymph % (Auto) 14.0 L, Thomas % (Auto) 6.1, Eos % (Auto) 0.0, Baso % (Auto) 0.4, Absolute Neuts (auto) 3.7, Absolute Lymphs (auto) 0.67 L, Nucleated RBC % 0, Atypical Lymphocytes 1+, Platelet Estimate MOD DEC, Anisocytosis 1+, Sodium 136, Potassium 4.4, Chloride 106, Carbon Dioxide 24.0, Anion Gap 6, BUN 56 H, Creatinine 1.01, Estim Creat Clear Calc 63.63, Est GFR (MDRD) Af Amer 94, Est GFR (MDRD) Non-Af 78, BUN/Creatinine Ratio 55.4 H, Glucose 130 H, Calcium 7.6 L, Phosphorus 3.4, Magnesium 2.0 Micro: Microbiology 02/13/24 02:20 Urine, Random Legionella Antigen - Final 02/13/24 02:20 Urine, Random Streptococcus pneumoniae Antigen (M - Final Radiography Diagnostic Testing: Radiology Impression Venous Doppler Study 02/13/24 10:13 Interpretation Summary Deep veins of the bilateral lower extremities are patent and compressible segmentally. There is no evidence of bilateral lower extremity deep vein thrombosis. The bilateral great saphenous veins appear patent and compressible segmentally. Ordering Physician: Ryan Henry Performed By: Sam Almodovar, RVT Physical Exam Narrative GENERAL: Frail looking, dyspneic at rest HEENT: Atraumatic; normocephalic EYES; Anicteric, Normal Conjunctiva NECK; supple, normal thyroid, RESPIRATORY: Diminished to auscultation CARDIOVASCULAR: Regular S1 S2, GI: soft, normoactive bowel sounds, : No Renal angle tenderness; EXTREMITIES: No edema, no clubbing, MUSCULOSKELETAL: no muscle wasting NEURO: Awake; no lateralizing signs. SKIN: No Rash PSYCH; Flat affect Assessment & Plan Assessment/Plan (1) Severe sepsis: PLAN: Plan Patient is a 69-year-old gentleman transferred from an outside hospital with progressive shortness of breath. An assessment of severe sepsis secondary to pneumonia made admitted to a monitored bed for further management 1. Severe sepsis secondary to pneumonia ? Patient admitted to monitored bed treatment initiated per protocol with IV fluid resuscitation, broad-spectrum antibiotic therapy after cultures have been sent. Response to therapy monitored with serial lactic acid levels 2. Acute on chronic hypoxic respiratory failure ? Secondary to combination of pneumonia as well as patient underlying lung CA patient was placed on noninvasive ventilation with BiPAP plan is to wean off and transition to nasal cannula ? 02/14/2024 patient remains on high flow oxygen 3. Elevated D-dimer ? CT of the chest could not be obtained given patient worsening kidney function patient was empirically started on heparin which had to be discontinued in view of significant drop of his platelet count. Did order lower extremity duplex and empirically started on apixaban was waiting for kidney function to improve for patient to undergo CT of the chest -02/14/2024; patient kidney function improved plan is for patient to undergo CT of the chest. Given patient's allergy to iodine plan is to prep patient prior to contrast administration 4. Acute kidney injury ? Patient creatinine from 02/05/2024 was 0.88 creatinine on admission was 1.82 started on hydration potential nephrotoxic medications held monitoring with daily BMPs ordered ? 02/14/2024; kidney function improved 5. 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 Currently receiving palliative chemo as outpatient 6. COPD ? Placed on bronchodilator treatment as well as systemic steroid in addition to oxygen via NIV 7. Hypertension - Blood pressure controlled, home medications continued with dose adjustment as needed 8. Dyslipidemia -Patient is on statin therapy, continued at home dose 9. Thrombocytopenia ? Suspected to be secondary to recent chemo monitoring with CBC ordered 10. 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 Recent varicella zoster infection ? Stable 12. DVT prophylaxis ? Apixaban 13. Physical deconditioning - Requested for PT OT eval and medical social consultant to assist with discharge planning 14. Back pain ? Did order Lidoderm patch Time spent in the patient's overall evaluation,decision-making process, review of diagnostic data, adjustment of management, discussion with other providers, nursing nursing and ancillary staff involved in patient's care documentation, 52 Minutes Charges/Coding Visit Charges Inpatient E&M: 46428 [facility] Hosp L3
[2024-02-14] MEDS: Ondansetron 4 MG/2 ML Vial IV (09:28)
--- NOTE | 2024-02-14 09:37 | CT_ITS ---
STUDY: CTA CHEST REASON FOR EXAM: Male, 69 years old. Elevated D-dimer RADIATION DOSAGE (If Supplied By Facility): CTDIvol = ( 9.37 ) mGy, DLP = ( 483.25 ) mGycm TECHNIQUE: The examination was performed with the intravenous administration of 100mL Isvoue 370. Post-processing of the angiographic images was performed, with multiplanar reformation and 3D reconstruction. Individualized dose optimization techniques were used for this CT. COMPARISON: Comparison is made with prior study dated January 30, 2024. FINDINGS: A right-sided portacatheter is seen with the tip in the superior vena cava. Normal enhancement of the main pulmonary artery and right and left pulmonary arteries. Normal enhancement of the bilateral peripheral pulmonary arteries. There is no demonstrated pulmonary embolism. Normal thoracic aorta and visualized great vessels. There is no demonstrated aortic dissection. There are calcifications of the coronary arteries. There are visualized mediastinal lymph nodes, which are within normal size limits, and with normal morphology. Normal hilar regions. Normal visualized trachea and bronchi. The lungs are well expanded. Diffuse emphysematous changes with multiple bullous formation and interstitial markings suggestive of chronic interstitial fibrosis. Small right pleural effusion with the consolidation in the right lower lobe. This is unchanged. Mild scarring in the right upper lobe. The previously seen irregular density in the anterior aspect of the left upper lobe has improved as compared to prior study. Normal chest wall structures. There are degenerative changes of thoracic spine. Normal visualized upper abdomen. CT/CTA Chest W/WO Contrast IMPRESSION: No evidence of pulmonary embolism. Emphysematous changes with evidence of interstitial scarring. Stable small right pleural effusion with dense consolidation in the right lower lobe. Electronically Signed: Russell Godinez MD at 13:10 EDT ,
[2024-02-14] MEDS: 0.9% Saline Lock 10 ML Syringe IV ×2 (10:01→22:02)
[2024-02-14] MEDS: proCHLORPERazine 10 MG/2 ML Vial IM (10:01)
[2024-02-14] MEDS: Lidocaine 5% Patch 1 PATCH TOPICAL (10:46)
[2024-02-14] MEDS: Venlafaxine XR 150 MG Capsule PO (10:48)
[2024-02-14] MEDS: Aspirin E.C. 81 MG Tablet PO (10:48)
[2024-02-14] MEDS: Folic Acid 1 MG Tablet PO (10:48)
[2024-02-14] MEDS: APIXABAN 5 MG TABLET 10 MG PO ×2 (10:52→21:38)
[2024-02-14] MEDS: DiphenhydrAMINE 25 MG Capsule 50 MG PO (10:56)
[2024-02-14] MEDS: Atorvastatin Calcium 40 MG Tablet PO (21:37)
[2024-02-14] MEDS: MELATONIN 10 MG TABLET PO (21:39)
[2024-02-14] MEDS: Azithromycin 500 MG in Dextrose 5%-Water (250mL Bag) 250 ML 250 MG IV (21:55)
[2024-02-14] MEDS: Ceftriaxone 1 GM/50 ML BAG IV (22:02)
[2024-02-15] VITALS (19 sets, daily range): BP systolic 114–184; BP diastolic 67–87; PULSE 86–117; RESP 14–34; TEMP 36.2–36.6; O2SAT 85–100
[2024-02-15] MEDS: Lisinopril 40 MG Tablet PO (05:18)
[2024-02-15] MEDS: 0.9% Normal Saline (1000mL) 1,000 ML 100 ML IV ×2 (05:31→16:19)
[2024-02-15] MEDS: Ipratropium/Albuterol Sulfate 3 ML AMPUL.NEB INHALATION ×4 (07:30→19:24)
--- NOTE | 2024-02-15 08:18 | PCM.PN.HOSP ---
Reason for Visit Reason for Visit: Diagnoses Sepsis, unspecified organism (02/12/24) Severe sepsis without septic shock (02/12/24) Subjective Subjective Patient seen remains significantly frail. Hemoglobin did drop to 6.5 platelet down to 44 CT of the chest was negative for VTE apixaban discontinued Objective Data Objective Data Vital Signs: Vital Signs Temp Pulse Resp BP Pulse Ox O2 Del Method O2 Flow Rate 97.4 F L 96 20 H 152/77 H 93 High Flow 6 02/15/24 06:00 02/15/24 06:00 02/15/24 06:00 02/15/24 06:00 02/15/24 06:00 02/15/24 06:00 02/15/24 06:00 FiO2 30 02/15/24 04:25 Oxygen Flow Rate (L/min) 6 Oxygen Delivery Method High Flow Weight: 70.7 kg Body Mass Index (BMI) 24.4 Intake & Output: Intake and Output for Last 24 Hours 02/13/24 02/14/24 02/15/24 23:59 23:59 23:59 Intake Total 3096.29 / 3196.29 3391.66 / 3391.66 635 / 635 Output Total 1100 / 1800 3200 / 3200 1000 / 1000 Balance 1996.29 / 1396.29 191.66 / 191.66 -365 / -365 Medical Nutrition Assessment Dietitian: Malnutrition Criteria Met Start: 02/13/24 15:47 Freq: Status: Active Protocol: Document 02/13/24 15:47 RMA (Rec: 02/13/24 15:47 RMA [id number]) Nutrition Malnutrition Evidence of Malnutrition Exists Yes Malnutrition (moderate): Acute Illness/Injury Evidenced By Suboptimal Energy Intake ( Moderate),Weight Loss ( Moderate) Clinical Problem Acute Disease or Injury Related Malnutrition Etiology Moderate pro-giovanny malnutrition in the context of acute illness related to inadequate oral intake and difficulty swallowing Signs/Symptoms as evidenced by ~4% unintentional weight in less than 1 month and PO meeting less than 50-75% estimated nutrition needs x 1 month; currently on full liquid diet Status Active Problem Recommendation Dietitian Recommendations/Changes Recommend advance diet as tolerated to liberalized regular diet with consistency/ texture as per KEYCASE ASSEMBLER. Will add 240mL ensure plus HP BID w/ breakfast and dinner trays. Additional ONS as needed once PO better established with meals. Monitor blood glucose levels and need to restrict dietary carbohydrates. Lab / Micro Data 02/15/24 06:50 02/15/24 06:50 Labs: Laboratory Results - last 24 hr 02/14/24 07:00: Atypical Lymphocytes 1+, Platelet Estimate MOD DEC, Anisocytosis 1+ Micro: Microbiology 02/13/24 02:20 Urine, Random Legionella Antigen - Final 02/13/24 02:20 Urine, Random Streptococcus pneumoniae Antigen (M - Final Radiography Diagnostic Testing: Radiology Impression Chest CTA 02/14/24 09:37 IMPRESSION: No evidence of pulmonary embolism. Emphysematous changes with evidence of interstitial scarring. Stable small right pleural effusion with dense consolidation in the right lower lobe. Electronically Signed: Russell Godinez MD at 13:10 EDT , Physical Exam Narrative GENERAL: Frail looking, dyspneic at rest HEENT: Atraumatic; normocephalic EYES; Anicteric, Normal Conjunctiva NECK; supple, normal thyroid, RESPIRATORY: Diminished to auscultation CARDIOVASCULAR: Regular S1 S2, GI: soft, normoactive bowel sounds, : No Renal angle tenderness; EXTREMITIES: No edema, no clubbing, MUSCULOSKELETAL: no muscle wasting NEURO: Awake; no lateralizing signs. SKIN: No Rash PSYCH; Flat affect Assessment & Plan Assessment/Plan (1) Severe sepsis: PLAN: Plan Patient is a 69-year-old gentleman transferred from an outside hospital with progressive shortness of breath. An assessment of severe sepsis secondary to pneumonia made admitted to a monitored bed for further management 1. Severe sepsis secondary to pneumonia ? Patient admitted to monitored bed treatment initiated per protocol with IV fluid resuscitation, broad-spectrum antibiotic therapy after cultures have been sent. Response to therapy monitored with serial lactic acid levels 2. Acute on chronic hypoxic respiratory failure ? Secondary to combination of pneumonia as well as patient underlying lung CA patient was placed on noninvasive ventilation with BiPAP plan is to wean off and transition to nasal cannula ? 02/14/2024 patient remains on high flow oxygen ? 02/15/2024; patient remains on significant amount of oxygen at rest currently 15 L flow per minute 3. Elevated D-dimer ? CT of the chest could not be obtained given patient worsening kidney function patient was empirically started on heparin which had to be discontinued in view of significant drop of his platelet count. Did order lower extremity duplex and empirically started on apixaban was waiting for kidney function to improve for patient to undergo CT of the chest -02/14/2024; patient kidney function improved plan is for patient to undergo CT of the chest. Given patient's allergy to iodine plan is to prep patient prior to contrast administration ? 02/15/2024; CTA was negative for VTE apixaban discontinued 4. Acute kidney injury ? Patient creatinine from 02/05/2024 was 0.88 creatinine on admission was 1.82 started on hydration potential nephrotoxic medications held monitoring with daily BMPs ordered ? 02/14/2024; kidney function improved ? 02/15/2024; kidney function back to baseline 5. 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 Currently receiving palliative chemo as outpatient 6. COPD ? Placed on bronchodilator treatment as well as systemic steroid in addition to oxygen via NIV 7. Hypertension - Blood pressure controlled, home medications continued with dose adjustment as needed 8. Dyslipidemia -Patient is on statin therapy, continued at home dose 9. Thrombocytopenia ? Suspected to be secondary to recent chemo monitoring with CBC ordered -02/15/2024; patient platelet count continues to drop apixaban discontinued 10. 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 Hemoglobin did drop to 6.5 and order was given for patient to be transfused with 1 unit PRBC 11. Recent varicella zoster infection ? Stable 12. DVT prophylaxis ? Apixaban ? 02/15/2024 discontinued apixaban given his low hemoglobin as well as platelet count SCDs for now 13. Physical deconditioning - Requested for PT OT eval and addiction social worker to assist with discharge planning 14. Back pain ? Did order Lidoderm patch 15. Moderate pro-giovanny malnutrition -in the context of acute illness related to inadequate oral intake and difficulty swallowing as evidenced by ~4% unintentional weight in less than 1 month and PO meeting less than 50-75% estimated nutrition needs x 1 month; currently on full liquid diet. Recommend advance diet as tolerated to liberalized regular diet with consistency/texture as per KEYCASE ASSEMBLER. Will add 240mL ensure plus HP BID w/ breakfast and dinner trays. Additional ONS as needed once PO better established with meals. Monitor blood glucose levels and need to restrict dietary carbohydrates Time spent in the patient's overall evaluation,decision-making process, review of diagnostic data, adjustment of management, discussion with other providers, nursing nursing and ancillary staff involved in patient's care documentation, 50 Minutes Charges/Coding Visit Charges Inpatient E&M: [address] [facility] Hosp L3
[2024-02-15 08:29] LABS: Absolute Lymphocyte Count 0.77 X10^3/uL (0.83-4.51); Absolute Neutrophil Count 2.6 X10^3/uL (2.0-7.7); Hemoglobin 6.5 g/dL (13.0-16.5); Lymphocyte # 0.77 X10^3/ul (0.83-4.51); Lymphocyte % 21.4 % (19-41); Mean Corp Hgb Conc 34.2 g/dL (32-36); Mean Corpuscular Hgb 29.7 pg (27.0-32.0); Mean Corpuscular Volume 86.8 fL (80-94); Mean Platelet Vol. 10.7 fl (6.2-12.0); Monocyte# 0.15 X10^3/uL; Monocyte% 4.2 % (0-10); NRBC Flagged by Analyzer 0 % (0-5); Neutrophil # 2.64 X10^3/uL (2.7-7.7); Neutrophil % 73.6 % (47-70); POSITIVE COUNT YES; POSITIVE MORPHOLOGY YES; RBC Distribution Width CV 21.2 % (11.6-14.6); RBC Distribution Width SD 64.5 fl (35.1-43.9); Red Blood Count 2.19 M/mm3 (4.6-6.2); White Blood Count 3.6 K/mm3 (4.4-11.0)
[2024-02-15 08:33] LABS: Differential Indicated SCAN CRITERIA MET
[2024-02-15 08:34] LABS: Platelet Count 44 K/mm3 (150-450)
[2024-02-15 09:34] LABS: Anion Gap 7 (5-15); BUN 44 mg/dL (7-18); BUN/Creat Ratio 50.7 RATIO (10-20); Calcium,Total 7.8 mg/dL (8.5-10.1); Chloride 106 mmol/L (98-107); Creatinine, Serum 0.87 mg/dL (0.70-1.30); EST Glomerular Filtration Rate 92 mL/min (>60); Est Glom Filt Rate - Afr Amer 112 mL/min (>60); Estimated Creatinine Clearance 73.87 ml/min; Glucose 186 mg/dL (74-106); Potassium 4.1 mmol/L (3.5-5.1); Sodium Level 137 mmol/L (136-145)
[2024-02-15 09:37] LABS: Differential Comment SCANNED
[2024-02-15 09:38] LABS: Anisocytosis 2+; Platelet Estimate MKD DEC (ADEQ); Reactive Lymphocyte 1+
--- NOTE | 2024-02-15 09:43 | CPS ---
This RT went into patient room, pt sat was 85%. RT increased pt to 10NC and reminded pt to breathe through nose
[2024-02-15] MEDS: Aspirin E.C. 81 MG Tablet PO (11:00)
[2024-02-15] MEDS: Lidocaine 5% Patch 1 PATCH TOPICAL (11:00)
[2024-02-15] MEDS: Folic Acid 1 MG Tablet PO (11:00)
[2024-02-15] MEDS: Venlafaxine XR 150 MG Capsule PO (11:00)
--- NOTE | 2024-02-15 14:49 | CPS ---
pt decreased to 12L NC at this time
[2024-02-15] MEDS: Atorvastatin Calcium 40 MG Tablet PO (20:59)
[2024-02-15] MEDS: MELATONIN 10 MG TABLET PO (21:01)
[2024-02-15] MEDS: Ceftriaxone 1 GM/50 ML BAG IV (21:01)
[2024-02-15] MEDS: 0.9% Saline Lock 10 ML Syringe IV (21:07)
[2024-02-15] MEDS: Azithromycin 500 MG in Dextrose 5%-Water (250mL Bag) 250 ML 250 MG IV (21:40)
[2024-02-15] MEDS: NYSTATIN 500,000 UNIT/5 ML UDC 500000 UNIT PO (23:03)
[2024-02-16] VITALS (22 sets, daily range): BP systolic 123–183; BP diastolic 65–94; PULSE 78–104; RESP 14–25; TEMP 35.6–37; O2SAT 30–100
--- NOTE | 2024-02-16 | ESO_PTH ---
PATIENT: HAYDEN MOREIRA LOC: [facility]#:[id number] AGE/SX: 69/M ROOM: [facility] RE02/12/[address]: Dr. Sekou Donaldson MD : [id number] BED: 1 DIS: 02/21/2024 SPEC #: [id number] RECD: 02/16/24 13:54 STATUS: EDIE REJessenia #: [id number] [place]: 02/16/24 00:[address]: Ezequiel Elizondo DEPT: SURGICAL PATHOLOGY RECD BY: Hood Palacio ENTERED: 02/19/24 10:23 SP TYPE: ESOPH BX OTHR DR: MD Dr. Erickson Collier MD Dr. Prakash Chand, MD Dr. Scott Wilkins, Tissues: Esophagus, NOS Procedures: Special Stain Group I Surgery Specimen Level IV GMS Stain (control) Comments: @ Ordering doctor for SUIV edited from to @ by KEIRA at 02/19/24 [id number] @ Submitting doctor edited from to @ by KEIRA at 02/19/24 [id number] HEADER OPERATION: EGD, biopsy, hemostasis PRE-OP DIAGNOSIS: Dysphagia TISSUE SUBMITTED: Proximal esophagus biopsy MICROSCOPIC DIAGNOSIS Proximal esophagus, biopsy: Fragments of benign squamous epithelium is focus superficial acute inflammation. See comment. MARTHA/ 02/20/2024 COMMENT Special stain for fungi is positive for organisms (yeast and pseudohyphae), consistent with Issa species; matched control is appropriate. MICROSCOPIC DESCRIPTION Slides are reviewed. GROSS DESCRIPTION Received in fixative is one container labeled with the patient's name and designated Proximal esophagus biopsy. The specimen consists of multiple irregular fragments of light urena soft tissue that in aggregate measure 0.6 x 0.2 x 0.1 cm. The specimen is totally submitted in one cassette. MARTHA/ 02/19/2024 TC:2 CPT:28717,68664
[2024-02-16] MEDS: 0.9% Normal Saline (1000mL) 1,000 ML 100 ML IV ×2 (03:52→14:21)
--- NOTE | 2024-02-16 05:34 | CPS ---
o2 increased per nursing for low sat
[2024-02-16] MEDS: 0.9% Saline Lock 10 ML Syringe IV (06:00)
[2024-02-16 06:54] LABS: Absolute Lymphocyte Count 0.62 X10^3/uL (0.83-4.51); Hematocrit 20.1 % (40-54); Lymphocyte # 0.62 X10^3/ul (0.83-4.51); Lymphocyte % 20.7 % (19-41); Mean Corp Hgb Conc 34.8 g/dL (32-36); Mean Corpuscular Hgb 29.5 pg (27.0-32.0); Mean Corpuscular Volume 84.8 fL (80-94); Mean Platelet Vol. 11.8 fl (6.2-12.0); Monocyte# 0.35 X10^3/uL; Monocyte% 11.7 % (0-10); NRBC Flagged by Analyzer 0 % (0-5); Neutrophil # 2.02 X10^3/uL (2.7-7.7); Neutrophil % 67.3 % (47-70); POSITIVE COUNT YES; RBC Distribution Width CV 19.5 % (11.6-14.6); RBC Distribution Width SD 58.9 fl (35.1-43.9); Red Blood Count 2.37 M/mm3 (4.6-6.2)
[2024-02-16 06:58] LABS: Differential Indicated SCAN CRITERIA MET; Platelet Count 34 K/mm3 (150-450)
[2024-02-16 07:17] LABS: Anion Gap 7 (5-15); BUN 32 mg/dL (7-18); BUN/Creat Ratio 49.8 RATIO (10-20); Chloride 104 mmol/L (98-107); Creatinine, Serum 0.64 mg/dL (0.70-1.30); EST Glomerular Filtration Rate 131 mL/min (>60); Est Glom Filt Rate - Afr Amer 158 mL/min (>60); Estimated Creatinine Clearance 80.33 ml/min; Glucose 137 mg/dL (74-106); Potassium 3.9 mmol/L (3.5-5.1); Sodium Level 138 mmol/L (136-145)
[2024-02-16] MEDS: Ipratropium/Albuterol Sulfate 3 ML AMPUL.NEB INHALATION ×3 (07:17→19:20)
[2024-02-16 07:40] LABS: Anisocytosis 1+; Platelet Estimate MKD DEC (ADEQ)
[2024-02-16] MEDS: NYSTATIN 500,000 UNIT/5 ML UDC 500000 UNIT PO ×3 (08:43→21:53)
[2024-02-16] MEDS: Lisinopril 40 MG Tablet PO (08:43)
[2024-02-16] MEDS: Folic Acid 1 MG Tablet PO (08:45)
[2024-02-16] MEDS: Venlafaxine XR 150 MG Capsule PO (08:45)
[2024-02-16] MEDS: Aspirin E.C. 81 MG Tablet PO (08:46)
--- NOTE | 2024-02-16 08:59 | PCM.PN.HOSP ---
Reason for Visit Reason for Visit: Diagnoses Sepsis, unspecified organism (02/12/24) Severe sepsis without septic shock (02/12/24) Subjective Subjective Patient seen still remains frail. Hemoglobin came up to only 7.0 following 1 unit PRBC blood transfusion. Platelet count down to 34 Objective Data Objective Data Vital Signs: Vital Signs Temp Pulse Resp BP Pulse Ox O2 Del Method O2 Flow Rate 96.1 F L 90 23 H 142/78 H 94 Nasal Cannula 7 02/16/24 05:33 02/16/24 07:17 02/16/24 07:17 02/16/24 05:33 02/16/24 07:40 02/16/24 07:17 02/16/24 07:40 FiO2 30 02/16/24 05:33 Oxygen Flow Rate (L/min) 7 Oxygen Delivery Method Nasal Cannula Weight: 70.7 kg Body Mass Index (BMI) 24.4 Intake & Output: Intake and Output for Last 24 Hours 02/14/24 02/15/24 02/16/24 23:59 23:59 23:59 Intake Total 3391.66 / 3391.66 2570.58 / 2570.58 466.67 / 466.67 Output Total 3200 / 3200 2800 / 2800 500 / 500 Balance 191.66 / 191.66 -229.42 / -229.42 -33.33 / -33.33 Medical Nutrition Assessment Dietitian: Malnutrition Criteria Met Start: 02/13/24 15:47 Freq: Status: Active Protocol: Document 02/13/24 15:47 RMA (Rec: 02/13/24 15:47 RMA [id number]) Nutrition Malnutrition Evidence of Malnutrition Exists Yes Malnutrition (moderate): Acute Illness/Injury Evidenced By Suboptimal Energy Intake ( Moderate),Weight Loss ( Moderate) Clinical Problem Acute Disease or Injury Related Malnutrition Etiology Moderate pro-giovanny malnutrition in the context of acute illness related to inadequate oral intake and difficulty swallowing Signs/Symptoms as evidenced by ~4% unintentional weight in less than 1 month and PO meeting less than 50-75% estimated nutrition needs x 1 month; currently on full liquid diet Status Active Problem Recommendation Dietitian Recommendations/Changes Recommend advance diet as tolerated to liberalized regular diet with consistency/ texture as per [employer] SCIENCES TEACHER. Will add 240mL ensure plus HP BID w/ breakfast and dinner trays. Additional ONS as needed once PO better established with meals. Monitor blood glucose levels and need to restrict dietary carbohydrates. Lab / Micro Data 02/16/24 06:15 02/16/24 06:15 Labs: Laboratory Results - last 24 hr 02/15/24 06:50: Differential Comment SCANNED, Diff Path Review [place], Reactive Lymphocytes 1+, Platelet Estimate MKD DEC, Anisocytosis 2+, Sodium 137, Potassium 4.1, Chloride 106, Carbon Dioxide 24.0, Anion Gap 7, BUN 44 H, Creatinine 0.87, Estim Creat Clear Calc 73.87, Est GFR (MDRD) Af Amer 112, Est GFR (MDRD) Non-Af 92, BUN/Creatinine Ratio 50.7 H, Glucose 186 H, Calcium 7.8 L 02/15/24 10:06: Blood Type B POSITIVE, Antibody Screen NEGATIVE, Crossmatch See Detail 02/16/24 06:15: WBC 3.0 L, RBC 2.37 L, Hgb 7.0 L, Hct 20.1 L, MCV 84.8, MCH 29.5, MCHC 34.8, RDW Std Deviation 58.9 H, RDW Coeff of Cornelius 19.5 H, Plt Count 34 L*, MPV 11.8, Immature Gran % (Auto) 0.300, Neut % (Auto) 67.3, Lymph % (Auto) 20.7, [place] % (Auto) 11.7 H, Eos % (Auto) 0.0, Baso % (Auto) 0.0, Absolute Neuts (auto) 2.0, Absolute Lymphs (auto) 0.62 L, Nucleated RBC % 0, Diff Path Review February foll, Platelet Estimate MKD DEC, Anisocytosis 1+, Sodium 138, Potassium 3.9, Chloride 104, Carbon Dioxide 27.0, Anion Gap 7, BUN 32 H, Creatinine 0.64 L, Estim Creat Clear Calc 80.33, Est GFR (MDRD) Af Amer 158, Est GFR (MDRD) Non-Af 131, BUN/Creatinine Ratio 49.8 H, Glucose 137 H, Calcium 8.0 L Micro: Microbiology 02/13/24 02:20 Urine, Random Legionella Antigen - Final 02/13/24 02:20 Urine, Random Streptococcus pneumoniae Antigen (M - Final Physical Exam Narrative GENERAL: Frail looking, dyspneic at rest HEENT: Atraumatic; normocephalic EYES; Anicteric, Normal Conjunctiva NECK; supple, normal thyroid, RESPIRATORY: Diminished to auscultation CARDIOVASCULAR: Regular S1 S2, GI: soft, normoactive bowel sounds, : No Renal angle tenderness; EXTREMITIES: No edema, no clubbing, MUSCULOSKELETAL: no muscle wasting NEURO: Awake; no lateralizing signs. SKIN: No Rash PSYCH; Flat affect Assessment & Plan Assessment/Plan (1) Severe sepsis: PLAN: Plan Patient is a 69-year-old gentleman transferred from an outside hospital with progressive shortness of breath. An assessment of severe sepsis secondary to pneumonia made admitted to a monitored bed for further management 1. Severe sepsis secondary to pneumonia ? Patient admitted to monitored bed treatment initiated per protocol with IV fluid resuscitation, broad-spectrum antibiotic therapy after cultures have been sent. Response to therapy monitored with serial lactic acid levels ? 02/16/2024 CT of the chest obtained on 02/14/2024 demonstrated dense consolidation in the right lower lobe. Patient previously counseled and now will continue with antibiotic therapy. 2. Acute on chronic hypoxic respiratory failure ? Secondary to combination of pneumonia as well as patient underlying lung CA patient was placed on noninvasive ventilation with BiPAP plan is to wean off and transition to nasal cannula ? 02/14/2024 patient remains on high flow oxygen ? 02/15/2024; patient remains on significant amount of oxygen at rest currently 15 L flow per minute 3. Elevated D-dimer ? CT of the chest could not be obtained given patient worsening kidney function patient was empirically started on heparin which had to be discontinued in view of significant drop of his platelet count. Did order lower extremity duplex and empirically started on apixaban was waiting for kidney function to improve for patient to undergo CT of the chest -02/14/2024; patient kidney function improved plan is for patient to undergo CT of the chest. Given patient's allergy to iodine plan is to prep patient prior to contrast administration ? 02/15/2024; CTA was negative for VTE apixaban discontinued 4. Acute kidney injury ? Patient creatinine from 02/05/2024 was 0.88 creatinine on admission was 1.82 started on hydration potential nephrotoxic medications held monitoring with daily BMPs ordered ? 02/14/2024; kidney function improved ? 02/15/2024; kidney function back to baseline 5. 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 Currently receiving palliative chemo as outpatient 6. COPD ? Placed on bronchodilator treatment as well as systemic steroid in addition to oxygen via NIV 7. Hypertension - Blood pressure controlled, home medications continued with dose adjustment as needed 8. Dyslipidemia -Patient is on statin therapy, continued at home dose 9. Thrombocytopenia ? Suspected to be secondary to recent chemo monitoring with CBC ordered -02/15/2024; patient platelet count continues to drop apixaban discontinued 10. 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 Hemoglobin did drop to 6.5 and order was given for patient to be transfused with 1 unit PRBC ? 02/16/2024 hemoglobin came up to 27 additional units of PRBC transfused 11. Recent varicella zoster infection ? Stable 12. DVT prophylaxis ? Apixaban ? 02/15/2024 discontinued apixaban given his low hemoglobin as well as platelet count SCDs for now 13. Physical deconditioning - Requested for PT OT eval and social media analyst to assist with discharge planning 14. Back pain ? Did order Lidoderm patch 15. Moderate pro-giovanny malnutrition -in the context of acute illness related to inadequate oral intake and difficulty swallowing as evidenced by ~4% unintentional weight in less than 1 month and PO meeting less than 50-75% estimated nutrition needs x 1 month; currently on full liquid diet. Recommend advance diet as tolerated to liberalized regular diet with consistency/texture as per [employer]ER. Will add 240mL ensure plus HP BID w/ breakfast and dinner trays. Additional ONS as needed once PO better established with meals. Monitor blood glucose levels and need to restrict dietary carbohydrates Time spent in the patient's overall evaluation,decision-making process, review of diagnostic data, adjustment of management, discussion with other providers, nursing nursing and ancillary staff involved in patient's care documentation, 35 Minutes Charges/Coding Visit Charges Inpatient E&M: 78746 Subs Hosp L2
[2024-02-16] MEDS: Lidocaine 5% Patch 1 PATCH TOPICAL (11:23)
--- NOTE | 2024-02-16 12:28 | EKG12_ITS ---
Test Reason : PRE OP Blood Pressure : / mmHG Vent. Rate : 096 BPM Atrial Rate : 096 BPM P-R Int : 162 ms QRS Dur : 070 ms QT Int : 336 ms P-R-T Axes : 041 -26 -04 degrees QTc Int : 424 ms Normal sinus rhythm Normal ECG When compared with ECG of 01-JAN-2024 15:41, No significant change was found Confirmed by MANJINDER RIOS ([id number]), market editor KENZIE CEDILLO ([id number]) on 02/19/2024 9:33:33 AM Referred By: PRABHAKAR Confirmed By:MANJINDER RIOS
--- NOTE | 2024-02-16 13:26 | OP.CCLET_ITS ---
02/16/2024 Ismael Joyce Do Re : Upper GI endoscopy procedure for Lalit Orellana Dear Dr. Joyce This procedure was performed on Friday, February 16, 2024. My impressions and recommendations are as follows: Impressions : - The nasopharynx and oropharynx are abnormal. - Esophageal plaques were found, consistent with candidiasis. Biopsied. - Benign-appearing esophageal stenosis. Dilated. - Hematin (altered blood/klmgog-mfovju-rqfp material) in the gastric body. - Non-bleeding duodenal ulcers with pigmented material. Treated with a heater probe. Recommendations : - [facility]. - Advance diet as tolerated. - Nystatin suspension 100,000 units PO QID for 2 weeks. - Continue present medications. My findings are described in the full procedure note, which is enclosed. If I can be of further assistance, please feel free to contact me at . Sincerely, Ezequiel Elizondo, 02/16/2024 1:25:35 PM This report has been signed electronically.
--- NOTE | 2024-02-16 13:26 | OP.EGD_ITS ---
Patient Name: Lalit Orellana Procedure Date: 02/16/2024 12:58 PM Date of : 1955 Age: 69 Procedure: Upper GI endoscopy Indications: Iron deficiency anemia, Dysphagia Providers: Ezequiel Elizondo DO Medicines: Monitored Anesthesia Care Patient Profile: This is a 69 year old male. Refer to note in patient chart for documentation of history and physical. Patient has symptoms of acute dysphagia and dysphagia with both liquids and solids. Complications: No immediate complications. Procedure: Pre-Anesthesia Assessment: - Prior to the procedure, a History and Physical was performed, and patient medications and allergies were reviewed. The patient is competent. The risks and benefits of the procedure and the sedation options and risks were discussed with the patient. All questions were answered and informed consent was obtained. Patient identification and proposed procedure were verified by the physician in the pre-procedure area. Mental Status Examination: alert and oriented. Airway Examination: normal oropharyngeal airway and neck mobility. Respiratory Examination: clear to auscultation. CV Examination: normal. Prophylactic Antibiotics: The patient does not require prophylactic antibiotics. Prior Anticoagulants: The patient has taken no anticoagulant or antiplatelet agents. ASA Grade Assessment: III - A patient with severe systemic disease. After reviewing the risks and benefits, the patient was deemed in satisfactory condition to undergo the procedure. The anesthesia plan was to use monitored anesthesia care (MAC). Immediately prior to administration of medications, the patient was re-assessed for adequacy to receive sedatives. The heart rate, respiratory rate, oxygen saturations, blood pressure, adequacy of pulmonary ventilation, and response to care were monitored throughout the procedure. The physical status of the patient was re-assessed after the procedure. After obtaining informed consent, the endoscope was passed under direct vision. Throughout the procedure, the patient's blood pressure, pulse, and oxygen saturations were monitored continuously. The Endoscope was introduced through the mouth, and advanced to the second part of duodenum. The upper GI endoscopy was accomplished without difficulty. The patient tolerated the procedure well. The patient tolerated the procedure well. Scope In: 1:07:20 PM Scope Out: 1:13:46 PM Total Procedure Duration Time 0 hours 6 minutes 26 seconds Findings: The nasopharynx and oropharynx are abnormal. Diffuse, white plaques were found in the upper third of the esophagus. Biopsies were taken with a cold forceps for histology. Verification of patient identification for the specimen was done. Estimated blood loss was minimal. One benign-appearing, intrinsic moderate (circumferential scarring or stenosis; an endoscope may pass) stenosis was found 20 to 22 cm from the incisors. The stenosis was traversed. A guidewire was placed and the scope was withdrawn. Dilation was performed with a Savary dilator with no resistance at 45 Fr. The dilation site was examined and showed moderate mucosal disruption. Estimated blood loss was minimal. Hematin (altered blood/bbqldu-bgsraq-qcyj material) was found in the gastric body. Three non-bleeding linear duodenal ulcers with pigmented material were found in the duodenal bulb. The largest lesion was 4 mm in largest dimension. Coagulation for hemostasis using heater probe was successful. Estimated blood loss was minimal. Impression: - The nasopharynx and oropharynx are abnormal. - Esophageal plaques were found, consistent with candidiasis. Biopsied. - Benign-appearing esophageal stenosis. Dilated. - Hematin (altered blood/mnwlgq-projrj-ykos material) in the gastric body. - Non-bleeding duodenal ulcers with pigmented material. Treated with a heater probe. Recommendation: - Return patient to [facility] for ongoing care. - Advance diet as tolerated. - Nystatin suspension 100,000 units PO QID for 2 weeks. - Continue present medications. Procedure Code(s): --- Professional --- 08675, 59, Esophagogastroduodenoscopy, flexible, transoral; with control of bleeding, any method 33585, Esophagogastroduodenoscopy, flexible, transoral; with insertion of guide wire followed by passage of dilator(s) through esophagus over guide wire 86618, 59,51, Esophagogastroduodenoscopy, flexible, transoral; with biopsy, single or multiple CPT copyright 2021 [employer]. All rights reserved. The codes documented in this report are preliminary and upon lead quality control technician review may be revised to meet current compliance requirements. Ezequiel Elizondo DO 02/16/2024 1:25:35 PM This report has been signed electronically. Number of Addenda: 0 Note Initiated On: 02/16/2024 12:58 PM
--- NOTE | 2024-02-16 13:57 | NURSING ---
Multidisciplinary rounds not completed due to patient being off floor for a procedure
--- NOTE | 2024-02-16 15:05 | CASEMGMT ---
RN CM in to discuss discharge planning with patient and daughter Angeline. RN CM reviewed course of treatment and progress with therapy. Patient realizes how weak he is and is agreeable to SNF at discharge. RN CM explained SNF referral process and updated patient that he will be provided SNF list for preferences. Patient and daughter voiced understanding and had no further questions or concerns. RN CM updated SW. CM will continue to follow this patient and plan for a safe discharge.
--- NOTE | 2024-02-16 15:40 | CASEMGMT ---
SW was informed therapy is recommending prison facility for patient and patient is agreeable. SW met with patient. Introduced self and role at [facility]. Patient confirmed he is agreeable to go somewhere for rehab. SW provided patient with a list of prison facility providers including quality and resource use data and consistent with patient?s preferred geographic region, medical needs, and insurance network were provided from the [employer] Guide. SW explained to patient SW just needs his preferences, at least 3. SW will then take care of contacting facilities. SW told patient someone may follow up with him tomorrow and if not SW will talk with him on Monday. Plan: SNF pending patient being medically ready, patient's choices, and accepting facility. Dayana ZELAYA
[2024-02-16 15:59] LABS: Pathologist Review Reviewed
[2024-02-16] MEDS: MELATONIN 10 MG TABLET PO (21:53)
[2024-02-16] MEDS: Ceftriaxone 1 GM/50 ML BAG IV (21:53)
[2024-02-16] MEDS: Atorvastatin Calcium 40 MG Tablet PO (21:53)
[2024-02-16] MEDS: Azithromycin 500 MG in Dextrose 5%-Water (250mL Bag) 250 ML 250 MG IV (22:29)
[2024-02-17] VITALS (14 sets, daily range): BP systolic 149–167; BP diastolic 75–86; PULSE 71–104; RESP 14–29; TEMP 35.9–36.6; O2SAT 93–100
[2024-02-17] MEDS: 0.9% Normal Saline (1000mL) 1,000 ML 100 ML IV ×3 (01:33→21:28)
[2024-02-17] MEDS: 0.9% Saline Lock 10 ML Syringe IV ×2 (06:32→13:46)
--- NOTE | 2024-02-17 07:28 | PCM.PN.HOSP ---
Reason for Visit Reason for Visit: Diagnoses Sepsis, unspecified organism (02/12/24) Severe sepsis without septic shock (02/12/24) Subjective Subjective Patient seen appears to be improving clinically. Platelet count and hemoglobin still remain low. Objective Data Objective Data Vital Signs: Vital Signs Temp Pulse Resp BP Pulse Ox O2 Del Method O2 Flow Rate 96.7 F L 71 19 H 155/77 H 93 Bi-pap 10 02/17/24 03:00 02/17/24 04:54 02/17/24 04:54 02/17/24 03:00 02/17/24 04:54 02/17/24 04:49 02/16/24 22:00 FiO2 30 02/17/24 04:54 Oxygen Flow Rate (L/min) 10 Oxygen Delivery Method Bi-pap Weight: 70.7 kg Body Mass Index (BMI) 24.4 Intake & Output: Intake and Output for Last 24 Hours 02/15/24 02/16/24 02/17/24 23:59 23:59 23:59 Intake Total 2570.58 / 2570.58 1772.67 / 2022.67 1250 / 1250 Output Total 2800 / 2800 850 / 1450 600 / 600 Balance -229.42 / -229.42 922.67 / 572.67 650 / 650 Medical Nutrition Assessment Dietitian: Malnutrition Criteria Met Start: 02/13/24 15:47 Freq: Status: Active Protocol: Document 02/13/24 15:47 RMA (Rec: 02/13/24 15:47 RMA [id number]) Nutrition Malnutrition Evidence of Malnutrition Exists Yes Malnutrition (moderate): Acute Illness/Injury Evidenced By Suboptimal Energy Intake ( Moderate),Weight Loss ( Moderate) Clinical Problem Acute Disease or Injury Related Malnutrition Etiology Moderate pro-giovanny malnutrition in the context of acute illness related to inadequate oral intake and difficulty swallowing Signs/Symptoms as evidenced by ~4% unintentional weight in less than 1 month and PO meeting less than 50-75% estimated nutrition needs x 1 month; currently on full liquid diet Status Active Problem Recommendation Dietitian Recommendations/Changes Recommend advance diet as tolerated to liberalized regular diet with consistency/ texture as per [employer]. Will add 240mL ensure plus HP BID w/ breakfast and dinner trays. Additional ONS as needed once PO better established with meals. Monitor blood glucose levels and need to restrict dietary carbohydrates. Lab / Micro Data 02/17/24 07:59 02/17/24 07:59 Labs: Laboratory Results - last 24 hr 02/15/24 06:50: Diff Path Review Reviewed 02/15/24 10:06: Crossmatch See Detail 02/15/24 10:06: Crossmatch See Detail 02/16/24 06:15: Diff Path Review May foll, Platelet Estimate MKD DEC, Anisocytosis 1+ Micro: Microbiology 02/13/24 02:20 Urine, Random Legionella Antigen - Final 02/13/24 02:20 Urine, Random Streptococcus pneumoniae Antigen (M - Final Physical Exam Narrative GENERAL: Frail looking, dyspneic at rest HEENT: Atraumatic; normocephalic EYES; Anicteric, Normal Conjunctiva NECK; supple, normal thyroid, RESPIRATORY: Diminished to auscultation CARDIOVASCULAR: Regular S1 S2, GI: soft, normoactive bowel sounds, : No Renal angle tenderness; EXTREMITIES: No edema, no clubbing, MUSCULOSKELETAL: no muscle wasting NEURO: Awake; no lateralizing signs. SKIN: No Rash PSYCH; Flat affect Assessment & Plan Assessment/Plan (1) Severe sepsis: PLAN: Plan Patient is a 69-year-old gentleman transferred from an outside hospital with progressive shortness of breath. An assessment of severe sepsis secondary to pneumonia made admitted to a monitored bed for further management 1. Severe sepsis secondary to pneumonia ? Patient admitted to monitored bed treatment initiated per protocol with IV fluid resuscitation, broad-spectrum antibiotic therapy after cultures have been sent. Response to therapy monitored with serial lactic acid levels ? 02/16/2024 CT of the chest obtained on 02/14/2024 demonstrated dense consolidation in the right lower lobe. Patient previously counseled and now will continue with antibiotic therapy. ? 02/17/2024; patient cultures have so far remain negative to date. 2. Acute on chronic hypoxic respiratory failure ? Secondary to combination of pneumonia as well as patient underlying lung CA patient was placed on noninvasive ventilation with BiPAP plan is to wean off and transition to nasal cannula ? 02/14/2024 patient remains on high flow oxygen ? 02/15/2024; patient remains on significant amount of oxygen at rest currently 15 L flow per minute ? 02/17/2024; still requiring significant amount of oxygen 3. Elevated D-dimer ? CT of the chest could not be obtained given patient worsening kidney function patient was empirically started on heparin which had to be discontinued in view of significant drop of his platelet count. Did order lower extremity duplex and empirically started on apixaban was waiting for kidney function to improve for patient to undergo CT of the chest -02/14/2024; patient kidney function improved plan is for patient to undergo CT of the chest. Given patient's allergy to iodine plan is to prep patient prior to contrast administration ? 02/15/2024; CTA was negative for VTE apixaban discontinued 4. Acute kidney injury ? Patient creatinine from 02/05/2024 was 0.88 creatinine on admission was 1.82 started on hydration potential nephrotoxic medications held monitoring with daily BMPs ordered ? 02/14/2024; kidney function improved ? 02/15/2024; kidney function back to baseline 5. 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 Currently receiving palliative chemo as outpatient 6. COPD ? Placed on bronchodilator treatment as well as systemic steroid in addition to oxygen via NIV 7. Hypertension - Blood pressure controlled, home medications continued with dose adjustment as needed 8. Dyslipidemia -Patient is on statin therapy, continued at home dose 9. Thrombocytopenia ? Suspected to be secondary to recent chemo monitoring with CBC ordered -02/15/2024; patient platelet count continues to drop apixaban discontinued ? 02/17/2024; platelet count down to 30. 10. 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 Hemoglobin did drop to 6.5 and order was given for patient to be transfused with 1 unit PRBC ? 02/16/2024 hemoglobin came up to 27 additional units of PRBC transfused 11. Recent varicella zoster infection ? Stable 12. DVT prophylaxis ? Apixaban ? 02/15/2024 discontinued apixaban given his low hemoglobin as well as platelet count SCDs for now 13. Physical deconditioning - Requested for PT OT eval and director of social work to assist with discharge planning 14. Back pain ? Did order Lidoderm patch 15. Moderate pro-giovanny malnutrition -in the context of acute illness related to inadequate oral intake and difficulty swallowing as evidenced by ~4% unintentional weight in less than 1 month and PO meeting less than 50-75% estimated nutrition needs x 1 month; currently on full liquid diet. Recommend advance diet as tolerated to liberalized regular diet with consistency/texture as per [employer]. Will add 240mL ensure plus HP BID w/ breakfast and dinner trays. Additional ONS as needed once PO better established with meals. Monitor blood glucose levels and need to restrict dietary carbohydrates Time spent in the patient's overall evaluation,decision-making process, review of diagnostic data, adjustment of management, discussion with other providers, nursing nursing and ancillary staff involved in patient's care documentation, 35 Minutes Charges/Coding Visit Charges Inpatient E&M: 28570 Subs Hosp L2
[2024-02-17] MEDS: Ipratropium/Albuterol Sulfate 3 ML AMPUL.NEB INHALATION ×4 (07:43→20:09)
[2024-02-17 08:18] LABS: Absolute Lymphocyte Count 0.47 X10^3/uL (0.83-4.51); Absolute Neutrophil Count 1.2 X10^3/uL (2.0-7.7); Hematocrit 22.4 % (40-54); Hemoglobin 7.8 g/dL (13.0-16.5); Lymphocyte # 0.47 X10^3/ul (0.83-4.51); Lymphocyte % 22.8 % (19-41); Mean Corp Hgb Conc 34.8 g/dL (32-36); Mean Corpuscular Hgb 29.7 pg (27.0-32.0); Mean Corpuscular Volume 85.2 fL (80-94); Mean Platelet Vol. 10.8 fl (6.2-12.0); Monocyte# 0.35 X10^3/uL; NRBC Flagged by Analyzer 0 % (0-5); Neutrophil # 1.24 X10^3/uL (2.7-7.7); Neutrophil % 60.2 % (47-70); POSITIVE COUNT YES; POSITIVE DIFFERENTIAL YES; RBC Distribution Width CV 18.2 % (11.6-14.6); RBC Distribution Width SD 55.8 fl (35.1-43.9); Red Blood Count 2.63 M/mm3 (4.6-6.2); White Blood Count 2.1 K/mm3 (4.4-11.0)
[2024-02-17 08:19] LABS: Differential Indicated SCAN CRITERIA MET; Platelet Count 30 K/mm3 (150-450)
[2024-02-17 08:30] LABS: Anion Gap 5 (5-15); BUN 26 mg/dL (7-18); BUN/Creat Ratio 46.5 RATIO (10-20); Calcium,Total 7.6 mg/dL (8.5-10.1); Chloride 106 mmol/L (98-107); Creatinine, Serum 0.56 mg/dL (0.70-1.30); EST Glomerular Filtration Rate 154 mL/min (>60); Est Glom Filt Rate - Afr Amer 186 mL/min (>60); Estimated Creatinine Clearance 80.33 ml/min; Glucose 133 mg/dL (74-106); Magnesium 1.1 mg/dL (1.6-2.6); Phosphorus 2.5 mg/dL (2.5-4.9); Potassium 3.7 mmol/L (3.5-5.1); Sodium Level 139 mmol/L (136-145)
[2024-02-17] MEDS: Lidocaine 5% Patch 1 PATCH TOPICAL (09:04)
[2024-02-17] MEDS: Venlafaxine XR 150 MG Capsule PO (09:04)
[2024-02-17] MEDS: NYSTATIN 500,000 UNIT/5 ML UDC 500000 UNIT PO ×4 (09:04→23:35)
[2024-02-17] MEDS: Folic Acid 1 MG Tablet PO (09:04)
[2024-02-17] MEDS: Lisinopril 40 MG Tablet PO (09:04)
[2024-02-17 10:16] LABS: Differential Comment SCANNED; Platelet Estimate MKD DEC (ADEQ)
--- NOTE | 2024-02-17 18:00 | CASEMGMT ---
Social Work Met with patient to follow up on SNF choices. Shirin reviewed SNF list and made choices as follows: [facility], [facility], [facility] and [facility]. Message left for Deepika at [facility] admissions of referral. Plan: Short term SNF, referral pending with [facility]. If TCU cannot accept will move on to make referrals at other facilities. -DONN Luna
[2024-02-17] MEDS: BENZOCAINE/MENTHOL 1 LOZENGE MUCOUS MEM ×2 (18:22→22:00)
[2024-02-17] MEDS: Ceftriaxone 1 GM/50 ML BAG IV (21:28)
[2024-02-17] MEDS: Azithromycin 500 MG in Dextrose 5%-Water (250mL Bag) 250 ML 250 MG IV (21:28)
[2024-02-17] MEDS: Atorvastatin Calcium 40 MG Tablet PO (21:30)
[2024-02-17] MEDS: MELATONIN 10 MG TABLET PO (21:30)
--- NOTE | 2024-02-17 22:52 | EX.PCM.PN.GI ---
Subjective Subjective Patient is tolerating a diet. He denies any chest pain or shortness of breath. He still complains some mild fatigue but his swallowing better. I have undergoing EGD yesterday. Objective Data Objective Data Vital Signs: Vital Signs Temp Pulse Resp BP Pulse Ox O2 Del Method O2 Flow Rate 97.7 F L 88 25 H 154/79 H 99 High Flow 9 02/17/24 17:00 02/17/24 20:11 02/17/24 20:11 02/17/24 17:00 02/17/24 20:11 02/17/24 20:11 02/17/24 20:11 FiO2 30 02/17/24 04:54 Oxygen Flow Rate (L/min) 9 Oxygen Delivery Method High Flow Weight: 155 lb 13.869 oz Body Mass Index (BMI) 24.4 Intake & Output: Intake and Output for Last 24 Hours 02/15/24 02/16/24 02/17/24 23:59 23:59 23:59 Intake Total 2570.58 / 2570.58 1772.67 / 2022.67 4191.67 / 4191.67 Output Total 2800 / 2800 850 / 1450 2400 / 2400 Balance -229.42 / -229.42 922.67 / 572.67 1791.67 / 1791.67 Medical Nutrition Assessment Dietitian: Malnutrition Criteria Met Start: 02/13/24 15:47 Freq: Status: Active Protocol: Document 02/13/24 15:47 RMA (Rec: 02/13/24 15:47 RMA [id number]) Nutrition Malnutrition Evidence of Malnutrition Exists Yes Malnutrition (moderate): Acute Illness/Injury Evidenced By Suboptimal Energy Intake ( Moderate),Weight Loss ( Moderate) Clinical Problem Acute Disease or Injury Related Malnutrition Etiology Moderate pro-giovanny malnutrition in the context of acute illness related to inadequate oral intake and difficulty swallowing Signs/Symptoms as evidenced by ~4% unintentional weight in less than 1 month and PO meeting less than 50-75% estimated nutrition needs x 1 month; currently on full liquid diet Status Active Problem Recommendation Dietitian Recommendations/Changes Recommend advance diet as tolerated to liberalized regular diet with consistency/ texture as per WELCOME HOSTESS. Will add 240mL ensure plus HP BID w/ breakfast and dinner trays. Additional ONS as needed once PO better established with meals. Monitor blood glucose levels and need to restrict dietary carbohydrates. Lab / Micro Data 02/17/24 07:59 02/17/24 07:59 Labs: Laboratory Results - last 24 hr 02/17/24 07:59: WBC 2.1 L, RBC 2.63 L, Hgb 7.8 L, Hct 22.4 L, MCV 85.2, MCH 29.7, MCHC 34.8, RDW Std Deviation 55.8 H, RDW Coeff of Cornelius 18.2 H, Plt Count 30 L*, MPV 10.8, Immature Gran % (Auto) 0.000, Neut % (Auto) 60.2, Lymph % (Auto) 22.8, [place] % (Auto) 17.0 H, Eos % (Auto) 0.0, Baso % (Auto) 0.0, Absolute Neuts (auto) 1.2 L, Absolute Lymphs (auto) 0.47 L, Nucleated RBC % 0, Differential Comment SCANNED, Diff Path Review February, Platelet Estimate MKD DEC, Sodium 139, Potassium 3.7, Chloride 106, Carbon Dioxide 28.0, Anion Gap 5, BUN 26 H, Creatinine 0.56 L, Estim Creat Clear Calc 80.33, Est GFR (MDRD) Af Amer 186, Est GFR (MDRD) Non-Af 154, BUN/Creatinine Ratio 46.5 H, Glucose 133 H, Calcium 7.6 L, Phosphorus 2.5, Magnesium 1.1 L Micro: Microbiology 02/13/24 02:20 Urine, Random Legionella Antigen - Final 02/13/24 02:20 Urine, Random Streptococcus pneumoniae Antigen (M - Final Physical Exam Narrative GENERAL: Frail looking, dyspneic at rest HEENT: Atraumatic; normocephalic EYES; Anicteric, Normal Conjunctiva NECK; supple, normal thyroid, RESPIRATORY: Diminished to auscultation CARDIOVASCULAR: Regular S1 S2, GI: soft, normoactive bowel sounds, : No Renal angle tenderness; EXTREMITIES: No edema, no clubbing, MUSCULOSKELETAL: no muscle wasting NEURO: Awake; no lateralizing signs. SKIN: No Rash PSYCH; Flat affect Assessment & Plan Assessment/Plan (1) Anemia: PLAN: Patient had blood in his mouth from a nosebleed secondary to pain in the oxygen in his nose. That has stopped. The underwent egd yesterday for dysphagia and anemia. Findings: The nasopharynx and oropharynx are abnormal. Diffuse, white plaques were found in the upper third of the esophagus. Biopsies were taken with a cold forceps for histology. Verification of patient identification for the specimen was done. Estimated blood loss was minimal. One benign-appearing, intrinsic moderate (circumferential scarring or stenosis; an endoscope may pass) stenosis was found 20 to 22 cm from the incisors. The stenosis was traversed. A guidewire was placed and the scope was withdrawn. Dilation was performed with a Savary dilator with no resistance at 45 Fr. The dilation site was examined and showed moderate mucosal disruption. Estimated blood loss was minimal. Hematin (altered blood/oudwer-owyaod-wtuh material) was found in the gastric body. Three non-bleeding linear duodenal ulcers with pigmented material were found in the duodenal bulb. The largest lesion was 4 mm in largest dimension. Coagulation for hemostasis using heater probe was successful. Estimated blood loss was minimal. Impression: - The nasopharynx and oropharynx are abnormal. - Esophageal plaques were found, consistent with candidiasis. Biopsied. - Benign-appearing esophageal stenosis. Dilated. - Hematin (altered blood/iciuun-gmtwbv-sahz material) in the gastric body. - Non-bleeding duodenal ulcers with pigmented material. Treated with a heater probe. Recommendation: - [facility] to [facility] for [facility]. - Advance diet as tolerated. - Nystatin suspension 100,000 units PO QID for 2 weeks. - Continue present medications. Charges/Coding Visit Charges Inpatient E&M: 42587 [facility] Hosp L3
[2024-02-18] VITALS (17 sets, daily range): BP systolic 143–177; BP diastolic 83–97; PULSE 72–107; RESP 14–27; TEMP 36.5–36.9; O2SAT 93–99
[2024-02-18] MEDS: 0.9% Normal Saline (1000mL) 1,000 ML 100 ML IV ×2 (05:20→15:43)
[2024-02-18 06:03] LABS: Absolute Neutrophil Count 1.2 X10^3/uL (2.0-7.7); Hematocrit 23.4 % (40-54); Lymphocyte % 22.6 % (19-41); Mean Corp Hgb Conc 34.2 g/dL (32-36); Mean Corpuscular Hgb 28.9 pg (27.0-32.0); Mean Corpuscular Volume 84.5 fL (80-94); Mean Platelet Vol. 10.5 fl (6.2-12.0); Monocyte# 0.51 X10^3/uL; Monocyte% 23.1 % (0-10); NRBC Flagged by Analyzer 0 % (0-5); Neutrophil % 54.3 % (47-70); POSITIVE COUNT YES; POSITIVE DIFFERENTIAL YES; RBC Distribution Width CV 17.8 % (11.6-14.6); RBC Distribution Width SD 54.2 fl (35.1-43.9); Red Blood Count 2.77 M/mm3 (4.6-6.2); White Blood Count 2.2 K/mm3 (4.4-11.0)
[2024-02-18 06:23] LABS: Anion Gap 4 (5-15); BUN 18 mg/dL (7-18); BUN/Creat Ratio 33.5 RATIO (10-20); Calcium,Total 7.5 mg/dL (8.5-10.1); Chloride 101 mmol/L (98-107); Creatinine, Serum 0.54 mg/dL (0.70-1.30); EST Glomerular Filtration Rate 161 mL/min (>60); Est Glom Filt Rate - Afr Amer 195 mL/min (>60); Estimated Creatinine Clearance 80.33 ml/min; Glucose 134 mg/dL (74-106); Potassium 3.4 mmol/L (3.5-5.1); Sodium Level 135 mmol/L (136-145)
[2024-02-18] MEDS: Ipratropium/Albuterol Sulfate 3 ML AMPUL.NEB INHALATION ×4 (07:19→19:49)
--- NOTE | 2024-02-18 08:26 | PCM.PN.HOSP ---
Reason for Visit Reason for Visit: Diagnoses Sepsis, unspecified organism (02/12/24) Anemia, unspecified (02/12/24) Severe sepsis without septic shock (02/12/24) Subjective Subjective Patient seen continues to improve clinically. Oxygen requirement down to 7 L flow per minute. Objective Data Objective Data Vital Signs: Vital Signs Temp Pulse Resp BP Pulse Ox O2 Del Method O2 Flow Rate 97.9 F 81 21 H 143/97 H 97 High Flow 7 02/18/24 07:53 02/18/24 07:53 02/18/24 07:53 02/18/24 07:53 02/18/24 07:53 02/18/24 07:53 02/18/24 07:53 FiO2 30 02/18/24 05:12 Oxygen Flow Rate (L/min) 7 Oxygen Delivery Method High Flow Weight: 70.7 kg Body Mass Index (BMI) 24.4 Intake & Output: Intake and Output for Last 24 Hours 02/16/24 02/17/24 02/18/24 23:59 23:59 23:59 Intake Total 1772.67 / 2022.67 4496.67 / 4696.67 986.67 / 986.67 Output Total 850 / 1450 2400 / 3000 600 / 600 Balance 922.67 / 572.67 2096.67 / 1696.67 386.67 / 386.67 Medical Nutrition Assessment Dietitian: Malnutrition Criteria Met Start: 02/13/24 15:47 Freq: Status: Active Protocol: Document 02/13/24 15:47 RMA (Rec: 02/13/24 15:47 RMA [id number]) Nutrition Malnutrition Evidence of Malnutrition Exists Yes Malnutrition (moderate): Acute Illness/Injury Evidenced By Suboptimal Energy Intake ( Moderate),Weight Loss ( Moderate) Clinical Problem Acute Disease or Injury Related Malnutrition Etiology Moderate pro-giovanny malnutrition in the context of acute illness related to inadequate oral intake and difficulty swallowing Signs/Symptoms as evidenced by ~4% unintentional weight in less than 1 month and PO meeting less than 50-75% estimated nutrition needs x 1 month; currently on full liquid diet Status Active Problem Recommendation Dietitian Recommendations/Changes Recommend advance diet as tolerated to liberalized regular diet with consistency/ texture as per TRANSCRIPTION MANAGER. Will add 240mL ensure plus HP BID w/ breakfast and dinner trays. Additional ONS as needed once PO better established with meals. Monitor blood glucose levels and need to restrict dietary carbohydrates. Lab / Micro Data 02/18/24 05:47 02/18/24 05:47 Labs: Laboratory Results - last 24 hr 02/17/24 07:59: Differential Comment SCANNED, Diff Path Review February foll, Platelet Estimate MKD DEC, Sodium 139, Potassium 3.7, Chloride 106, Carbon Dioxide 28.0, Anion Gap 5, BUN 26 H, Creatinine 0.56 L, Estim Creat Clear Calc 80.33, Est GFR (MDRD) Af Amer 186, Est GFR (MDRD) Non-Af 154, BUN/Creatinine Ratio 46.5 H, Glucose 133 H, Calcium 7.6 L, Phosphorus 2.5, Magnesium 1.1 L 02/18/24 05:47: WBC 2.2 L, RBC 2.77 L, Hgb 8.0 L, Hct 23.4 L, MCV 84.5, MCH 28.9, MCHC 34.2, RDW Std Deviation 54.2 H, RDW Coeff of Cornelius 17.8 H, Plt Count 43 L*, MPV 10.5, Immature Gran % (Auto) 0.000, Neut % (Auto) 54.3, Lymph % (Auto) 22.6, [place] % (Auto) 23.1 H, Eos % (Auto) 0.0, Baso % (Auto) 0.0, Absolute Neuts (auto) 1.2 L, Absolute Lymphs (auto) 0.50 L, Nucleated RBC % 0, Sodium 135 L, Potassium 3.4 L, Chloride 101, Carbon Dioxide 30.0, Anion Gap 4 L, BUN 18, Creatinine 0.54 L, Estim Creat Clear Calc 80.33, Est GFR (MDRD) Af Amer 195, Est GFR (MDRD) Non-Af 161, BUN/Creatinine Ratio 33.5 H, Glucose 134 H, Calcium 7.5 L Micro: Microbiology 02/13/24 02:20 Urine, Random Legionella Antigen - Final 02/13/24 02:20 Urine, Random Streptococcus pneumoniae Antigen (M - Final Physical Exam Narrative GENERAL: Frail looking, dyspneic at rest HEENT: Atraumatic; normocephalic EYES; Anicteric, Normal Conjunctiva NECK; supple, normal thyroid, RESPIRATORY: Diminished to auscultation CARDIOVASCULAR: Regular S1 S2, GI: soft, normoactive bowel sounds, : No Renal angle tenderness; EXTREMITIES: No edema, no clubbing, MUSCULOSKELETAL: no muscle wasting NEURO: Awake; no lateralizing signs. SKIN: No Rash PSYCH; Flat affect Assessment & Plan Assessment/Plan (1) Severe sepsis: PLAN: Plan Patient is a 69-year-old gentleman transferred from an outside hospital with progressive shortness of breath. An assessment of severe sepsis secondary to pneumonia made admitted to a monitored bed for further management 1. Severe sepsis secondary to pneumonia ? Patient admitted to monitored bed treatment initiated per protocol with IV fluid resuscitation, broad-spectrum antibiotic therapy after cultures have been sent. Response to therapy monitored with serial lactic acid levels ? 02/16/2024 CT of the chest obtained on 02/14/2024 demonstrated dense consolidation in the right lower lobe. Patient previously counseled and now will continue with antibiotic therapy. ? 02/17/2024; patient cultures have so far remain negative to date. ?02/18/2024; adjusted antibiotic therapy with discontinuation of azithromycin. 2. Acute on chronic hypoxic respiratory failure ? Secondary to combination of pneumonia as well as patient underlying lung CA patient was placed on noninvasive ventilation with BiPAP plan is to wean off and transition to nasal cannula ? 02/14/2024 patient remains on high flow oxygen ? 02/15/2024; patient remains on significant amount of oxygen at rest currently 15 L flow per minute ? 02/17/2024; still requiring significant amount of oxygen 3. Elevated D-dimer ? CT of the chest could not be obtained given patient worsening kidney function patient was empirically started on heparin which had to be discontinued in view of significant drop of his platelet count. Did order lower extremity duplex and empirically started on apixaban was waiting for kidney function to improve for patient to undergo CT of the chest -02/14/2024; patient kidney function improved plan is for patient to undergo CT of the chest. Given patient's allergy to iodine plan is to prep patient prior to contrast administration ? 02/15/2024; CTA was negative for VTE apixaban discontinued 4. Acute kidney injury ? Patient creatinine from 02/05/2024 was 0.88 creatinine on admission was 1.82 started on hydration potential nephrotoxic medications held monitoring with daily BMPs ordered ? 02/14/2024; kidney function improved ? 02/15/2024; kidney function back to baseline 5. 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 Currently receiving palliative chemo as outpatient 6. COPD ? Placed on bronchodilator treatment as well as systemic steroid in addition to oxygen via NIV 7. Hypertension - Blood pressure controlled, home medications continued with dose adjustment as needed 8. Dyslipidemia -Patient is on statin therapy, continued at home dose 9. Thrombocytopenia ? Suspected to be secondary to recent chemo monitoring with CBC ordered -02/15/2024; patient platelet count continues to drop apixaban discontinued ? 02/17/2024; platelet count down to 30. ? 02/18/2024; patient platelet count trending up. 10. 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 Hemoglobin did drop to 6.5 and order was given for patient to be transfused with 1 unit PRBC ? 02/16/2024 hemoglobin came up to 27 additional units of PRBC transfused 11. Recent varicella zoster infection ? Stable 12. DVT prophylaxis ? Apixaban ? 02/15/2024 discontinued apixaban given his low hemoglobin as well as platelet count SCDs for now 13. Physical deconditioning - Requested for PT OT eval and certified social workers in health care to assist with discharge planning 14. Back pain ? Did order Lidoderm patch 15. Moderate pro-giovanny malnutrition -in the context of acute illness related to inadequate oral intake and difficulty swallowing as evidenced by ~4% unintentional weight in less than 1 month and PO meeting less than 50-75% estimated nutrition needs x 1 month; currently on full liquid diet. Recommend advance diet as tolerated to liberalized regular diet with consistency/texture as per TRANSCRIPTION MANAGER. Will add 240mL ensure plus HP BID w/ breakfast and dinner trays. Additional ONS as needed once PO better established with meals. Monitor blood glucose levels and need to restrict dietary carbohydrates Time spent in the patient's overall evaluation,decision-making process, review of diagnostic data, adjustment of management, discussion with other providers, nursing nursing and ancillary staff involved in patient's care documentation, 35 Minutes Charges/Coding Visit Charges Inpatient E&M: 81023 [facility] Hosp L2
[2024-02-18] MEDS: Venlafaxine XR 150 MG Capsule PO (08:55)
[2024-02-18] MEDS: Lisinopril 40 MG Tablet PO (08:55)
[2024-02-18] MEDS: Folic Acid 1 MG Tablet PO (08:55)
[2024-02-18] MEDS: NYSTATIN 500,000 UNIT/5 ML UDC 500000 UNIT PO ×4 (08:55→21:51)
[2024-02-18] MEDS: Lidocaine 5% Patch 1 PATCH TOPICAL (08:56)
[2024-02-18] MEDS: 0.9% Saline Lock 10 ML Syringe IV ×2 (14:45→22:08)
[2024-02-18] MEDS: BENZOCAINE/MENTHOL 1 LOZENGE MUCOUS MEM ×2 (17:22→22:10)
--- NOTE | 2024-02-18 17:32 | EX.PCM.PN.GI ---
Subjective Subjective Patient states that he is eating okay and he feels like his breathing is better today. Hemoglobin continues to be stable. Objective Data Objective Data Vital Signs: Vital Signs Temp Pulse Resp BP Pulse Ox O2 Del Method O2 Flow Rate 98.4 F 107 H 19 H 177/91 H 96 High Flow 5 02/18/24 17:25 02/18/24 17:25 02/18/24 17:25 02/18/24 17:25 02/18/24 17:25 02/18/24 17:25 02/18/24 17:25 FiO2 30 02/18/24 05:12 Oxygen Flow Rate (L/min) 5 Oxygen Delivery Method High Flow Weight: 155 lb 13.869 oz Body Mass Index (BMI) 24.4 Intake & Output: Intake and Output for Last 24 Hours 02/16/24 02/17/24 02/18/24 23:59 23:59 23:59 Intake Total 1772.67 / 2022.67 4496.67 / 4696.67 2346.67 / 2346.67 Output Total 850 / 1450 2400 / 3000 1050 / 1050 Balance 922.67 / 572.67 2096.67 / 1696.67 1296.67 / 1296.67 Medical Nutrition Assessment Dietitian: Malnutrition Criteria Met Start: 02/13/24 15:47 Freq: Status: Active Protocol: Document 02/13/24 15:47 RMA (Rec: 02/13/24 15:47 RMA [id number]) Nutrition Malnutrition Evidence of Malnutrition Exists Yes Malnutrition (moderate): Acute Illness/Injury Evidenced By Suboptimal Energy Intake ( Moderate),Weight Loss ( Moderate) Clinical Problem Acute Disease or Injury Related Malnutrition Etiology Moderate pro-giovanny malnutrition in the context of acute illness related to inadequate oral intake and difficulty swallowing Signs/Symptoms as evidenced by ~4% unintentional weight in less than 1 month and PO meeting less than 50-75% estimated nutrition needs x 1 month; currently on full liquid diet Status Active Problem Recommendation Dietitian Recommendations/Changes Recommend advance diet as tolerated to liberalized regular diet with consistency/ texture as per POULTRY OFFAL ICER. Will add 240mL ensure plus HP BID w/ breakfast and dinner trays. Additional ONS as needed once PO better established with meals. Monitor blood glucose levels and need to restrict dietary carbohydrates. Lab / Micro Data 02/18/24 05:47 02/18/24 05:47 Labs: Laboratory Results - last 24 hr 02/18/24 05:47: WBC 2.2 L, RBC 2.77 L, Hgb 8.0 L, Hct 23.4 L, MCV 84.5, MCH 28.9, MCHC 34.2, RDW Std Deviation 54.2 H, RDW Coeff of Cornelius 17.8 H, Plt Count 43 L*, MPV 10.5, Immature Gran % (Auto) 0.000, Neut % (Auto) 54.3, Lymph % (Auto) 22.6, [place] % (Auto) 23.1 H, Eos % (Auto) 0.0, Baso % (Auto) 0.0, Absolute Neuts (auto) 1.2 L, Absolute Lymphs (auto) 0.50 L, Nucleated RBC % 0, Sodium 135 L, Potassium 3.4 L, Chloride 101, Carbon Dioxide 30.0, Anion Gap 4 L, BUN 18, Creatinine 0.54 L, Estim Creat Clear Calc 80.33, Est GFR (MDRD) Af Amer 195, Est GFR (MDRD) Non-Af 161, BUN/Creatinine Ratio 33.5 H, Glucose 134 H, Calcium 7.5 L Micro: Microbiology 02/13/24 02:20 Urine, Random Legionella Antigen - Final 02/13/24 02:20 Urine, Random Streptococcus pneumoniae Antigen (M - Final Physical Exam Narrative GENERAL: Frail looking, dyspneic at rest HEENT: Atraumatic; normocephalic EYES; Anicteric, Normal Conjunctiva NECK; supple, normal thyroid, RESPIRATORY: Diminished to auscultation CARDIOVASCULAR: Regular S1 S2, GI: soft, normoactive bowel sounds, : No Renal angle tenderness; EXTREMITIES: No edema, no clubbing, MUSCULOSKELETAL: no muscle wasting NEURO: Awake; no lateralizing signs. SKIN: No Rash PSYCH; Flat affect Assessment & Plan Assessment/Plan (1) Anemia: PLAN: Patient had blood in his mouth from a nosebleed secondary to pain in the oxygen in his nose. That has stopped. The underwent egd yesterday for dysphagia and anemia. Findings: The nasopharynx and oropharynx are abnormal. Diffuse, white plaques were found in the upper third of the esophagus. Biopsies were taken with a cold forceps for histology. Verification of patient identification for the specimen was done. Estimated blood loss was minimal. One benign-appearing, intrinsic moderate (circumferential scarring or stenosis; an endoscope may pass) stenosis was found 20 to 22 cm from the incisors. The stenosis was traversed. A guidewire was placed and the scope was withdrawn. Dilation was performed with a Savary dilator with no resistance at 45 Fr. The dilation site was examined and showed moderate mucosal disruption. Estimated blood loss was minimal. Hematin (altered blood/rpaxme-hhmdia-klfg material) was found in the gastric body. Three non-bleeding linear duodenal ulcers with pigmented material were found in the duodenal bulb. The largest lesion was 4 mm in largest dimension. Coagulation for hemostasis using heater probe was successful. Estimated blood loss was minimal. Impression: - The nasopharynx and oropharynx are abnormal. - Esophageal plaques were found, consistent with candidiasis. Biopsied. - Benign-appearing esophageal stenosis. Dilated. - Hematin (altered blood/uulgmw-uqxotr-wgbb material) in the gastric body. - Non-bleeding duodenal ulcers with pigmented material. Treated with a heater probe. Recommendation: - Return patient to [facility] for ongoing care. - Advance diet as tolerated. - Nystatin suspension 100,000 units PO QID for 2 weeks. - Continue present medications. 02/18/24-patient continues to improve. Hemoglobin seems to be stable at 8 today. Recommend colonoscopy when medically stable. Continue treating for Brittany esophagitis. Charges/Coding Visit Charges Inpatient E&M: 00249 [facility] Hosp L3
[2024-02-18] MEDS: Ceftriaxone 1 GM/50 ML BAG IV (21:50)
[2024-02-18] MEDS: MELATONIN 10 MG TABLET PO (21:54)
[2024-02-18] MEDS: Atorvastatin Calcium 40 MG Tablet PO (21:54)
[2024-02-19] VITALS (12 sets, daily range): BP systolic 141–157; BP diastolic 82–91; PULSE 78–97; RESP 12–35; TEMP 36.3–36.6; O2SAT 96–100
[2024-02-19] MEDS: 0.9% Normal Saline (1000mL) 1,000 ML 100 ML IV (01:18)
[2024-02-19] MEDS: Ipratropium/Albuterol Sulfate 3 ML AMPUL.NEB INHALATION ×4 (05:31→20:10)
[2024-02-19 07:05] LABS: Absolute Lymphocyte Count 0.41 X10^3/uL (0.83-4.51); Absolute Neutrophil Count 1.6 X10^3/uL (2.0-7.7); Hematocrit 24.9 % (40-54); Hemoglobin 8.5 g/dL (13.0-16.5); Lymphocyte # 0.41 X10^3/ul (0.83-4.51); Lymphocyte % 15.6 % (19-41); Mean Corp Hgb Conc 34.1 g/dL (32-36); Mean Corpuscular Hgb 29.1 pg (27.0-32.0); Mean Corpuscular Volume 85.3 fL (80-94); Mean Platelet Vol. 10.4 fl (6.2-12.0); Monocyte# 0.57 X10^3/uL; Monocyte% 21.8 % (0-10); NRBC Flagged by Analyzer 0.8 % (0-5); Neutrophil # 1.61 X10^3/uL (2.7-7.7); Neutrophil % 61.5 % (47-70); POSITIVE COUNT YES; POSITIVE DIFFERENTIAL YES; Platelet Count 61 K/mm3 (150-450); RBC Distribution Width CV 17.8 % (11.6-14.6); Red Blood Count 2.92 M/mm3 (4.6-6.2); White Blood Count 2.6 K/mm3 (4.4-11.0)
[2024-02-19 07:15] LABS: Differential Indicated SCAN CRITERIA MET
[2024-02-19 07:19] LABS: Platelet Count 43 K/mm3 (150-450)
[2024-02-19 07:41] LABS: Anion Gap 6 (5-15); BUN 17 mg/dL (7-18); BUN/Creat Ratio 28.9 RATIO (10-20); Calcium,Total 7.5 mg/dL (8.5-10.1); Chloride 98 mmol/L (98-107); Creatinine, Serum 0.59 mg/dL (0.70-1.30); EST Glomerular Filtration Rate 145 mL/min (>60); Est Glom Filt Rate - Afr Amer 175 mL/min (>60); Estimated Creatinine Clearance 80.33 ml/min; Glucose 140 mg/dL (74-106); Potassium 3.3 mmol/L (3.5-5.1); Sodium Level 136 mmol/L (136-145)
--- NOTE | 2024-02-19 09:27 | PN.HOSP_ITS ---
Reason for Visit Reason for Visit: Diagnoses Sepsis, unspecified organism (02/12/24) Anemia, unspecified (02/12/24) Severe sepsis without septic shock (02/12/24) Objective Data Objective Data Vital Signs: Vital Signs Temp Pulse Resp BP Pulse Ox O2 Del Method O2 Flow Rate 97.7 F L 78 12 155/84 H 99 High Flow 5 02/19/24 03:49 02/19/24 05:33 02/19/24 05:33 02/19/24 03:49 02/19/24 05:33 02/19/24 05:33 02/19/24 05:33 FiO2 30 02/19/24 03:49 Oxygen Flow Rate (L/min) 5 Oxygen Delivery Method High Flow Weight: 155 lb 13.869 oz Body Mass Index (BMI) 24.4 Intake & Output: Intake and Output for Last 24 Hours 02/17/24 02/18/24 02/19/24 23:59 23:59 23:59 Intake Total 4496.67 / 4696.67 3310.00 / 3310.00 296.67 / 296.67 Output Total 2400 / 3000 2850 / 2850 1000 / 1000 Balance 2096.67 / 1696.67 460.00 / 460.00 -703.33 / -703.33 Medical Nutrition Assessment Dietitian: Malnutrition Criteria Met Start: 02/13/24 15:47 Freq: Status: Active Protocol: Document 02/13/24 15:47 RMA (Rec: 02/13/24 15:47 RMA [id number]) Nutrition Malnutrition Evidence of Malnutrition Exists Yes Malnutrition (moderate): Acute Illness/Injury Evidenced By Suboptimal Energy Intake ( Moderate),Weight Loss ( Moderate) Clinical Problem Acute Disease or Injury Related Malnutrition Etiology Moderate pro-giovanny malnutrition in the context of acute illness related to inadequate oral intake and difficulty swallowing Signs/Symptoms as evidenced by ~4% unintentional weight in less than 1 month and PO meeting less than 50-75% estimated nutrition needs x 1 month; currently on full liquid diet Status Active Problem Recommendation Dietitian Recommendations/Changes Recommend advance diet as tolerated to liberalized regular diet with consistency/ texture as per FERRY OPERATOR. Will add 240mL ensure plus HP BID w/ breakfast and dinner trays. Additional ONS as needed once PO better established with meals. Monitor blood glucose levels and need to restrict dietary carbohydrates. Lab / Micro Data 02/19/24 06:40 02/19/24 06:40 Labs: Laboratory Results - last 24 hr 02/18/24 05:47: Plt Count 43 L* 02/19/24 06:40: WBC 2.6 L, RBC 2.92 L, Hgb 8.5 L, Hct 24.9 L, MCV 85.3, MCH 29.1 , MCHC 34.1, RDW Std Deviation 55.0 H, RDW Coeff of Cornelius 17.8 H, Plt Count 61 L, MPV 10.4, Immature Gran % (Auto) 1.100 H, Neut % (Auto) 61.5, Lymph % (Auto) 15.6 L, [place] % (Auto) 21.8 H, Eos % (Auto) 0.0, Baso % (Auto) 0.0, Absolute Neuts (auto) 1.6 L, Absolute Lymphs (auto) 0.41 L, Nucleated RBC % 0.8, Diff Path Review February, Sodium 136, Potassium 3.3 L, Chloride 98, Carbon Dioxide 32.0, Anion Gap 6, BUN 17, Creatinine 0.59 L, Estim Creat Clear Calc 80.33, Est GFR (MDRD) Af Amer 175, Est GFR (MDRD) Non-Af 145, BUN/Creatinine Ratio 28.9 H, Glucose 140 H, Calcium 7.5 L Micro: Microbiology 02/13/24 02:20 Urine, Random Legionella Antigen - Final 02/13/24 02:20 Urine, Random Streptococcus pneumoniae Antigen (M - Final Physical Exam Narrative Seen and examined. Patient had chemotherapy about 1.5-2 weeks ago. Complain of sore throat, mild p ainful swallowing/odynophagia. Frail General: Alert, Oriented x3, Cooperative, BMI 24.4 kg/m?. Frail/fatigued HEENT: Atraumatic, PERRLA, EOMI, Normocephalic Oral: White patch over base of tongue/soft palate. Erythematous/mucositis. Neck: Supple, No JVD, Negative Carotid Bruits Chest wall/Lungs: Air entry diminished in bilateral lung bases. Mild coarse crepitation. On oxygen. Dyspnea on mild exertion Cardiovascular: Regular rate, Regular Rhythm, Normal S1, Normal S2, No M/G/R Abdomen: Bowel Sounds Present, Soft, Non Tender, Non-Distended : No dysuria. No renal angle tenderness. No suprapubic tenderness. Extremities: No edema, Capillary Refill Less than 3 Seconds Skin: No rashes, No breakdown Musculoskeletal: No Tenderness to Palpation of Joints or Extremities Neurological: Cranial nerves II-XII grossly intact, DTR 2+/4. No acute focal neurological deficit. Psych/Mental Status: Flat affect Assessment & Plan Assessment/Plan (1) Severe sepsis: PLAN: Plan Patient is a 69-year-old gentleman transferred from an outside hospital with progressive shortness of breath. An assessment of severe sepsis secondary to pneumonia made admitted to a monitored bed for further management 1. Severe sepsis secondary to pneumonia ? Patient admitted to monitored bed treatment initiated per protocol with IV fluid resuscitation, broad-spectrum antibiotic therapy after cultures have been sent. Response to therapy monitored with serial lactic acid levels ? 02/16/2024 CT of the chest obtained on 02/14/2024 demonstrated dense consolidation in the right lower lobe. Patient previously counseled and now will continue with antibiotic therapy. 02/18: Admitted with azithromycin insect reaction after Zosyn at OSH. ID consult was done and reviewed. Plan for stopping antibiotic tomorrow. No fever, not neutropenic. Shingles on left chest appears to be improving. 2. Acute on chronic hypoxic respiratory failure ? Secondary to combination of pneumonia as well as patient underlying lung CA patient was placed on noninvasive ventilation with BiPAP plan is to wean off and transition to nasal cannula ? 02/14/2024 patient remains on high flow oxygen ? 02/15/2024; patient remains on significant amount of oxygen at rest currently 15 L flow per minute 02/18: Pulmonary consult reviewed and appreciated. Patient has chronic hypoxic respiratory failure on baseline 5 L of oxygen. Still gets severe dyspnea with even mild exertion. Started on diuretics. 3. Elevated D-dimer ? CT of the chest could not be obtained given patient worsening kidney function patient was empirically started on heparin which had to be discontinued in view of significant drop of his platelet count. Did order lower extremity duplex and empirically started on apixaban was waiting for kidney function to improve for patient to undergo CT of the chest -02/14/2024; patient kidney function improved plan is for patient to undergo CT of the chest. Given patient's allergy to iodine plan is to prep patient prior to contrast administration ? 02/15/2024; CTA was negative for VTE apixaban discontinued. Venous duplex also negative for DVT 4. Acute kidney injury ? Patient creatinine from 02/05/2024 was 0.88 creatinine on admission was 1.82 started on hydration potential nephrotoxic medications held monitoring with bonita bernal BMPs ordered ? 02/14/2024; kidney function improved ? 02/15/2024; kidney function back to baseline 5. 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 Currently receiving palliative chemo as outpatient 6. COPD ? Placed on bronchodilator treatment as well as systemic steroid in addition to oxygen via NIV 7. Hypertension - Blood pressure controlled, home medications continued with dose adjustment as needed 8. Dyslipidemia -Patient is on statin therapy, continued at home dose 9. Thrombocytopenia ? Suspected to be secondary to recent chemo monitoring with CBC ordered -02/15/2024; patient platelet count continues to drop apixaban discontinued ? 02/17/2024; platelet count down to 30. ? 02/18/2024; patient platelet count trending up. 10. 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 Hemoglobin did drop to 6.5 and order was given for patient to be transfused with 1 unit PRBC ? 02/16/2024 hemoglobin came up to 27 additional units of PRBC transfused 11. Recent varicella zoster infection ? Stable 12. DVT prophylaxis ? Apixaban ? 02/15/2024 discontinued apixaban given his low hemoglobin as well as platelet count SCDs for now 13. Physical deconditioning - Requested for PT OT eval and group social worker to assist with discharge planning 14. Back pain ? Did order Lidoderm patch 15. Moderate protein calorie malnutrition -in the context of acute illness related to inadequate oral intake and difficulty swallowing as evidenced by ~4% unintentional weight in less than 1 month and PO meeting less than 50-75% estimated nutrition needs x 1 month; currently on full liquid diet. Recommend advance diet as tolerated to liberalized regular diet with consistency/texture as per FERRY OPERATOR. Will add 240mL ensure plus HP BID w/ breakfast and dinner trays. Additional ONS as needed once PO better established with meals. Monitor blood glucose levels and need to restrict dietary carbohydrates Time spent in the patient's overall evaluation,decision-making process, review of diagnostic data, adjustment of management, discussion with other providers, nursing nursing and ancillary staff involved in patient's care documentation, 35 Minutes Clinical Impression(s) from Imaging Studies Venous Doppler Study 02/13/24 10:13 Interpretation Summary Deep veins of the bilateral lower extremities are patent and compressible segmentally. There is no evidence of bilateral lower extremity deep vein thrombosis. The bilateral great saphenous veins appear patent and compressible segmentally. Chest CTA 02/14/24 09:37 IMPRESSION: No evidence of pulmonary embolism. Emphysematous changes with evidence of interstitial scarring. Stable small right pleural effusion with dense consolidation in the right lower lobe. Charges/Coding Visit Charges Inpatient E&M: 69191 Subs Hosp L3
[2024-02-19 10:16] LABS: Phosphorus 2.8 mg/dL (2.5-4.9)
--- NOTE | 2024-02-19 10:16 | CASEMGMT ---
[facility] can take patient. SW notified patient that [facility] can take him when he is medically ready. Plan: d/c to [facility] when medically ready. Dayana ZELAYA
[2024-02-19] MEDS: NYSTATIN 500,000 UNIT/5 ML UDC 500000 UNIT PO ×4 (10:19→22:29)
[2024-02-19] MEDS: Lidocaine 5% Patch 1 PATCH TOPICAL (10:19)
[2024-02-19] MEDS: Aspirin E.C. 81 MG Tablet PO (10:21)
[2024-02-19] MEDS: Lisinopril 40 MG Tablet PO (10:21)
[2024-02-19] MEDS: Folic Acid 1 MG Tablet PO (10:21)
[2024-02-19] MEDS: Venlafaxine XR 150 MG Capsule PO (10:21)
--- NOTE | 2024-02-19 11:22 | EX.PCM.CONCC ---
Assessment & Plan Assessment/Plan (1) Severe sepsis: PLAN: Plan RECOMMENDATIONS: 1. Continue supplemental oxygen at 5 L/min, per baseline requirement. 2. Continue bronchodilator therapy. 3. Continue corticosteroids. Transition to prednisone at discharge, with plans for a taper. 4. Continue antimicrobials. 5. Encourage incentive spirometer use and mobilize patient as tolerated. 6. Perform walking oximetry study prior to consideration for discharge home. 7. Given that the patient is at his baseline from a respiratory perspective, will sign off. Please call with any questions. IMPRESSIONS: 1. COPD with exacerbation/chronic hypoxemic respiratory failure The patient has a known history of end-stage COPD on maximum therapy on an outpatient basis. In addition, he has known chronic hypoxemic respiratory failure with a baseline requirement of 5 L/min. The patient was hospitalized with pneumonia and is currently responding to antimicrobial therapy, bronchodilators and steroids. In fact, the patient is maintaining appropriate oxygen saturations on his baseline requirement. Accordingly, I have no additional recommendations from a pulmonary perspective. Continue antibiotics to complete 7 days of therapy. At discharge, transition to prednisone 40 mg daily, with plans for a taper. The patient should follow-up in the pulmonary medicine clinic after discharge. 2. History of non-small cell lung cancer/hypertension/hyperlipidemia/thrombocytopenia/generalized deconditioning Complicates care, management, recovery and prognosis. Continue supportive measures as noted above. This note was generated with [employer] dictation software. It may contain incorrect words, spelling, and punctuation that were not noted in checking the note before signing. HPI Consult Data Date of Consult: 02/19/24 HPI Narrative Reason for Consultation: Acute on chronic hypoxemic respiratory failure HPI Narrative: The patient is a 69-year-old male, with a history as outlined below, who presented on February 11 as a direct admit from an outside hospital due to respiratory failure. The patient has a known history of end-stage COPD on triple therapy inhaler regimen and chronic hypoxemic respiratory failure with a baseline requirement of 5 L/min, having previously been under the care of Dr. Cassius Fierro, until her departure. In addition, the patient had a low-dose CT scan done in July 2023 which revealed a right lower lobe lung mass which was subsequently biopsied and found to be positive for non-small cell carcinoma. Cytology performed during a subsequent thoracentesis revealed the pleural fluid to be positive for non-small cell carcinoma. The patient is currently being followed by oncology on an outpatient basis and is receiving chemotherapy. The patient's initial workup revealed findings concerning for underlying pneumonia. As such, the patient's hospital course has included treatment for underlying pneumonia. Unfortunately, the patient developed worsening anemia during his hospitalization and underwent EGD on February 15, which revealed esophageal stenosis along with a nonbleeding duodenal ulcer. The patient remains on antibiotics, bronchodilators and steroids. Overall, the patient reported that his breathing quality has in fact improved over the course of this hospitalization. He has been compliant with his home inhaler regimen. The patient once again confirmed to me that he has been utilizing 5 L/min of oxygen at home. At the time of my interview with him, the patient was saturating 100% on 5 L/min. [facility] Medical History Anemia Anxiety Bilateral carotid artery stenosis Cancer Cardiology follow-up encounter Chronic obstructive pulmonary disease Chronic respiratory failure with hypoxia Dehydration Encounter for education Encounter for vitamin B12 injection while on pemetrexed chemotherapy Essential hypertension Former smoker High cholesterol History of echocardiogram History of stress test Hyperlipidemia Hypokalemia Lesion of nasal mucosa On home oxygen therapy Prerenal azotemia Rib pain on right side Shortness of breath on exertion Wears dentures Wears glasses Home Medications aspirin 81 mg tablet,delayed release (Adult Aspirin Regimen) 81 mg PO DAILY heart 04/05/22 [History Last Taken 11/25/23] diphenhydramine 25 mg-acetaminophen 500 mg tablet (Tylenol PM Extra Strength) 1 tab PO QHS PRN pain 04/05/22 [History Last Taken Unknown] lisinopril 40 mg tablet 40 mg PO DAILY blood pressure 04/05/22 [History Last Taken 12/01/23] atorvastatin 40 mg tablet (Lipitor) 40 mg PO DAILY cholesterol #90 tabs 04/05/23 [Rx Last Taken Unknown] albuterol sulfate 2.5 mg/3 mL (0.083 %) solution for nebulization 2.5 mg (3 mL) continuous nebulization Q6H PRN shortness of breath or wheezing #3 mL 05/08/23 [Clinic Last Taken 12/01/23] albuterol sulfate 90 mcg/actuation aerosol inhaler 2 puff inhalation Q6H PRN shortness of breath or wheezing 60 days #8.5 grams 05/08/23 [Rx Last Taken Unknown] inhalational spacing device (Aerochamber MV spacer) #1 ea 05/08/23 [Rx Last Taken Unknown] ipratropium 0.5 mg-albuterol 3 mg (2.5 mg base)/3 mL nebulization soln 3 ml inhalation Q6H PRN shortness of breath or wheezing #180 mL 05/08/23 [Rx Last Taken Unknown] disability placard See Rx Instructions .Route .COMPLEX respiratory failure 11 months #1 unit 05/09/23 [Rx Last Taken Unknown] Disability Placard #1 ea 05/10/23 [Rx Last Taken Unknown] venlafaxine 150 mg capsule,extended release 24 hr 150 mg PO DAILY depression 09/19/23 [History Last Taken 12/01/23] dexamethasone 4 mg tablet 4 mg PO BID steroid #6 tabs 11/23/23 [Rx Last Taken Unknown] folic acid 1 mg tablet 1 mg PO DAILY supplement #90 tabs 11/23/23 [Rx Last Taken Unknown] lidocaine-prilocaine 2.5 %-2.5 % topical cream 1 applic topical ONCE PRN port access 30 days #30 grams 11/23/23 [Rx Last Taken Unknown] ondansetron 8 mg disintegrating tablet 8 mg PO Q8H PRN nausea and vomiting #30 tabs 11/23/23 [Rx Last Taken Unknown] fluticasone fur. 200 mcg-umeclid 62.5 mcg-vilant 25 mcg inhalat.powder (Trelegy Ellipta) 1 inh inhalation DAILY copd #60 ea 12/06/23 [Rx Last Taken Unknown] budesonide-formoterol HFA 160 mcg-4.5 mcg/actuation aerosol inhaler (Symbicort) 2 puff inhalation BID copd 02/13/24 [History Last Taken Unknown] Allergy/AdvReac Type Severity Reaction Status Date / Time Iodinated Contrast Media Allergy Mild Hives Verified 02/05/24 09:40 Family History Father Hypertension Sister Hypertension Surgical History History of carotid endarterectomy Social History Smoking Status: Former smoker quit date: 10/30/13 pack-years: 40 Smokeless tobacco user: chewing tobacco alcohol intake: current alcohol intake frequency: a few times a week ROS ROS Narrative 10 systems were reviewed with pertinent positives as noted in the HPI above. Physical Exam Const alert and no apparent distress Constitutional Narrative: Family is present at the bedside. General Appearance: cooperative HEENT normocephalic and head/scalp atraumatic Eyes PERRL and EOMs intact bilaterally Neck supple General: trachea midline Chest inspection of chest normal Resp normal respiratory effort Auscultation: diminished lung sounds; Negative for rales, rhonchi or wheezes Cardio regular rate and regular rhythm GI normal to inspection, nondistended, normoactive bowel sounds Extremity no clubbing, cyanosis or edema Skin no rashes or lesions noted Neuro CN's II-XII intact bilaterally, moves all extremities and no focal motor deficits Psych cooperative and affect normal Medical Records Data Medical Nutrition Assessment Dietitian: Malnutrition Criteria Met Start: 02/13/24 15:47 Freq: Status: Active Protocol: Document 02/13/24 15:47 RMA (Rec: 02/13/24 15:47 RMA [id number]) Nutrition Malnutrition Evidence of Malnutrition Exists Yes Malnutrition (moderate): Acute Illness/Injury Evidenced By Suboptimal Energy Intake ( Moderate),Weight Loss ( Moderate) Clinical Problem Acute Disease or Injury Related Malnutrition Etiology Moderate pro-giovanny malnutrition in the context of acute illness related to inadequate oral intake and difficulty swallowing Signs/Symptoms as evidenced by ~4% unintentional weight in less than 1 month and PO meeting less than 50-75% estimated nutrition needs x 1 month; currently on full liquid diet Status Active Problem Recommendation Dietitian Recommendations/Changes Recommend advance diet as tolerated to liberalized regular diet with consistency/ texture as per FLARE MAKER. Will add 240mL ensure plus HP BID w/ breakfast and dinner trays. Additional ONS as needed once PO better established with meals. Monitor blood glucose levels and need to restrict dietary carbohydrates. Lab / Micro Data 02/19/24 06:40 02/19/24 06:40 Labs: Laboratory Results - last 24 hr 02/18/24 05:47: Plt Count 43 L* 02/19/24 06:40: WBC 2.6 L, RBC 2.92 L, Hgb 8.5 L, Hct 24.9 L, MCV 85.3, MCH 29.1, MCHC 34.1, RDW Std Deviation 55.0 H, RDW Coeff of Cornelius 17.8 H, Plt Count 61 L, MPV 10.4, Immature Gran % (Auto) 1.100 H, Neut % (Auto) 61.5, Lymph % (Auto) 15.6 L, [place] % (Auto) 21.8 H, Eos % (Auto) 0.0, Baso % (Auto) 0.0, Absolute Neuts (auto) 1.6 L, Absolute Lymphs (auto) 0.41 L, Nucleated RBC % 0.8, Diff Path Review February, Sodium 136, Potassium 3.3 L, Chloride 98, Carbon Dioxide 32.0, Anion Gap 6, BUN 17, Creatinine 0.59 L, Estim Creat Clear Calc 80.33, Est GFR (MDRD) Af Amer 175, Est GFR (MDRD) Non-Af 145, BUN/Creatinine Ratio 28.9 H, Glucose 140 H, Calcium 7.5 L, Phosphorus 2.8, Magnesium 1.0 L Charges/Coding Visit Charges Inpatient E&M: 13861 Init Hosp L2
--- NOTE | 2024-02-19 13:07 | PCM.CONS.GEN ---
Assessment & Plan Assessment/Plan (1) Adenocarcinoma of lower lobe of right lung: (2) COPD exacerbation: PLAN: Overall improved, will stop abx tomorrow. No fever, not neutropenic. Back to baseline O2. Shingles on L chest appears to be improving. Will follow as needed, thank you HPI Consult Data Date of Consult: 02/19/24 HPI Narrative Reason for Consultation: pneumonia HPI Narrative: HAYDEN MOREIRA, is a 69 M with end stage COPD on 5L/NC at home, on chemo for NSCLC. Transferred here 02/11 with about a week of worsened cough, dyspnea, brown/purple sputum, fatigue, and chills. Admitted on azithro/ceftriaxone after zosyn at OSH. Had EGD done 02/15, concern for esophageal candidiasis seen. Started on nystatin. Seen by pulm this AM. Azithro stopped. Overall feeling better, back to baseline 5L. Also with shingles on L chest/back, improving, no pain. Full ROS performed and neg except as noted above. [facility] Medical History Anemia Anxiety Bilateral carotid artery stenosis Cancer Cardiology follow-up encounter Chronic obstructive pulmonary disease Chronic respiratory failure with hypoxia Dehydration Encounter for education Encounter for vitamin B12 injection while on pemetrexed chemotherapy Essential hypertension Former smoker High cholesterol History of echocardiogram History of stress test Hyperlipidemia Hypokalemia Lesion of nasal mucosa On home oxygen therapy Prerenal azotemia Rib pain on right side Shortness of breath on exertion Wears dentures Wears glasses Home Medications aspirin 81 mg tablet,delayed release (Adult Aspirin Regimen) 81 mg PO DAILY heart 04/05/22 [History Last Taken 11/25/23] diphenhydramine 25 mg-acetaminophen 500 mg tablet (Tylenol PM Extra Strength) 1 tab PO QHS PRN pain 04/05/22 [History Last Taken Unknown] lisinopril 40 mg tablet 40 mg PO DAILY blood pressure 04/05/22 [History Last Taken 12/01/23] atorvastatin 40 mg tablet (Lipitor) 40 mg PO DAILY cholesterol #90 tabs 04/05/23 [Rx Last Taken Unknown] albuterol sulfate 2.5 mg/3 mL (0.083 %) solution for nebulization 2.5 mg (3 mL) continuous nebulization Q6H PRN shortness of breath or wheezing #3 mL 05/08/23 [Clinic Last Taken 12/01/23] albuterol sulfate 90 mcg/actuation aerosol inhaler 2 puff inhalation Q6H PRN shortness of breath or wheezing 60 days #8.5 grams 05/08/23 [Rx Last Taken Unknown] inhalational spacing device (Aerochamber MV spacer) #1 ea 05/08/23 [Rx Last Taken Unknown] ipratropium 0.5 mg-albuterol 3 mg (2.5 mg base)/3 mL nebulization soln 3 ml inhalation Q6H PRN shortness of breath or wheezing #180 mL 05/08/23 [Rx Last Taken Unknown] disability placard See Rx Instructions .Route .COMPLEX respiratory failure 11 months #1 unit 05/09/23 [Rx Last Taken Unknown] Disability Placard #1 ea 05/10/23 [Rx Last Taken Unknown] venlafaxine 150 mg capsule,extended release 24 hr 150 mg PO DAILY depression 09/19/23 [History Last Taken 12/01/23] dexamethasone 4 mg tablet 4 mg PO BID steroid #6 tabs 11/23/23 [Rx Last Taken Unknown] folic acid 1 mg tablet 1 mg PO DAILY supplement #90 tabs 11/23/23 [Rx Last Taken Unknown] lidocaine-prilocaine 2.5 %-2.5 % topical cream 1 applic topical ONCE PRN port access 30 days #30 grams 11/23/23 [Rx Last Taken Unknown] ondansetron 8 mg disintegrating tablet 8 mg PO Q8H PRN nausea and vomiting #30 tabs 11/23/23 [Rx Last Taken Unknown] fluticasone fur. 200 mcg-umeclid 62.5 mcg-vilant 25 mcg inhalat.powder (Trelegy Ellipta) 1 inh inhalation DAILY copd #60 ea 12/06/23 [Rx Last Taken Unknown] budesonide-formoterol HFA 160 mcg-4.5 mcg/actuation aerosol inhaler (Symbicort) 2 puff inhalation BID copd 02/13/24 [History Last Taken Unknown] Allergy/AdvReac Type Severity Reaction Status Date / Time Iodinated Contrast Media Allergy Mild Hives Verified 02/05/24 09:40 Family History Father Hypertension Sister Hypertension Surgical History History of carotid endarterectomy Social History Smoking Status: Former smoker quit date: 10/30/13 pack-years: 39 Smokeless tobacco user: chewing tobacco alcohol intake: current alcohol intake frequency: a few times a week Physical Exam Const alert and no apparent distress General Appearance: cooperative HEENT normocephalic and head/scalp atraumatic Eyes PERRL and EOMs intact bilaterally Neck supple and No nodes Resp clear to auscultation bilaterally Auscultation: diminished lung sounds Cardio regular rate and regular rhythm GI soft to palpation, non-tender and non-distended Extremity General Extremity: Negative for edema Skin Skin Narrative: L mid thorax scabbed lesions along dermatome. Neuro CN's II-XII intact bilaterally Medical Records Data Medical Nutrition Assessment Dietitian: Malnutrition Criteria Met Start: 02/13/24 15:47 Freq: Status: Active Protocol: Document 02/13/24 15:47 RMA (Rec: 02/13/24 15:47 RMA [id number]) Nutrition Malnutrition Evidence of Malnutrition Exists Yes Malnutrition (moderate): Acute Illness/Injury Evidenced By Suboptimal Energy Intake ( Moderate),Weight Loss ( Moderate) Clinical Problem Acute Disease or Injury Related Malnutrition Etiology Moderate pro-giovanny malnutrition in the context of acute illness related to inadequate oral intake and difficulty swallowing Signs/Symptoms as evidenced by ~4% unintentional weight in less than 1 month and PO meeting less than 50-75% estimated nutrition needs x 1 month; currently on full liquid diet Status Active Problem Recommendation Dietitian Recommendations/Changes Recommend advance diet as tolerated to liberalized regular diet with consistency/ texture as per PUMP OILER. Will add 240mL ensure plus HP BID w/ breakfast and dinner trays. Additional ONS as needed once PO better established with meals. Monitor blood glucose levels and need to restrict dietary carbohydrates. Lab / Micro Data Attestation: I reviewed the patient's lab results. 02/19/24 06:40 02/19/24 06:40 Labs: Laboratory Results - last 24 hr 02/18/24 05:47: Plt Count 43 L* 02/19/24 06:40: WBC 2.6 L, RBC 2.92 L, Hgb 8.5 L, Hct 24.9 L, MCV 85.3, MCH 29.1, MCHC 34.1, RDW Std Deviation 55.0 H, RDW Coeff of Cornelius 17.8 H, Plt Count 61 L, MPV 10.4, Immature Gran % (Auto) 1.100 H, Neut % (Auto) 61.5, Lymph % (Auto) 15.6 L, Porter % (Auto) 21.8 H, Eos % (Auto) 0.0, Baso % (Auto) 0.0, Absolute Neuts (auto) 1.6 L, Absolute Lymphs (auto) 0.41 L, Nucleated RBC % 0.8, Diff Path Review February, Sodium 136, Potassium 3.3 L, Chloride 98, Carbon Dioxide 32.0, Anion Gap 6, BUN 17, Creatinine 0.59 L, Estim Creat Clear Calc 80.33, Est GFR (MDRD) Af Amer 175, Est GFR (MDRD) Non-Af 145, BUN/Creatinine Ratio 28.9 H, Glucose 140 H, Calcium 7.5 L, Phosphorus 2.8, Magnesium 1.0 L
[2024-02-19 13:57] LABS: Pathologist Review Reviewed
[2024-02-19 14:03] LABS: Pathologist Review Reviewed
[2024-02-19 16:15] LABS: Pathologist Review Reviewed
--- NOTE | 2024-02-19 17:39 | EX.PCM.PN.GI ---
Subjective Subjective Patient continues to do well after esophageal dilation. He is tolerating a diet. Objective Data Objective Data Vital Signs: Vital Signs Temp Pulse Resp BP Pulse Ox O2 Del Method O2 Flow Rate 97.6 F L 97 18 152/82 H 98 Nasal Cannula 5 02/19/24 14:30 02/19/24 14:30 02/19/24 14:30 02/19/24 14:30 02/19/24 14:30 02/19/24 14:30 02/19/24 14:30 FiO2 30 02/19/24 03:49 Oxygen Flow Rate (L/min) 5 Oxygen Delivery Method Nasal Cannula Weight: 155 lb 13.869 oz Body Mass Index (BMI) 24.4 Intake & Output: Intake and Output for Last 24 Hours 02/17/24 02/18/24 02/19/24 23:59 23:59 23:59 Intake Total 4496.67 / 4696.67 3310.00 / 3310.00 1761.67 / 1761.67 Output Total 2400 / 3000 2850 / 2850 2650 / 2650 Balance 2096.67 / 1696.67 460.00 / 460.00 -888.33 / -888.33 Medical Nutrition Assessment Dietitian: Malnutrition Criteria Met Start: 02/13/24 15:47 Freq: Status: Active Protocol: Document 02/13/24 15:47 RMA (Rec: 02/13/24 15:47 RMA [id number]) Nutrition Malnutrition Evidence of Malnutrition Exists Yes Malnutrition (moderate): Acute Illness/Injury Evidenced By Suboptimal Energy Intake ( Moderate),Weight Loss ( Moderate) Clinical Problem Acute Disease or Injury Related Malnutrition Etiology Moderate pro-giovanny malnutrition in the context of acute illness related to inadequate oral intake and difficulty swallowing Signs/Symptoms as evidenced by ~4% unintentional weight in less than 1 month and PO meeting less than 50-75% estimated nutrition needs x 1 month; currently on full liquid diet Status Active Problem Recommendation Dietitian Recommendations/Changes Recommend advance diet as tolerated to liberalized regular diet with consistency/ texture as per HEADMASTER/MISTRESS. Will add 240mL ensure plus HP BID w/ breakfast and dinner trays. Additional ONS as needed once PO better established with meals. Monitor blood glucose levels and need to restrict dietary carbohydrates. Lab / Micro Data 02/19/24 06:40 02/19/24 06:40 Labs: Laboratory Results - last 24 hr 02/16/24 06:15: Diff Path Review Reviewed 02/17/24 07:59: Diff Path Review Reviewed 02/18/24 05:47: Plt Count 43 L* 02/19/24 06:40: WBC 2.6 L, RBC 2.92 L, Hgb 8.5 L, Hct 24.9 L, MCV 85.3, MCH 29.1, MCHC 34.1, RDW Std Deviation 55.0 H, RDW Coeff of Cornelius 17.8 H, Plt Count 61 L, MPV 10.4, Immature Gran % (Auto) 1.100 H, Neut % (Auto) 61.5, Lymph % (Auto) 15.6 L, Taliaferro % (Auto) 21.8 H, Eos % (Auto) 0.0, Baso % (Auto) 0.0, Absolute Neuts (auto) 1.6 L, Absolute Lymphs (auto) 0.41 L, Nucleated RBC % 0.8, Sodium 136, Potassium 3.3 L, Chloride 98, Carbon Dioxide 32.0, Anion Gap 6, BUN 17, Creatinine 0.59 L, Estim Creat Clear Calc 80.33, Est GFR (MDRD) Af Amer 175, Est GFR (MDRD) Non-Af 145, BUN/Creatinine Ratio 28.9 H, Glucose 140 H, Calcium 7.5 L, Phosphorus 2.8, Magnesium 1.0 L Micro: Microbiology 02/13/24 02:20 Urine, Random Legionella Antigen - Final 02/13/24 02:20 Urine, Random Streptococcus pneumoniae Antigen (M - Final Physical Exam Const alert and no apparent distress General Appearance: cooperative HEENT normocephalic and head/scalp atraumatic Eyes PERRL and EOMs intact bilaterally Neck supple and No nodes Resp clear to auscultation bilaterally Auscultation: diminished lung sounds Cardio regular rate and regular rhythm GI soft to palpation, non-tender and non-distended Extremity General Extremity: Negative for edema Skin Skin Narrative: L mid thorax scabbed lesions along dermatome. Neuro CN's II-XII intact bilaterally Assessment & Plan Assessment/Plan (1) Anemia: PLAN: Patient had blood in his mouth from a nosebleed secondary to pain in the oxygen in his nose. That has stopped. The underwent egd yesterday for dysphagia and anemia. Findings: The nasopharynx and oropharynx are abnormal. Diffuse, white plaques were found in the upper third of the esophagus. Biopsies were taken with a cold forceps for histology. Verification of patient identification for the specimen was done. Estimated blood loss was minimal. One benign-appearing, intrinsic moderate (circumferential scarring or stenosis; an endoscope may pass) stenosis was found 20 to 22 cm from the incisors. The stenosis was traversed. A guidewire was placed and the scope was withdrawn. Dilation was performed with a Savary dilator with no resistance at 45 Fr. The dilation site was examined and showed moderate mucosal disruption. Estimated blood loss was minimal. Hematin (altered blood/kxjpar-tlqzdc-lffi material) was found in the gastric body. Three non-bleeding linear duodenal ulcers with pigmented material were found in the duodenal bulb. The largest lesion was 4 mm in largest dimension. Coagulation for hemostasis using heater probe was successful. Estimated blood loss was minimal. Impression: - The nasopharynx and oropharynx are abnormal. - Esophageal plaques were found, consistent with candidiasis. Biopsied. - Benign-appearing esophageal stenosis. Dilated. - Hematin (altered blood/guoljo-coeukm-kjjx material) in the gastric body. - Non-bleeding duodenal ulcers with pigmented material. Treated with a heater probe. Recommendation: - Return patient to hospital [facility] for ongoing care. - Advance diet as tolerated. - Nystatin suspension 100,000 units PO QID for 2 weeks. - Continue present medications. 02/18/24-patient continues to improve. Hemoglobin seems to be stable at 8 today. Recommend colonoscopy when medically stable. Continue treating for Brittany esophagitis. 02/19/24-hemoglobin trends up to 8.5 today. This is the highest that is been since his hospital admission. He still on nystatin swish and swallow. Continue to monitor hemoglobin. Charges/Coding Visit Charges Inpatient E&M: [id number] [facility] Hosp L3
[2024-02-19] MEDS: Pantoprazole Sodium 40 MG Tablet PO (18:41)
[2024-02-19] MEDS: Potassium Chloride Oral Tablet 20 MEQ 40 MEQ PO (18:41)
[2024-02-19] MEDS: BMX LIQUID 180 ML 15 ML PO ×2 (18:41→22:37)
[2024-02-19] MEDS: MELATONIN 10 MG TABLET PO (22:29)
[2024-02-19] MEDS: Atorvastatin Calcium 40 MG Tablet PO (22:29)
[2024-02-19] MEDS: 0.9% Saline Lock 10 ML Syringe IV (22:33)
[2024-02-19] MEDS: Ceftriaxone 1 GM/50 ML BAG IV (22:44)
[2024-02-20] VITALS (14 sets, daily range): BP systolic 112–148; BP diastolic 72–91; PULSE 78–96; RESP 14–22; TEMP 36.2–36.4; O2SAT 5–100
[2024-02-20] MEDS: BMX LIQUID 180 ML 15 ML PO ×5 (05:42→21:37)
[2024-02-20] MEDS: Ipratropium/Albuterol Sulfate 3 ML AMPUL.NEB INHALATION ×4 (07:43→19:05)
[2024-02-20 08:33] LABS: Absolute Lymphocyte Count 0.55 X10^3/uL (0.83-4.51); Basophil# 0.01 X10^3/uL; Basophil% 0.2 % (0-1); Hematocrit 26.8 % (40-54); Hemoglobin 9.3 g/dL (13.0-16.5); Lymphocyte # 0.55 X10^3/ul (0.83-4.51); Lymphocyte % 12.7 % (19-41); Mean Corp Hgb Conc 34.7 g/dL (32-36); Mean Corpuscular Hgb 29.6 pg (27.0-32.0); Mean Corpuscular Volume 85.4 fL (80-94); Mean Platelet Vol. 10.8 fl (6.2-12.0); Monocyte# 0.64 X10^3/uL; Monocyte% 14.8 % (0-10); NRBC Flagged by Analyzer 0 % (0-5); Neutrophil # 2.97 X10^3/uL (2.7-7.7); Neutrophil % 68.6 % (47-70); POSITIVE COUNT YES; POSITIVE DIFFERENTIAL YES; Platelet Count 99 K/mm3 (150-450); RBC Distribution Width CV 17.6 % (11.6-14.6); Red Blood Count 3.14 M/mm3 (4.6-6.2); White Blood Count 4.3 K/mm3 (4.4-11.0)
[2024-02-20 08:40] LABS: Differential Indicated SCAN CRITERIA MET
[2024-02-20] MEDS: Folic Acid 1 MG Tablet PO (08:43)
[2024-02-20] MEDS: Lisinopril 40 MG Tablet PO (08:43)
[2024-02-20] MEDS: Aspirin E.C. 81 MG Tablet PO (08:44)
[2024-02-20] MEDS: Lidocaine 5% Patch 1 PATCH TOPICAL (08:47)
[2024-02-20] MEDS: Potassium Chloride Oral Tablet 20 MEQ 40 MEQ PO (08:47)
[2024-02-20] MEDS: Venlafaxine XR 150 MG Capsule PO (08:47)
[2024-02-20] MEDS: Pantoprazole Sodium 40 MG Tablet PO (08:48)
[2024-02-20 08:58] LABS: Anion Gap 6 (5-15); BUN 15 mg/dL (7-18); Calcium,Total 7.7 mg/dL (8.5-10.1); Chloride 96 mmol/L (98-107); Creatinine, Serum 0.58 mg/dL (0.70-1.30); EST Glomerular Filtration Rate 148 mL/min (>60); Est Glom Filt Rate - Afr Amer 179 mL/min (>60); Estimated Creatinine Clearance 80.33 ml/min; Glucose 128 mg/dL (74-106); Potassium 3.5 mmol/L (3.5-5.1); Sodium Level 135 mmol/L (136-145)
--- NOTE | 2024-02-20 09:22 | ST.MBS ---
Modified Barium Swallow Patient Information Study Date: 02/20/24 Study Time: 09:30 Direct Billable Minutes: 82 Total Minutes procedure & reportin Diagnosis: Severe sepsis A41.9, COPD J44.9 Referring Physician: Sekou Donaldson Reason for Referral: Objectively assess swallow function, assess risk for aspiration, and determine recommendations for least restrictive diet textures and compensatory strategies to improve safety of swallow. Medical History: PMH: Adenocarcinoma of lower lobe of right lung s/p palliative chemoimmunotherapy 12/04/23 and 01/15/24, Anemia, Anxiety, Bilateral carotid artery stenosis, COPD, Chronic respiratory failure with hypoxia, Dehydration, HTN, Former smoker, High cholesterol, HLD, Lesion of nasal mucosa, Home O2 therapy, SOB on exertion (See EMR for full PMH) He presented to [facility] as direct admission from an outside hospital on 02/12/24. He was recently admitted to the outside hospital on 02/09/2024 to 02/10/2024 for COPD exacerbation. Per the ED physician at that hospital ,he was only on steroids. On 02/12/24, he had fever, chills, sputum production, and increasing SOB requiring BiPAP. Pt was also started on Zosyn. He also had climbing troponin and tachycardia. He was admitted for management of sepsis, PNA, Acute on chronic hypoxic respiratory failure, and COPD exacerbation amongst many other complicating comorbidities. Pt was referred for ST due to concern for swallowing difficulty and aspiration risk given his PMH. He was recommended for MBSS by ST after BSE 02/13/24 revealed delayed, weak coughing to rule out concern for aspiration. MBSS 02/13/24 revealed moderate-severe pharyngoesophageal dysphagia and recommended the following diet and strategies: Thin Liquids (Full Liquid diet [Patient is ok for the puree consistencies on this diet - pudding, yogurt, cream of wheat, oatmeal]) - Small Bites, Small Sips, Slow Rate, Chin Tuck (w/ bites and sips), Multiple Swallows, Alternate bites/solids and sips/liquids (1:1 ratio), Sitting upright and Remain sitting upright for 30 minutes after PO intake; 1:1 Close Supervision (okay for ice chips and water [w/ no other food or drink] at bedside between meals AND after oral care. Repeat MBSS recommended if the patient underwent GI intervention to address poor UES opening/duration. 02/14/24 patient underwent EGD w/ esophageal dilation of esophageal stenosis. Additional findings from EGD include esophageal plaques consistent with candidiasis, hematin in the gastric body, and nonbleeding duodenal ulcers (treated w/ a heater probe). He has had reported improvements in diet tolerance and, per RN, is able to take sips by the cup with improved diet tolerance. Current Diet Ordered: Minced and moist textures / Thin liquids Dentition: Missing Teeth Mental Status: WNL Respiratory Status: Oxygenating on 4L/M nasal cannula (6L via nasal cannula) Penetration-Aspiration Scale Penetration-Aspiration Scale: OBJECTIVE ASSESSMENT OF SWALLOW FUNCTION (QUANTITATIVE ? PER TRIAL): PENETRATION / ASPIRATION SCALE (LUZ): 1 = does not enter airway 2 = enters airway/above vocal folds/ejected 3 = enters airway/above vocal folds/not ejected 4 = enters airway/contacts vocal folds/ejected 5 = enters airway/contacts vocal folds/not ejected 6 = enters airway/below vocal folds/ejected 7 = enters airway/below vocal folds/not ejected despite effort 8 = enters airway/below vocal folds/no effort VIDEOFLOROSCOPIC SCALE SCORE (LUZ): Grade I = aspiration of material that has penetrated into the laryngeal vestibule, intact cough reflex Grade II = aspiration < 10 % of the bolus, intact cough reflex Grade III = aspiration of < 10 % of the bolus, reduced cough reflex or aspiration of > 10 % of the bolus, intact cough reflex Grade IV = aspiration of > 10 % of the bolus, reduced cough reflex Penetration-Aspiration Scale Score Thin Liquid via teaspoon: Result: 1= does not enter airway Thin Liquid via teaspoon Trial 2: Result: 1= does not enter airway Thin Liquid via small single sip: cup: Result: 5= enters airways/contacts vocal folds/not ejected (trace) Freer Thick Liquid via small single sip: cup: Result: 2= enter airway/above vocal folds/ejected Comment: Post prandial aspiration of previous trial seen prior to this swallow. Thin barium residue spilled from the pyriform sinuses to the airway with reflexive cough response. Pudding via teaspoon: Result: 2= enter airway/above vocal folds/ejected Comment: Trace post prandial penetration of previous trial seen on the vocal folds. Esophageal screen - brief retention of barium pudding in the mid esophagus with retrograde flow, then complete clearance. 1/2 Stone with barium pudding coating: Result: 3= enters airways/above vocal folds/not ejected (trace - barium pudding coating) Thin Liquid via single sip: straw: Result: 5= enters airways/contacts vocal folds/not ejected (trace) Thin Liquid via single sip: straw Chin tuck: Result: 4= enters airway/contacts vocal folds/ejected (trace) Comment: Reflexive cough fully cleared penetrated barium from the laryngeal vestibule. Oral Phase Labial Seal: Escape beyond interlabial space; no extension beyond zoe border Tongue Control During Bolus Hold: Posterior escape of greater than half of bolus Bolus Preparation/Mastication: Slow prolonged chewing/mashing with complete recollection Bolus Transport/Lingual Motion: Slowed tongue motion Oral Residue: Residue collection on oral structures Pharyngeal Phase Initiation of Pharyngeal Swallow: Bolus head in pyriforms Soft Palate Elevation: No bolus between soft palate and pharyngeal wall Laryngeal Elevation: Partial superior movement thyroid cart/partial apprx aryt-epig petiole Anterior Hyoid Excursion: No anterior movement Epiglottic Movement: No inversion Laryngeal Vestibule Closure at Height of Swallow: Incomplete; narrow column of air/contrast in laryngeal vestibule Pharyngeal Stripping Wave: Present - diminished Pharyngoesophageal Segment Opening: Parital distension and partial duration; parital obstruction of flow Tongue Base Retraction: Wide column of contrast between tongue base & post. pharyngeal wall Pharyngeal Residue: Collection of residue within or on pharyngeal structures Esophageal Phase Esophageal Clearance: Complete clearance (brief retention with retrograde flow, which fully cleared during the esophageal screen) Treatment Strategies Effects of treatment strategies attemped:: Chin tuck = somewhat effective. Cough and re-swallow = somewhat effective. Diagnosis/Impression Diagnosis: Mild oral dysphagia R13.11; Moderate pharyngoesophageal dysphagia R13.14 Impression: The oral phase is primarily marked by... -Premature posterior loss of >1/2 of thin liquid trials to the pyriforms prior to swallow onset. -Piecemeal deglutition of cookie and pudding requiring multiple swallows to clear majority of oral residues. -Slowed, delayed A-P transport. -Slowed, but complete mastication of cookie. The pharyngeal phase is primarily marked by... -Decreased airway closure due to no anterior hyoid excursion, partial laryngeal elevation, and no epiglottic inversion. -Moderate pharyngeal residues in the vallecula and pyriforms due to poor tongue base retraction, as well as decreased pharyngeal stripping wave and UES opening/duration. Chin tuck was somewhat effective in clearing pharyngeal residues. -Post prandial aspiration of thin liquids seen spilling from the pyriforms with reflexive cough response. Consistent, trace laryngeal penetration of thin liquids throughout the study. Use of chin tuck was somewhat effective in decreasing amount/depth of laryngeal penetration. Recommendations Diet: Mechanical Soft Textures (Soft and bite size textures - IDDSI Level 6) and Thin Liquids Comment: Fazal Free Water Protocol to promote good hydration (Ok for water w/o consistent use of strategies when water is consumed by itself, after oral care, 30 min after any other food and drink). Compensatory Strategies: Small Bites, Small Sips (Intermittent cough and re-swallow), Slow Rate, Chin Tuck (bites and sips - especially if sensing pharyngeal retention of foods), Alternate bites/solids and sips/liquids, Sitting upright and Remain sitting upright for 30 minutes after PO intake Supervision: Distant Supervision Recommend Repeat Modified Barium Swallow: TBD Need for Skilled Speech Therapy Services: Yes Comment: -Oropharyngeal exercise program to improve tongue base retraction, pharyngeal motility, airway closure, and UES opening/duration (Rhona Albert, CTAR, Effortful breath hold and swallow, Shaker). -Ongoing assessment of diet tolerance and implementation of FFWP at next level of care. Patient is anticipating discharging to a rehab floor. -Ok to trial regular or easy to chew textures with ROLL CLAMP OPERATOR at bedside to consider further diet advancement. Education Completed: 1. Described result of evaluation., 2. Pt understands evaluation & agrees with goals and treatment plan. and 7. Pt requires further education on strategies & risks. Status Active ST Patient: Active Contact Information [facility] Speech Therapy:: Lis Stapleton M.A. [facility]-ROLL CLAMP OPERATOR Speech-Language Pathologist [facility] [address] [place] [address] [email or web address] [phone]
[2024-02-20] MEDS: NYSTATIN 500,000 UNIT/5 ML UDC 500000 UNIT PO ×4 (11:54→21:38)
--- NOTE | 2024-02-20 14:09 | PCM.PN.HOSP ---
Reason for Visit Reason for Visit: Diagnoses Sepsis, unspecified organism (02/12/24) Malignant neoplasm of lower lobe, right bronchus or lung (02/12/24) Anemia, unspecified (02/12/24) Chronic obstructive pulmonary disease with (acute) exacerbation (02/12/24) Severe sepsis without septic shock (02/12/24) Objective Data Objective Data Vital Signs: Vital Signs Temp Pulse Resp BP Pulse Ox O2 Del Method O2 Flow Rate 97.2 F L 96 18 146/83 H 100 Nasal Cannula 6 02/20/24 11:52 02/20/24 11:52 02/20/24 11:52 02/20/24 11:52 02/20/24 11:54 02/20/24 11:52 02/20/24 11:54 FiO2 30 02/20/24 03:44 Oxygen Flow Rate (L/min) 6 Oxygen Delivery Method Nasal Cannula Weight: 155 lb 13.869 oz Body Mass Index (BMI) 24.4 Intake & Output: Intake and Output for Last 24 Hours 02/18/24 02/19/24 02/20/24 23:59 23:59 23:59 Intake Total 3310.00 / 3310.00 2211.67 / 2211.67 420 / 420 Output Total 2850 / 2850 4150 / 4150 1900 / 1900 Balance 460.00 / 460.00 -1938.33 / -1938.33 -1480 / -1480 Medical Nutrition Assessment Dietitian: Malnutrition Criteria Met Start: 02/13/24 15:47 Freq: Status: Active Protocol: Document 02/13/24 15:47 RMA (Rec: 02/13/24 15:47 RMA [id number]) Nutrition Malnutrition Evidence of Malnutrition Exists Yes Malnutrition (moderate): Acute Illness/Injury Evidenced By Suboptimal Energy Intake ( Moderate),Weight Loss ( Moderate) Clinical Problem Acute Disease or Injury Related Malnutrition Etiology Moderate pro-giovanny malnutrition in the context of acute illness related to inadequate oral intake and difficulty swallowing Signs/Symptoms as evidenced by ~4% unintentional weight in less than 1 month and PO meeting less than 50-75% estimated nutrition needs x 1 month; currently on full liquid diet Status Active Problem Recommendation Dietitian Recommendations/Changes Recommend advance diet as tolerated to liberalized regular diet with consistency/ texture as per SURVEYOR HYDROGRAPHIC. Will add 240mL ensure plus HP BID w/ breakfast and dinner trays. Additional ONS as needed once PO better established with meals. Monitor blood glucose levels and need to restrict dietary carbohydrates. Lab / Micro Data 02/20/24 08:00 02/20/24 08:00 Labs: Laboratory Results - last 24 hr 02/20/24 08:00: WBC 4.3 L, RBC 3.14 L, Hgb 9.3 L, Hct 26.8 L, MCV 85.4, MCH 29.6, MCHC 34.7, RDW Std Deviation 54.0 H, RDW Coeff of Cornelius 17.6 H, Plt Count 99 L, MPV 10.8, Immature Gran % (Auto) 3.700 H, Neut % (Auto) 68.6, Lymph % (Auto) 12.7 L, [place] % (Auto) 14.8 H, Eos % (Auto) 0.0, Baso % (Auto) 0.2, Absolute Neuts (auto) 3.0, Absolute Lymphs (auto) 0.55 L, Nucleated RBC % 0, Differential Comment , Sodium 135 L, Potassium 3.5, Chloride 96 L, Carbon Dioxide 33.0 H, Anion Gap 6, BUN 15, Creatinine 0.58 L, Estim Creat Clear Calc 80.33, Est GFR (MDRD) Af Amer 179, Est GFR (MDRD) Non-Af 148, BUN/Creatinine Ratio 26.0 H, Glucose 128 H, Calcium 7.7 L Micro: Microbiology 02/13/24 02:20 Urine, Random Legionella Antigen - Final 02/13/24 02:20 Urine, Random Streptococcus pneumoniae Antigen (M - Final Physical Exam Narrative Seen and examined. Patient had chemotherapy about 1.5-2 weeks ago. S sore throat, mild painful swallowing/odynophagia is better. Frail General: Alert, Oriented x3, Cooperative, BMI 24.4 kg/m?. Frail/fatigued HEENT: Atraumatic, PERRLA, EOMI, Normocephalic Oral: White patch over base of tongue/soft palate. Erythematous/mucositis. Neck: Supple, No JVD, Negative Carotid Bruits Chest wall/Lungs: Air entry diminished in bilateral lung bases. Mild coarse crepitation. On 5-6 oxygen at rest. Dyspnea on mild exertion Cardiovascular: Regular rate, Regular Rhythm, Normal S1, Normal S2, No M/G/R Abdomen: Bowel Sounds Present, Soft, Non Tender, Non-Distended : No dysuria. No renal angle tenderness. No suprapubic tenderness. Extremities: No edema, Capillary Refill Less than 3 Seconds Skin: Shingles rash on the left upper chest posterior laterally Musculoskeletal: No Tenderness to Palpation of Joints or Extremities Neurological: Cranial nerves II-XII grossly intact, DTR 2+/4. No acute focal neurological deficit. Psych/Mental Status: Flat affect Assessment & Plan Assessment/Plan (1) Severe sepsis: PLAN: Plan Patient is a 69-year-old gentleman transferred from an outside hospital with progressive shortness of breath. An assessment of severe sepsis secondary to pneumonia made admitted to a monitored bed for further management 1. Severe sepsis secondary to pneumonia ? Patient admitted to monitored bed treatment initiated per protocol with IV fluid resuscitation, broad-spectrum antibiotic therapy after cultures have been sent. Response to therapy monitored with serial lactic acid levels ? 02/16/2024 CT of the chest obtained on 02/14/2024 demonstrated dense consolidation in the right lower lobe. Patient previously counseled and now will continue with antibiotic therapy. 02/18: Admitted with azithromycin insect reaction after Zosyn at OSH. ID consult was done and reviewed. Plan for stopping antibiotic tomorrow. No fever, not neutropenic. Shingles on left chest appears to be improving. 2. Acute on chronic hypoxic respiratory failure ? Secondary to combination of pneumonia as well as patient underlying lung CA patient was placed on noninvasive ventilation with BiPAP plan is to wean off and transition to nasal cannula ? 02/14/2024 patient remains on high flow oxygen ? 02/15/2024; patient remains on significant amount of oxygen at rest currently 15 L flow per minute 02/18: Pulmonary consult reviewed and appreciated. Patient has chronic hypoxic respiratory failure on baseline 5 L of oxygen. Still gets severe dyspnea with even mild exertion. Started on diuretics. 02/19: Patient completed antibiotic. Oxygen parameters did not change. Lasix 20 mg IV ordered. 3. Elevated D-dimer ? CT of the chest could not be obtained given patient worsening kidney function patient was empirically started on heparin which had to be discontinued in view of significant drop of his platelet count. Did order lower extremity duplex and empirically started on apixaban was waiting for kidney function to improve for patient to undergo CT of the chest -02/14/2024; patient kidney function improved plan is for patient to undergo CT of the chest. Given patient's allergy to iodine plan is to prep patient prior to contrast administration ? 02/15/2024; CTA was negative for VTE apixaban discontinued. Venous duplex also negative for DVT 4. Acute kidney injury ? Patient creatinine from 02/05/2024 was 0.88 creatinine on admission was 1.82 started on hydration potential nephrotoxic medications held monitoring with daily BMPs ordered ? 02/14/2024; kidney function improved ? 02/15/2024; kidney function back to baseline 5. 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 Currently receiving palliative chemo as outpatient 6. COPD ? Placed on bronchodilator treatment as well as systemic steroid in addition to oxygen via NIV 7. Hypertension - Blood pressure controlled, home medications continued with dose adjustment as needed 8. Dyslipidemia -Patient is on statin therapy, continued at home dose 9. Thrombocytopenia ? Suspected to be secondary to recent chemo monitoring with CBC ordered -02/15/2024; patient platelet count continues to drop apixaban discontinued ? 02/17/2024; platelet count down to 30. ? 02/18/2024; patient platelet count trending up. 10. 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 Hemoglobin did drop to 6.5 and order was given for patient to be transfused with 1 unit PRBC ? 02/16/2024 hemoglobin came up to 27 additional units of PRBC transfused 11. Recent varicella zoster infection ? Stable 12. DVT prophylaxis ? Apixaban ? 02/15/2024 discontinued apixaban given his low hemoglobin as well as platelet count SCDs for now 13. Physical deconditioning - Requested for PT OT eval and social science research assistant to assist with discharge planning 14. Back pain ? Did order Lidoderm patch 15. Moderate protein calorie malnutrition -in the context of acute illness related to inadequate oral intake and difficulty swallowing as evidenced by ~4% unintentional weight in less than 1 month and PO meeting less than 50-75% estimated nutrition needs x 1 month; currently on full liquid diet. Recommend advance diet as tolerated to liberalized regular diet with consistency/texture as per SURVEYOR HYDROGRAPHIC. Will add 240mL ensure plus HP BID w/ breakfast and dinner trays. Additional ONS as needed once PO better established with meals. Monitor blood glucose levels and need to restrict dietary carbohydrates Time spent in the patient's overall evaluation,decision-making process, review of diagnostic data, adjustment of management, discussion with other providers, nursing nursing and ancillary staff involved in patient's care documentation, 35 Minutes Clinical Impression(s) from Imaging Studies Venous Doppler Study 02/13/24 10:13 Interpretation Summary Deep veins of the bilateral lower extremities are patent and compressible segmentally. There is no evidence of bilateral lower extremity deep vein thrombosis. The bilateral great saphenous veins appear patent and compressible segmentally. Chest CTA 02/14/24 09:37 IMPRESSION: No evidence of pulmonary embolism. Emphysematous changes with evidence of interstitial scarring. Stable small right pleural effusion with dense consolidation in the right lower lobe. Charges/Coding Visit Charges Inpatient E&M: 89873 Subs Hosp L2
[2024-02-20] MEDS: Furosemide 20 MG/2 ML VIAL IV (15:25)
[2024-02-20] MEDS: BENZOCAINE/MENTHOL 1 LOZENGE MUCOUS MEM ×2 (18:42→21:37)
[2024-02-20] MEDS: MELATONIN 10 MG TABLET PO (21:37)
[2024-02-20] MEDS: Atorvastatin Calcium 40 MG Tablet PO (21:37)
[2024-02-20] MEDS: 0.9% Saline Lock 10 ML Syringe IV (21:38)
[2024-02-21 03:32] VITALS: BP 138/80; PULSE 89; RESP 18; TEMP 36.6; O2SAT 96
[2024-02-21 07:04] LABS: Absolute Lymphocyte Count 0.72 X10^3/uL (0.83-4.51); Absolute Neutrophil Count 5.8 X10^3/uL (2.0-7.7); Basophil# 0.03 X10^3/uL; Basophil% 0.4 % (0-1); Hematocrit 27.7 % (40-54); Hemoglobin 9.4 g/dL (13.0-16.5); Lymphocyte # 0.72 X10^3/ul (0.83-4.51); Lymphocyte % 9.1 % (19-41); Mean Corp Hgb Conc 33.9 g/dL (32-36); Mean Corpuscular Hgb 29.6 pg (27.0-32.0); Mean Corpuscular Volume 87.1 fL (80-94); Mean Platelet Vol. 10.7 fl (6.2-12.0); Monocyte# 1.22 X10^3/uL; Monocyte% 15.4 % (0-10); NRBC Flagged by Analyzer 0 % (0-5); Neutrophil # 5.82 X10^3/uL (2.7-7.7); Neutrophil % 73.6 % (47-70); POSITIVE MORPHOLOGY YES; Platelet Count 139 K/mm3 (150-450); RBC Distribution Width CV 18.5 % (11.6-14.6); RBC Distribution Width SD 57.4 fl (35.1-43.9); Red Blood Count 3.18 M/mm3 (4.6-6.2); White Blood Count 7.9 K/mm3 (4.4-11.0)
[2024-02-21 07:11] VITALS: PULSE 88; RESP 20; O2SAT 99
[2024-02-21] MEDS: Ipratropium/Albuterol Sulfate 3 ML AMPUL.NEB INHALATION ×2 (07:11→10:39)
[2024-02-21 07:17] LABS: Differential Indicated SCAN CRITERIA MET
--- NOTE | 2024-02-21 07:28 | PCM.PN.HOSP ---
Reason for Visit Reason for Visit: Diagnoses Sepsis, unspecified organism (02/12/24) Malignant neoplasm of lower lobe, right bronchus or lung (02/12/24) Anemia, unspecified (02/12/24) Chronic obstructive pulmonary disease with (acute) exacerbation (02/12/24) Severe sepsis without septic shock (02/12/24) Objective Data Objective Data Vital Signs: Vital Signs Temp Pulse Resp BP Pulse Ox O2 Del Method O2 Flow Rate 97.3 F L 86 21 H 142/72 H 91 Nasal Cannula 4 02/20/24 21:23 02/20/24 23:30 02/20/24 23:30 02/20/24 21:23 02/20/24 23:30 02/20/24 21:23 02/20/24 21:23 FiO2 30 02/20/24 23:30 Oxygen Flow Rate (L/min) 4 Oxygen Delivery Method Nasal Cannula Weight: 155 lb 13.869 oz Body Mass Index (BMI) 24.4 Intake & Output: Intake and Output for Last 24 Hours 02/19/24 02/20/24 02/21/24 23:59 23:59 23:59 Intake Total 2211.67 / 2211.67 900 / 900 Output Total 4150 / 4150 3700 / 3700 Balance -1938.33 / -1938.33 -2800 / -2800 Medical Nutrition Assessment Dietitian: Malnutrition Criteria Met Start: 02/13/24 15:47 Freq: Status: Active Protocol: Document 02/13/24 15:47 RMA (Rec: 02/13/24 15:47 RMA [id number]) Nutrition Malnutrition Evidence of Malnutrition Exists Yes Malnutrition (moderate): Acute Illness/Injury Evidenced By Suboptimal Energy Intake ( Moderate),Weight Loss ( Moderate) Clinical Problem Acute Disease or Injury Related Malnutrition Etiology Moderate pro-giovanny malnutrition in the context of acute illness related to inadequate oral intake and difficulty swallowing Signs/Symptoms as evidenced by ~4% unintentional weight in less than 1 month and PO meeting less than 50-75% estimated nutrition needs x 1 month; currently on full liquid diet Status Active Problem Recommendation Dietitian Recommendations/Changes Recommend advance diet as tolerated to liberalized regular diet with consistency/ texture as per BULLET LUBRICATING MACHINE OPERATOR. Will add 240mL ensure plus HP BID w/ breakfast and dinner trays. Additional ONS as needed once PO better established with meals. Monitor blood glucose levels and need to restrict dietary carbohydrates. Lab / Micro Data 02/21/24 06:00 02/20/24 08:00 Labs: Laboratory Results - last 24 hr 02/19/24 06:40: Diff Path Review Reviewed 02/20/24 08:00: WBC 4.3 L, RBC 3.14 L, Hgb 9.3 L, Hct 26.8 L, MCV 85.4, MCH 29.6, MCHC 34.7, RDW Std Deviation 54.0 H, RDW Coeff of Cornelius 17.6 H, Plt Count 99 L, MPV 10.8, Immature Gran % (Auto) 3.700 H, Neut % (Auto) 68.6, Lymph % (Auto) 12.7 L, [place] % (Auto) 14.8 H, Eos % (Auto) 0.0, Baso % (Auto) 0.2, Absolute Neuts (auto) 3.0, Absolute Lymphs (auto) 0.55 L, Nucleated RBC % 0, Differential Comment , Sodium 135 L, Potassium 3.5, Chloride 96 L, Carbon Dioxide 33.0 H, Anion Gap 6, BUN 15, Creatinine 0.58 L, Estim Creat Clear Calc 80.33, Est GFR (MDRD) Af Amer 179, Est GFR (MDRD) Non-Af 148, BUN/Creatinine Ratio 26.0 H, Glucose 128 H, Calcium 7.7 L 02/21/24 06:00: WBC 7.9, RBC 3.18 L, Hgb 9.4 L, Hct 27.7 L, MCV 87.1, MCH 29.6, MCHC 33.9, RDW Std Deviation 57.4 H, RDW Coeff of Cornelius 18.5 H, Plt Count 139 L, MPV 10.7, Immature Gran % (Auto) 1.500 H, Neut % (Auto) 73.6 H, Lymph % (Auto) 9.1 L, [place] % (Auto) 15.4 H, Eos % (Auto) 0.0, Baso % (Auto) 0.4, Absolute Neuts (auto) 5.8, Absolute Lymphs (auto) 0.72 L, Nucleated RBC % 0 Micro: Microbiology 02/13/24 02:20 Urine, Random Legionella Antigen - Final 02/13/24 02:20 Urine, Random Streptococcus pneumoniae Antigen (M - Final Physical Exam Narrative Seen and examined. Patient had chemotherapy about 1.5-2 weeks ago. S sore throat, mild painful swallowing/odynophagia is better. Frail General: Alert, Oriented x3, Cooperative, BMI 24.4 kg/m?. Frail/fatigued HEENT: Atraumatic, PERRLA, EOMI, Normocephalic Oral: White patch over base of tongue/soft palate. Erythematous/mucositis. Neck: Supple, No JVD, Negative Carotid Bruits Chest wall/Lungs: Air entry diminished in bilateral lung bases. Mild coarse crepitation. On 5-6 oxygen at rest. Dyspnea on mild exertion Cardiovascular: Regular rate, Regular Rhythm, Normal S1, Normal S2, No M/G/R Abdomen: Bowel Sounds Present, Soft, Non Tender, Non-Distended : No dysuria. No renal angle tenderness. No suprapubic tenderness. Extremities: No edema, Capillary Refill Less than 3 Seconds Skin: Shingles rash on the left upper chest posterior laterally Musculoskeletal: No Tenderness to Palpation of Joints or Extremities Neurological: Cranial nerves II-XII grossly intact, DTR 2+/4. No acute focal neurological deficit. Psych/Mental Status: Flat affect Assessment & Plan Assessment/Plan (1) Severe sepsis: PLAN: Plan Patient is a 69-year-old gentleman transferred from an outside hospital with progressive shortness of breath. An assessment of severe sepsis secondary to pneumonia made admitted to a monitored bed for further management 1. Severe sepsis secondary to pneumonia ? Patient admitted to monitored bed treatment initiated per protocol with IV fluid resuscitation, broad-spectrum antibiotic therapy after cultures have been sent. Response to therapy monitored with serial lactic acid levels ? 02/16/2024 CT of the chest obtained on 02/14/2024 demonstrated dense consolidation in the right lower lobe. Patient previously counseled and now will continue with antibiotic therapy. 02/18: Admitted with azithromycin insect reaction after Zosyn at OSH. ID consult was done and reviewed. Plan for stopping antibiotic tomorrow. No fever, not neutropenic. Shingles on left chest appears to be improving. 2. Acute on chronic hypoxic respiratory failure ? Secondary to combination of pneumonia as well as patient underlying lung CA patient was placed on noninvasive ventilation with BiPAP plan is to wean off and transition to nasal cannula ? 02/14/2024 patient remains on high flow oxygen ? 02/15/2024; patient remains on significant amount of oxygen at rest currently 15 L flow per minute 02/18: Pulmonary consult reviewed and appreciated. Patient has chronic hypoxic respiratory failure on baseline 5 L of oxygen. Still gets severe dyspnea with even mild exertion. Started on diuretics. 02/19: Patient completed antibiotic. Oxygen parameters did not change. Lasix 20 mg IV ordered. 3. Elevated D-dimer ? CT of the chest could not be obtained given patient worsening kidney function patient was empirically started on heparin which had to be discontinued in view of significant drop of his platelet count. Did order lower extremity duplex and empirically started on apixaban was waiting for kidney function to improve for patient to undergo CT of the chest -02/14/2024; patient kidney function improved plan is for patient to undergo CT of the chest. Given patient's allergy to iodine plan is to prep patient prior to contrast administration ? 02/15/2024; CTA was negative for VTE apixaban discontinued. Venous duplex also negative for DVT 4. Acute kidney injury ? Patient creatinine from 02/05/2024 was 0.88 creatinine on admission was 1.82 started on hydration potential nephrotoxic medications held monitoring with daily BMPs ordered ? 02/14/2024; kidney function improved ? 02/15/2024; kidney function back to baseline 5. 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 Currently receiving palliative chemo as outpatient 6. COPD ? Placed on bronchodilator treatment as well as systemic steroid in addition to oxygen via NIV 7. Hypertension - Blood pressure controlled, home medications continued with dose adjustment as needed 8. Dyslipidemia -Patient is on statin therapy, continued at home dose 9. Thrombocytopenia ? Suspected to be secondary to recent chemo monitoring with CBC ordered -02/15/2024; patient platelet count continues to drop apixaban discontinued ? 02/17/2024; platelet count down to 30. ? 02/18/2024; patient platelet count trending up. 10. 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 Hemoglobin did drop to 6.5 and order was given for patient to be transfused with 1 unit PRBC ? 02/16/2024 hemoglobin came up to 27 additional units of PRBC transfused 11. Recent varicella zoster infection ? Stable 12. DVT prophylaxis ? Apixaban ? 02/15/2024 discontinued apixaban given his low hemoglobin as well as platelet count SCDs for now 13. Physical deconditioning - Requested for PT OT eval and perinatal social worker to assist with discharge planning 14. Back pain ? Did order Lidoderm patch 15. Moderate protein calorie malnutrition -in the context of acute illness related to inadequate oral intake and difficulty swallowing as evidenced by ~4% unintentional weight in less than 1 month and PO meeting less than 50-75% estimated nutrition needs x 1 month; currently on full liquid diet. Recommend advance diet as tolerated to liberalized regular diet with consistency/texture as per BULLET LUBRICATING MACHINE OPERATOR. Will add 240mL ensure plus HP BID w/ breakfast and dinner trays. Additional ONS as needed once PO better established with meals. Monitor blood glucose levels and need to restrict dietary carbohydrates Living will/advanced directive/end of life care: Patient does have living will or advanced directive. After discussion of benefits/risks procedures involved with full code, DNR CC arrest and DNR CC, the patient and his family decided to revert to CODE STATUS from DNR CC arrest with no intubation to full code. I went over the each section of the CODE BLUE process and its resuscitation. Patient does want artificial life support including intubation, tube feed, ventilator and/chest compression, central venous catheter, vasopressor and DC shock if needed Total time spent in [id number] encounter in discussion of advanced directive 17 minutes. Clinical Impression(s) from Imaging Studies Venous Doppler Study 02/13/24 10:13 Interpretation Summary Deep veins of the bilateral lower extremities are patent and compressible segmentally. There is no evidence of bilateral lower extremity deep vein thrombosis. The bilateral great saphenous veins appear patent and compressible segmentally. Chest CTA 02/14/24 09:37 IMPRESSION: No evidence of pulmonary embolism. Emphysematous changes with evidence of interstitial scarring. Stable small right pleural effusion with dense consolidation in the right lower lobe. Charges/Coding Procedures Hospitalists Procedures: [id number] Advncd Care Plan 30 Min
[2024-02-21 07:55] LABS: Anion Gap 5 (5-15); BUN 16 mg/dL (7-18); BUN/Creat Ratio 24.1 RATIO (10-20); Calcium,Total 8.2 mg/dL (8.5-10.1); Chloride 94 mmol/L (98-107); Creatinine, Serum 0.66 mg/dL (0.70-1.30); EST Glomerular Filtration Rate 126 mL/min (>60); Est Glom Filt Rate - Afr Amer 152 mL/min (>60); Estimated Creatinine Clearance 80.33 ml/min; Glucose 125 mg/dL (74-106); Potassium 3.7 mmol/L (3.5-5.1); Sodium Level 134 mmol/L (136-145)
[2024-02-21 08:50] VITALS: BP 145/83; PULSE 86; RESP 18; TEMP 36.7; O2SAT 95
[2024-02-21] MEDS: BENZOCAINE/MENTHOL 1 LOZENGE MUCOUS MEM (08:51)
[2024-02-21] MEDS: Potassium Chloride Oral Tablet 20 MEQ 40 MEQ PO (08:52)
[2024-02-21] MEDS: NYSTATIN 500,000 UNIT/5 ML UDC 500000 UNIT PO (08:52)
[2024-02-21] MEDS: Folic Acid 1 MG Tablet PO (08:53)
[2024-02-21] MEDS: Venlafaxine XR 150 MG Capsule PO (08:53)
[2024-02-21] MEDS: Lisinopril 40 MG Tablet PO (08:53)
[2024-02-21] MEDS: Pantoprazole Sodium 40 MG Tablet PO (08:53)
[2024-02-21] MEDS: Aspirin E.C. 81 MG Tablet PO (08:53)
[2024-02-21] MEDS: BMX LIQUID 180 ML 15 ML PO (08:55)
[2024-02-21] MEDS: 0.9% Saline Lock 10 ML Syringe IV (09:00)
[2024-02-21] MEDS: Furosemide 20 MG/2 ML VIAL IV (09:00)
--- NOTE | 2024-02-21 09:02 | CASEMGMT ---
Patient will likely be discharged to TCU today. GE[place]IANA notified Deepika in TCU. Plan: d/c to [facility] TCU under skilled level of care. Dayana ZELAYA
--- NOTE | 2024-02-21 09:14 | TREXTCAR_ITS ---
Diet Diet Order/Speech Therapy: 02/17/24 17:29 Diet: Cardiac - Heart Healthy Food consistency:: Soft & Bite Sized Liquid Consistency:: Regular/Thin Type of Dietary Supplement:: 8oz CEnsure+HP w/ B and D Is pt able to select menu?: No Diet Comments: Dist supv, chin tuck w/ food and drink, freq oral care Routine Orders/Code Status Code Status: Full Code Wound(s) Rt hand: Wound Type: Skin Tear L anterior-posterior: Wound Type: rash/blister Therapies Weight Bearing: Weight bearing as tolerated Extremity Affected:: Bilateral Lower Physical Therapy: Eval and Treat Occupational Therapy: Eval and Treat Speech Therapy: Eval and Treat Problem/Diagnosis (1) Severe sepsis: Status: Acute Code(s): A41.9 - Sepsis, unspecified organism; R65.20 - Severe sepsis without septic shock Plan Patient is a 69-year-old gentleman transferred from an outside hospital with progressive shortness of breath. An assessment of severe sepsis secondary to pneumonia made admitted to a monitored bed for further management 1. Severe sepsis secondary to pneumonia ? Patient admitted to monitored bed treatment initiated per protocol with IV fluid resuscitation, broad-spectrum antibiotic therapy after cultures have been sent. Response to therapy monitored with serial lactic acid levels ? 02/16/2024 CT of the chest obtained on 02/14/2024 demonstrated dense consolidation in the right lower lobe. Patient previously counseled and now will continue with antibiotic therapy. 02/18: Admitted with azithromycin insect reaction after Zosyn at OSH. ID consult was done and reviewed. Plan for stopping antibiotic tomorrow. No fever, not neutropenic. Shingles on left chest appears to be improving. 2. Acute on chronic hypoxic respiratory failure ? Secondary to combination of pneumonia as well as patient underlying lung CA patient was placed on noninvasive ventilation with BiPAP plan is to wean off and transition to nasal cannula ? 02/14/2024 patient remains on high flow oxygen ? 02/15/2024; patient remains on significant amount of oxygen at rest currently 15 L flow per minute 02/18: Pulmonary consult reviewed and appreciated. Patient has chronic hypoxic respiratory failure on baseline 5 L of oxygen. Still gets severe dyspnea with even mild exertion. Started on diuretics. 02/19: Patient completed antibiotic. Oxygen parameters did not change. Lasix 20 mg IV ordered. 3. Elevated D-dimer ? CT of the chest could not be obtained given patient worsening kidney function patient was empirically started on heparin which had to be discontinued in view of significant drop of his platelet count. Did order lower extremity duplex and empirically started on apixaban was waiting for kidney function to improve for patient to undergo CT of the chest -02/14/2024; patient kidney function improved plan is for patient to undergo CT of the chest. Given patient's allergy to iodine plan is to prep patient prior to contrast administration ? 02/15/2024; CTA was negative for VTE apixaban discontinued. Venous duplex also negative for DVT 4. Acute kidney injury ? Patient creatinine from 02/05/2024 was 0.88 creatinine on admission was 1.82 started on hydration potential nephrotoxic medications held monitoring with daily BMPs ordered ? 02/14/2024; kidney function improved ? 02/15/2024; kidney function back to baseline 5. 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 Currently receiving palliative chemo as outpatient 6. COPD ? Placed on bronchodilator treatment as well as systemic steroid in addition to oxygen via NIV 7. Hypertension - Blood pressure controlled, home medications continued with dose adjustment as needed 8. Dyslipidemia -Patient is on statin therapy, continued at home dose 9. Thrombocytopenia ? Suspected to be secondary to recent chemo monitoring with CBC ordered -02/15/2024; patient platelet count continues to drop apixaban discontinued ? 02/17/2024; platelet count down to 30. ? 02/18/2024; patient platelet count trending up. 10. 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 Hemoglobin did drop to 6.5 and order was given for patient to be transfused with 1 unit PRBC ? 02/16/2024 hemoglobin came up to 27 additional units of PRBC transfused 11. Recent varicella zoster infection ? Stable 12. DVT prophylaxis ? Apixaban ? 02/15/2024 discontinued apixaban given his low hemoglobin as well as platelet count SCDs for now 13. Physical deconditioning - Requested for PT OT eval and delinquency prevention social worker to assist with discharge planning 14. Back pain ? Did order Lidoderm patch 15. Moderate protein calorie malnutrition -in the context of acute illness related to inadequate oral intake and difficulty swallowing as evidenced by ~4% unintentional weight in less than 1 month and PO meeting less than 50-75% estimated nutrition needs x 1 month; currently on full liquid diet. Recommend advance diet as tolerated to liberalized regular diet with consistency/texture as per NUCLEAR EQUIPMENT OPERATOR. Will add 240mL ensure plus HP BID w/ breakfast and dinner trays. Additional ONS as needed once PO better established with meals. Monitor blood glucose levels and need to restrict dietary carbohydrates Living will/advanced directive/end of life care: Patient does have living will or advanced directive. After discussion of benefits/risks procedures involved with full code, DNR CC arrest and DNR CC, the patient and his family decided to revert to CODE STATUS from DNR CC arrest with no intubation to full code. I went over the each section of the CODE BLUE process and its resuscitation. Patient does want artificial life support including intubation, tube feed, ventilator and/chest compression, central venous catheter, vasopressor and DC shock if needed Total time spent in [id number] encounter in discussion of advanced directive 17 minutes. Clinical Impression(s) from Imaging Studies Venous Doppler Study 02/13/24 10:13 Interpretation Summary Deep veins of the bilateral lower extremities are patent and compressible segmentally. There is no evidence of bilateral lower extremity deep vein thrombosis. The bilateral great saphenous veins appear patent and compressible segmentally. Chest CTA 02/14/24 09:37 IMPRESSION: No evidence of pulmonary embolism. Emphysematous changes with evidence of interstitial scarring. Stable small right pleural effusion with dense consolidation in the right lower lobe. Allergies/Procedures Done in Hospital Allergies Iodinated Contrast Media Allergy (Mild, Verified 02/05/24 09:40) Hives Type of Care/Length of Stay Estimated LOS: Convalescent Care Less Than 30 days Type of Care Needed: Skilled Rehab Potential: Good Prognosis: Good Additional Orders/Day of Discharge Day of Discharge: 02/21/24 Dietary and Speech Recommendations Dietitian Recommendations/Changes: Recommend advance diet as tolerated to liberalized regular diet with consistency/texture as per NUCLEAR EQUIPMENT OPERATOR. 240mL ensure plus HP BID w/ breakfast and dinner trays. Additional ONS as needed once PO better established with meals. Discharge Plan Admission Admit Date/Time: 02/12/24 23:32 Primary Reason for Your Visit: Severe sepsis due to pneumonia Attending Provider: Sekou Donaldson Primary Care Provider: Ismael Joyce Consulting Providers: Erickson Renae; Ryan Henry; Jean Carlos Elizondo Discharge Orders/Prescriptions Prescriptions: New nystatin 100,000 unit/mL Suspension 500,000 unit PO 4X/DAY 10 Days Qty: 0 0RF lidocaine HCl [Lidocaine Viscous] 2 % Solution 15 ml PO Q4H PRN (Reason: MOUTH SORE) 7 Days Qty: 0 0RF pantoprazole 40 mg Tablet,Delayed Release (Dr/Ec) 40 mg PO BID 60 Days Qty: 0 0RF prednisone 10 mg tablet 10 mg PO DAILY Qty: 30 0RF Rx Instructions: 40 mg for 3 days 30 mg for 3 days, 20 mg for 3 days,and 10 mg for 3 days Continued lisinopril 40 mg tablet 40 mg PO DAILY aspirin [Adult Aspirin Regimen] 81 mg tablet,delayed release (DR/EC) 81 mg PO DAILY Hold Instructions: Ordered diphenhydramine-acetaminophen [Tylenol PM Extra Strength] 25-500 mg tablet 1 tab PO QHS PRN (Reason: pain) albuterol sulfate 2.5 mg /3 mL (0.083 %) solution for nebulization 2.5 mg continuous nebulization Q6H PRN (Reason: shortness of breath or wheezing) Qty: 3 0RF albuterol sulfate 90 mcg/actuation HFA aerosol inhaler 2 puff inhalation Q6H MDD 10 puffs PRN (Reason: shortness of breath or wheezing) 60 Days Qty: 8.5 6RF ipratropium-albuterol 0.5 mg-3 mg(2.5 mg base)/3 mL solution for nebulization 3 ml inhalation Q6H MDD 6 doses PRN (Reason: shortness of breath or wheezing) Qty: 180 6RF Rx Instructions: use either nebulizer or albuterol inhaler, every 4 hours as needed. Do not use both at the same time. (DME) Aerochamber MV Spacer See Rx Instructions .ROUTE .MEDSUPPLY Qty: 1 1RF Rx Instructions: As directed (DME) Tammy James See Rx Instructions .Route .MEDSUPPLY Qty: 1 0RF Rx Instructions: Expires 05/10/2028 venlafaxine 150 mg capsule,extended release 24hr 150 mg PO DAILY Patient Comments: take 1 capsule by mouth every morning ondansetron 8 mg tablet,disintegrating 8 mg PO Q8H PRN (Reason: nausea and vomiting) Qty: 30 1RF lidocaine-prilocaine 2.5-2.5 % cream 1 applic topical ONCE PRN (Reason: port access) 30 Days Qty: 30 2RF folic acid 1 mg tablet 1 mg PO DAILY Qty: 90 1RF budesonide-formoterol [Symbicort] 160-4.5 mcg/actuation HFA aerosol inhaler 2 puff INHALATION BID atorvastatin [Lipitor] 40 mg tablet 40 mg PO DAILY Qty: 90 3RF disability placard See Rx Instructions .ROUTE .COMPLEX 330 Days Qty: 1 0RF Rx Instructions: handicapped placard or plate, lifetime as needed for patient transportation; Trelegy Ellipta 200-62.5-25 mcg blister with device 1 inh inhalation DAILY Qty: 60 6RF Discontinued dexamethasone 4 mg tablet 4 mg PO BID Qty: 6 5RF Patient Comments: takes day before, day of and day after chemo Referrals / Follow Up: Ismael Joyce DO [Primary Care Provider] - Gera Love DO [Med Staff - Active Staff] - Within 2 Weeks (For severe hypoxia, COPD) Nakul Rees MD [Med Staff - Active Staff] - Within 1 Month Disposition Disposition (needs filled in before D/C Order can be placed): Long-Term Facility
--- NOTE | 2024-02-21 09:21 | DS.PCM_ITS ---
Providers Date of Admission: 02/12/24 Date of Discharge: 02/21/24 Primary Care Physician: Dr. Ismael Joyce, Consultations 02/15/24 12:27 Consult: Gastroenterology Routine Consulting Provider: [facility] Reason for Consult: ST recommendation following MBS EMERGENT Consult: No Notified: Yes Date Notified: 02/15/24 Time Notified: 12:28 Method of Notification: Text 02/19/24 10:23 Consult: Infectious Disease Routine Consulting Provider: Jean Carlos Elizondo Reason for Consult: B/L Pneumo, Pancytopenia, post chemo EMERGENT Consult: No Notified: Yes Date Notified: 02/19/24 Time Notified: 10:24 Method of Notification: Text Consult: Commodities Manager / Pulmonary Medicine Routine Consulting Provider: Intensivists/Pulmonary Med Reason for Consult: severe hypoxia, B/L post chemo pneumonia EMERGENT Consult: No Notified: Yes Date Notified: 02/19/24 Time Notified: 10:23 Method of Notification: Text Reason For Visit: PNEUMONIA Diagnosis Discharge Diagnosis (1) Severe sepsis: Status: Acute Code(s): A41.9 - Sepsis, unspecified organism; R65.20 - Severe sepsis without septic shock Plan Patient is a 69-year-old gentleman transferred from an outside hospital with progressive shortness of breath. An assessment of severe sepsis secondary to pneumonia made admitted to a monitored bed for further management 1. Severe sepsis secondary to pneumonia ? Patient admitted to monitored bed treatment initiated per protocol with IV fluid resuscitation, broad-spectrum antibiotic therapy after cultures have been sent. Response to therapy monitored with serial lactic acid levels ? 02/16/2024 CT of the chest obtained on 02/14/2024 demonstrated dense consolidation in the right lower lobe. Patient previously counseled and now will continue with antibiotic therapy. 02/18: Admitted with azithromycin insect reaction after Zosyn at OSH. ID consult was done and reviewed. Plan for stopping antibiotic tomorrow. No fever, not neutropenic. Shingles on left chest appears to be improving. 2. Acute on chronic hypoxic respiratory failure secondary to COPD exacerbation and pneumonia ? Secondary to combination of pneumonia as well as patient underlying lung CA patient was placed on noninvasive ventilation with BiPAP plan is to wean off and transition to nasal cannula ? 02/14/2024 patient remains on high flow oxygen ? 02/15/2024; patient remains on significant amount of oxygen at rest currently 15 L flow per minute 02/18: Pulmonary consult reviewed and appreciated. Patient has chronic hypoxic respiratory failure on baseline 5 L of oxygen. Still gets severe dyspnea with even mild exertion. Started on diuretics. 02/19: Patient completed antibiotic. Oxygen parameters did not change. Lasix 20 mg IV ordered. 02/20: Patient is discharged to TCU on oxygen. Currently on 3 L at rest. Home oxygen qualification test ordered. Advised to follow-up in pulmonary clinic. Discharged on tapering dose of prednisone. Patient on Symbicort and Ventolin inhaler. 3. Elevated D-dimer ? CT of the chest could not be obtained given patient worsening kidney function patient was empirically started on heparin which had to be discontinued in view of significant drop of his platelet count. Did order lower extremity duplex and empirically started on apixaban was waiting for kidney function to improve for patient to undergo CT of the chest -02/14/2024; patient kidney function improved plan is for patient to undergo CT of the chest. Given patient's allergy to iodine plan is to prep patient prior to contrast administration ? 02/15/2024; CTA was negative for VTE apixaban discontinued. Venous duplex also negative for DVT 4. Acute kidney injury ? Patient creatinine from 02/05/2024 was 0.88 creatinine on admission was 1.82 started on hydration potential nephrotoxic medications held monitoring with daily BMPs ordered. ? 02/14/2024; kidney function improved ? 02/15/2024; kidney function back to baseline 5. 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 Currently receiving palliative chemo as outpatient 6. COPD ? Placed on bronchodilator treatment as well as systemic steroid in addition to oxygen via NIV 7. Hypertension - Blood pressure controlled, home medications continued with dose adjustment as needed 8. Dyslipidemia -Patient is on statin therapy, continued at home dose 9. Thrombocytopenia ? Suspected to be secondary to recent chemo monitoring with CBC ordered -02/15/2024; patient platelet count continues to drop apixaban discontinued ? 02/17/2024; platelet count down to 30. ? 02/18/2024; patient platelet count trending up. 02/20 platelet count improved currently 1 39,000. 10. 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 Hemoglobin did drop to 6.5 and order was given for patient to be transfused with 1 unit PRBC ? 02/16/2024 hemoglobin came up to 27 additional units of PRBC transfused 11. Recent varicella zoster infection ? Stable 12. DVT prophylaxis ? Apixaban ? 02/15/2024 discontinued apixaban given his low hemoglobin as well as platelet count SCDs for now 13. Physical deconditioning - Requested for PT OT eval and licensed social worker to assist with discharge planning 14. Back pain ? Did order Lidoderm patch 15. Moderate protein calorie malnutrition -in the context of acute illness related to inadequate oral intake and difficulty swallowing as evidenced by ~4% unintentional weight in less than 1 month and PO meeting less than 50-75% estimated nutrition needs x 1 month; currently on full liquid diet. Recommend advance diet as tolerated to liberalized regular diet with consistency/texture as per [employer]. Will add 240mL ensure plus HP BID w/ breakfast and dinner trays. Additional ONS as needed once PO better established with meals. Monitor blood glucose levels and need to restrict dietary carbohydrates Living will/advanced directive/end of life care: Patient does have living will o r advanced directive. After discussion of benefits/risks procedures involved with full code, DNR CC arrest and DNR CC, the patient and his family decided to revert to CODE STATUS from DNR CC arrest with no intubation to full code. I went over the each section of the CODE BLUE process and its resuscitation. Patient does want artificial life support including intubation, tube feed, ventilator and/chest compression, central venous catheter, vasopressor and DC shock if needed Clinical Impression(s) from Imaging Studies Venous Doppler Study 02/13/24 10:13 Interpretation Summary Deep veins of the bilateral lower extremities are patent and compressible segmentally. There is no evidence of bilateral lower extremity deep vein thrombosis. The bilateral great saphenous veins appear patent and compressible segmentally. Chest CTA 02/14/24 09:37 IMPRESSION: No evidence of pulmonary embolism. Emphysematous changes with evidence of interstitial scarring. Stable small right pleural effusion with dense consolidation in the right lower lobe. Medications at Discharge Home Medications aspirin 81 mg tablet,delayed release (Adult Aspirin Regimen) 81 mg PO DAILY heart 04/05/22 diphenhydramine 25 mg-acetaminophen 500 mg tablet (Tylenol PM Extra Strength) 1 tab PO QHS PRN pain 04/05/22 lisinopril 40 mg tablet 40 mg PO DAILY blood pressure 04/05/22 atorvastatin 40 mg tablet (Lipitor) 40 mg PO DAILY cholesterol #90 tabs 04/05/23 albuterol sulfate 2.5 mg/3 mL (0.083 %) solution for nebulization 2.5 mg (3 mL) continuous nebulization Q6H PRN shortness of breath or wheezing #3 mL 05/08/23 albuterol sulfate 90 mcg/actuation aerosol inhaler 2 puff inhalation Q6H PRN shortness of breath or wheezing 60 days #8.5 grams 05/08/23 inhalational spacing device (Aerochamber MV spacer) #1 ea 05/08/23 ipratropium 0.5 mg-albuterol 3 mg (2.5 mg base)/3 mL nebulization soln 3 ml inhalation Q6H PRN shortness of breath or wheezing #180 mL 05/08/23 disability placard See Rx Instructions .Route .COMPLEX respiratory failure 11 months #1 unit 05/09/23 Disability Placard #1 ea 05/10/23 venlafaxine 150 mg capsule,extended release 24 hr 150 mg PO DAILY depression 09/19/23 folic acid 1 mg tablet 1 mg PO DAILY supplement #90 tabs 11/23/23 lidocaine-prilocaine 2.5 %-2.5 % topical cream 1 applic topical ONCE PRN port access 30 days #30 grams 11/23/23 ondansetron 8 mg disintegrating tablet 8 mg PO Q8H PRN nausea and vomiting #30 tabs 11/23/23 fluticasone fur. 200 mcg-umeclid 62.5 mcg-vilant 25 mcg inhalat.powder (Trelegy Ellipta) 1 inh inhalation DAILY copd #60 ea 12/06/23 budesonide-formoterol HFA 160 mcg-4.5 mcg/actuation aerosol inhaler (Symbicort) 2 puff inhalation BID copd 02/13/24 lidocaine HCl 2 % mucosal solution (Lidocaine Viscous) 15 ml PO Q4H PRN MOUTH SORE 7 days #0 mL 02/21/24 nystatin 100,000 unit/mL oral suspension 500,000 unit (5 mL) PO 4X/DAY 10 days #0 mL 02/21/24 pantoprazole 40 mg tablet,delayed release 40 mg PO BID 2 months #0 tabs 02/21/24 prednisone 10 mg tablet 10 mg PO DAILY #30 tabs 02/21/24 Physical Exam Narrative Seen and examined. Patient had chemotherapy about 1.5-2 weeks ago. sore throat, mild painful swallowing/odynophagia is better. General: Alert, Oriented x3, Cooperative, BMI 24.4 kg/m?. Frail/fatigued HEENT: Atraumatic, PERRLA, EOMI, Normocephalic Oral: White patch over base of tongue/soft palate much improved. Neck: Supple, No JVD, Negative Carotid Bruits Chest wall/Lungs: Air entry diminished in bilateral lung bases. Mild coarse crepitation. On 3 L of oxygen Cardiovascular: Regular rate, Regular Rhythm, Normal S1, Normal S2, No M/G/R Abdomen: Bowel Sounds Present, Soft, Non Tender, Non-Distended : No dysuria. No renal angle tenderness. No suprapubic tenderness. Extremities: No edema, Capillary Refill Less than 3 Seconds Skin: Shingles rash on the left upper chest posterior laterally Musculoskeletal: No Tenderness to Palpation of Joints or Extremities Neurological: Cranial nerves II-XII grossly intact, DTR 2+/4. No acute focal neurological deficit. Psych/Mental Status: Flat affect Medical Records Data Medical Nutrition Assessment Dietitian: Malnutrition Criteria Met Start: 02/13/24 15:47 Freq: Status: Active Protocol: Document 02/13/24 15:47 RMA (Rec: 02/13/24 15:47 RMA [id number]) Nutrition Malnutrition Evidence of Malnutrition Exists Yes Malnutrition (moderate): Acute Illness/Injury Evidenced By Suboptimal Energy Intake ( Moderate),Weight Loss ( Moderate) Clinical Problem Acute Disease or Injury Related Malnutrition Etiology Moderate pro-giovanny malnutrition in the context of acute illness related to inadequate oral intake and difficulty swallowing Signs/Symptoms as evidenced by ~4% unintentional weight in less than 1 month and PO meeting less than 50-75% estimated nutrition needs x 1 month; currently on full liquid diet Status Active Problem Recommendation Dietitian Recommendations/Changes Recommend advance diet as tolerated to liberalized regular diet with consistency/ texture as per [employer]ER. Will add 240mL ensure plus HP BID w/ breakfast and dinner trays. Additional ONS as needed once PO better established with meals. Monitor blood glucose levels and need to restrict dietary carbohydrates. Weight / BMI Weight Weight: 155 lb 13.869 oz Body Mass Index (BMI) 24.4 ABG / Lab / Microbiology Data 02/21/24 06:00 02/21/24 06:00 Laboratory: Laboratory Results - last 24 hr 02/19/24 06:40: Diff Path Review Reviewed 02/20/24 08:00: Differential Comment 02/21/24 06:00: WBC 7.9, RBC 3.18 L, Hgb 9.4 L, Hct 27.7 L, MCV 87.1, MCH 29.6, MCHC 33.9, RDW Std Deviation 57.4 H, RDW Coeff of Cornelius 18.5 H, Plt Count 139 L, MPV 10.7, Immature Gran % (Auto) 1.500 H, Neut % (Auto) 73.6 H, Lymph % (Auto) 9.1 L, [place] % (Auto) 15.4 H, Eos % (Auto) 0.0, Baso % (Auto) 0.4, Absolute Neuts (auto) 5.8, Absolute Lymphs (auto) 0.72 L, Nucleated RBC % 0, Sodium 134 L, Potassium 3.7, Chloride 94 L, Carbon Dioxide 35.0 H, Anion Gap 5, BUN 16, Creatinine 0.66 L, Estim Creat Clear Calc 80.33, Est GFR (MDRD) Af Amer 152, Est GFR (MDRD) Non-Af 126, BUN/Creatinine Ratio 24.1 H, Glucose 125 H, Calcium 8.2 L Microbiology: Microbiology 02/13/24 02:20 Urine, Random Legionella Antigen - Final 02/13/24 02:20 Urine, Random Streptococcus pneumoniae Antigen (M - Final Meaningful Use Info Meaningful Use Meaningful Use Diagnoses (Choose all that apply): None applicable Ischemic Stroke Statin Dosing Therapy Reference: STATIN DOSE THERAPY REFERENCE: * Patients > 75 years receive moderate or high dose statin therapy. * Patients 75 years or YOUNGER should receive HIGH intensity statin dose unless contraindicated. You will be required to document reason for non-treatment if statin daily dose does not meet guidelines. HIGH DOSE STATIN THERAPY DAILY Atorvastatin > than or = to 40 mg Rosuvastatin > than or = to 20 mg Amlodipine + Atorvastatin > than or = to 2.5/40 mg Ezetimibe + Simvastatin 10/80 mg Simvastatin 80mg Discharge Plan Admission Admit Date/Time: 02/12/24 23:32 Primary Reason for Your Visit: Severe sepsis due to pneumonia Attending Provider: Sekou Donaldson Primary Care Provider: Ismael Joyce Consulting Providers: Erickson Renae; Ryan Henry; Jean Carlos Elizondo Discharge Orders/Prescriptions Prescriptions: New nystatin 100,000 unit/mL Suspension 500,000 unit PO 4X/DAY 10 Days Qty: 0 0RF lidocaine HCl [Lidocaine Viscous] 2 % Solution 15 ml PO Q4H PRN (Reason: MOUTH SORE) 7 Days Qty: 0 0RF pantoprazole 40 mg Tablet,Delayed Release (Dr/Ec) 40 mg PO BID 60 Days Qty: 0 0RF prednisone 10 mg tablet 10 mg PO DAILY Qty: 30 0RF Rx Instructions: 40 mg for 3 days 30 mg for 3 days, 20 mg for 3 days,and 10 mg for 3 days Continued lisinopril 40 mg tablet 40 mg PO DAILY aspirin [Adult Aspirin Regimen] 81 mg tablet,delayed release (DR/EC) 81 mg PO DAILY Hold Instructions: MD Ordered diphenhydramine-acetaminophen [Tylenol PM Extra Strength] 25-500 mg tablet 1 tab PO QHS PRN (Reason: pain) albuterol sulfate 2.5 mg /3 mL (0.083 %) solution for nebulization 2.5 mg continuous nebulization Q6H PRN (Reason: shortness of breath or wheezi ng) Qty: 3 0RF albuterol sulfate 90 mcg/actuation HFA aerosol inhaler 2 puff inhalation Q6H MDD 10 puffs PRN (Reason: shortness of breath or wheezing) 60 Days Qty: 8.5 6RF ipratropium-albuterol 0.5 mg-3 mg(2.5 mg base)/3 mL solution for nebulization 3 ml inhalation Q6H MDD 6 doses PRN (Reason: shortness of breath or wheezing) Qty: 180 6RF Rx Instructions: use either nebulizer or albuterol inhaler, every 4 hours as needed. Do not use both at the same time. (DME) Aerochamber MV Spacer See Rx Instructions .ROUTE .MEDSUPPLY Qty: 1 1RF Rx Instructions: As directed (DME) Tammy Almendarezard See Rx Instructions .Route .MEDSUPPLY Qty: 1 0RF Rx Instructions: Expires 05/10/2028 venlafaxine 150 mg capsule,extended release 24hr 150 mg PO DAILY Patient Comments: take 1 capsule by mouth every morning ondansetron 8 mg tablet,disintegrating 8 mg PO Q8H PRN (Reason: nausea and vomiting) Qty: 30 1RF lidocaine-prilocaine 2.5-2.5 % cream 1 applic topical ONCE PRN (Reason: port access) 30 Days Qty: 30 2RF folic acid 1 mg tablet 1 mg PO DAILY Qty: 90 1RF budesonide-formoterol [Symbicort] 160-4.5 mcg/actuation HFA aerosol inhaler 2 puff INHALATION BID atorvastatin [Lipitor] 40 mg tablet 40 mg PO DAILY Qty: 90 3RF disability placard See Rx Instructions .ROUTE .COMPLEX 330 Days Qty: 1 0RF Rx Instructions: handicapped placard or plate, lifetime as needed for patient transportation; Trelegy Ellipta 200-62.5-25 mcg blister with device 1 inh inhalation DAILY Qty: 60 6RF Discontinued dexamethasone 4 mg tablet 4 mg PO BID Qty: 6 5RF Patient Comments: takes day before, day of and day after chemo Referrals / Follow Up: Gera Love DO [Med Staff - Active Staff] - Within 2 Weeks (For severe hypoxia, COPD) Nakul Rees MD [Med Staff - Active Staff] - Within 1 Month Ismael Joyce DO [Primary Care Provider] - Disposition Disposition (needs filled in before D/C Order can be placed): [facility] Facility Charges/Coding Visit Charges Inpatient E&M: 66760 Disch Hosp >30min
--- NOTE | 2024-02-21 10:13 | PHA.DC.MR.R ---
Pharmacy [place] Med Reconciliation Pharmacy Service has performed discharge medication reconciliation for this patient. The patient's discharge medication list was reviewed for discrepancies and discrepancies were resolved. Medications at Discharge Home Medications aspirin 81 mg tablet,delayed release (Adult Aspirin Regimen) 81 mg PO DAILY heart 04/05/22 diphenhydramine 25 mg-acetaminophen 500 mg tablet (Tylenol PM Extra Strength) 1 tab PO QHS PRN pain 04/05/22 lisinopril 40 mg tablet 40 mg PO DAILY blood pressure 04/05/22 atorvastatin 40 mg tablet (Lipitor) 40 mg PO DAILY cholesterol #90 tabs 04/05/23 albuterol sulfate 2.5 mg/3 mL (0.083 %) solution for nebulization 2.5 mg (3 mL) continuous nebulization Q6H PRN shortness of breath or wheezing #3 mL 05/08/23 albuterol sulfate 90 mcg/actuation aerosol inhaler 2 puff inhalation Q6H PRN shortness of breath or wheezing 60 days #8.5 grams 05/08/23 inhalational spacing device (Aerochamber MV spacer) #1 ea 05/08/23 ipratropium 0.5 mg-albuterol 3 mg (2.5 mg base)/3 mL nebulization soln 3 ml inhalation Q6H PRN shortness of breath or wheezing #180 mL 05/08/23 disability placard See Rx Instructions .Route .COMPLEX respiratory failure 11 months #1 unit 05/09/23 Disability Placard #1 ea 05/10/23 venlafaxine 150 mg capsule,extended release 24 hr 150 mg PO DAILY depression 09/19/23 folic acid 1 mg tablet 1 mg PO DAILY supplement #90 tabs 11/23/23 lidocaine-prilocaine 2.5 %-2.5 % topical cream 1 applic topical ONCE PRN port access 30 days #30 grams 11/23/23 ondansetron 8 mg disintegrating tablet 8 mg PO Q8H PRN nausea and vomiting #30 tabs 11/23/23 fluticasone fur. 200 mcg-umeclid 62.5 mcg-vilant 25 mcg inhalat.powder (Trelegy Ellipta) 1 inh inhalation DAILY copd #60 ea 12/06/23 budesonide-formoterol HFA 160 mcg-4.5 mcg/actuation aerosol inhaler (Symbicort) 2 puff inhalation BID copd 02/13/24 lidocaine HCl 2 % mucosal solution (Lidocaine Viscous) 15 ml PO Q4H PRN MOUTH SORE 7 days #0 mL 02/21/24 nystatin 100,000 unit/mL oral suspension 500,000 unit (5 mL) PO 4X/DAY 10 days #0 mL 02/21/24 pantoprazole 40 mg tablet,delayed release 40 mg PO BID 2 months #0 tabs 02/21/24 prednisone 10 mg tablet 10 mg PO DAILY #30 tabs 02/21/24
[2024-02-21 10:58] VITALS: BP 145/83; PULSE 86; RESP 18; TEMP 36.7; O2SAT 95
== END 2024-02-21 13:21 | disposition skilled nursing facility (03) | DRG 871 ==
PROVIDERS: Internal Medicine; Internal Medicine Gastroenterology; Admitting Provider Family Medicine; Visit Provider Internal Medicine
PROC: 0DJ08ZZ Inspection of Upper Intestinal Tract, Via Natural or Artificial Opening Endoscopic (ICD-10-PCS; CPT 43235; principal; 2024-02-16 12:00)
DX: A41.9 Sepsis, unspecified organism (principal); J96.21 Acute and chronic respiratory failure with hypoxia; D61.810 Antineoplastic chemotherapy induced pancytopenia; J18.9 Pneumonia, unspecified organism; E44.0 Moderate protein-calorie malnutrition; B37.81 Candidal esophagitis; N17.9 Acute kidney failure, unspecified; E87.20 Acidosis, unspecified; C77.1 Secondary and unspecified malignant neoplasm of intrathoracic lymph nodes; J44.0 Chronic obstructive pulmonary disease with (acute) lower respiratory infection; C34.31 Malignant neoplasm of lower lobe, right bronchus or lung; J44.1 Chronic obstructive pulmonary disease with (acute) exacerbation; R65.20 Severe sepsis without septic shock; I10 Essential (primary) hypertension; D63.0 Anemia in neoplastic disease; E78.5 Hyperlipidemia, unspecified; K22.2 Esophageal obstruction; D50.9 Iron deficiency anemia, unspecified; K26.9 Duodenal ulcer, unspecified as acute or chronic, without hemorrhage or perforation; D69.6 Thrombocytopenia, unspecified; Z87.891 Personal history of nicotine dependence; Z79.82 Long term (current) use of aspirin; Z79.51 Long term (current) use of inhaled steroids; T45.1X5A Adverse effect of antineoplastic and immunosuppressive drugs, initial encounter; R13.10 Dysphagia, unspecified; Z68.24 Body mass index [BMI] 24.0-24.9, adult; B02.9 Zoster without complications
CPT/HCPCS: 36415; 36600; 71275; 74230; 80048; 82330; 82803; 83735; 84100; 85025; 85730; 86850; 86900; 86901; 86920; 86922; 87449; 88305; 88312; 92526; 92610; 92611; 93005; 93970; 94002; 94003; 94640; 94668; 94762; 97110; 97116; 97162; 97166; 97530; 97535; 97802; 97803; J7030; P9016; Q9967; A4216; J1940; J2405

== ENCOUNTER 2024-02-21 13:31 | Inpatient (IN) | payer MEDICARE, OTHER, SELFPAY ==
[2024-02-21 13:41] VITALS: BP 94/49; PULSE 101; RESP 18; TEMP 36.7; O2SAT 94; BMI 24.1
--- NOTE | 2024-02-21 15:55 | HP.PCM_ITS ---
HPI - General General Date of Admission: 02/21/24 Date of Service: 02/21/24 Chief Complaint: Here for rehabilitation. HPI Narrative 02/12/2024 HAYDEN MOREIRA, is a 69 Male who presents with following: Admit to [facility]. Admit from OSH with COPD exacerbation, on steroids. Fever, chills, sputum production, worsening SOB. Zosyn, BiPAP, oxygen. CTA chest 3 days ago negative for pulmonary embolism, D-dimer 7700, History of stage 4 lung cancer. Elevated troponin, tachycardia, Creatinine 2.42. Rocephin, Zithromax, sputum culture, IV fluids for sepsis, pneumonia. Heparin drip for possible PE. Shingles healing, no treatment necessary. 02/13/2024 Rocephin, Zithromax, IV fluids for sepsis, pneumonia. BiPAP, wean as tolerated. Eliquis for presumptive PE, CTA chest when DAVID better. IV fluids for DAVID. Palliative chemotherapy for stage 4 lung cancer. 02/13/2024 Doppler ultrasound bilateral lower extremity negative for DVT. 02/14/2024 Ill appearing, oxygen 8 liters, back pain. Monitor Lactate for sepsis/pneumonia. High flow oxygen. DAVID improved. 02/15/2024 Frail, Hemoglobin 6.5, Platelets 44,000. CTA chest negative PE, stop Eliquis. High flow oxygen 15 liters per minute. DAVID resolved. Stop Eliquis for thrombocytopenia. Transfuse 1 unit PRBC for Hemoglobin 6.5. 02/16/2024 Dr. Elizondo EGD showed esophageal candidiasis, benign esophageal stenosis dilated. Hematin in gastric body. Non bleeding duodenal ulcers treated with heater probe. 02/17/2024 Improved, Hemoglobin low, Platelets low. Cultures negative to date. High flow oxygen still. Platelets 30,000. Transfuse 1 unit PRBC. 02/18/2024 Improving, oxygen 7 liters per minute. Stop Zithromax. Palliative chemotherapy for stage 4 lung cancer. PT/OT for debility. 02/19/2024 Severe dypsnea on exertion, start diuretics. Platelets improving, going up. 02/19/2024 Dr. Callejas recommended stopping antibiotics. 02/19/2024 Tolerating diet. Hemoglobin 8.5. Nystatin swish and swallow for esophageal candidiasis. 02/20/2024 Frail, finished antibiotics. Oxygen unchanged, Lasix 20mg IV x 1 dose. 02/21/2024 Admit to TCU with debility, here for rehabilitation, strengthening, prior to discharge home with . [facility] Medical History Anemia Anxiety Bilateral carotid artery stenosis Cancer Cardiology follow-up encounter Chronic obstructive pulmonary disease Chronic respiratory failure with hypoxia Dehydration Encounter for education Encounter for vitamin B12 injection while on pemetrexed chemotherapy Essential hypertension Former smoker High cholesterol History of echocardiogram History of stress test Hyperlipidemia Hypokalemia Lesion of nasal mucosa On home oxygen therapy Prerenal azotemia Rib pain on right side Shortness of breath on exertion Wears dentures Wears glasses Home Medications aspirin 81 mg tablet,delayed release (Adult Aspirin Regimen) 81 mg PO DAILY heart 04/05/22 [History Last Taken 02/21/24] diphenhydramine 25 mg-acetaminophen 500 mg tablet (Tylenol PM Extra Strength) 1 tab PO QHS PRN pain 04/05/22 [History Last Taken 02/21/24] lisinopril 40 mg tablet 40 mg PO DAILY blood pressure 04/05/22 [History Last Taken 12/01/23] atorvastatin 40 mg tablet (Lipitor) 40 mg PO DAILY cholesterol #90 tabs 04/05/23 [Rx Last Taken 02/20/24] albuterol sulfate 2.5 mg/3 mL (0.083 %) solution for nebulization 2.5 mg (3 mL) continuous nebulization Q6H PRN shortness of breath or wheezing #3 mL 05/08/23 [Clinic Last Taken 12/01/23] albuterol sulfate 90 mcg/actuation aerosol inhaler 2 puff inhalation Q6H PRN shortness of breath or wheezing 60 days #8.5 grams 05/08/23 [Rx Last Taken Unknown] inhalational spacing device (Aerochamber MV spacer) #1 ea 05/08/23 [Rx Last Taken Unknown] ipratropium 0.5 mg-albuterol 3 mg (2.5 mg base)/3 mL nebulization soln 3 ml inhalation Q6H PRN shortness of breath or wheezing #180 mL 05/08/23 [Rx Last Taken Unknown] disability placard See Rx Instructions .Route .COMPLEX respiratory failure 11 months #1 unit 05/09/23 [Rx Last Taken Unknown] Disability Placard #1 ea 05/10/23 [Rx Last Taken Unknown] venlafaxine 150 mg capsule,extended release 24 hr 150 mg PO DAILY depression 09/19/23 [History Last Taken 12/01/23] folic acid 1 mg tablet 1 mg PO DAILY supplement #90 tabs 11/23/23 [Rx Last Taken Unknown] lidocaine-prilocaine 2.5 %-2.5 % topical cream 1 applic topical ONCE PRN port access 30 days #30 grams 11/23/23 [Rx Last Taken Unknown] ondansetron 8 mg disintegrating tablet 8 mg PO Q8H PRN nausea and vomiting #30 tabs 11/23/23 [Rx Last Taken Unknown] fluticasone fur. 200 mcg-umeclid 62.5 mcg-vilant 25 mcg inhalat.powder (Trelegy Ellipta) 1 inh inhalation DAILY copd #60 ea 12/06/23 [Rx Last Taken Unknown] budesonide-formoterol HFA 160 mcg-4.5 mcg/actuation aerosol inhaler (Symbicort) 2 puff inhalation BID copd 02/13/24 [History Last Taken Unknown] lidocaine HCl 2 % mucosal solution (Lidocaine Viscous) 15 ml PO Q4H PRN MOUTH SORE 7 days #0 mL 02/21/24 [Rx Last Taken 02/21/24] nystatin 100,000 unit/mL oral suspension 500,000 unit (5 mL) PO 4X/DAY thrush 10 days #0 mL 02/21/24 [Rx Last Taken Unknown] pantoprazole 40 mg tablet,delayed release 40 mg PO BID reflux 2 months #0 tabs 02/21/24 [Rx Last Taken Unknown] prednisone 10 mg tablet 10 mg PO DAILY steroid #30 tabs 02/21/24 [Rx Last Taken Unknown] Allergy/AdvReac Type Severity Reaction Status Date / Time Iodinated Contrast Media Allergy Mild Hives Verified 02/05/24 09:40 Family History Father Hypertension Sister Hypertension Surgical History History of carotid endarterectomy Social History (Updated 02/21/24 @ 16:[address] Navjot Judd MD) household members: spouse Smoking Status: Former smoker quit date: 10/30/13 pack-years: 40 Smokeless tobacco user: chewing tobacco alcohol intake: current alcohol intake frequency: a few times a week ROS Constitutional Constitutional: Denies chills, fever(s) or weight gain ENT HEENT: Reports sore throat; Denies headache(s), nasal congestion or nasal discharge Cardiovascular Cardiovascular: Denies chest pain or palpitations Respiratory/Chest Respiratory/Chest: Denies cough, excessive phlegm production or shortness of breath with exertion Gastrointestinal Gastrointestinal: Denies abdominal pain, nausea or vomiting Genitourinary Genitourinary: Denies dysuria Musculoskeletal Musculoskeletal: Denies joint pain or joint swelling Integumentary Integumentary: Denies rash or wounds Neurologic Neurologic: Denies focal weakness, numbness or tingling Psychiatric Psychiatric: Denies anxiety, auditory hallucinations, depression, homicidal ideation or suicidal ideation Vital Signs Vital Signs Vital Signs: 02/21/24 13:41 02/21/24 13:41 Temperature 98.0 F Temperature Source Temporal Pulse Rate 101 H Pulse Rhythm Regular Pulse Strength Normal (2+) Respiratory Rate 18 Respiratory Effort Normal Non-Labored Respiratory Depth Normal Respiratory Pattern Normal Blood Pressure 94/49 L Blood Pressure Mean 64 Blood Pressure Source Monitor Blood Pressure Position Sitting Blood Pressure Location Left Arm Pulse Ox 94 Oxygen Delivery Method Room Air Nasal Cannula Oxygen Flow Rate (L/min) 6 5 Weight Weight: 69.944 kg Body Mass Index (BMI) 24.1 Physical Exam Const alert General Appearance: cooperative HEENT normocephalic Eyes PERRL and EOMs intact bilaterally Neck supple, no JVD and no carotid bruits Resp normal respiratory effort, normal air movement and clear to auscultation bilaterally Cardio regular rate and regular rhythm GI normal to inspection, nondistended, normoactive bowel sounds, non-tender and non-distended Extremity normal capillary refill General Extremity: Negative for edema Skin no rashes or lesions noted General Skin Exam: no breakdown Psych affect normal Appearance: appropriate Assessment & Plan Assessment/Plan (1) Debility: (2) Acute respiratory failure with hypoxia: (3) Sepsis: (4) Pneumonia: (5) Acute kidney injury: (6) COPD exacerbation: (7) Duodenal ulcer: (8) Esophageal candidiasis: (9) Anemia: (10) Thrombocytopenia: (11) Stage 4 lung cancer: (12) Essential hypertension: (13) Hyperlipidemia: (14) Depression: (15) Hypokalemia: PLAN: Plan 69 year old male with below past medical history hospitalized for acute respiratory failure with hypoxia 2/2 pneumonia, complicated by severe sepsis, COPD exacerbation, acute anemia, thrombocytopenia, duodenal ulcers, esophageal candidiasis, admitted to TCU with debility, here for rehabilitation, strengthening, prior to discharge home with . * Debility - PT/OT. * Dysphagia - ST. * Pain - Tylenol 1000mg q6 prn pain (1-10). * Bowel - senna/colace 1 tablet bid, Dulcolax 10mg pr daily prn. * Adult immunization - Administer pneumonia vaccine, covid vaccine, flu vaccine as appropriate. * DVT prophylaxis - Hold, anemia. * COPD - Fluticasone/salmeterol 232-14 1 puff q12, Incruse 1 puff daily, albuterol 2 puffs q6 prn, prednisone taper thru 03/05/2024. * CV prophylaxis - Aspirin 81mg daily. * Hyperlipidemia - Atorvastatin 40mg qhs. * Insomnia - Melatonin 10mg qhs. * Folate deficiency - Folic acid 1mg daily. * Sore throat - Lidocaine 2% viscous 15ml q4 prn, BMX 15ml q4 prn, Cepacol lozenges prn. * Hypertension - Lisinopril 40mg daliy. * Skin irritation - Calmoseptine topical bid. * Esophageal candidiasis - Nystatin 500,000 4x/day thru 03/02/2024, Fluconazole 200mg daily x 14 days. * Nausea - Zofran 8mg prn. * Duodenal ulcer - Pantoprazole 40mg bid thru 04/21/2024. * Depression - Venlafaxine XR 150mg daily, stable chronic terminal carman use, GDR not recommended.
[2024-02-21 16:33] VITALS: BMI 24.1
[2024-02-21] MEDS: Fluconazole 100 MG Tablet 200 MG PO (18:15)
[2024-02-21] MEDS: NYSTATIN 500,000 UNIT/5 ML UDC 500000 UNIT PO ×2 (18:15→22:04)
[2024-02-21] MEDS: MELATONIN 10 MG TABLET PO (22:04)
[2024-02-21] MEDS: Pantoprazole Sodium 40 MG Tablet PO (22:04)
[2024-02-21] MEDS: Atorvastatin Calcium 40 MG Tablet PO (22:04)
[2024-02-21] MEDS: BENZOCAINE/MENTHOL 1 LOZENGE MUCOUS MEM (22:04)
[2024-02-21] MEDS: Menthol/Lanolin/Calamine/Znox 113 GM Tube 1 APPLIC TOPICAL (22:04)
[2024-02-21] MEDS: Fluticasone/Salmeterol 232-14 Inhaler 1 PUFF INHALATION (22:04)
[2024-02-21] MEDS: Senna/Docusate Sodium 1 Tablet PO (22:05)
[2024-02-21] MEDS: BMX LIQUID 180 ML 15 ML PO (22:14)
[2024-02-21 23:05] VITALS: PULSE 108; RESP 12; RESP 20; O2SAT 94
[2024-02-22] VITALS (8 sets, daily range): BP systolic 88–112; BP diastolic 53–64; PULSE 87–104; RESP 12–23; TEMP 36.3; O2SAT 90–95
[2024-02-22 05:37] LABS: Absolute Neutrophil Count 8.4 X10^3/uL (2.0-7.7); Basophil# 0.03 X10^3/uL; Eosinophil# 0.02 X10^3/uL; Hematocrit 29.6 % (40-54); Hemoglobin 9.9 g/dL (13.0-16.5); Mean Corp Hgb Conc 33.4 g/dL (32-36); Mean Corpuscular Hgb 29.2 pg (27.0-32.0); Mean Corpuscular Volume 87.3 fL (80-94); Mean Platelet Vol. 10.3 fl (6.2-12.0); Monocyte# 1.51 X10^3/uL; NRBC Flagged by Analyzer 0.3 % (0-5); Neutrophil # 8.39 X10^3/uL (2.7-7.7); POSITIVE DIFFERENTIAL YES; Platelet Count 183 K/mm3 (150-450); RBC Distribution Width CV 19.1 % (11.6-14.6); RBC Distribution Width SD 58.6 fl (35.1-43.9); Red Blood Count 3.39 M/mm3 (4.6-6.2); White Blood Count 11.7 K/mm3 (4.4-11.0)
[2024-02-22 05:40] LABS: Differential Indicated SCAN CRITERIA MET
[2024-02-22 05:58] LABS: Scan Smear per Review Criteria MANUAL DIFF
[2024-02-22 06:01] LABS: Lymphocyte 8 % (19-41); Metamyelocyte 5 % (0-1); Monocyte 7 % (0-10); Neutrophil-Band 3 % (0-5); Neutrophil-Segmented 77 % (47-70); Nucleated Red Bld Cells,Manual 4 % (0-5); Total Cells Counted 100 (MANUAL DIFF)
[2024-02-22 06:02] LABS: Anion Gap 3 (5-15); BUN 20 mg/dL (7-18); BUN/Creat Ratio 27.1 RATIO (10-20); Calcium,Total 8.1 mg/dL (8.5-10.1); Chloride 96 mmol/L (98-107); Creatinine, Serum 0.74 mg/dL (0.70-1.30); EST Glomerular Filtration Rate 111 mL/min (>60); Est Glom Filt Rate - Afr Amer 135 mL/min (>60); Estimated Creatinine Clearance 80.33 ml/min; Glucose 87 mg/dL (74-106); Platelet Estimate ADEQUATE (ADEQ); Polychromasia 2+; Potassium 3.3 mmol/L (3.5-5.1); Sodium Level 135 mmol/L (136-145)
[2024-02-22 06:03] LABS: Anisocytosis 1+
[2024-02-22] MEDS: NYSTATIN 500,000 UNIT/5 ML UDC 500000 UNIT PO ×4 (06:22→20:59)
[2024-02-22] MEDS: Menthol/Lanolin/Calamine/Znox 113 GM Tube 1 APPLIC TOPICAL ×2 (09:05→21:03)
[2024-02-22] MEDS: Potassium Chloride Oral Tablet 20 MEQ 40 MEQ PO (10:19)
[2024-02-22] MEDS: Pantoprazole Sodium 40 MG Tablet PO ×2 (10:21→20:59)
[2024-02-22] MEDS: Aspirin E.C. 81 MG Tablet PO (10:21)
[2024-02-22] MEDS: Folic Acid 1 MG Tablet PO (10:21)
[2024-02-22] MEDS: Fluconazole 100 MG Tablet 200 MG PO (10:22)
[2024-02-22] MEDS: Venlafaxine XR 150 MG Capsule PO (10:22)
[2024-02-22] MEDS: Senna/Docusate Sodium 1 Tablet PO ×2 (10:23→20:59)
[2024-02-22] MEDS: Umeclidinium Bromide Inhaler 1 PUFF INHALATION (10:24)
[2024-02-22] MEDS: Fluticasone/Salmeterol 232-14 Inhaler 1 PUFF INHALATION ×2 (10:25→20:58)
[2024-02-22] MEDS: predniSONE 10 MG Tablet PO (11:35)
--- NOTE | 2024-02-22 11:56 | NURSING ---
PT BP LOW 0830 THIS MORNING,OXYGEN 88% ON 6L. PT STATED FEELING SHORT OF BREATH. PT MOIST COUGH. REPOSITIONED PT TURNED O2 UP TO 7L AND REPLACED OXYGEN FINGER MONITOR. PT NOT DRINKING MUCH WATER STATED HIS MOUTH AND THROAT HURT TO MUCH. PT IS GETTING NYSTATIN (SWISH AND SWALLOW). EDUCATED PT ON DRINKING WATER. PT HAS BEEN DRINKING MORE AND BP HAS IMPROVED. WILL CONTINUE TO MONITOR. RN AWARE
[2024-02-22] MEDS: Nystatin Powder 15gm Bottle 1 APPLIC TOPICAL ×2 (13:05→21:04)
[2024-02-22] MEDS: Tuberculin,Purif.prot.deriv. 50 TU/ML Vial 0.1 ML ID (13:06)
[2024-02-22] MEDS: Albuterol IH (6.7 GM) 1 PUFF INHALER 2 PUFF INHALATION (14:32)
[2024-02-22] MEDS: BENZOCAINE/MENTHOL 1 LOZENGE MUCOUS MEM (14:36)
[2024-02-22] MEDS: BMX LIQUID 180 ML 15 ML PO (14:36)
[2024-02-22] MEDS: Bisacodyl 10 MG Suppository RC (14:51)
[2024-02-22 15:30] LABS: Pathologist Review Reviewed
--- NOTE | 2024-02-22 15:30 | NURSING ---
Addendum entered by Og Yang 02/22/24 16:36: PRUNE JUICE AND BUTTER ALSO GIVEN Original Note: NO BM IN 8 DAYS. DULCOLAX/SUPPOSITORY GIVEN.
--- NOTE | 2024-02-22 19:30 | RAD_ITS ---
STUDY: X-RAY CHEST REASON FOR EXAM: Male, 69 years old. productive cough brown sputum. TECHNIQUE: PA and lateral views of the chest. COMPARISON: 02/12/2024 FINDINGS: Right internal jugular chest port which is unchanged. There are interstitial fibrotic changes of the lungs. Alveolar opacity in the lower right lung consistent with right lower lobe pneumonia. There is no demonstrated pleural abnormality. Normal size heart. Normal mediastinum and addy. Normal visualized pulmonary arteries. Normal visualized aortic arch and descending thoracic aorta. Normal visualized thoracic spine. Normal visualized ribs, clavicles, and shoulders. There is no demonstrated abnormality of the visualized soft tissue structures of the upper abdomen. RAD/Chest PA and Lateral IMPRESSION: Right lower lobe pneumonia. Electronically Signed: Og Umana MD at 20:25 EDT ,
[2024-02-22] MEDS: Ipratropium Bromide 0.06% NASAL SPRAY 2 SPRAY NASAL (20:58)
[2024-02-22] MEDS: Atorvastatin Calcium 40 MG Tablet PO (20:59)
[2024-02-22] MEDS: MELATONIN 10 MG TABLET PO (20:59)
[2024-02-22] MEDS: Meropenem 1 GM in 0.9% Normal Saline (100mL MB+) 100 ML IV (22:10)
[2024-02-22] MEDS: 0.9% Normal Saline (250mL Bag) 250 ML 15 ML IV (22:11)
[2024-02-23] VITALS: PULSE 98; RESP 12; RESP 22; O2SAT 93
[2024-02-23] MEDS: 0.9% Saline Lock 10 ML Syringe IV ×2 (02:05→23:10)
[2024-02-23 05:12] VITALS: PULSE 88; RESP 12; RESP 22; O2SAT 95
[2024-02-23 05:17] VITALS: O2SAT 94
[2024-02-23] MEDS: NYSTATIN 500,000 UNIT/5 ML UDC 500000 UNIT PO ×4 (05:26→20:39)
[2024-02-23] MEDS: Meropenem 1 GM in 0.9% Normal Saline (100mL MB+) 100 ML IV ×3 (05:26→23:10)
[2024-02-23 06:10] VITALS: O2SAT 92
[2024-02-23 06:37] LABS: Anion Gap 3 (5-15); BUN 19 mg/dL (7-18); BUN/Creat Ratio 28.1 RATIO (10-20); Calcium,Total 8.3 mg/dL (8.5-10.1); Chloride 95 mmol/L (98-107); Creatinine, Serum 0.68 mg/dL (0.70-1.30); EST Glomerular Filtration Rate 123 mL/min (>60); Est Glom Filt Rate - Afr Amer 149 mL/min (>60); Estimated Creatinine Clearance 80.33 ml/min; Glucose 86 mg/dL (74-106); Potassium 3.5 mmol/L (3.5-5.1); Sodium Level 133 mmol/L (136-145)
[2024-02-23] MEDS: Aspirin E.C. 81 MG Tablet PO (08:22)
[2024-02-23] MEDS: Potassium Chloride Oral Tablet 20 MEQ PO (08:22)
[2024-02-23] MEDS: Folic Acid 1 MG Tablet PO (08:22)
[2024-02-23] MEDS: Nystatin Powder 15gm Bottle 1 APPLIC TOPICAL ×2 (08:22→20:40)
[2024-02-23] MEDS: predniSONE 10 MG Tablet PO (08:22)
[2024-02-23] MEDS: Menthol/Lanolin/Calamine/Znox 113 GM Tube 1 APPLIC TOPICAL ×2 (08:22→20:40)
[2024-02-23] MEDS: Ipratropium Bromide 0.06% NASAL SPRAY 2 SPRAY NASAL ×2 (08:23→20:36)
[2024-02-23] MEDS: Fluconazole 100 MG Tablet 200 MG PO (08:23)
[2024-02-23] MEDS: Venlafaxine XR 150 MG Capsule PO (08:24)
[2024-02-23] MEDS: Pantoprazole Sodium 40 MG Tablet PO ×2 (08:24→20:39)
[2024-02-23] MEDS: Fluticasone/Salmeterol 232-14 Inhaler 1 PUFF INHALATION ×2 (08:24→20:37)
[2024-02-23] MEDS: Senna/Docusate Sodium 1 Tablet PO (08:24)
[2024-02-23] MEDS: Umeclidinium Bromide Inhaler 1 PUFF INHALATION (08:24)
[2024-02-23] MEDS: BMX LIQUID 180 ML 15 ML PO ×3 (11:45→20:34)
[2024-02-23] MEDS: BENZOCAINE/MENTHOL 1 LOZENGE MUCOUS MEM ×2 (11:46→20:34)
--- NOTE | 2024-02-23 12:19 | NURSING ---
Cpa Tax Note; Activity Asset: Desire Cohn is independent in his choice of daily activities. He prefers to do in room activities at this time due to his health. He has his smartphone he uses to read and talk w/family on, watches tv and will rest at this time. He welcomes visits from the furnace door tender and therapy dog when available. Staff will continue to remind him of weekly activities, offer in room activities and respect his right to say no.
--- NOTE | 2024-02-23 13:33 | PHA.CONS_ITS ---
TCU RX Drug Regimen Review Subjective/Objective Subjective/Objective: Subjective: 69 YOM admitted to TCU 02/21/24 s/p hospitalization for COPD exacerbation. Hospitalization complicated by duodenal ulcers which was addressed by GI. Patient admitted to TCU for strengthening and rehabilitation prior to discharge home where he resides with his . Objective: Allergies Iodinated Contrast Media Allergy (Mild, Verified 02/05/24 09:40) Hives Current Medications Generic Name Dose Route Start Last Admin Trade Name Freq PRN Reason Stop Dose Admin Acetaminophen 1,000 mg 02/21/24 16:17 Acetaminophen 500 Mg Tablet PO Q6H PRN PRN PAIN 1-10 Albuterol Sulfate 2 puff 02/21/24 14:30 02/22/24 14:32 Albuterol Ih (6.7 Gm) 1 Puff Inhaler INHALATION 2 puff Q6H PRN Administration shortness of breath or wheezing Aspirin 81 mg 02/22/24 08:00 02/23/24 08:22 Aspirin E.C. 81 Mg Tablet PO 81 mg DAILYCM CHRISTINA Administration Atorvastatin Calcium 40 mg 02/21/24 22:00 02/22/24 20:59 Atorvastatin Calcium 40 Mg Tablet PO 40 mg QHS CHRISTINA Administration Bisacodyl 10 mg 02/21/24 16:16 02/22/24 14:51 Bisacodyl 10 Mg Suppository RC 10 mg DAILY PRN Administration CONSTIPATION Calamine/Phenol 1 applic 02/21/24 22:00 02/23/24 08:22 Menthol/Lanolin/Calamine/Znox 113 Gm Tube TOPICAL 1 applic BID CHRISTINA Administration Protocol Fluconazole 200 mg 02/21/24 18:00 02/23/24 08:23 Fluconazole 100 Mg Tablet PO 03/06/24 18:01 200 mg DAILY CHRISTINA Administration Folic Acid 1 mg 02/22/24 08:00 02/23/24 08:22 Folic Acid 1 Mg Tablet PO 1 mg DAILYCM CHRISTINA Administration Heparin Sodium (Beef Lung) 50 units 02/21/24 14:28 Heparin Pf Lock 10 Units/Ml 50 Units/5 Ml Syringe IV UD PRN R Port Heparin Flush Meropenem 1 gm/ Sodium 120 mls @ 33 mls/hr 02/22/24 22:00 02/23/24 10:47 Chloride IV 02/29/24 22:01 Infused Q8 CHRISTINA Infusion Sodium Chloride 250 mls @ 15 mls/hr 02/22/24 21:49 02/23/24 10:47 IV 0 mls/hr .[id number] PRN Infusion Additional IVPB Infusion Sodium Chloride 250 mls @ 15 mls/hr 02/22/24 21:49 IV .[id number] PRN Saline Flush Ipratropium Broadbent 2 spray 02/22/24 22:00 02/23/24 08:23 Ipratropium Broadbent 0.06% Nasal [place] NASAL 2 spray BID CHRISTINA Administration Lidocaine HCl 15 ml 02/21/24 13:50 Lidocaine 2% Viscous 15 Ml Udc PO 02/28/24 13:51 Q4H PRN MOUTH SORE Lidocaine/Diphenhydr/Alum/Mg/Simeth 15 ml 02/21/24 17:14 02/23/24 11:45 Bmx Liquid 180 Ml PO 15 ml Q3H PRN PRN Administration SORE THROAT Lidocaine/Prilocaine 1 gm 02/21/24 13:50 Lidocaine/Prilocaine Hcl 5 Gm Tube TOPICAL X1 PRN PORT ACCESS Protocol Melatonin 10 mg 02/21/24 22:00 02/22/24 20:59 Melatonin 10 Mg Tablet PO 10 mg QHS CHRISTINA Administration Nystatin 500,000 unit 02/21/24 17:00 02/23/24 11:43 Nystatin 500,000 Unit/5 Ml Udc PO 03/02/24 17:01 500,000 unit 4X/DAY CHRISTINA Administration Nystatin 1 applic 02/22/24 10:00 02/23/24 08:22 Nystatin Powder 15gm Bottle TOPICAL 1 applic BID CHRISTINA Administration Protocol Pantoprazole Sodium 40 mg 02/21/24 22:00 02/23/24 08:24 Pantoprazole Sodium 40 Mg Tablet PO 04/21/24 22:01 40 mg BID CHRISTINA Administration Potassium Chloride 20 meq 02/23/24 08:00 02/23/24 08:22 Potassium Chloride Oral Tablet 20 Meq PO 20 meq DAILYCM CHRISTINA Administration Prednisone 40 mg 02/22/24 08:00 02/23/24 08:22 Prednisone 10 Mg Tablet PO 03/05/24 07:59 40 mg DAILYCM CHRISTINA Administration Taper Fluticasone/Salmeterol 1 puff 02/21/24 22:00 02/23/24 08:24 Fluticasone/Salmeterol 232-14 Inhaler INHALATION 1 puff Q12 CHRISTINA Administration Senna/Docusate Sodium 1 tablet 02/21/24 22:00 02/23/24 08:24 Senna/Docusate Sodium 1 Tablet PO 1 tablet BID CHRISTINA Administration Sodium Chloride 10 - 40 ml 02/21/24 14:23 0.9% Saline Lock 10 Ml Syringe IV UD PRN SALINE FLUSH Sodium Chloride 10 - 40 ml 02/21/24 14:28 0.9 % Nacl (Sterile) Posiflush 10 Ml IV UD PRN Port access or dressing change Sodium Chloride 10 - 40 ml 02/21/24 14:28 0.9% Saline Lock 10 Ml Syringe IV UD PRN R Port Saline Flush Sodium Chloride 10 - 40 ml 02/22/24 21:49 02/23/24 02:05 0.9% Saline Lock 10 Ml Syringe IV 20 ml UD PRN Administration SALINE FLUSH Throat Lozenges 1 lozenge 02/21/24 17:14 02/23/24 11:46 Benzocaine/Menthol 1 Lozenge MUCOUS MEM 1 lozenge Q2H PRN PRN Administration COUGH/CONGESTION Tuberculin PPD 0.1 ml 02/29/24 10:00 Tuberculin,Purif.Prot.Deriv. 50 Tu/Ml Vial ID 02/29/24 10:01 X1 ONE Umeclidinium Broadbent 1 puff 02/22/24 10:00 02/23/24 08:24 Umeclidinium Broadbent Inhaler INHALATION 1 puff DAILY CHRISTINA Administration Venlafaxine HCl 150 mg 02/22/24 10:00 02/23/24 08:24 Venlafaxine Xr 150 Mg Capsule PO 150 mg DAILY CHRISTINA Administration Problem List (Updated 02/21/24 @ 16:[address] Navjot Judd MD) Depression (Acute) Stage 4 lung cancer (Acute) Thrombocytopenia (Acute) Esophageal candidiasis (Acute) Duodenal ulcer (Acute) Acute kidney injury (Acute) Pneumonia (Acute) Sepsis (Acute) Acute respiratory failure with hypoxia (Acute) Debility (Acute) COPD exacerbation (Chronic) Anemia (Acute) Hypokalemia (Acute) Essential hypertension (Chronic) Hyperlipidemia (Acute) Vital Signs Temp Pulse Resp BP Pulse Ox O2 Del Method O2 Flow Rate 97.3 F L 88 22 H 97/53 L 92 Nasal Cannula 6 02/22/24 15:15 02/23/24 05:12 02/23/24 05:12 02/22/24 15:15 02/23/24 06:10 02/23/24 06:10 02/23/24 06:10 FiO2 40 02/23/24 05:12 Oxygen Flow Rate (L/min) 6 Oxygen Delivery Method Nasal Cannula Weight: 69.944 kg Body Mass Index (BMI) 24.1 Sodium 133 mmol/L (136-145) L 02/23/24 05:03 Potassium 3.5 mmol/L (3.5-5.1) 02/23/24 05:03 Chloride 95 mmol/L (98-107) L 02/23/24 05:03 Carbon Dioxide 35.0 mmol/L (21.0-32.0) H 02/23/24 05:03 Anion Gap 3 (5-15) L 02/23/24 05:03 BUN 19 mg/dL (7-18) H 02/23/24 05:03 Creatinine 0.68 mg/dL (0.70-1.30) L 02/23/24 05:03 Est GFR (MDRD) Af Amer 149 mL/min (>60) 02/23/24 05:03 Est GFR (MDRD) Non-Af 123 mL/min (>60) 02/23/24 05:03 BUN/Creatinine Ratio 28.1 RATIO (10-20) H 02/23/24 05:03 Glucose 86 mg/dL (74-106) 02/23/24 05:03 Assessment/Plan: 1. Pain: Tylenol 1000mg PO Q6h PRN Pain 1-10. Please continue to monitor for increased/decreased S/S pain, PRN medication usage. - To date, the patient has not required any doses of PRN medication. Pain appears managed at this time. 2. COPD exacerbation/ Pneumonia: Merrem 1g IV Q8 thru 02/29/24, Airduo 1 puff Q12h, Incruse 1 puff Daily, Albuterol 2 puff Q6h PRN, Prednisone taper thru 03/05/24. Please continue to monitor for SOB, HR (last 88 BPM), CrCl (last 80mL/min on 02/22), microbiology data (SCx pending), insomnia, increased appetite, BG levels while on prednisone. 3. HTN/ HLD: Aspirin 81mg PO Daily, Lipitor 40mg PO QHS, blood pressure me dications discontinued at this time. Please monitor for S/S bleeding/bruising, BP (last ). Please consider obtaining a lipid panel as there is not one on file if clinically indicated, thank you. 4. Esophageal candidiasis: Fluconazole 200mg PO Daily thru 03/06/24, Nystatin 500k unit PO 4x/day thru 03/02/24. Please continue to monitor headache, nausea, vomiting, resolution of infection. Please ensure patient is rinsing mouth out after inhaler usage to help prevent further infection. 5. Duodenal ulcer: Protonix 40mg PO BID. Please continue to monitor for headache, bloating, upset stomach, S/S GI bleeding. 6. Sore throat/ irritation: BMX liquid 15mL PO Q3h PRN, Viscous lidocaine q4h PRN thru 02/27, Cepcol lozenge Q2h PRN. 7. Insomnia: Melatonin 10mg PO QHS. Please continue to monitor for medication effectiveness, oversedation. If medication appears ineffective, please consider administering medication at least 2hrs prior to desired bedtime for optimal use. 8. Hypokalemia: KCl 20mEq PO daily. Please continue to monitor for GI upset, K levels (02/21 level 3.3, repeat level post-med initiation 3.5 on 02/22). 9. General Wellness: Folic acid 1mg PO daily. 10. Skin Integrity: Calmoseptine topically BID, Nystatin powder topically BID. Please continue to monitor for skin irritation, redness, ulcer formation. 11. Bowel: Senna/Docusate 1 tab PO BID, Dulcolax 10mg [place] Daily PRN. Please c ontinue to monitor for increased/decreased constipation and/or diarrhea. -The patient's last documented BM was 02/22/24. Assessment/Plan for indications treated with psychotropic medications: 1. Depression: Effexor XR 150mg PO Daily. Please consider a GDR by 07/2024 if clinically indicated, thank you. Medical chart and medication regimen reviewed. The following medication irregularities or issues were identified: 1. Hyperlipidemia: The patient is on Lipitor for cholesterol management. Per EMR review, no lipid panel on file. Please consider obtaining a lipid panel if clinically indicated, thanks. 2. Depression: Effexor XR 150mg PO Daily. Please consider a GDR by 07/2024 if clinically indicated, thank you. Date Date of Note:: 02/23/24
--- NOTE | 2024-02-23 15:08 | CASEMGMT ---
Social Work SW met with patient at bedside to complete initial intake assessment and SDOH. SW introduced self and role. Patient confirmed demographics and contact information. SW reviewed code status; patient confirmed code status as Full Code. Patient has advanced directives; daughterAngeline is power of managing attorney per patient. Patient informed SW that he will have daughter provide copies of AD, if it is not in medical charts. SW educated patient of Medicare benefits and copay coverage. Patient was informed that Medicare covers 100% cost for the first 20 days; copay for $204.00/ day for 21-100 Medicare day. The patient provided verbal understanding. Patient informed SW that his goals would be to return home with the ability to walk. SW discussed alternative plan for home health care v. [facility]. Patient informed SW that he would be agreeable to home health care services, if recommended. Patient declined [facility] care. Patient informed SW that, if required his granddaughter would move in to assist with patient care. Patient informed SW that he has significant help from family. SW provided patient with medical alert device and meal delivery services. SDOH was completed. Patient denied any concern for in home care, transportation issues, financial insecurity, and/or food insecurity. SW will continue to follow to assist with discharge planning. NATHALIE Sims
[2024-02-23 15:53] VITALS: BP 130/75; PULSE 88; RESP 16; TEMP 36.4; O2SAT 100
[2024-02-23] MEDS: Atorvastatin Calcium 40 MG Tablet PO (20:39)
[2024-02-23] MEDS: MELATONIN 10 MG TABLET PO (20:39)
[2024-02-23 23:09] VITALS: PULSE 81; RESP 12; RESP 25; O2SAT 97
[2024-02-24] MEDS: Meropenem 1 GM in 0.9% Normal Saline (100mL MB+) 100 ML IV ×3 (06:19→22:02)
[2024-02-24] MEDS: NYSTATIN 500,000 UNIT/5 ML UDC 500000 UNIT PO ×4 (06:23→22:03)
[2024-02-24] MEDS: BMX LIQUID 180 ML 15 ML PO ×2 (06:27→16:19)
[2024-02-24] MEDS: Fluticasone/Salmeterol 232-14 Inhaler 1 PUFF INHALATION ×2 (08:35→22:02)
[2024-02-24] MEDS: Ipratropium Bromide 0.06% NASAL SPRAY 2 SPRAY NASAL ×2 (08:36→22:02)
[2024-02-24] MEDS: Umeclidinium Bromide Inhaler 1 PUFF INHALATION (08:37)
[2024-02-24] MEDS: Pantoprazole Sodium 40 MG Tablet PO ×2 (08:37→22:03)
[2024-02-24] MEDS: predniSONE 10 MG Tablet PO (08:38)
[2024-02-24] MEDS: Potassium Chloride Oral Tablet 20 MEQ PO (08:38)
[2024-02-24] MEDS: Aspirin E.C. 81 MG Tablet PO (08:38)
[2024-02-24] MEDS: Folic Acid 1 MG Tablet PO (08:38)
[2024-02-24] MEDS: Senna/Docusate Sodium 1 Tablet PO ×2 (08:39→22:03)
[2024-02-24] MEDS: Venlafaxine XR 150 MG Capsule PO (08:40)
[2024-02-24] MEDS: Fluconazole 100 MG Tablet 200 MG PO (08:40)
[2024-02-24] MEDS: Nystatin Powder 15gm Bottle 1 APPLIC TOPICAL ×2 (08:43→22:03)
[2024-02-24] MEDS: Menthol/Lanolin/Calamine/Znox 113 GM Tube 1 APPLIC TOPICAL ×2 (08:43→22:02)
[2024-02-24 08:49] VITALS: BP 105/56; PULSE 98; RESP 18; TEMP 36.2; O2SAT 94
[2024-02-24 10:00] VITALS: O2SAT 93
[2024-02-24 10:20] VITALS: O2SAT 90
[2024-02-24] MEDS: 0.9% Normal Saline (250mL Bag) 250 ML 15 ML IV (13:16)
[2024-02-24 20:30] VITALS: PULSE 72; O2SAT 94
[2024-02-24] MEDS: MELATONIN 10 MG TABLET PO (22:02)
[2024-02-24] MEDS: Atorvastatin Calcium 40 MG Tablet PO (22:02)
[2024-02-25 01:49] VITALS: PULSE 75; RESP 12; RESP 19; O2SAT 98
[2024-02-25] MEDS: Meropenem 1 GM in 0.9% Normal Saline (100mL MB+) 100 ML IV ×3 (05:53→21:46)
[2024-02-25] MEDS: 0.9% Saline Lock 10 ML Syringe IV ×2 (05:56→10:34)
[2024-02-25] MEDS: NYSTATIN 500,000 UNIT/5 ML UDC 500000 UNIT PO ×4 (05:59→21:44)
[2024-02-25] MEDS: BMX LIQUID 180 ML 15 ML PO ×2 (06:03→20:01)
[2024-02-25] MEDS: BENZOCAINE/MENTHOL 1 LOZENGE MUCOUS MEM ×2 (06:04→20:01)
[2024-02-25 06:25] VITALS: PULSE 78; O2SAT 95
[2024-02-25] MEDS: Potassium Chloride Oral Tablet 20 MEQ PO (08:27)
[2024-02-25] MEDS: Folic Acid 1 MG Tablet PO (08:27)
[2024-02-25] MEDS: Aspirin E.C. 81 MG Tablet PO (08:27)
[2024-02-25] MEDS: predniSONE 10 MG Tablet PO (08:28)
[2024-02-25] MEDS: Menthol/Lanolin/Calamine/Znox 113 GM Tube 1 APPLIC TOPICAL ×2 (08:28→21:42)
[2024-02-25] MEDS: Nystatin Powder 15gm Bottle 1 APPLIC TOPICAL ×2 (08:29→21:44)
[2024-02-25] MEDS: Pantoprazole Sodium 40 MG Tablet PO ×2 (08:29→21:44)
[2024-02-25] MEDS: Fluconazole 100 MG Tablet 200 MG PO (08:29)
[2024-02-25] MEDS: Venlafaxine XR 150 MG Capsule PO (08:29)
[2024-02-25] MEDS: Fluticasone/Salmeterol 232-14 Inhaler 1 PUFF INHALATION ×2 (08:30→21:42)
[2024-02-25] MEDS: Umeclidinium Bromide Inhaler 1 PUFF INHALATION (08:31)
[2024-02-25] MEDS: Ipratropium Bromide 0.06% NASAL SPRAY 2 SPRAY NASAL ×2 (08:31→21:41)
[2024-02-25] MEDS: Senna/Docusate Sodium 1 Tablet PO ×2 (08:32→21:44)
[2024-02-25] MEDS: 0.9% Normal Saline (250mL Bag) 250 ML 15 ML IV (13:29)
[2024-02-25 15:59] VITALS: BP 108/57; PULSE 89; RESP 16; TEMP 36.3; O2SAT 98
[2024-02-25] MEDS: MELATONIN 10 MG TABLET PO (21:44)
[2024-02-25] MEDS: Atorvastatin Calcium 40 MG Tablet PO (21:44)
[2024-02-26 00:11] VITALS: PULSE 88; RESP 12; RESP 21; O2SAT 97
[2024-02-26 04:29] VITALS: PULSE 77; RESP 12; RESP 21; O2SAT 96
[2024-02-26] MEDS: Meropenem 1 GM in 0.9% Normal Saline (100mL MB+) 100 ML IV ×3 (06:25→21:52)
[2024-02-26] MEDS: 0.9% Saline Lock 10 ML Syringe IV ×4 (06:25→21:43)
[2024-02-26] MEDS: NYSTATIN 500,000 UNIT/5 ML UDC 500000 UNIT PO ×4 (06:29→21:41)
[2024-02-26] MEDS: BMX LIQUID 180 ML 15 ML PO (06:31)
[2024-02-26] MEDS: BENZOCAINE/MENTHOL 1 LOZENGE MUCOUS MEM (06:31)
[2024-02-26] MEDS: Aspirin E.C. 81 MG Tablet PO (09:21)
[2024-02-26] MEDS: Folic Acid 1 MG Tablet PO (09:21)
[2024-02-26] MEDS: Potassium Chloride Oral Tablet 20 MEQ PO (09:21)
[2024-02-26] MEDS: predniSONE 10 MG Tablet PO (09:21)
[2024-02-26] MEDS: Umeclidinium Bromide Inhaler 1 PUFF INHALATION (09:22)
[2024-02-26] MEDS: Fluconazole 100 MG Tablet 200 MG PO (09:22)
[2024-02-26] MEDS: Ipratropium Bromide 0.06% NASAL SPRAY 2 SPRAY NASAL ×2 (09:22→21:36)
[2024-02-26] MEDS: Venlafaxine XR 150 MG Capsule PO (09:22)
[2024-02-26] MEDS: Pantoprazole Sodium 40 MG Tablet PO ×2 (09:23→21:42)
[2024-02-26] MEDS: Senna/Docusate Sodium 1 Tablet PO ×2 (09:23→21:42)
[2024-02-26] MEDS: Nystatin Powder 15gm Bottle 1 APPLIC TOPICAL ×2 (09:27→21:41)
[2024-02-26] MEDS: Fluticasone/Salmeterol 232-14 Inhaler 1 PUFF INHALATION ×2 (09:27→21:38)
[2024-02-26] MEDS: Menthol/Lanolin/Calamine/Znox 113 GM Tube 1 APPLIC TOPICAL ×2 (09:28→21:40)
[2024-02-26 09:42] VITALS: O2SAT 95
--- NOTE | 2024-02-26 11:03 | NURSING ---
Offered covid vaccine, VIS provided. Patient refuses at this time.
[2024-02-26 12:54] VITALS: BP 98/55; PULSE 96; RESP 18; TEMP 36.4; O2SAT 93
[2024-02-26] MEDS: 0.9% Normal Saline (250mL Bag) 250 ML 33 ML IV (14:19)
--- NOTE | 2024-02-26 14:49 | NURSING ---
Return from Dr. Rees at 1430. Patient lying in bed and denies needs at this time. NNO from Dr. Rees and patient to resume chemotherapy after discharge from TCU. Daughter reports he has an appt set for 03/26/24 but no appt sent with paperwork.
[2024-02-26] MEDS: Bisacodyl 10 MG Suppository RC (18:46)
[2024-02-26] MEDS: Atorvastatin Calcium 40 MG Tablet PO (21:40)
[2024-02-26] MEDS: MELATONIN 10 MG TABLET PO (21:40)
[2024-02-26 22:00] VITALS: PULSE 90; O2SAT 97
[2024-02-27 00:07] VITALS: PULSE 99; RESP 12; RESP 21; O2SAT 97
[2024-02-27 04:41] VITALS: PULSE 78; RESP 12; RESP 17; O2SAT 97
[2024-02-27] MEDS: Meropenem 1 GM in 0.9% Normal Saline (100mL MB+) 100 ML IV ×3 (05:03→21:15)
[2024-02-27] MEDS: NYSTATIN 500,000 UNIT/5 ML UDC 500000 UNIT PO ×4 (05:04→20:41)
[2024-02-27] MEDS: 0.9% Saline Lock 10 ML Syringe IV (05:04)
[2024-02-27 05:19] VITALS: PULSE 82; O2SAT 95
[2024-02-27 08:35] VITALS: O2SAT 98
[2024-02-27] MEDS: Senna/Docusate Sodium 1 Tablet 2 TABLET PO ×2 (09:29→20:42)
[2024-02-27] MEDS: Potassium Chloride Oral Tablet 20 MEQ PO (09:30)
[2024-02-27] MEDS: Pantoprazole Sodium 40 MG Tablet PO ×2 (09:30→20:43)
[2024-02-27] MEDS: Venlafaxine XR 150 MG Capsule PO (09:31)
[2024-02-27] MEDS: Aspirin E.C. 81 MG Tablet PO (09:31)
[2024-02-27] MEDS: predniSONE 10 MG Tablet PO (09:32)
[2024-02-27] MEDS: Folic Acid 1 MG Tablet PO (09:32)
[2024-02-27] MEDS: Fluconazole 100 MG Tablet 200 MG PO (09:32)
[2024-02-27] MEDS: Menthol/Lanolin/Calamine/Znox 113 GM Tube 1 APPLIC TOPICAL ×2 (09:32→20:38)
[2024-02-27] MEDS: Fluticasone/Salmeterol 232-14 Inhaler 1 PUFF INHALATION ×2 (09:33→20:38)
[2024-02-27] MEDS: Umeclidinium Bromide Inhaler 1 PUFF INHALATION (09:33)
[2024-02-27] MEDS: Nystatin Powder 15gm Bottle 1 APPLIC TOPICAL ×2 (09:33→20:41)
[2024-02-27] MEDS: Ipratropium Bromide 0.06% NASAL SPRAY 2 SPRAY NASAL ×2 (09:33→20:37)
[2024-02-27 09:37] VITALS: BP 104/63; PULSE 100; RESP 18; TEMP 35.7; O2SAT 96
[2024-02-27 10:17] VITALS: BMI 23.5
[2024-02-27] MEDS: BMX LIQUID 180 ML 15 ML PO (11:21)
[2024-02-27] MEDS: 0.9% Normal Saline (250mL Bag) 250 ML 15 ML IV (17:57)
[2024-02-27] MEDS: MELATONIN 10 MG TABLET PO (20:42)
[2024-02-27] MEDS: Atorvastatin Calcium 40 MG Tablet PO (20:42)
[2024-02-28] MEDS: Meropenem 1 GM in 0.9% Normal Saline (100mL MB+) 100 ML IV ×3 (05:00→22:19)
[2024-02-28] MEDS: NYSTATIN 500,000 UNIT/5 ML UDC 500000 UNIT PO ×4 (05:07→21:04)
[2024-02-28 08:34] VITALS: O2SAT 99
[2024-02-28] MEDS: Umeclidinium Bromide Inhaler 1 PUFF INHALATION (09:32)
[2024-02-28] MEDS: Nystatin Powder 15gm Bottle 1 APPLIC TOPICAL ×2 (09:33→21:07)
[2024-02-28] MEDS: Fluticasone/Salmeterol 232-14 Inhaler 1 PUFF INHALATION ×2 (09:33→21:05)
[2024-02-28] MEDS: Aspirin E.C. 81 MG Tablet PO (09:34)
[2024-02-28] MEDS: Potassium Chloride Oral Tablet 20 MEQ PO (09:35)
[2024-02-28] MEDS: Folic Acid 1 MG Tablet PO (09:35)
[2024-02-28] MEDS: Menthol/Lanolin/Calamine/Znox 113 GM Tube 1 APPLIC TOPICAL ×2 (09:36→21:07)
[2024-02-28] MEDS: Ipratropium Bromide 0.06% NASAL SPRAY 2 SPRAY NASAL ×2 (09:37→21:05)
[2024-02-28] MEDS: Fluconazole 100 MG Tablet 200 MG PO (09:37)
[2024-02-28] MEDS: Venlafaxine XR 150 MG Capsule PO (09:37)
[2024-02-28] MEDS: Senna/Docusate Sodium 1 Tablet 2 TABLET PO ×2 (09:38→21:03)
[2024-02-28] MEDS: Pantoprazole Sodium 40 MG Tablet PO ×2 (09:38→21:04)
[2024-02-28] MEDS: predniSONE 10 MG Tablet PO (09:41)
--- NOTE | 2024-02-28 10:07 | CASEMGMT ---
Social Work IDT met with patient and daughterAngeline at bedside to complete care plans. Patient discussed progress with Therapy (PT/OT/ST), dietary, and activities. Patient requires additional oxygen requirement while ambulating due to exertion; 8L while ambulating/exercising. Patient progress with therapy is pending on endurance; exertion. Patient currently has rollator in home. Therapy to assess for DME needs. SW educated patient and daughter on patient's Medicare insurance coverage and benefits; Medicare covers 100% for first 20 days; co-pay 204/days from 21-100 day. Patient and daughters goal is to return home with home assistance. SW discussed home health care services and oxygen support. Patient currently receives home O2 via [employer]. SW will continue to assist with discharge plans. NATHALIE Sims
--- NOTE | 2024-02-28 11:43 | NURSING ---
[place] [facility] Note; MDS for 02/27/2021 Complete
[2024-02-28] MEDS: 0.9% Saline Lock 10 ML Syringe IV ×2 (13:23→22:16)
[2024-02-28 16:00] VITALS: BP 106/60; PULSE 93; RESP 18; TEMP 36.2; O2SAT 92
--- NOTE | 2024-02-28 16:50 | CASEMGMT ---
Social Work SW met with patient at bedside to complete MDS. Patient BIM () and PHQ-2 (10/30). Patient informed SW that he felt little interest doing things several days due not being able to breathe and my throat hurting. Patient informed SW that he feels like he has been improving and has more energy now. NATHALIE Sims
[2024-02-28 20:04] VITALS: O2SAT 96
[2024-02-28] MEDS: Atorvastatin Calcium 40 MG Tablet PO (21:06)
[2024-02-28] MEDS: MELATONIN 10 MG TABLET PO (21:07)
[2024-02-28] MEDS: 0.9% Normal Saline (250mL Bag) 250 ML 15 ML IV (22:19)
[2024-02-29 00:43] VITALS: PULSE 85; RESP 12; RESP 18; O2SAT 97
[2024-02-29] MEDS: 0.9% Saline Lock 10 ML Syringe IV ×4 (03:36→22:53)
[2024-02-29 04:35] VITALS: PULSE 82; RESP 12; RESP 18; O2SAT 97
[2024-02-29] MEDS: NYSTATIN 500,000 UNIT/5 ML UDC 500000 UNIT PO ×4 (05:35→22:37)
[2024-02-29 05:56] LABS: Absolute Neutrophil Count 8.8 X10^3/uL (2.0-7.7); Basophil# 0.01 X10^3/uL; Basophil% 0.1 % (0-1); Eosinophil# 0.01 X10^3/uL; Eosinophils% 0.1 % (0-5); Hematocrit 28.4 % (40-54); Hemoglobin 9.3 g/dL (13.0-16.5); Lymphocyte % 13.4 % (19-41); Mean Corp Hgb Conc 32.7 g/dL (32-36); Mean Corpuscular Hgb 30.3 pg (27.0-32.0); Mean Corpuscular Volume 92.5 fL (80-94); Monocyte# 0.73 X10^3/uL; Monocyte% 6.5 % (0-10); NRBC Flagged by Analyzer 0 % (0-5); Neutrophil # 8.81 X10^3/uL (2.7-7.7); Neutrophil % 78.9 % (47-70); POSITIVE MORPHOLOGY YES; Platelet Count 194 K/mm3 (150-450); RBC Distribution Width CV 20.1 % (11.6-14.6); RBC Distribution Width SD 64.3 fl (35.1-43.9); Red Blood Count 3.07 M/mm3 (4.6-6.2); White Blood Count 11.2 K/mm3 (4.4-11.0)
[2024-02-29 06:02] VITALS: O2SAT 98
[2024-02-29 06:03] LABS: Differential Indicated SCAN CRITERIA MET
[2024-02-29 06:23] LABS: Anion Gap 2 (5-15); BUN 19 mg/dL (7-18); BUN/Creat Ratio 29.4 RATIO (10-20); Calcium,Total 8.8 mg/dL (8.5-10.1); Chloride 95 mmol/L (98-107); Creatinine, Serum 0.65 mg/dL (0.70-1.30); EST Glomerular Filtration Rate 130 mL/min (>60); Est Glom Filt Rate - Afr Amer 157 mL/min (>60); Estimated Creatinine Clearance 80.33 ml/min; Glucose 118 mg/dL (74-106); Potassium 4.4 mmol/L (3.5-5.1); Sodium Level 133 mmol/L (136-145)
[2024-02-29] MEDS: Meropenem 1 GM in 0.9% Normal Saline (100mL MB+) 100 ML IV ×3 (06:40→22:53)
[2024-02-29 06:58] LABS: Anisocytosis 2+
[2024-02-29 08:59] VITALS: BP 108/62; PULSE 98; RESP 16; O2SAT 95
[2024-02-29] MEDS: Umeclidinium Bromide Inhaler 1 PUFF INHALATION (09:00)
[2024-02-29] MEDS: predniSONE 10 MG Tablet PO (09:01)
[2024-02-29] MEDS: Pantoprazole Sodium 40 MG Tablet PO ×2 (09:01→22:38)
[2024-02-29] MEDS: Ipratropium Bromide 0.06% NASAL SPRAY 2 SPRAY NASAL ×2 (09:01→22:32)
[2024-02-29] MEDS: Senna/Docusate Sodium 1 Tablet 2 TABLET PO ×2 (09:01→22:38)
[2024-02-29] MEDS: Venlafaxine XR 150 MG Capsule PO (09:02)
[2024-02-29] MEDS: Folic Acid 1 MG Tablet PO (09:02)
[2024-02-29] MEDS: Aspirin E.C. 81 MG Tablet PO (09:02)
[2024-02-29] MEDS: Fluconazole 100 MG Tablet 200 MG PO (09:02)
[2024-02-29] MEDS: Potassium Chloride Oral Tablet 20 MEQ PO (09:02)
[2024-02-29] MEDS: Menthol/Lanolin/Calamine/Znox 113 GM Tube 1 APPLIC TOPICAL ×2 (09:05→22:36)
[2024-02-29] MEDS: Fluticasone/Salmeterol 232-14 Inhaler 1 PUFF INHALATION ×2 (09:05→22:34)
[2024-02-29] MEDS: Nystatin Powder 15gm Bottle 1 APPLIC TOPICAL ×2 (09:05→22:36)
[2024-02-29] MEDS: Tuberculin,Purif.prot.deriv. 50 TU/ML Vial 0.1 ML ID (09:58)
[2024-02-29 13:44] VITALS: TEMP 36.4
[2024-02-29] MEDS: 0.9% Normal Saline (250mL Bag) 250 ML 15 ML IV (14:09)
[2024-02-29] MEDS: Atorvastatin Calcium 40 MG Tablet PO (22:37)
[2024-02-29] MEDS: MELATONIN 10 MG TABLET PO (22:37)
[2024-03-01] MEDS: 0.9% Saline Lock 10 ML Syringe IV (03:58)
[2024-03-01 04:27] VITALS: PULSE 87; RESP 12; RESP 20; O2SAT 97
[2024-03-01 04:32] VITALS: PULSE 86; O2SAT 97
[2024-03-01] MEDS: NYSTATIN 500,000 UNIT/5 ML UDC 500000 UNIT PO ×4 (05:24→21:43)
[2024-03-01] MEDS: Umeclidinium Bromide Inhaler 1 PUFF INHALATION (09:26)
[2024-03-01] MEDS: Folic Acid 1 MG Tablet PO (09:26)
[2024-03-01] MEDS: Fluticasone/Salmeterol 232-14 Inhaler 1 PUFF INHALATION ×2 (09:26→21:41)
[2024-03-01] MEDS: Aspirin E.C. 81 MG Tablet PO (09:26)
[2024-03-01] MEDS: Potassium Chloride Oral Tablet 20 MEQ PO (09:28)
[2024-03-01] MEDS: predniSONE 10 MG Tablet PO (09:29)
[2024-03-01] MEDS: Ipratropium Bromide 0.06% NASAL SPRAY 2 SPRAY NASAL ×2 (09:29→21:40)
[2024-03-01] MEDS: Fluconazole 100 MG Tablet 200 MG PO (09:30)
[2024-03-01] MEDS: Menthol/Lanolin/Calamine/Znox 113 GM Tube 1 APPLIC TOPICAL ×2 (09:30→21:50)
[2024-03-01] MEDS: Senna/Docusate Sodium 1 Tablet 2 TABLET PO ×2 (09:31→21:43)
[2024-03-01] MEDS: Pantoprazole Sodium 40 MG Tablet PO ×2 (09:31→21:43)
[2024-03-01] MEDS: Venlafaxine XR 150 MG Capsule PO (09:31)
[2024-03-01] MEDS: Nystatin Powder 15gm Bottle 1 APPLIC TOPICAL ×2 (09:31→21:50)
[2024-03-01 14:56] VITALS: O2SAT 90
--- NOTE | 2024-03-01 14:56 | CPS ---
pt on 8L with excertion and working with therapy. 6L during rest.
--- NOTE | 2024-03-01 15:13 | NURSING ---
PT COMPLAINED OF NOT BEING ABLE TO HEAR OUT OF RT EAR. THIS NURSE CHECK EAR AND FOUND BUILD UP OF WAX. REPORTED TO . VERBAL ORDER FOR DEBROX X1 WEEK. RN AWARE
[2024-03-01 15:33] VITALS: BP 100/63; PULSE 96; RESP 16; TEMP 36.3; O2SAT 99
[2024-03-01] MEDS: Carbamide Peroxide 15 ML Bottle OTIC (21:40)
[2024-03-01] MEDS: Atorvastatin Calcium 40 MG Tablet PO (21:43)
[2024-03-01] MEDS: MELATONIN 10 MG TABLET PO (21:43)
[2024-03-02 00:15] VITALS: PULSE 89; RESP 12; RESP 21; O2SAT 93
[2024-03-02 02:56] VITALS: PULSE 81; RESP 12; RESP 17; O2SAT 94
[2024-03-02] MEDS: NYSTATIN 500,000 UNIT/5 ML UDC 500000 UNIT PO ×3 (06:10→17:41)
[2024-03-02 09:46] VITALS: BP 95/59; PULSE 93; RESP 18; TEMP 36.4; O2SAT 98
[2024-03-02] MEDS: Ipratropium Bromide 0.06% NASAL SPRAY 2 SPRAY NASAL ×2 (09:51→22:03)
[2024-03-02] MEDS: Fluticasone/Salmeterol 232-14 Inhaler 1 PUFF INHALATION ×2 (09:51→22:04)
[2024-03-02] MEDS: Carbamide Peroxide 15 ML Bottle OTIC (09:51)
[2024-03-02] MEDS: Menthol/Lanolin/Calamine/Znox 113 GM Tube 1 APPLIC TOPICAL ×2 (09:52→22:02)
[2024-03-02] MEDS: predniSONE 10 MG Tablet PO (09:53)
[2024-03-02] MEDS: Umeclidinium Bromide Inhaler 1 PUFF INHALATION (09:53)
[2024-03-02] MEDS: Fluconazole 100 MG Tablet 200 MG PO (09:53)
[2024-03-02] MEDS: Folic Acid 1 MG Tablet PO (09:53)
[2024-03-02] MEDS: Venlafaxine XR 150 MG Capsule PO (09:53)
[2024-03-02] MEDS: Potassium Chloride Oral Tablet 20 MEQ PO (09:53)
[2024-03-02] MEDS: Pantoprazole Sodium 40 MG Tablet PO ×2 (09:53→22:10)
[2024-03-02] MEDS: Nystatin Powder 15gm Bottle 1 APPLIC TOPICAL ×2 (09:54→22:09)
[2024-03-02] MEDS: Aspirin E.C. 81 MG Tablet PO (09:54)
[2024-03-02 13:15] VITALS: BP 151/64; PULSE 92
[2024-03-02] MEDS: 0.9% Saline Lock 10 ML Syringe IV ×2 (13:18→23:58)
[2024-03-02 13:20] VITALS: BP 111/63; PULSE 92
[2024-03-02 20:10] VITALS: PULSE 88; O2SAT 94
[2024-03-02] MEDS: Senna/Docusate Sodium 1 Tablet 2 TABLET PO (22:10)
[2024-03-02] MEDS: MELATONIN 10 MG TABLET PO (22:10)
[2024-03-02] MEDS: Atorvastatin Calcium 40 MG Tablet PO (22:11)
[2024-03-03 00:06] VITALS: PULSE 97; RESP 12; RESP 26; O2SAT 95
[2024-03-03 03:15] VITALS: PULSE 93; RESP 12; RESP 21; O2SAT 96
[2024-03-03 03:38] VITALS: PULSE 91; O2SAT 97
[2024-03-03 07:32] VITALS: O2SAT 97
[2024-03-03] MEDS: Umeclidinium Bromide Inhaler 1 PUFF INHALATION (10:12)
[2024-03-03] MEDS: Fluticasone/Salmeterol 232-14 Inhaler 1 PUFF INHALATION ×2 (10:13→21:33)
[2024-03-03] MEDS: Potassium Chloride Oral Tablet 20 MEQ PO (10:14)
[2024-03-03] MEDS: Aspirin E.C. 81 MG Tablet PO (10:14)
[2024-03-03] MEDS: Folic Acid 1 MG Tablet PO (10:14)
[2024-03-03] MEDS: Nystatin Powder 15gm Bottle 1 APPLIC TOPICAL ×2 (10:18→21:34)
[2024-03-03] MEDS: Ipratropium Bromide 0.06% NASAL SPRAY 2 SPRAY NASAL ×2 (10:19→21:35)
[2024-03-03] MEDS: predniSONE 10 MG Tablet PO (10:19)
[2024-03-03] MEDS: Venlafaxine XR 150 MG Capsule PO (10:20)
[2024-03-03] MEDS: Fluconazole 100 MG Tablet 200 MG PO (10:21)
[2024-03-03] MEDS: Pantoprazole Sodium 40 MG Tablet PO ×2 (10:21→21:34)
[2024-03-03] MEDS: Carbamide Peroxide 15 ML Bottle OTIC (10:23)
[2024-03-03] MEDS: Menthol/Lanolin/Calamine/Znox 113 GM Tube 1 APPLIC TOPICAL ×2 (10:24→21:33)
[2024-03-03 16:00] VITALS: BP 115/68; PULSE 93; RESP 24; TEMP 36.5; O2SAT 94
[2024-03-03] MEDS: 0.9% Saline Lock 10 ML Syringe IV (20:12)
[2024-03-03] MEDS: MELATONIN 10 MG TABLET PO (21:34)
[2024-03-03] MEDS: Atorvastatin Calcium 40 MG Tablet PO (21:34)
[2024-03-03 23:38] VITALS: PULSE 93; RESP 12; RESP 21; O2SAT 94
[2024-03-04 02:16] VITALS: PULSE 97; RESP 12; RESP 22; O2SAT 98
[2024-03-04 06:12] VITALS: PULSE 92; O2SAT 96
[2024-03-04] MEDS: Fluticasone/Salmeterol 232-14 Inhaler 1 PUFF INHALATION ×2 (09:23→22:35)
[2024-03-04] MEDS: Umeclidinium Bromide Inhaler 1 PUFF INHALATION (09:23)
[2024-03-04] MEDS: Ipratropium Bromide 0.06% NASAL SPRAY 2 SPRAY NASAL ×2 (09:23→22:35)
[2024-03-04] MEDS: predniSONE 10 MG Tablet PO (09:25)
[2024-03-04] MEDS: Folic Acid 1 MG Tablet PO (09:25)
[2024-03-04] MEDS: Potassium Chloride Oral Tablet 20 MEQ PO (09:25)
[2024-03-04] MEDS: Senna/Docusate Sodium 1 Tablet 2 TABLET PO (09:25)
[2024-03-04] MEDS: Pantoprazole Sodium 40 MG Tablet PO ×2 (09:27→22:37)
[2024-03-04] MEDS: Menthol/Lanolin/Calamine/Znox 113 GM Tube 1 APPLIC TOPICAL ×2 (09:27→22:36)
[2024-03-04] MEDS: Venlafaxine XR 150 MG Capsule PO (09:27)
[2024-03-04] MEDS: Aspirin E.C. 81 MG Tablet PO (09:27)
[2024-03-04] MEDS: Fluconazole 100 MG Tablet 200 MG PO (09:28)
[2024-03-04] MEDS: Carbamide Peroxide 15 ML Bottle OTIC (09:28)
[2024-03-04] MEDS: Nystatin Powder 15gm Bottle 1 APPLIC TOPICAL ×2 (09:29→22:36)
--- NOTE | 2024-03-04 10:43 | MDS.RN ---
Information for the MDS was obtained from review of the clinical record, interview of resident, staff, and direct observation of resident?s care.
[2024-03-04 12:37] VITALS: O2SAT 95
[2024-03-04] MEDS: BMX LIQUID 180 ML 15 ML PO ×2 (14:42→22:43)
[2024-03-04 16:00] VITALS: BP 109/68; PULSE 105; RESP 16; TEMP 36.2; O2SAT 95
[2024-03-04] MEDS: Atorvastatin Calcium 40 MG Tablet PO (22:37)
[2024-03-04] MEDS: MELATONIN 10 MG TABLET PO (22:38)
[2024-03-04 22:45] VITALS: O2SAT 91
[2024-03-04 23:02] VITALS: PULSE 103; RESP 12; RESP 23; O2SAT 93
--- NOTE | 2024-03-04 23:49 | NURSING ---
Left vm for SW that resident and his spouse are questioning the status of dc planning.
[2024-03-05] VITALS (7 sets, daily range): BP systolic 108; BP diastolic 74; PULSE 97–108; RESP 12–24; TEMP 36.3; O2SAT 92–99; BMI 22.6
[2024-03-05] MEDS: Potassium Chloride Oral Tablet 20 MEQ PO (08:22)
[2024-03-05] MEDS: Senna/Docusate Sodium 1 Tablet 2 TABLET PO ×2 (08:23→20:11)
[2024-03-05] MEDS: Pantoprazole Sodium 40 MG Tablet PO ×2 (08:23→20:11)
[2024-03-05] MEDS: Fluconazole 100 MG Tablet 200 MG PO (08:23)
[2024-03-05] MEDS: Folic Acid 1 MG Tablet PO (08:23)
[2024-03-05] MEDS: Aspirin E.C. 81 MG Tablet PO (08:23)
[2024-03-05] MEDS: Venlafaxine XR 150 MG Capsule PO (08:23)
[2024-03-05] MEDS: Fluticasone/Salmeterol 232-14 Inhaler 1 PUFF INHALATION ×2 (08:24→20:07)
[2024-03-05] MEDS: Carbamide Peroxide 15 ML Bottle OTIC (08:24)
[2024-03-05] MEDS: Ipratropium Bromide 0.06% NASAL SPRAY 2 SPRAY NASAL ×2 (08:25→20:06)
[2024-03-05] MEDS: Umeclidinium Bromide Inhaler 1 PUFF INHALATION (08:25)
[2024-03-05] MEDS: Menthol/Lanolin/Calamine/Znox 113 GM Tube 1 APPLIC TOPICAL ×2 (08:27→20:08)
[2024-03-05] MEDS: Nystatin Powder 15gm Bottle 1 APPLIC TOPICAL ×2 (08:27→20:09)
--- NOTE | 2024-03-05 09:46 | CASEMGMT ---
Addendum entered by Danial Lau 03/05/24 11:42: [facility] admissions, Beatriz contacted SW to confirm acceptance for home health care services. Beatriz requested that RISK CONTROL OFFICER be added to order to assist with patient oncology support outpatient. SW met with patient at bedside to discuss recommendations. Patient is agreeable to RISK CONTROL OFFICER services at this time. SW adjusted home health care orders. Discharge: Home with [facility] PT/OT/ST/SN/RISK CONTROL OFFICER on 03/08/2024 with family transportation between - Original Note: Social Work Patient informed staff that he would like to discharge. SW met with patient at bedside to discuss discharge plans. SW provided patient with a printed [facility] list with patient's preferred geographic area, medical needs, and insurance network via [employer]. SW reviewed services provided by home health care. Patient informed SW that he would like PT.OT.ST.SN. Patient informed SW that he would like to utilize [facility] for services. SW submitted referral to [facility] via careport. SW inquired about patient date of discharge. Patient informed SW that he would like to discharge on 03/08/2024. SW discussed discharge transportation. Patient informed SW that his daughter, Angeline will provide discharge. SW provided patient with Notice of Medicare Non-Coverage for current long-term facility effective: 03/07/2024. Patient anticipates discharge on 03/08/2024. Patient provided verbal understanding and signature for letter. Upon completion of discussion, patient's daughter, Angeline entered room. SW provided overview of discharge plan with Angeline. Angeline is agreeable to support patient discharge. A copy of [facility] was provided to patient at bedside. A copy placed in chart. Discharge: Home with Home Health Care PT/OT/ST/SN on 03/08/2024 between - NATHALIE Sims
--- NOTE | 2024-03-05 17:50 | CASEMGMT ---
Social Work SW received a call from patient's daughter, Angeline informing SW that she missed call from Therapy. Patient's daughter informed SW that she would like to arrange training anytime this week after 0930. SW notified Therapy services. SW expressed concerns for discharge after speaking with therapy. Patient still requires 8L while working with therapy. Angeline informed SW that the patient was seen by Oncology prior to admission to TCU and was informed that there was fluid around the lungs. Angeline expressed concern for fluid potentially increasing and impacting patient shortness of breathe. GEORGIANA spoke with RN, Chrissy to request for chest CT to assist with follow up. Patient is currently receiving home O2 from [facility]. Patient will require new home O2 evaluation for addition Oxygen support at home, if required. Patient requires walker at discharge. Patient's daughter confirmed that the patient has a rollator, but does not have a walker. Script placed in chart for front wheeled walker. Discharge: [facility] PT/OT/ST/SN/AIR POLLUTION ANALYST and [facility] oxygen and FWW NATHALIE Sims
--- NOTE | 2024-03-05 18:45 | PCM.DC.SUM ---
Providers Date of Admission: 02/21/24 Primary Care Physician: Dr. Ismael Joyce, DO Reason For Visit: PNEUMONIA Diagnosis Discharge Diagnosis (1) Debility: Status: Acute Code(s): R53.81 - Other malaise (2) Acute respiratory failure with hypoxia: Status: Acute Code(s): J96.01 - Acute respiratory failure with hypoxia (3) Sepsis: Status: Acute Code(s): A41.9 - Sepsis, unspecified organism (4) Pneumonia: Status: Acute Code(s): J18.9 - Pneumonia, unspecified organism (5) Acute kidney injury: Status: Acute Code(s): N17.9 - Acute kidney failure, unspecified (6) COPD exacerbation: Status: Resolved Code(s): J44.1 - Chronic obstructive pulmonary disease with (acute) exacerbation (7) Duodenal ulcer: Status: Acute Code(s): K26.9 - Duodenal ulcer, unspecified as acute or chronic, without hemorrhage or perforation (8) Esophageal candidiasis: Status: Acute Code(s): B37.81 - Candidal esophagitis (9) Anemia: Status: Inactive Code(s): D64.9 - Anemia, unspecified (10) Thrombocytopenia: Status: Acute Code(s): D69.6 - Thrombocytopenia, unspecified (11) Stage 4 lung cancer: Status: Acute Code(s): C34.90 - Malignant neoplasm of unspecified part of unspecified bronchus or lung (12) Essential hypertension: Status: Chronic Code(s): I10 - Essential (primary) hypertension (13) Hyperlipidemia: Status: Acute Code(s): E78.5 - Hyperlipidemia, unspecified (14) Depression: Status: Acute Code(s): F32.A - Depression, unspecified (15) Hypokalemia: Status: Acute Code(s): E87.6 - Hypokalemia Plan 69 year old male with below past medical history hospitalized for acute respiratory failure with hypoxia 2/2 pneumonia, complicated by severe sepsis, COPD exacerbation, acute anemia, thrombocytopenia, duodenal ulcers, esophageal candidiasis, admitted to TCU with debility, here for rehabilitation, strengthening, prior to discharge home with . Debility - PT/OT. Dysphagia - ST. Pain - Tylenol 1000mg q6 prn pain (1-10). Bowel - senna/colace 1 tablet bid, Dulcolax 10mg pr daily prn. Adult immunization - Administer pneumonia vaccine, covid vaccine, flu vaccine as appropriate. DVT prophylaxis - Hold, anemia. COPD - Fluticasone/salmeterol 232-14 1 puff q12, Incruse 1 puff daily, albuterol 2 puffs q6 prn, prednisone taper thru 03/05/2024. CV prophylaxis - Aspirin 81mg daily. Hyperlipidemia - Atorvastatin 40mg qhs. Insomnia - Melatonin 10mg qhs. Folate deficiency - Folic acid 1mg daily. Sore throat - Lidocaine 2% viscous 15ml q4 prn, BMX 15ml q4 prn, Cepacol lozenges prn. Hypertension - Lisinopril 40mg daliy. Skin irritation - Calmoseptine topical bid. Esophageal candidiasis - Nystatin 500,000 4x/day thru 03/02/2024, Fluconazole 200mg daily x 14 days. Nausea - Zofran 8mg prn. Duodenal ulcer - Pantoprazole 40mg bid thru 04/21/2024. Depression - Venlafaxine XR 150mg daily, stable chronic fci use, GDR not recommended. Medications at Discharge Home Medications aspirin 81 mg tablet,delayed release (Adult Aspirin Regimen) 81 mg PO DAILY heart 04/05/22 atorvastatin 40 mg tablet (Lipitor) 40 mg PO DAILY cholesterol #90 tabs 04/05/23 albuterol sulfate 90 mcg/actuation aerosol inhaler 2 puff inhalation Q6H PRN shortness of breath or wheezing 60 days #8.5 grams 05/08/23 inhalational spacing device (Aerochamber MV spacer) #1 ea 05/08/23 Disability Placard #1 ea 05/10/23 venlafaxine 150 mg capsule,extended release 24 hr 150 mg PO DAILY depression 09/19/23 folic acid 1 mg tablet 1 mg PO DAILY supplement #90 tabs 11/23/23 fluticasone fur. 200 mcg-umeclid 62.5 mcg-vilant 25 mcg inhalat.powder (Trelegy Ellipta) 1 inh inhalation DAILY copd #60 ea 12/06/23 lidocaine HCl 2 % mucosal solution (Lidocaine Viscous) 15 ml PO Q3H PRN PRN SORE THROAT 30 days #500 mL 03/05/24 pantoprazole 40 mg tablet,delayed release 40 mg PO BID 30 days #60 tabs 03/05/24 potassium chloride 20 mEq tablet,extended release(part/cryst) 20 meq PO DAILYCM #0 tabs 03/05/24 Hospital Course Operations None Procedures None Summary of Care Provided Minutes Spent on Discharge: 35 Hospital Course: 69 year old male with below past medical history hospitalized for acute respiratory failure with hypoxia 2/2 pneumonia, complicated by severe sepsis, COPD exacerbation, acute anemia, thrombocytopenia, duodenal ulcers, esophageal candidiasis, admitted to TCU with debility, here for rehabilitation, strengthening, prior to discharge home with . 02/22/2024 Hospital acquired pneumonia - Meropenem 1gm iv q8 x 7 days. Discharge home with 03/08/2024, [facility] PT/OT/ST/SN/DIRECTOR INVESTOR RELATIONS, [facility], [facility]. Oxygen documentation: Patient requires 8 LPM of oxygen via nasal cannula due to diagnosis of metastatic lung cancer, pneumonia, COPD; Requires a concentrator and portable O2 tanks to allow patient to be mobile in the home and the community; O2 will improve the patient's condition in the home setting. Qualifying testing completed within 48 hours of discharge. FWW: Patient is unsafe to use a cane and requires a walker for ambulation in the home and the community. Physical Exam Narrative Elderly man on home O2 by nasal cannula Const alert, oriented x3 and no apparent distress HEENT normocephalic, external ears normal and external nose normal Eyes PERRL and no scleral icterus Neck supple Lymph Lymphatic: no lymphadenopathy noted Chest Chest Narrative: Port R IC area. Resp Resp Narrative: Diminished BS R base. Cardio regular rate, regular rhythm, S1 normal heart sound and S2 normal heart sound GI normal to inspection, nondistended, normoactive bowel sounds no CVA tenderness Back/Spine thoracic and lumbar spine normal to inspection Extremity no pedal edema Skin no rashes or lesions noted Neuro oriented x3, CN's II-XII intact bilaterally and moves all extremities Psych mental status grossly normal Weight / BMI Weight Weight: 65.499 kg Body Mass Index (BMI) 22.6 ABG / Lab / Microbiology Data 02/29/24 05:18 02/29/24 05:18 Microbiology: Microbiology 02/22/24 19:30 Sputum, Expectorated/Coughed Gram Stain - Final 02/22/24 19:30 Sputum, Expectorated/Coughed Respiratory Culture - Final D/C Instructions Discharge Diet: No restrictions Discharge Activity: Return to Normal Activity, May Shower and Use Walker Weight Bearing Status: Weight bearing as tolerated Call your doctor if you observe: Fever of 101 or Higher, Inability to urinate, Inability to have a bowel movement, Shortness of breath, Dizziness, Fainting spells, Swelling in the ankles, Chest pain and Uncontrolled pain Additional Instructions: Discharge home with 03/08/2024, [facility] PT/OT/ST/SN/DIRECTOR INVESTOR RELATIONS, [employer] oxygen, FWW. Oxygen documentation: Patient requires 8 LPM of oxygen via nasal cannula due to diagnosis of metastatic lung cancer, pneumonia, COPD; Requires a concentrator and portable O2 tanks to allow patient to be mobile in the home and the community; O2 will improve the patient's condition in the home setting. Qualifying testing completed within 48 hours of discharge. FWW: Patient is unsafe to use a cane and requires a walker for ambulation in the home and the community. Please Follow Up With: Gera Love DO When: As scheduled. Meaningful Use Info Meaningful Use Meaningful Use Diagnoses (Choose all that apply): None applicable Ischemic Stroke Statin Dosing Therapy Reference: STATIN DOSE THERAPY REFERENCE: * Patients > 75 years receive moderate or high dose statin therapy. * Patients 75 years or YOUNGER should receive HIGH intensity statin dose unless contraindicated. You will be required to document reason for non-treatment if statin daily dose does not meet guidelines. HIGH DOSE STATIN THERAPY DAILY Atorvastatin > than or = to 40 mg Rosuvastatin > than or = to 20 mg Amlodipine + Atorvastatin > than or = to 2.5/40 mg Ezetimibe + Simvastatin 10/80 mg Simvastatin 80mg Discharge Plan Admission Admit Date/Time: 02/21/24 13:31 Primary Reason for Your Visit: Debility. Attending Provider: Navjot Judd Chi Primary Care Provider: Ismael Joyce Instructions Additional Instructions / Restrictions: Discharge home with 03/08/2024, [facility] PT/OT/ST/SN/DIRECTOR INVESTOR RELATIONS, [employer] oxygen, FWW. Oxygen documentation: Patient requires 8 LPM of oxygen via nasal cannula due to diagnosis of metastatic lung cancer, pneumonia, COPD; Requires a concentrator and portable O2 tanks to allow patient to be mobile in the home and the community; O2 will improve the patient's condition in the home setting. Qualifying testing completed within 48 hours of discharge. FWW: Patient is unsafe to use a cane and requires a walker for ambulation in the home and the community. Discharge Orders/Prescriptions Prescriptions: New potassium chloride 20 mEq Tablet,Er Particles/Crystals 20 meq PO DAILYCM Qty: 0 0RF pantoprazole 40 mg Tablet,Delayed Release (Dr/Ec) 40 mg PO BID 30 Days Qty: 60 0RF lidocaine HCl [Lidocaine Viscous] 2 % Solution 15 ml PO Q3H PRN PRN (Reason: SORE THROAT) 30 Days Qty: 500 0RF Continued aspirin [Adult Aspirin Regimen] 81 mg tablet,delayed release (DR/EC) 81 mg PO DAILY Hold Instructions: Ordered albuterol sulfate 90 mcg/actuation HFA aerosol inhaler 2 puff inhalation Q6H MDD 10 puffs PRN (Reason: shortness of breath or wheezing) 60 Days Qty: 8.5 6RF venlafaxine 150 mg capsule,extended release 24hr 150 mg PO DAILY Patient Comments: take 1 capsule by mouth every morning folic acid 1 mg tablet 1 mg PO DAILY Qty: 90 1RF atorvastatin [Lipitor] 40 mg tablet 40 mg PO DAILY Qty: 90 3RF Trelegy Ellipta 200-62.5-25 mcg blister with device 1 inh inhalation DAILY Qty: 60 6RF Discontinued lisinopril 40 mg tablet 40 mg PO DAILY Tylenol PM Extra Strength 25-500 mg tablet 1 tab PO QHS PRN (Reason: pain) albuterol sulfate 2.5 mg /3 mL (0.083 %) solution for nebulization 2.5 mg continuous nebulization Q6H PRN (Reason: shortness of breath or wheezing) Qty: 3 0RF ipratropium-albuterol 0.5 mg-3 mg(2.5 mg base)/3 mL solution for nebulization 3 ml inhalation Q6H MDD 6 doses PRN (Reason: shortness of breath or wheezing) Qty: 180 6RF Rx Instructions: use either nebulizer or albuterol inhaler, every 4 hours as needed. Do not use both at the same time. ondansetron 8 mg tablet,disintegrating 8 mg PO Q8H PRN (Reason: nausea and vomiting) Qty: 30 1RF lidocaine-prilocaine 2.5-2.5 % cream 1 applic topical ONCE PRN (Reason: port access) 30 Days Qty: 30 2RF budesonide-formoterol [Symbicort] 160-4.5 mcg/actuation HFA aerosol inhaler 2 puff INHALATION BID nystatin 100,000 unit/mL Suspension 500,000 unit PO 4X/DAY 10 Days Qty: 0 0RF lidocaine HCl [Lidocaine Viscous] 2 % Solution 15 ml PO Q4H PRN (Reason: MOUTH SORE) 7 Days Qty: 0 0RF pantoprazole 40 mg Tablet,Delayed Release (Dr/Ec) 40 mg PO BID 60 Days Qty: 0 0RF prednisone 10 mg tablet 10 mg PO DAILY Qty: 30 0RF Rx Instructions: 40 mg for 3 days 30 mg for 3 days, 20 mg for 3 days,and 10 mg for 3 days disability placard See Rx Instructions .ROUTE .COMPLEX 330 Days Qty: 1 0RF Rx Instructions: handicapped placard or plate, lifetime as needed for patient transportation; No Action (DME) Aerochamber MV Spacer See Rx Instructions .ROUTE .MEDSUPPLY Qty: 1 1RF Rx Instructions: As directed (DME) Disability Placard See Rx Instructions .Route .MEDSUPPLY Qty: 1 0RF Rx Instructions: Expires 05/10/2028 Referrals / Follow Up: Gera Love DO [Med Staff - Active Staff] - 05/10/24 9:15 am ( They will call if they have an earlier appointment. He will see Wander Cunningham NP) Nakul Rees MD [Med Staff - Active Staff] - 03/18/24 12:30 pm (Labs at 12:30, followed by Dr. doan at 1pm ) Ismael Joyce DO [Primary Care Provider] - 03/11/24 1:00 pm Disposition Disposition (needs filled in before D/C Order can be placed): Home Health Service
[2024-03-05] MEDS: Atorvastatin Calcium 40 MG Tablet PO (20:10)
[2024-03-05] MEDS: MELATONIN 10 MG TABLET PO (20:10)
[2024-03-06 02:45] VITALS: PULSE 99; RESP 12; RESP 20; O2SAT 95
[2024-03-06 04:48] VITALS: O2SAT 96
[2024-03-06 09:23] VITALS: BP 94/56; PULSE 112; RESP 18; TEMP 36.3; O2SAT 93
[2024-03-06] MEDS: Ipratropium Bromide 0.06% NASAL SPRAY 2 SPRAY NASAL ×2 (09:28→22:04)
[2024-03-06] MEDS: Potassium Chloride Oral Tablet 20 MEQ PO (09:28)
[2024-03-06] MEDS: Fluticasone/Salmeterol 232-14 Inhaler 1 PUFF INHALATION ×2 (09:28→22:05)
[2024-03-06] MEDS: Senna/Docusate Sodium 1 Tablet 2 TABLET PO ×2 (09:28→22:07)
[2024-03-06] MEDS: Umeclidinium Bromide Inhaler 1 PUFF INHALATION (09:29)
[2024-03-06] MEDS: Venlafaxine XR 150 MG Capsule PO (09:29)
[2024-03-06] MEDS: Aspirin E.C. 81 MG Tablet PO (09:29)
[2024-03-06] MEDS: Pantoprazole Sodium 40 MG Tablet PO ×2 (09:29→22:07)
[2024-03-06] MEDS: Fluconazole 100 MG Tablet 200 MG PO (09:29)
[2024-03-06] MEDS: Folic Acid 1 MG Tablet PO (09:29)
[2024-03-06] MEDS: Menthol/Lanolin/Calamine/Znox 113 GM Tube 1 APPLIC TOPICAL ×2 (09:32→22:05)
[2024-03-06] MEDS: Nystatin Powder 15gm Bottle 1 APPLIC TOPICAL ×2 (09:33→22:07)
[2024-03-06] MEDS: Carbamide Peroxide 15 ML Bottle OTIC (09:33)
--- NOTE | 2024-03-06 10:00 | CASEMGMT ---
Addendum entered by Danial Lau 03/06/24 12:58: 1150- SW received notification from therapy staff that an 18 inch wheelchair to support discharge home. 1206-GEORGIANA contacted [facility] to determine, if change in order can be changed for wheelchair. 1220- GEORGIANA received a call from [facility] Ledesma informing that 18in wheelchair are currently out of stock. [facility] inquired about patient obtaining a 16' or 20' wheelchair instead. GEORGIANA met with therapy who informed that patient may be able to receive a 16' wheelchair. [facility] has 16' wheelchair in stock. [facility] will require new Rx and Physician note for 16in wheelchair. SW met with patient to discuss DME changes. Patient is agreeable to wheelchair. Patient informed GEORGIANA that he is taking time to think about whether he would like to move forward with discharge at this time. Patient requested SW to come back later to discuss plan for discharge. Original Note: Social Work SW submitted referral via [facility] for FWW to [facility]. NATHALIE Sims
[2024-03-06 10:06] VITALS: O2SAT 90
[2024-03-06] MEDS: BMX LIQUID 180 ML 15 ML PO (10:53)
[2024-03-06 10:57] VITALS: BP 102/52; PULSE 105; RESP 16; O2SAT 5
--- NOTE | 2024-03-06 10:58 | NURSING ---
Addendum entered by Brooklyn Henry 03/06/24 15:51: Pt denies nausea, malaise. Lungs clear. No comments/concerns at this time. Original Note: Therapy notifies that pt had multiple emesis episodes after care. Pt currently sitting up in recliner, states he thinks he drank too much water/ensure/moved around too quickly. Denies nausea at this time. Mouth swabs, oral care provided. Lungs clear to auscultation. No dyspnea. Pt received PRN BMX per request. Family present at bedside, no further comments/concerns
--- NOTE | 2024-03-06 12:16 | NURSING ---
Patient using bipap here, says he doesn't have one at home. He only has 02 via NC at home. Discussed possibility of him having a sleep study done as he's needed bipap here. He was open to the idea and understands nursing concerns with his 02 requirements. Left with sleep lab to discuss.
--- NOTE | 2024-03-06 16:39 | CASEMGMT ---
Social Work SW met with patient at bedside to confirm discharge. Patient informed SW that he does not want to discharge at this time. Patient informed SW that he would like to stay on TCU one more week. SW notified Physician, Dr. Judd, therapy services, and executive community planning. NATHALIE Sims
--- NOTE | 2024-03-06 17:50 | SLEEP ---
Reviewed patient chart for sleep study support at Nursing/Social Work request to evaluate pathway to qualify patient for home BIPAP Therapy upon discharge as he has been requiring this with sleep during his admission. Communicated to TCU Nursing staff that no documentation of sleep evaluation meeting CMS criteria for medical necessity was found on chart. Unclear from documentation review that the patient is suspected of having sleep disordered breathing or not. Encouraged follow up with treating provider face to face evaluation documenting assessment of the patient's sleep, signs, and symptoms per CMS criteria if sleep disordered breathing is suspected to support sleep study at discharge. Otherwise, would need Pulmonary consultation to evaluate alternative diagnosis requiring BIPAP/NIV therapy to qualify for home DME.
[2024-03-06] MEDS: Atorvastatin Calcium 40 MG Tablet PO (22:06)
[2024-03-06] MEDS: MELATONIN 10 MG TABLET PO (22:07)
--- NOTE | 2024-03-06 22:09 | NURSING ---
PT offered rectal suppository for bowel protocol, refused suppository. offered and accepted prune juice with butter.
[2024-03-06 23:41] VITALS: PULSE 99; RESP 12; RESP 23; O2SAT 91
[2024-03-07 02:53] VITALS: PULSE 100; RESP 12; RESP 21; O2SAT 94
[2024-03-07 05:59] LABS: Absolute Lymphocyte Count 1.69 X10^3/uL (0.83-4.51); Absolute Neutrophil Count 5.1 X10^3/uL (2.0-7.7); Basophil# 0.01 X10^3/uL; Basophil% 0.1 % (0-1); Eosinophil# 0.02 X10^3/uL; Eosinophils% 0.3 % (0-5); Hematocrit 28.6 % (40-54); Hemoglobin 9.6 g/dL (13.0-16.5); Lymphocyte # 1.69 X10^3/ul (0.83-4.51); Lymphocyte % 22.6 % (19-41); Mean Corp Hgb Conc 33.6 g/dL (32-36); Mean Corpuscular Hgb 31.4 pg (27.0-32.0); Mean Corpuscular Volume 93.5 fL (80-94); Mean Platelet Vol. 10.1 fl (6.2-12.0); Monocyte# 0.59 X10^3/uL; Monocyte% 7.9 % (0-10); NRBC Flagged by Analyzer 0 % (0-5); Neutrophil # 5.13 X10^3/uL (2.7-7.7); Neutrophil % 68.7 % (47-70); POSITIVE MORPHOLOGY YES; Platelet Count 103 K/mm3 (150-450); RBC Distribution Width CV 21.6 % (11.6-14.6); RBC Distribution Width SD 72.2 fl (35.1-43.9); Red Blood Count 3.06 M/mm3 (4.6-6.2); White Blood Count 7.5 K/mm3 (4.4-11.0)
[2024-03-07 06:41] LABS: Anion Gap 3 (5-15); BUN 27 mg/dL (7-18); BUN/Creat Ratio 35.8 RATIO (10-20); Chloride 94 mmol/L (98-107); Creatinine, Serum 0.75 mg/dL (0.70-1.30); EST Glomerular Filtration Rate 109 mL/min (>60); Est Glom Filt Rate - Afr Amer 132 mL/min (>60); Glucose 106 mg/dL (74-106); Potassium 4.5 mmol/L (3.5-5.1); Sodium Level 130 mmol/L (136-145)
[2024-03-07 07:07] VITALS: PULSE 97; RESP 12; RESP 22; O2SAT 94
[2024-03-07 07:11] LABS: Differential Comment SCANNED; Differential Indicated SCAN CRITERIA MET
[2024-03-07] MEDS: Umeclidinium Bromide Inhaler 1 PUFF INHALATION (08:35)
[2024-03-07] MEDS: Fluticasone/Salmeterol 232-14 Inhaler 1 PUFF INHALATION ×2 (08:37→21:33)
[2024-03-07] MEDS: Ipratropium Bromide 0.06% NASAL SPRAY 2 SPRAY NASAL ×2 (08:37→21:34)
[2024-03-07] MEDS: Folic Acid 1 MG Tablet PO (08:38)
[2024-03-07] MEDS: Aspirin E.C. 81 MG Tablet PO (08:38)
[2024-03-07] MEDS: Nystatin Powder 15gm Bottle 1 APPLIC TOPICAL ×2 (08:39→21:34)
[2024-03-07] MEDS: Potassium Chloride Oral Tablet 20 MEQ PO (08:39)
[2024-03-07] MEDS: Menthol/Lanolin/Calamine/Znox 113 GM Tube 1 APPLIC TOPICAL ×2 (08:39→21:33)
[2024-03-07] MEDS: Senna/Docusate Sodium 1 Tablet 2 TABLET PO ×2 (08:40→21:34)
[2024-03-07] MEDS: Pantoprazole Sodium 40 MG Tablet PO ×2 (08:40→21:34)
[2024-03-07] MEDS: Venlafaxine XR 150 MG Capsule PO (08:40)
[2024-03-07] MEDS: Carbamide Peroxide 15 ML Bottle OTIC (08:43)
--- NOTE | 2024-03-07 09:54 | NURSING ---
Addendum entered by Chrissy Valencia 03/07/24 10:49: Call from Tanika at pulmonology office, order from Radha Martin CLINICAL RESEARCH MANAGEMENT ASSOCIATE to titrate patient's 02 to keep sats 89-92%. Original Note: Called fire prevention officer, they had a cancellation and can get patient in tomorrow 03/08/24 at 1:15 w/ Radha Cunningham NP. Updated dtr and patient.
--- NOTE | 2024-03-07 13:17 | NURSING ---
PT HEART RATE HAS BEEN 102-112 THIS MONDAY TO TODAY. JUMPS TO 122 WITH STANDING. BP RANGES FROM 94/56-109/68 SENSE MONDAY. JEANINE CALLED AND WANTS PT OXYGEN 89%-92% AND WILL SEE PT TOMORROW 03/08/24. RN AWARE AND WILL BE NOTIFIED.
[2024-03-07 15:04] VITALS: BP 110/59; PULSE 107; RESP 16; TEMP 36.4; O2SAT 96
--- NOTE | 2024-03-07 16:42 | CASEMGMT ---
Social Work SW spoke with [facility] regarding delay in discharge. [facility] is able to order 18' wheelchair and deliver it to patient home. SW submit script for 18' Wheelchair. Patient discharge plans currently remain [facility] PT/OT/SN/IMMUNOPATHOLOGIST/HOME COMPANION [facility] Patient to discharge held. Pulmonary appointment on 03/08/2024. SW will continue to follow to assist with discharge planning. NATHALIE Sims
[2024-03-07] MEDS: Bisacodyl 10 MG Suppository RC (17:27)
--- NOTE | 2024-03-07 17:33 | NURSING ---
NO BM IN 4 DAYS. PRN DULCOLAX SUPPOSITORY GIVEN.
[2024-03-07 20:15] VITALS: PULSE 94; O2SAT 99
[2024-03-07] MEDS: BMX LIQUID 180 ML 15 ML PO (21:33)
[2024-03-07] MEDS: Atorvastatin Calcium 40 MG Tablet PO (21:33)
[2024-03-07] MEDS: MELATONIN 10 MG TABLET PO (21:33)
[2024-03-07 22:00] VITALS: PULSE 99; RESP 16; O2SAT 99
[2024-03-08] VITALS: O2SAT 95
[2024-03-08 00:27] VITALS: PULSE 97; RESP 12; RESP 21; O2SAT 94
[2024-03-08 04:31] VITALS: PULSE 92; RESP 12; RESP 22; O2SAT 94
[2024-03-08 06:48] LABS: Anion Gap 8 (5-15); BUN 25 mg/dL (7-18); BUN/Creat Ratio 43.3 RATIO (10-20); Chloride 91 mmol/L (98-107); Creatinine, Serum 0.58 mg/dL (0.70-1.30); EST Glomerular Filtration Rate 148 mL/min (>60); Est Glom Filt Rate - Afr Amer 179 mL/min (>60); Glucose 118 mg/dL (74-106); Potassium 4.1 mmol/L (3.5-5.1); Sodium Level 126 mmol/L (136-145)
[2024-03-08 09:13] VITALS: BP 111/76; PULSE 104; RESP 18; TEMP 36.8; O2SAT 98
[2024-03-08] MEDS: Fluticasone/Salmeterol 232-14 Inhaler 1 PUFF INHALATION ×2 (09:17→20:15)
[2024-03-08] MEDS: Umeclidinium Bromide Inhaler 1 PUFF INHALATION (09:17)
[2024-03-08] MEDS: Folic Acid 1 MG Tablet PO (09:17)
[2024-03-08] MEDS: Aspirin E.C. 81 MG Tablet PO (09:17)
[2024-03-08] MEDS: Potassium Chloride Oral Tablet 20 MEQ PO (09:17)
[2024-03-08] MEDS: Menthol/Lanolin/Calamine/Znox 113 GM Tube 1 APPLIC TOPICAL ×2 (09:18→20:16)
[2024-03-08] MEDS: Ipratropium Bromide 0.06% NASAL SPRAY 2 SPRAY NASAL ×2 (09:18→20:14)
[2024-03-08] MEDS: Nystatin Powder 15gm Bottle 1 APPLIC TOPICAL ×2 (09:19→20:17)
[2024-03-08] MEDS: Venlafaxine XR 150 MG Capsule PO (09:19)
[2024-03-08] MEDS: Pantoprazole Sodium 40 MG Tablet PO ×2 (09:19→20:18)
[2024-03-08] MEDS: Carbamide Peroxide 15 ML Bottle OTIC (09:19)
[2024-03-08] MEDS: Senna/Docusate Sodium 1 Tablet 2 TABLET PO ×2 (09:20→20:18)
[2024-03-08 09:30] LABS: Osmolality, Serum 274 mOsm/KG (280-301)
[2024-03-08] MEDS: BMX LIQUID 180 ML 15 ML PO (09:30)
[2024-03-08 09:56] LABS: Osmolality, Urine 552 mOsm/KG; Urine Sodium 32 mmol/L (Not Establ.)
--- NOTE | 2024-03-08 14:23 | CASEMGMT ---
Social Work GEORGIANA received call from Baltazar at [facility]. Baltazar plans to drop ship pt's 18 inch wheelchair to his home today but needs to speak with pt. GEORGIANA met with pt and assisted pt in calling Baltazar. GEORGIANA later called [facility] who confirms information was obtained from pt and wheelchair was drop shipped to his home. FABIO Hastings
--- NOTE | 2024-03-08 14:24 | NURSING ---
Patient returned to room from visit with DIA Martin, no new orders sent with patient.
[2024-03-08] MEDS: Atorvastatin Calcium 40 MG Tablet PO (20:17)
[2024-03-08] MEDS: MELATONIN 10 MG TABLET PO (20:18)
[2024-03-08 23:19] VITALS: PULSE 93; RESP 12; RESP 23; O2SAT 96
[2024-03-09 06:11] VITALS: O2SAT 98
[2024-03-09] MEDS: Potassium Chloride Oral Tablet 20 MEQ PO (08:46)
[2024-03-09] MEDS: Folic Acid 1 MG Tablet PO (08:46)
[2024-03-09] MEDS: Aspirin E.C. 81 MG Tablet PO (08:46)
[2024-03-09] MEDS: Pantoprazole Sodium 40 MG Tablet PO ×2 (10:12→20:37)
[2024-03-09] MEDS: Senna/Docusate Sodium 1 Tablet 2 TABLET PO ×2 (10:13→20:37)
[2024-03-09] MEDS: Venlafaxine XR 150 MG Capsule PO (10:13)
[2024-03-09] MEDS: Umeclidinium Bromide Inhaler 1 PUFF INHALATION (10:14)
[2024-03-09] MEDS: Fluticasone/Salmeterol 232-14 Inhaler 1 PUFF INHALATION ×2 (10:15→20:34)
[2024-03-09] MEDS: Nystatin Powder 15gm Bottle 1 APPLIC TOPICAL ×2 (10:17→20:36)
[2024-03-09] MEDS: Menthol/Lanolin/Calamine/Znox 113 GM Tube 1 APPLIC TOPICAL ×2 (10:17→20:35)
[2024-03-09] MEDS: BMX LIQUID 180 ML 15 ML PO (10:20)
[2024-03-09] MEDS: Ipratropium Bromide 0.06% NASAL SPRAY 2 SPRAY NASAL ×2 (10:23→20:33)
[2024-03-09 12:19] VITALS: O2SAT 90
[2024-03-09 13:03] VITALS: O2SAT 96
[2024-03-09 16:00] VITALS: BP 118/70; PULSE 85; RESP 20; TEMP 36.6; O2SAT 91
[2024-03-09] MEDS: Atorvastatin Calcium 40 MG Tablet PO (20:36)
[2024-03-09] MEDS: MELATONIN 10 MG TABLET PO (20:37)
[2024-03-09 21:59] VITALS: BP 139/83; PULSE 81
[2024-03-09 22:50] VITALS: PULSE 106; RESP 12; RESP 26; O2SAT 94
[2024-03-10 04:07] VITALS: PULSE 98; RESP 12; RESP 20; O2SAT 97
[2024-03-10] MEDS: Potassium Chloride Oral Tablet 20 MEQ PO (09:34)
[2024-03-10] MEDS: Aspirin E.C. 81 MG Tablet PO (09:35)
[2024-03-10] MEDS: Pantoprazole Sodium 40 MG Tablet PO ×2 (10:34→21:37)
[2024-03-10] MEDS: Venlafaxine XR 150 MG Capsule PO (10:34)
[2024-03-10] MEDS: Senna/Docusate Sodium 1 Tablet 2 TABLET PO ×2 (10:34→21:38)
[2024-03-10] MEDS: Folic Acid 1 MG Tablet PO (10:35)
[2024-03-10] MEDS: Umeclidinium Bromide Inhaler 1 PUFF INHALATION (10:36)
[2024-03-10] MEDS: Fluticasone/Salmeterol 232-14 Inhaler 1 PUFF INHALATION ×2 (10:36→21:35)
[2024-03-10] MEDS: Ipratropium Bromide 0.06% NASAL SPRAY 2 SPRAY NASAL ×2 (10:37→21:34)
[2024-03-10] MEDS: Menthol/Lanolin/Calamine/Znox 113 GM Tube 1 APPLIC TOPICAL ×2 (10:37→21:36)
[2024-03-10] MEDS: Nystatin Powder 15gm Bottle 1 APPLIC TOPICAL ×2 (10:39→21:36)
[2024-03-10 13:49] VITALS: BP 110/63; PULSE 103; RESP 16; TEMP 36.4; O2SAT 97
[2024-03-10 20:00] VITALS: O2SAT 99
[2024-03-10] MEDS: Atorvastatin Calcium 40 MG Tablet PO (21:37)
[2024-03-10] MEDS: MELATONIN 10 MG TABLET PO (21:37)
[2024-03-10 22:56] VITALS: PULSE 111; RESP 12; RESP 23; O2SAT 96
[2024-03-11 02:36] VITALS: O2SAT 97
[2024-03-11 05:05] VITALS: PULSE 106; RESP 12; RESP 20; O2SAT 98
[2024-03-11] MEDS: Aspirin E.C. 81 MG Tablet PO (09:33)
[2024-03-11] MEDS: Potassium Chloride Oral Tablet 20 MEQ PO (09:33)
[2024-03-11] MEDS: Ipratropium Bromide 0.06% NASAL SPRAY 2 SPRAY NASAL ×2 (09:33→21:14)
[2024-03-11] MEDS: Folic Acid 1 MG Tablet PO (09:33)
[2024-03-11] MEDS: Pantoprazole Sodium 40 MG Tablet PO ×2 (09:34→21:14)
[2024-03-11] MEDS: Venlafaxine XR 150 MG Capsule PO (09:34)
[2024-03-11] MEDS: Umeclidinium Bromide Inhaler 1 PUFF INHALATION (09:34)
[2024-03-11] MEDS: Fluticasone/Salmeterol 232-14 Inhaler 1 PUFF INHALATION ×2 (09:34→21:14)
[2024-03-11] MEDS: Menthol/Lanolin/Calamine/Znox 113 GM Tube 1 APPLIC TOPICAL ×2 (09:36→21:15)
[2024-03-11] MEDS: Nystatin Powder 15gm Bottle 1 APPLIC TOPICAL ×2 (09:37→21:15)
[2024-03-11] MEDS: BMX LIQUID 180 ML 15 ML PO ×2 (09:40→21:35)
[2024-03-11 12:15] VITALS: O2SAT 95
[2024-03-11 14:15] VITALS: O2SAT 95
[2024-03-11 14:31] VITALS: BP 124/75; PULSE 104; RESP 16; TEMP 36.3; O2SAT 97
[2024-03-11] MEDS: Atorvastatin Calcium 40 MG Tablet PO (21:14)
[2024-03-11] MEDS: MELATONIN 10 MG TABLET PO (21:14)
[2024-03-12] VITALS (7 sets, daily range): BP systolic 109; BP diastolic 70; PULSE 96–104; RESP 12–26; TEMP 36.8; O2SAT 94–97
[2024-03-12] MEDS: Potassium Chloride Oral Tablet 20 MEQ PO (08:35)
[2024-03-12] MEDS: Folic Acid 1 MG Tablet PO (08:35)
[2024-03-12] MEDS: Aspirin E.C. 81 MG Tablet PO (08:35)
[2024-03-12] MEDS: Venlafaxine XR 150 MG Capsule PO (08:36)
[2024-03-12] MEDS: Menthol/Lanolin/Calamine/Znox 113 GM Tube 1 APPLIC TOPICAL ×2 (08:36→21:03)
[2024-03-12] MEDS: Ipratropium Bromide 0.06% NASAL SPRAY 2 SPRAY NASAL ×2 (08:36→20:58)
[2024-03-12] MEDS: Umeclidinium Bromide Inhaler 1 PUFF INHALATION (08:36)
[2024-03-12] MEDS: Fluticasone/Salmeterol 232-14 Inhaler 1 PUFF INHALATION ×2 (08:36→20:58)
[2024-03-12] MEDS: Nystatin Powder 15gm Bottle 1 APPLIC TOPICAL ×2 (08:37→21:04)
[2024-03-12] MEDS: Pantoprazole Sodium 40 MG Tablet PO ×2 (08:37→20:59)
--- NOTE | 2024-03-12 14:53 | CASEMGMT ---
Social Work SW met with patient at bedside to discuss discharge plans. Patient is requesting to discharge on 03/15 to home. Patient informed SW that he would like to discharge to home. Therapy was present at bedside and expressed concerns for discharge due to fall risk. Patient informed SW that he would like to return home with home health care. Patient has hopes to improve with in home therapy. Therapy recommended that the patient obtain more assistance in the home. SW inquired about potential for patient to discharge to assisted living or have stair lift. Patient informed SW that he does not have the financial means to support installation of stair lift or go to [facility]. Therapy informed patient that he will require 2 person assist to get up steps due to SOB. Patient informed SW that he will have son in law and daughter assist at discharge. SW informed patient that 24/hr support may be required to assist with care. Patient informed SW that he can have his granddaughter come into home. SW expressed concerns for continued desaturation with O2. Patient required 8L on exertion and 5L at rest, but while talking patient was dropping into the 80s on 5-6L. SW discussed Palliative Care, patient is unaware of SW discussed recommendations for sleep study. Patient will need to be scheduled for sleep study for day of discharge. Patient informed SW that his goal is to return home with resources and in home therapy. Prior to admission to TCU, patient was receiving chemotherapy. Patient wants to resume chemotherapy. Patient is currently not receiving any grants or financial support as a cancer patient. SW to review resources to provide support. Patient would like [facility] support SN/PT/OT/ST/HYDROMETEOROLOGISTNATHALIE Min
[2024-03-12] MEDS: MELATONIN 10 MG TABLET PO (20:59)
[2024-03-12] MEDS: Atorvastatin Calcium 40 MG Tablet PO (20:59)
[2024-03-12] MEDS: Senna/Docusate Sodium 1 Tablet 2 TABLET PO (20:59)
[2024-03-13 04:40] VITALS: PULSE 96; RESP 12; RESP 21; O2SAT 96
[2024-03-13] MEDS: Aspirin E.C. 81 MG Tablet PO (08:23)
[2024-03-13] MEDS: Folic Acid 1 MG Tablet PO (08:24)
[2024-03-13] MEDS: Potassium Chloride Oral Tablet 20 MEQ PO (08:24)
[2024-03-13] MEDS: Ipratropium Bromide 0.06% NASAL SPRAY 2 SPRAY NASAL ×2 (08:24→22:33)
[2024-03-13] MEDS: Umeclidinium Bromide Inhaler 1 PUFF INHALATION (08:25)
[2024-03-13] MEDS: Fluticasone/Salmeterol 232-14 Inhaler 1 PUFF INHALATION ×2 (08:25→22:33)
[2024-03-13] MEDS: Venlafaxine XR 150 MG Capsule PO (08:25)
[2024-03-13] MEDS: Pantoprazole Sodium 40 MG Tablet PO ×2 (08:25→22:35)
[2024-03-13] MEDS: BMX LIQUID 180 ML 15 ML PO (08:31)
[2024-03-13] MEDS: Menthol/Lanolin/Calamine/Znox 113 GM Tube 1 APPLIC TOPICAL ×2 (08:33→22:41)
[2024-03-13] MEDS: Nystatin Powder 15gm Bottle 1 APPLIC TOPICAL ×2 (08:33→22:43)
[2024-03-13 09:07] VITALS: O2SAT 95; O2SAT 97
[2024-03-13 14:52] VITALS: BP 114/72; PULSE 101; RESP 18; TEMP 36.5; O2SAT 97
[2024-03-13] MEDS: MELATONIN 10 MG TABLET PO (22:34)
[2024-03-13] MEDS: Atorvastatin Calcium 40 MG Tablet PO (22:34)
[2024-03-14 01:03] VITALS: PULSE 94; RESP 12; RESP 22; O2SAT 96
[2024-03-14 04:35] VITALS: PULSE 95; RESP 12; RESP 22; O2SAT 97
[2024-03-14 06:27] LABS: Absolute Lymphocyte Count 1.13 X10^3/uL (0.83-4.51); Absolute Neutrophil Count 2.1 X10^3/uL (2.0-7.7); Basophil# 0.01 X10^3/uL; Basophil% 0.3 % (0-1); Eosinophil# 0.04 X10^3/uL; Hematocrit 24.5 % (40-54); Hemoglobin 8.3 g/dL (13.0-16.5); Lymphocyte # 1.13 X10^3/ul (0.83-4.51); Lymphocyte % 28.6 % (19-41); Mean Corp Hgb Conc 33.9 g/dL (32-36); Mean Corpuscular Hgb 32.5 pg (27.0-32.0); Mean Corpuscular Volume 96.1 fL (80-94); Mean Platelet Vol. 9.1 fl (6.2-12.0); Monocyte# 0.61 X10^3/uL; Monocyte% 15.4 % (0-10); NRBC Flagged by Analyzer 0 % (0-5); Neutrophil # 2.13 X10^3/uL (2.7-7.7); Neutrophil % 53.9 % (47-70); POSITIVE MORPHOLOGY YES; Platelet Count 196 K/mm3 (150-450); RBC Distribution Width CV 21.7 % (11.6-14.6); RBC Distribution Width SD 74.9 fl (35.1-43.9); Red Blood Count 2.55 M/mm3 (4.6-6.2)
[2024-03-14 06:54] LABS: Differential Indicated SCAN CRITERIA MET
[2024-03-14 07:02] LABS: Anion Gap 5 (5-15); BUN 13 mg/dL (7-18); BUN/Creat Ratio 22.8 RATIO (10-20); Calcium,Total 8.9 mg/dL (8.5-10.1); Chloride 92 mmol/L (98-107); Creatinine, Serum 0.57 mg/dL (0.70-1.30); EST Glomerular Filtration Rate 150 mL/min (>60); Est Glom Filt Rate - Afr Amer 181 mL/min (>60); Glucose 91 mg/dL (74-106); Potassium 3.6 mmol/L (3.5-5.1); Sodium Level 129 mmol/L (136-145)
--- NOTE | 2024-03-14 07:41 | NURSING ---
Left with sleep lab earlier this week, left again yesterday 03/13/24. Asked about staff reviewing documentation from resident service coordinator visit and seeing if patient qualifies to have sleep study completed on DC from TCU. Await return call.
[2024-03-14 07:47] LABS: Anisocytosis 1+
--- NOTE | 2024-03-14 08:45 | CASEMGMT ---
Social Work SW contacted [facility] in Oncology to discuss potential financial assistance to assist patient with support with ADLs and equipment in the home. [facility] requested to meet with patient at bedside and suggested SW to submit referral to [facility] to assess for patient needs. SW to submit referral to [facility]. [facility] to meet with patient at bedside to assess for needs to determine further assistance. NATHALIE Sims
[2024-03-14 09:17] VITALS: O2SAT 95
[2024-03-14 10:06] VITALS: BP 105/64; PULSE 104; RESP 18; TEMP 36.6; O2SAT 96
[2024-03-14] MEDS: Umeclidinium Bromide Inhaler 1 PUFF INHALATION (10:08)
[2024-03-14] MEDS: Ipratropium Bromide 0.06% NASAL SPRAY 2 SPRAY NASAL ×2 (10:09→21:00)
[2024-03-14] MEDS: Venlafaxine XR 150 MG Capsule PO (10:10)
[2024-03-14] MEDS: Potassium Chloride Oral Tablet 20 MEQ PO (10:10)
[2024-03-14] MEDS: Pantoprazole Sodium 40 MG Tablet PO ×2 (10:10→21:03)
[2024-03-14] MEDS: Folic Acid 1 MG Tablet PO (10:10)
[2024-03-14] MEDS: Aspirin E.C. 81 MG Tablet PO (10:10)
[2024-03-14] MEDS: Fluticasone/Salmeterol 232-14 Inhaler 1 PUFF INHALATION ×2 (10:11→21:01)
[2024-03-14] MEDS: Menthol/Lanolin/Calamine/Znox 113 GM Tube 1 APPLIC TOPICAL ×2 (10:14→21:02)
[2024-03-14] MEDS: Nystatin Powder 15gm Bottle 1 APPLIC TOPICAL ×2 (10:14→21:02)
--- NOTE | 2024-03-14 12:11 | CASEMGMT ---
Social Work GEORGIANA completed referral to [facility] for home safety evaluation and petroleum terminal plant operator care assistance. GEORGIANA contacted patient's daughter, Angeline Garcia to discuss [facility] referral. Angeline is agreeable to referral and confirmed receipt of DME wheelchair via [employer]. Angeline informed GEORGIANA that she has obtained other DME: walker, bedside commode, transfer bench etc. to support patient transfer home. Angeline informed GEORGIANA that the patient has upcoming appointment with Oncology to determine if chemotherapy will be resumed post discharge or discontinued. GEORGIANA discussed Palliative Care services. Angeline informed GEORGIANA that she would like Palliative Care as a supportive service, if recommended by Physician. Patient requires Sleep Study to be arranged. GEORGIANA contacted Sleep Lab to confirm that Sleep Lab will be arranged. GEORGIANA was notified that Sleep study referral is still under review. Sleep lab requested for Physician face to face. GEORGIANA notified BRANDI Lowe. GEORGIANA contacted [employer] and spoke with Baltazar regarding increasing home concentrator volume. Patient will require a new Home O2 Order and 6 min walk test to obtain upgrade to concentrator at home. GEORGIANA notified BRANDI Lowe regarding Home O2 evaluation (6 min walk test). GEORGIANA will continue to follow to assist with discharge. NATHALIE Sims
[2024-03-14] MEDS: Atorvastatin Calcium 40 MG Tablet PO (21:03)
[2024-03-14] MEDS: MELATONIN 10 MG TABLET PO (21:03)
[2024-03-14] MEDS: Senna/Docusate Sodium 1 Tablet 2 TABLET PO (21:04)
[2024-03-14 22:48] VITALS: PULSE 101; RESP 12; RESP 26; O2SAT 92
[2024-03-15 03:34] VITALS: PULSE 94; RESP 12; RESP 28; O2SAT 98
[2024-03-15 05:53] LABS: Hematocrit 24.4 % (40-54); Hemoglobin 8.3 g/dL (13.0-16.5)
[2024-03-15] MEDS: Umeclidinium Bromide Inhaler 1 PUFF INHALATION (09:50)
[2024-03-15] MEDS: Fluticasone/Salmeterol 232-14 Inhaler 1 PUFF INHALATION ×2 (09:50→21:25)
[2024-03-15] MEDS: Ipratropium Bromide 0.06% NASAL SPRAY 2 SPRAY NASAL ×2 (09:51→21:26)
[2024-03-15] MEDS: Aspirin E.C. 81 MG Tablet PO (09:52)
[2024-03-15] MEDS: Potassium Chloride Oral Tablet 20 MEQ PO (09:52)
[2024-03-15] MEDS: Folic Acid 1 MG Tablet PO (09:52)
[2024-03-15] MEDS: Venlafaxine XR 150 MG Capsule PO (09:53)
[2024-03-15] MEDS: Pantoprazole Sodium 40 MG Tablet PO ×2 (09:53→21:26)
[2024-03-15] MEDS: Menthol/Lanolin/Calamine/Znox 113 GM Tube 1 APPLIC TOPICAL ×2 (09:53→21:27)
[2024-03-15] MEDS: Senna/Docusate Sodium 1 Tablet 2 TABLET PO ×2 (09:54→21:26)
[2024-03-15] MEDS: Nystatin Powder 15gm Bottle 1 APPLIC TOPICAL ×2 (09:54→21:27)
--- NOTE | 2024-03-15 12:16 | CASEMGMT ---
Addendum entered by Danial Lau 03/15/24 14:32: GEORGIANA spoke with Kathy from Sleep Lab regarding patient's required face to face. January reviewed pulmonary documentation on 03/08. January informed GEORGIANA that she will be discussing referral on Monday, 03/18 with Radha Martin to determine if patient can be scheduled for a sleep study on Monday or Monday. Beds are available for sleep study Mon-Monday. January informed GEORGIANA that she will follow up with GEORGIANA on Sunday 03/18. GEORGIANA notified Dr. Judd Original Note: Social Work SW met with patient's daughterAngeline to provide resources for [facility], [facility], and [facility] cancer support information. SW discussed referral submitted to [facility] and [facility]. Patient's daughter informed GEORGIANA that she discussed building and installing a ramp with her . Patient's family has ordered DME for home. Patient has Wheelchair confirmed delivery via [employer] last . Patient Patient is requesting to discharge on Monday03/18/2024 or 03/19/2024 to complete sleep study. GEORGIANA attempted to contact Sleep Lab to confirm receipt of face to face; no answer. SW left a voicemail to request for follow up. Patient will require a new Home O2 Order and Home O2 evaluation- 6 min walk test to obtain upgrade to concentrator at home. [facility] PT/OT/ST/WRAPPING MACHINE TENDER/SN ordered. GEORGIANA awaiting confirmation of Sleep Study scheduling. NATHALIE Sims
[2024-03-15 14:45] VITALS: BP 113/59; PULSE 114; RESP 20; TEMP 36.5; O2SAT 100
--- NOTE | 2024-03-15 14:46 | NURSING ---
OXYGEN TUBING AND MOISTURE CONTAINER CHANGED AND DATED TODAY.
[2024-03-15] MEDS: MELATONIN 10 MG TABLET PO (21:26)
[2024-03-15] MEDS: Atorvastatin Calcium 40 MG Tablet PO (21:26)
[2024-03-15 22:40] VITALS: PULSE 95; RESP 12; RESP 22; O2SAT 93
[2024-03-16 03:15] VITALS: PULSE 99; RESP 12; RESP 20; O2SAT 94
[2024-03-16] MEDS: Umeclidinium Bromide Inhaler 1 PUFF INHALATION (09:11)
[2024-03-16] MEDS: Pantoprazole Sodium 40 MG Tablet PO ×2 (09:12→21:35)
[2024-03-16] MEDS: Folic Acid 1 MG Tablet PO (09:12)
[2024-03-16] MEDS: Venlafaxine XR 150 MG Capsule PO (09:12)
[2024-03-16] MEDS: Aspirin E.C. 81 MG Tablet PO (09:12)
[2024-03-16] MEDS: Potassium Chloride Oral Tablet 20 MEQ PO (09:13)
[2024-03-16] MEDS: Fluticasone/Salmeterol 232-14 Inhaler 1 PUFF INHALATION ×2 (09:15→21:34)
[2024-03-16] MEDS: Ipratropium Bromide 0.06% NASAL SPRAY 2 SPRAY NASAL ×2 (09:15→21:34)
[2024-03-16] MEDS: Menthol/Lanolin/Calamine/Znox 113 GM Tube 1 APPLIC TOPICAL ×2 (09:16→21:40)
[2024-03-16] MEDS: Nystatin Powder 15gm Bottle 1 APPLIC TOPICAL ×2 (09:16→21:40)
[2024-03-16 09:37] VITALS: BP 135/84; PULSE 104; RESP 18; TEMP 36.4; O2SAT 5
[2024-03-16 20:10] VITALS: PULSE 97
[2024-03-16] MEDS: MELATONIN 10 MG TABLET PO (21:35)
[2024-03-16] MEDS: Senna/Docusate Sodium 1 Tablet 2 TABLET PO (21:35)
[2024-03-16] MEDS: Atorvastatin Calcium 40 MG Tablet PO (21:35)
[2024-03-17 00:15] VITALS: PULSE 91; RESP 12; RESP 24; O2SAT 95
[2024-03-17 03:38] VITALS: PULSE 94; RESP 12; RESP 22; O2SAT 97
[2024-03-17 07:19] LABS: Hemoglobin 8.1 g/dL (13.0-16.5)
[2024-03-17 07:44] VITALS: O2SAT 93
[2024-03-17] MEDS: Ipratropium Bromide 0.06% NASAL SPRAY 2 SPRAY NASAL ×2 (08:32→22:56)
[2024-03-17] MEDS: Umeclidinium Bromide Inhaler 1 PUFF INHALATION (08:32)
[2024-03-17] MEDS: Fluticasone/Salmeterol 232-14 Inhaler 1 PUFF INHALATION ×2 (08:32→22:56)
[2024-03-17] MEDS: Aspirin E.C. 81 MG Tablet PO (08:33)
[2024-03-17] MEDS: Venlafaxine XR 150 MG Capsule PO (08:33)
[2024-03-17] MEDS: Pantoprazole Sodium 40 MG Tablet PO ×2 (08:33→22:57)
[2024-03-17] MEDS: Potassium Chloride Oral Tablet 20 MEQ PO (08:33)
[2024-03-17] MEDS: Folic Acid 1 MG Tablet PO (08:34)
[2024-03-17] MEDS: Menthol/Lanolin/Calamine/Znox 113 GM Tube 1 APPLIC TOPICAL ×2 (08:34→22:57)
[2024-03-17] MEDS: Nystatin Powder 15gm Bottle 1 APPLIC TOPICAL ×2 (08:44→22:57)
[2024-03-17 14:40] VITALS: BP 111/69; PULSE 99; RESP 18; TEMP 36.4; O2SAT 99
[2024-03-17] MEDS: Atorvastatin Calcium 40 MG Tablet PO (22:57)
[2024-03-17] MEDS: MELATONIN 10 MG TABLET PO (22:57)
[2024-03-18] VITALS (7 sets, daily range): BP systolic 140; BP diastolic 88; PULSE 91–95; RESP 12–26; TEMP 36.3; O2SAT 79–100
--- NOTE | 2024-03-18 09:00 | CASEMGMT ---
Addendum entered by Danial Lau 03/18/24 18:24: Patient Home O2 evaluation and order submitted to [facility] with supportive documentation from Physician, Dr. Judd Addendum entered by Danial Lau 03/18/24 12:29: GEORGIANA received a return call from Sleep Lab, Maria. Maria informed GEORGIANA that Pulmonary is out of office today. Pulmonary will return tomorrow, 03/19/2024. Maria requested that the patient has an ABG ordered complete on supplemental oxygen; not BIPAP. In addition, Maria requested that a overnight pulse oximetry be completed with patient on BIPAP. Maria will review results with Pulmonary to determine appropriate care plan. Maria has patient on list for sleep lab on Monday night pending results of ABG and Pulmonary discussion. GEORGIANA informed BRANDI Lowe. Original Note: Social Work SW spoke with patient at bedside to discuss discharge. Patient would like to discharge home with home health care this week. GEORGIANA discussed potential sleep study with patient. Patient is awaiting review determination from Sleep Lab to determine, if sleep study is required. Patient completed [facility] for current long term facility services; effective 03/18/2024; anticipates discharge 03/19/2024 pending sleep study review. 1038- GEORGIANA contacted Sleep Lab and spoke with Maria regarding sleep study review. Maria informed GEORGIANA that she spoke with Sleep Lab Per Diem Physical Therapist regarding recommendations. Sleep Lab Per Diem Physical Therapist believes that the patient can be approved for a Home Bipap with just Arterial Blood Gas (ABG) and O2 labs. Patient needs ABG drawn. Maria informed GEORGIANA that she will be contacting Pulmonary to discuss recommendations further before providing final recommendation for patient study for home BIPAP. Maria will follow up with GEORGIANA post discussion with Pulmonary. NATHALIE Sims
[2024-03-18] MEDS: Umeclidinium Bromide Inhaler 1 PUFF INHALATION (09:44)
[2024-03-18] MEDS: Fluticasone/Salmeterol 232-14 Inhaler 1 PUFF INHALATION ×2 (09:45→20:45)
[2024-03-18] MEDS: Ipratropium Bromide 0.06% NASAL SPRAY 2 SPRAY NASAL ×2 (09:45→20:44)
[2024-03-18] MEDS: Aspirin E.C. 81 MG Tablet PO (09:50)
[2024-03-18] MEDS: Pantoprazole Sodium 40 MG Tablet PO ×2 (09:50→20:47)
[2024-03-18] MEDS: Folic Acid 1 MG Tablet PO (09:50)
[2024-03-18] MEDS: Venlafaxine XR 150 MG Capsule PO (09:51)
[2024-03-18] MEDS: Potassium Chloride Oral Tablet 20 MEQ PO (09:51)
[2024-03-18] MEDS: Nystatin Powder 15gm Bottle 1 APPLIC TOPICAL ×2 (09:54→20:43)
[2024-03-18] MEDS: Menthol/Lanolin/Calamine/Znox 113 GM Tube 1 APPLIC TOPICAL ×2 (09:55→20:42)
--- NOTE | 2024-03-18 12:02 | NURSING ---
Assessing 02 requirements during walking test. Patient was resting in chair on 5L 02 NC, sat 98%. Ambulated on baseline on 6L 02, initially sats in low 90s, patient able to walk less than 20 feet before feeling like he needed to sit down. Walking back to his chair, sats dropped to 79%. Seated in chair and placed on 8L 02, took a couple minutes for sats to return to >89%.
--- NOTE | 2024-03-18 12:20 | NURSING ---
Received order from sleep lab that they need ABG drawn and an overnight trending pulse ox while patient on sleep lab. Orders entered. Orders from Dr. Rees's office to draw CBC and CMP tomorrow morning 03/19/24, so patient won't need to have labs drawn at Dr. Rees appt on Monday.
[2024-03-18 14:48] LABS: Allen Test Positive; Base Excess 5 mmol/L (-2 to +2); Bicarbonate 28.9 mmol/L (22-26); Blood Gas Specimen Type ART; Mode Not entered; O2 Delivery Device Cannula; PO2 79 mmHG (75-100); SITE R Radial; SO2 96 % (95-99); Total Carbon Dioxide 30 mmol/L; pCO2 40.2 mmHg (35-45); pH 7.47 (7.35-7.45)
[2024-03-18] MEDS: MELATONIN 10 MG TABLET PO (20:47)
[2024-03-18] MEDS: Atorvastatin Calcium 40 MG Tablet PO (20:47)
[2024-03-18] MEDS: Senna/Docusate Sodium 1 Tablet 2 TABLET PO (20:48)
[2024-03-19 01:24] VITALS: PULSE 94; RESP 12; RESP 28; O2SAT 96
[2024-03-19 05:43] VITALS: PULSE 90; O2SAT 97
[2024-03-19 06:46] VITALS: PULSE 94; O2SAT 93
[2024-03-19 06:51] LABS: Absolute Lymphocyte Count 1.18 X10^3/uL (0.83-4.51); Absolute Neutrophil Count 2.6 X10^3/uL (2.0-7.7); Basophil# 0.02 X10^3/uL; Basophil% 0.4 % (0-1); Eosinophil# 0.02 X10^3/uL; Eosinophils% 0.4 % (0-5); Hematocrit 24.4 % (40-54); Hemoglobin 8.1 g/dL (13.0-16.5); Lymphocyte # 1.18 X10^3/ul (0.83-4.51); Lymphocyte % 24.8 % (19-41); Mean Corp Hgb Conc 33.2 g/dL (32-36); Mean Corpuscular Hgb 32.7 pg (27.0-32.0); Mean Corpuscular Volume 98.4 fL (80-94); Monocyte# 0.89 X10^3/uL; Monocyte% 18.7 % (0-10); NRBC Flagged by Analyzer 0 % (0-5); Neutrophil # 2.55 X10^3/uL (2.7-7.7); Neutrophil % 53.6 % (47-70); POSITIVE MORPHOLOGY YES; Platelet Count 295 K/mm3 (150-450); RBC Distribution Width CV 21.2 % (11.6-14.6); Red Blood Count 2.48 M/mm3 (4.6-6.2); White Blood Count 4.8 K/mm3 (4.4-11.0)
[2024-03-19 07:04] LABS: Differential Indicated SCAN CRITERIA MET
[2024-03-19 07:38] LABS: ALB/GLOB Ratio 0.6 RATIO (0.9-2.4); AST(SGOT) 37 U/L (15-37); Alanine Aminotransfer ALT/SGPT 49 U/L (16-61); Albumin, Serum 2.5 g/dL (3.2-5.0); Alkaline Phosphatase 120 U/L (45-117); Anion Gap 5 (5-15); BUN 12 mg/dL (7-18); BUN/Creat Ratio 22.1 RATIO (10-20); Calcium,Total 8.9 mg/dL (8.5-10.1); Chloride 97 mmol/L (98-107); Creatinine, Serum 0.54 mg/dL (0.70-1.30); EST Glomerular Filtration Rate 159 mL/min (>60); Est Glom Filt Rate - Afr Amer 193 mL/min (>60); Glucose 92 mg/dL (74-106); Potassium 3.6 mmol/L (3.5-5.1); Protein, Total 6.5 g/dL (6.4-8.2); Sodium Level 134 mmol/L (136-145)
[2024-03-19] MEDS: Umeclidinium Bromide Inhaler 1 PUFF INHALATION (08:45)
[2024-03-19] MEDS: Fluticasone/Salmeterol 232-14 Inhaler 1 PUFF INHALATION ×2 (08:45→20:05)
[2024-03-19] MEDS: Potassium Chloride Oral Tablet 20 MEQ PO (08:46)
[2024-03-19] MEDS: Menthol/Lanolin/Calamine/Znox 113 GM Tube 1 APPLIC TOPICAL ×2 (08:47→20:07)
[2024-03-19] MEDS: Venlafaxine XR 150 MG Capsule PO (08:47)
[2024-03-19] MEDS: Aspirin E.C. 81 MG Tablet PO (08:47)
[2024-03-19] MEDS: Pantoprazole Sodium 40 MG Tablet PO ×2 (08:47→20:08)
[2024-03-19] MEDS: Folic Acid 1 MG Tablet PO (08:47)
[2024-03-19] MEDS: Ipratropium Bromide 0.06% NASAL SPRAY 2 SPRAY NASAL ×2 (08:47→20:04)
[2024-03-19] MEDS: Nystatin Powder 15gm Bottle 1 APPLIC TOPICAL ×2 (08:48→20:07)
[2024-03-19 08:59] LABS: Differential Comment SCANNED
[2024-03-19 09:00] LABS: Anisocytosis 1+
--- NOTE | 2024-03-19 11:30 | CASEMGMT ---
Social Work SW met with patient at bedside to complete Discharge MDS. Patient BIM () and PhQ-2 (10/30) Patient informed SW that sometimes he is not interested in doing much when he does not have the energy. Patient informed SW that he feels his energy has improved. SW informed patient that Sleep Lab will be providing updates regarding labs completed last night. SW will provide updates. 2270- GEORGIANA notified [facility] Intake Admission, Beatriz that the patient will be discharging from TCU. [facility] will contact family to arrange SOC 03/20/2024. [id number]- GEORGIANA spoke with Sleep Lab, Maria. Maria informed SW that she has not received updates from Pulmonary at this time. Maria reviewed ABG labs; patient does not have a qualifying result for home BIPAP at this time. Patient will require a sleep study. Maria requested for to provide Overnight Pulse ox result via fax. GEORGIANA faxed overnight pulse ox to sleep lab fax: [phone]. 1369- GEORGIANA received a return call from [facility] confirming patient's Sleep Lab scheduled for 03/19/2024 at 8PM. GEORGIANA notified private duty lpn, patient and daughter, Angeline at bedside. Patient's daughter, Angeline was notified that she will need to be at sleep lab to assist with care. Dr. Judd was notified of Sleep Lab appointment via [employer] Discharge: [facility] PT/OT/ST/SN/ANIMAL KILLER; [facility] wheelchair and Home O2 concentrator; Sleep lab at 8PM for Overnight NATHALIE Sims
[2024-03-19 14:04] VITALS: BP 109/67; PULSE 103; RESP 18; TEMP 36.6; O2SAT 95
[2024-03-19 17:13] VITALS: BP 112/62; PULSE 98; RESP 18; TEMP 36.8; O2SAT 93
[2024-03-19] MEDS: Senna/Docusate Sodium 1 Tablet 2 TABLET PO (20:08)
[2024-03-19] MEDS: Atorvastatin Calcium 40 MG Tablet PO (20:08)
[2024-03-19] MEDS: MELATONIN 10 MG TABLET PO (20:08)
[2024-03-19 20:17] VITALS: BP 112/62; PULSE 98; RESP 18; TEMP 36.8; O2SAT 93
== END 2024-03-19 20:15 | disposition home health service (06) | DRG 193 ==
PROVIDERS: Admitting Provider Family Medicine Geriatric Medicine; Referring Provider Family Medicine Geriatric Medicine; Visit Provider Family Medicine Geriatric Medicine
DX: J18.9 Pneumonia, unspecified organism (principal); J96.21 Acute and chronic respiratory failure with hypoxia; C79.9 Secondary malignant neoplasm of unspecified site; B37.81 Candidal esophagitis; J44.0 Chronic obstructive pulmonary disease with (acute) lower respiratory infection; C34.90 Malignant neoplasm of unspecified part of unspecified bronchus or lung; J44.1 Chronic obstructive pulmonary disease with (acute) exacerbation; D69.6 Thrombocytopenia, unspecified; I10 Essential (primary) hypertension; F32.A Depression, unspecified; E53.8 Deficiency of other specified B group vitamins; E78.00 Pure hypercholesterolemia, unspecified; F17.220 Nicotine dependence, chewing tobacco, uncomplicated; K26.9 Duodenal ulcer, unspecified as acute or chronic, without hemorrhage or perforation; Z79.51 Long term (current) use of inhaled steroids; Z79.899 Other long term (current) drug therapy; Z99.81 Dependence on supplemental oxygen; Z79.82 Long term (current) use of aspirin; Y95 Nosocomial condition
CPT/HCPCS: 36415; 36600; 71046; 80048; 80053; 82803; 83930; 83935; 84300; 85014; 85018; 85025; 87070; 87205; 92526; 92610; 94002; 94003; 94762; 97110; 97116; 97162; 97166; 97530; 97535; 97802; J2185; J7050; A4216

== ENCOUNTER → 2024-03-05 | Outpatient (CLI) | payer MEDICARE, OTHER, SELFPAY ==
--- NOTE | 2024-03-05 17:09 | CT_ITS ---
INDICATION: HYPOXIA EXAMINATION: CT CHEST WITHOUT CONTRAST - CT Chest W/O Contrast Injection TECHNIQUE: Helically acquired images were obtained of the chest. A radiation dose optimization technique was used for this scan. IV Contrast dosage and agent: None. COMPARISON: 02/14/2024 FINDINGS: Right internal jugular chest port. LUNGS, PLEURA AND LARGE AIRWAYS: Moderate emphysema. No change in alveolar density in the right lower lobe consistent with right lower lobe pneumonia. Also no change in the small right pleural effusion. No pneumothorax. THYROID: No thyroid lesions. HEART AND PERICARDIUM: Heart size is normal. No pericardial effusion. CORONARY ARTERIES: Coronary artery calcification is seen. VESSELS: Thoracic aorta is not dilated. MEDIASTINUM AND ANNA: No mediastinal or hilar adenopathy. Esophagus is unremarkable. No hiatal hernia. UPPER ABDOMEN: No acute pathology. BONES: No suspicious lytic or blastic abnormality. CT/Chest without Contrast IMPRESSION: No change in right lower lobe pneumonia with a small right pleural effusion. Electronically Signed: Og Umana MD at 21:51 EDT ,
== END | disposition home or self-care (01) ==
LOC: CT 17:06
PROVIDERS: Referring Provider Family Medicine Geriatric Medicine; Visit Provider Family Medicine Geriatric Medicine
DX: J18.9 Pneumonia, unspecified organism (principal); R09.02 Hypoxemia
CPT/HCPCS: 71250

== ENCOUNTER → 2024-03-19 | Outpatient (CLI) | payer MEDICARE, OTHER, SELFPAY | END | disposition home or self-care (01) | LOC: SL 20:23 | PROVIDERS: Visit Provider Nurse Practitioner Acute Care | DX: G47.10 Hypersomnia, unspecified (principal) | CPT/HCPCS: 95810 ==

== ENCOUNTER → 2024-08-05 | Outpatient (CLI) | payer MEDICARE, OTHER, SELFPAY ==
--- NOTE | 2024-08-05 13:11 | CT_ITS ---
INDICATION: MONITOR LUNG CA-IV ONLY EXAMINATION: CT CHEST, ABDOMEN AND PELVIS WITH CONTRAST - CT Chest Abdomen And Pelvis W/ Contrast Injection TECHNIQUE: Helically acquired images were obtained of the chest and abdomen. The protocol utilizes one or more of the following dose reduction techniques: automated exposure control, adjustment of mA and/or kV according to patient size,and/or use of iterative reconstruction technique. IV Contrast dosage and agent: 100 cc of Isovue-300 Oral contrast: None. COMPARISON: Prior study dated: 02/09/2024 FINDINGS: ----Chest: LUNGS, PLEURA AND LARGE AIRWAYS: Right lower lobe consolidation is again seen slightly more dense than the previous examination. The mid small right pleural effusion. Edematous and cystic changes unchanged. No new masses are identified. THYROID: No thyroid lesions. HEART AND PERICARDIUM: Heart size is normal. No pericardial effusion. Coronary calcifications are seen. VESSELS: Atherosclerotic calcifications and tortuosity of the thoracic aorta without evidence of aneurysm. MEDIASTINUM AND ANNA: Few mediastinal nodes in the aortopulmonic window, anterior mediastinum and subcarinal region unchanged. Esophagus is unremarkable. No hiatal hernia. BONES: No suspicious lytic or blastic abnormality. ----Abdomen and pelvis: LIVER: Homogeneous. No focal mass. GALLBLADDER AND BILIARY TREE: No calcified gallstones. Slightly prominent common bile duct. Mild prominence of the proximal pancreatic duct. PANCREAS: No focal cystic or solid mass. SPLEEN: Calcified granulomata. No splenomegaly. ADRENAL GLANDS: No nodules. KIDNEYS AND URETERS: Normal renal size and position. No hydronephrosis. PERITONEUM: No ascites or free air. No other fluid collection. BOWEL: No evidence of acute appendicitis. Density in the stomach could reflect ingested material. No evidence of bowel obstruction. No focal inflammatory change. LYMPH NODES: No enlarged mesenteric or retroperitoneal lymph nodes. VESSELS: Atherosclerotic calcifications of the abdominal aorta and both iliac arteries without evidence of aneurysm. ABDOMINAL WALL: No discrete abdominal wall hernia. BLADDER: Circumferential thickening of the bladder wall could be due to underdistention. Cystitis is less likely. REPRODUCTIVE ORGANS: The prostate is within normal limits. No pelvic mass. BONES: No lytic or blastic abnormality. CT/CT Chest AND Abd W/ Contrast IMPRESSION: 1. Right lower lobe consolidation/tumor slightly more dense and confluent than the previous examination. 2. Otherwise no significant change and new evidence of metastatic disease. Electronically Signed: Enrrique Mack MD at 15:30 EDT ,
[2024-08-05 13:43] LABS: CREATININE FINGERSTICK < 1.0 mg/dL (0.70-1.30); EGFR FINGERSTICK > 60.0000 mL/min (>60)
[2024-08-05] MEDS: 0.9% Saline Lock 10 ML Syringe IV (13:43)
== END | disposition home or self-care (01) ==
LOC: CT 13:10
PROVIDERS: Referring Provider Internal Medicine Medical Oncology; Visit Provider Internal Medicine Medical Oncology
DX: C34.31 Malignant neoplasm of lower lobe, right bronchus or lung (principal)
CPT/HCPCS: 71260; 74160; Q9967; A4216